=== PATIENT | female | born 1975 | race Caucasian/White ===

== ENCOUNTER 2016-10-21 20:12 | Emergency (ER) | payer OTHER ==
[~2016-10-21] VITALS: Ht 167.6 cm; Wt 74.4 kg
[~2016-10-21 20:12] MED LIST: AMITRIPTYLINE50 MG PO; AMOXICILLIN AND1 TA2 PO; BENTYL20 MG PO; CELEXA20 MG PO; CITALOPRAM HYDR20 MG PO; DARVOCET-N 1001 EACH PO; DIFLUCAN150 MG PO; GABAPENTIN100 M1 PO; HYDROCODONE-APA1 TA2 PO; IRON TABLETS325 MG OR; LABETALOL PO; LABETALOL200 MG OR; LEVOTHYROXIN0.125 M2 PO; Mobic7.5 MG PO; NICODERM C21 MG/24 H TD; NORCO 325 MG-51 TAB PO; NORVASC 10MG. T10 MG PO; PERCOCET 10 MG1 EACH PO; PERCOCET1 TA1 PO; PHENERGAN 25MG.25 M1 PO; PRENATAL PLUS1 TA1 OR; PRILOSEC40 MG PO; REGLAN 10 MG TA10 MG PO; RESTORIL 15MG C15 MG OR; TOPAMAX50 MG PO; TOPIRAMATE50 MG PO; VISTARIL25 M1 OR; XANAX0.25 MG PO; ZIAC 10 MG-6.251 TAB PO
--- NOTE | 2016-10-21 20:27 | Emergency Room Report ---
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 N Clinical Suspician of Infection? N Mental Status: 1 - Regular (Normal Baseline) Sepsis Risk:Low Sepsis Risk Have you (or family members/close friends) recently traveled outside the [place]? N If Yes, where/when: Have you had exposure to infectious disease within the past month? N TB? Other? Specify: Source patient, RN notes reviewed, family, old records Exam Limitations no limitations Comment wf with acute sommers with elevated bp w/o trauma or neuro sx Cardiac Chest Pain Chest pain indicative of cardiac No Timing/Duration this evening Severity moderate ALLERGIES Coded Allergies: metoclopramide (Severe, ESOPHAGEAL SPASMS (IV REGLAN ONLY) 10/03/16) meperidine (Intermediate, I-HIVES 10/03/16) morphine (Intermediate, I-RASH 10/03/16) Sulfa (Sulfonamide Antibiotics) (Mild, NA-NAUSEA/VOMITING 10/03/16) Home Medications Reported Medications Bisoprolol Fumarate/Hydrochl (Ziac 10 Mg-6.25 Mg) 1 TAB PO DAILY Topiramate 50 MG PO BID #60 History Medical History General CAD? No Angina: No OR: No Hypertension? Yes Hyperlipidemia? Yes CHF? No DVT? No PE? No COPD? No Asthma? No Anemia? No GERD? No Gastric ulcers? No GI Bleed? No Hernia? No Thyroid Problems? Yes Hypothyroidism? No CVA? No Seizures? No Diabetes? No Insulin Dependent: No Insulin Pump: No Home FSBS? No Renal Insuffiency? No End Stage Renal Disease? No UTI? No Stones? Yes BPH? No GB Disease: Yes Nephritic Syndrome? No Asplenia? No Hepatitis? No Sickle Cell Disease? No Arthritis? No Migraines? Yes Cataracts? No Glaucoma? No MRSA? No HIV? No TB? No Anxiety? No Depression? No Cancer? No More? 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 Respiratory denies cough, denies shortness of breath, denies stridor Cardiovascular denies chest pain, denies syncope Gastrointestinal denies abdominal pain, nausea Genitourinary denies: dysuria, frequency, hesitancy, hematuria. Musculoskeletal denies back pain, denies joint pain, denies joint swelling, denies neck pain Skin denies rash Psychiatric/Neurological headache, denies seizure Physical Exam Vital Signs Vital Signs Date Time Temp Pulse Resp B/P Pulse O2 O2 Flow FiO2 Ox Delivery Rate 10/21 2340 16 10/21 2322 101 18 128/99 99 10/21 2256 98 18 160/97 99 10/219 10/217 117 18 168/104 99 10/215 112 18 168/104 99 10/21 2218 18 10/215 92 18 180/108 99 10/213 97 18 189/111 99 10/21 2140 10/210 98 18 192/110 99 10/215 10/21 110 18 180/106 99 10/21 2022 18 10/21 2015 98.7 140 18 216/111 99 - WBC >12,000 or <4,000 or 10% bands? 2 or more SIRS Criteria Met? B/P:128/99 MAP:146 Creatinine >2.0? UA output<0.5ml/kg/hr for 2 hrs? Platelet count >100,000? Lactate >2.0mmol/1? INR >1.2 or PTT > than 60 sec? Evidence of Organ Dysfunction? Provider documented clinical suspician of infection? N Sepsis Criteria Count: 1 Sepsis Risk: General Appearance no apparent distress Eye Exam - bilateral eye PERRL, bilateral eye EOMI Ear, Nose, Throat normal ENT inspection Neck supple Respiratory Status No: respiratory distress. 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 No Results/Orders Current Medication Orders Sig/Matthew Start time Last Medication Dose Route Stop Time Status Admin Hydromorphone HCl 1 MG ONCE ONE 10/215 r 10/21 IV 10/21 2345 2340 Promethazine HCl 12.5 MG ONCE ONE 10/21 2345 AC 10/21 IV 10/21 2346 2339 Sodium Chloride 25 ML ONCE ONE 10/215 AC IV 10/21 2359 Promethazine HCl 0 .STK-MED ONE 10/21 2337 DC .ROUTE Ketorolac 30 MG ONCE ONE 10/21 2300 DC 10/21 Tromethamine IV 10/21 230 224 Ketorolac 0 .STK-MED ONE 10/21 2246 DC Tromethamine .ROUTE Clonidine HCl 0.1 MG ONCE ONE 10/21 2214 DC 10/21 PO 10/21 2215 221 Lorazepam 0.5 MG ONCE ONE 10/21 2214 DC 10/21 IV 10/21 2215 221 Clonidine HCl 0 .STK-MED ONE 10/21 2209 DC .ROUTE Lorazepam 0 .STK-MED ONE 10/21 2209 DC .ROUTE Promethazine HCl 0 .STK-MED ONE 10/21 2131 DC .ROUTE Hydromorphone HCl 0 .STK-MED ONE 10/21 2130 DCr .ROUTE Hydromorphone HCl 1 MG ONCE ONE 10/21 2129 DCr 10/21 IV 10/21 Promethazine HCl 12.5 MG ONCE ONE 10/21 2129 DC 10/21 IV 10/21 Sodium Chloride 25 ML ONCE ONE 10/21 2129 DC 10/21 IV 10/21 Hydromorphone HCl 1 MG ONCE ONE 10/21 2114 DCr 10/21 IV 10/21 Clonidine HCl 0.1 MG ONCE ONE 10/21 2029 DC 10/21 PO 10/21 Clonidine HCl 0 .STK-MED ONE 10/21 2025 DC .ROUTE Promethazine HCl 0 .STK-MED ONE 10/21 2020 DC .ROUTE Hydromorphone HCl 0 .STK-MED ONE 10/21 2019 DCr .ROUTE Hydromorphone HCl 1 MG ONCE ONE 10/21 2014 DCr 10/21 IV 10/21 Promethazine HCl 12.5 MG ONCE ONE 10/21 2014 DC 10/21 IV 10/21 Sodium Chloride 25 ML ONCE ONE 10/21 2014 DC 10/21 IV 10/21 Orders Procedure Date/time Status DIET-NOTHING BY MOUTH 10/[address] HEAD W/O CONTRAST 10/[address] SCAN REQ 10/21 2126 Complete XRAY/CT/US XRAY/CT/US CT head CT interpretation by discussed w/radiologist Time results known: 2207 CT Results normal/NAD Departure Departure Time of Disposition 2334 Disposition DC Home or Self Care(routine) Clinical Impression Primary Impression: Hypertensive emergency Secondary Impressions: Headache Qualifiers: Headache type: unspecified Headache chronicity pattern: acute headache Intractability: intractable Qualified Code: R51 - Headache Condition STABLE Referrals Roberta BARRETT,Tristian Ramirez (Family) Patient Instructions DI for Headache Additional Instructions fluids and see pcp for follow up Discharge Counseling Counseled pt/family regarding diagnosis, test results, medications/RX, follow up needs Prescriptions Current Visit Scripts Amlodipine Besylate (Norvasc) 5 MG PO DAILY #30 TAB ED Critical Care Critical Care No at 1924
[2016-10-21] MEDS ORDERED: NORVASC 5MG. TAB5 MG PO (23:43)
[2016-10-21 23:46] VITALS: BP 128/99
--- NOTE | 2016-10-22 08:44 | RADIOLOGY REPORT PS360 ---
CT HEAD W/O CONTRAST HISTORY: HEADACHE, ELEVATED BP ORDERING PHYSICIAN: Wyatt Granados MD PATIENT AGE: 41 years COMPARISON: None TECHNIQUE: Axial images obtained without contrast. Brain and bone windows reviewed. FINDINGS: No midline shift, mass effect, intracranial hemorrhage, hydrocephalus, or extra-axial fluid collection is evident. There are few nonspecific areas of decreased attenuation within the white matter for which MRI may be of further value. The most apparent of these regions is in the left parietal lobe subcortical area The calvarium has an unremarkable appearance. No mastoid effusion. The visualized paranasal sinuses are unremarkable. IMPRESSION: 1. No acute intracranial bleed. 2. No midline shift. 3. Nonspecific decreased attenuation within the white matter. MRI may be of further value.
[2016-12-23] MEDS ORDERED: METOPROLOL SUCC50 M1 PO (13:32)
== END 2016-10-21 23:51 | disposition home or self-care (01) ==
LOC: ER 20:12
DX: I10 Essential (primary) hypertension (principal); R51 Headache; Z72.0 Tobacco use

== ENCOUNTER 2017-01-24 00:27 | Emergency (ER) | payer OTHER ==
[~2017-01-24] VITALS: Ht 167.6 cm; Wt 68.9 kg
[~2017-01-24 00:27] MED LIST changes: +METOPROLOL SUCC50 M1 PO; +NORVASC 5MG. TAB5 MG PO
--- NOTE | 2017-01-24 01:10 | Emergency Room Report ---
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 N Clinical Suspician of Infection? N Mental Status: 1 - Regular (Normal Baseline) Sepsis Risk:Possible Sepsis Risk Have you (or family members/close friends) recently traveled outside the [place]? N If Yes, where/when: Have you had exposure to infectious disease within the past month? N TB? Other? Specify: Source patient, RN notes reviewed, family, old records Exam Limitations no limitations Comment pt with viral illness over the last few days and this has triggered headache - pt with similiar sommers in past Cardiac Chest Pain Chest pain indicative of cardiac No Timing/Duration this evening Severity moderate ALLERGIES Coded Allergies: Sulfa (Sulfonamide Antibiotics) (01/24/17) meperidine (From DEMEROL) (01/24/17) metoclopramide (From REGLAN) (01/24/17) morphine (01/24/17) Home Medications Active Scripts Amlodipine Besylate (Norvasc) 5 MG PO DAILY #30 TAB Prov: 10/21/16 Reported Medications Topiramate 50 MG PO DAILY #60 TAB Metoprolol Succinate Xl (Metoprolol ER 50MG) 50 MG PO DAILY History Medical History General CAD? No Angina: No NC: No Hypertension? Yes Hyperlipidemia? Yes CHF? No DVT? No PE? No COPD? No Asthma? No Anemia? No GERD? No Gastric ulcers? No GI Bleed? No Hernia? No Thyroid Problems? Yes Hypothyroidism? No CVA? No Seizures? No Diabetes? No Insulin Dependent: No Insulin Pump: No Home FSBS? No Renal Insuffiency? No End Stage Renal Disease? No UTI? No Stones? Yes BPH? No GB Disease: Yes Nephritic Syndrome? No Asplenia? No Hepatitis? No Sickle Cell Disease? No Arthritis? No Migraines? Yes Cataracts? No Glaucoma? No MRSA? No HIV? No TB? No Anxiety? No Depression? No Cancer? No More? 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 Respiratory see HPI, cough, denies shortness of breath, denies wheezing Cardiovascular denies chest pain, denies palpitations, denies syncope Gastrointestinal denies abdominal pain, denies diarrhea, denies vomiting Genitourinary denies: dysuria, frequency, hesitancy, hematuria. Musculoskeletal denies back pain, denies joint pain, denies joint swelling, denies neck pain Skin denies rash Psychiatric/Neurological see HPI, headache, denies seizure Physical Exam Vital Signs Vital Signs Date Time Temp Pulse Resp B/P Pulse O2 O2 Flow FiO2 Ox Delivery Rate 01/24 0253 98.3 105 20 165/108 98 01/24 0225 105 20 165/108 98 01/24 0215 20 01/24 0153 109 20 167/100 98 01/24 0120 117 20 178/113 98 01/24 0103 20 01/24 0038 98.3 127 20 162/114 98 - WBC >12,000 or <4,000 or 10% bands? 2 or more SIRS Criteria Met? B/P:165/108 MAP:130 Creatinine >2.0? UA output<0.5ml/kg/hr for 2 hrs? Platelet count >100,000? Lactate >2.0mmol/1? INR >1.2 or PTT > than 60 sec? Evidence of Organ Dysfunction? Provider documented clinical suspician of infection? N Sepsis Criteria Count: 2 Sepsis Risk: Possible Sepsis Risk General Appearance no apparent distress Eye Exam - bilateral eye PERRL, bilateral eye EOMI Ear, Nose, Throat normal ENT inspection Neck supple Respiratory Status No: respiratory distress. 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 No Results/Orders Current Medication Orders Sig/Matthew Start time Last Medication Dose Route Stop Time Status Admin Hydromorphone HCl 1 MG ONCE ONE 01/24 0300 r IV 01/24 0301 Promethazine HCl 12.5 MG ONCE ONE 01/24 0300 AC IV 01/24 0301 Sodium Chloride 25 ML ONCE ONE 01/24 0300 AC IV 01/24 0314 Promethazine HCl 0 .STK-MED ONE 01/24 0253 DC .ROUTE Hydromorphone HCl 0 .STK-MED ONE 01/24 0252 DCr .ROUTE Promethazine HCl 0 .STK-MED ONE 01/24 0210 DC .ROUTE Sodium Chloride 25 ML .STK-MED ONE 01/24 0210 DC IV Hydromorphone HCl 1 MG ONCE ONE 01/24 0200 DCr 01/24 IV 01/24 0201 0215 Promethazine HCl 12.5 MG ONCE ONE 01/24 0200 DC 01/24 IV 01/24 0201 0213 Sodium Chloride 25 ML ONCE ONE 01/24 0200 DC 01/24 IV 01/24 0214 0214 Sodium Chloride 10 ML PRN PRN 01/24 0115 AC IV 01/25 0105 Promethazine HCl 0 .STK-MED ONE 01/24 0056 DC .ROUTE Sodium Chloride 1,000 ML .STK-MED ONE 01/24 0056 DC IV Hydromorphone HCl 0 .STK-MED ONE 01/24 0055 DCr .ROUTE Sodium Chloride 25 ML .STK-MED ONE 01/24 0055 DC IV Hydromorphone HCl 1 MG ONCE ONE 01/24 0045 DCr 01/24 IV 01/24 0046 0103 Promethazine HCl 12.5 MG ONCE ONE 01/24 0045 DC 01/24 IV 01/24 0046 0101 Sodium Chloride 1,000 ML .Q1H1M 01/24 0045 DC 01/24 IV 01/24 0145 0102 Sodium Chloride 10 ML PRN PRN 01/24 0045 AC IV 01/25 0044 Sodium Chloride 25 ML ONCE ONE 01/24 0045 DC 01/24 IV 01/24 0059 0102 Orders Procedure Date/time Status IV SALINE LOCK 01/24 105 Active Departure Departure Time of Disposition 0252 Disposition DC Home or Self Care(routine) Clinical Impression Primary Impression: Headache Qualifiers: Headache type: unspecified Headache chronicity pattern: acute headache Intractability: intractable Qualified Code: R51 - Headache Secondary Impressions: Hypertension Qualifiers: Hypertension type: unspecified secondary hypertension Qualified Code: I15.9 - Secondary hypertension, unspecified Condition STABLE Referrals Roberta BARRETT,Tristian Ramirez (Family) Patient Instructions DI for Headache Additional Instructions use meds and see pcp for follow up Discharge Counseling Counseled pt/family regarding diagnosis, follow up needs ED Critical Care Critical Care No at 0256
[2017-01-24 03:00] VITALS: BP 165/109
--- OUTSIDE RECORDS SUMMARY | 2017-01-25 21:37 | External Medical Summary Rpt ---
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 BL # ET 03 93 [place] 00 02 03 2 30 7 RI 87 HARP Ac OM 60 -1 -0 .0 TE 06 RP ti ET 35 5- 6- 00 71 EL ve HARP 43 20 20 AI ZI 82 11 11 D GE NE 1 PH RA AR LD 25 MA R CY MG 03 TA 93 BL 8 ET # 03 93 LA 00 01 02 3 90 30 RI 86 HARP Ac BE 17 -2 -2 .0 TE 83 RP ti TA 24 8- 4- 00 87 EL ve LO 36 20 20 AI L 56 11 11 D GE HC 0 PH RA L AR LD 20 MA R 0 CY MG 03 TA 93 BL 8 ET # 03 93 AC 00 02 02 12 3 RI 87 RU Ac ET 40 -1 -1 .0 TE 11 SH ti AM 60 7- 7- 00 08 ve IN 48 20 20 AI NE OP 40 11 11 D IL HE 1 PH C N- AR CO MA D CY #3 03 TA 93 BL 8 ET # 03 93 [place] 00 02 02 2 30 7 RI 87 HARP Ac OM 60 -1 -1 .0 TE 06 RP ti ET 35 5- 5- 00 71 EL ve HARP 43 20 20 AI ZI 82 11 11 D GE NE 1 PH RA AR LD 25 MA R CY MG 03 TA 93 BL 8 ET # 03 93 LA 00 01 01 3 90 30 RI 86 HARP Ac BE 17 -2 -2 .0 TE 83 RP ti TA 24 8- 8- 00 87 EL ve LO 36 20 20 AI L 56 11 11 D GE HC 0 PH RA L AR LD 20 MA R 0 CY MG 03 TA 93 BL 8 ET # 03 93 TE 67 01 01 30 30 RI 86 HARP Ac MA 87 -2 -2 .0 TE 72 RP ti ZE 70 0- 0- 00 71 EL ve PA 14 20 20 AI M 60 11 11 D GE 15 1 PH RA AR LD MG MA R CY CA PS 03 UL 93 E 8 # 03 93 ON 63 12 01 1 12 30 RI 86 HARP Ac DA 30 -2 -2 .0 TE 37 RP ti NS 40 4- 0- 00 25 EL ve ET 45 20 20 AI RO 83 10 11 D GE N 0 PH RA HC AR LD L MA R 4 CY MG 03 TA 93 BL 8 ET # 03 93 LA 00 01 01 30 10 RI 86 HARP Ac BE 17 -1 -1 .0 TE 64 RP ti TA 24 4- 4- 00 27 EL ve LO 36 20 20 AI L 56 11 11 D GE HC 0 PH RA L AR LD 20 MA R 0 CY MG 03 TA 93 BL 8 ET # 03 93 [place] 00 01 01 20 5 RI 86 WE Ac OM 60 -1 -1 .0 TE 62 HR ti ET 35 3- 3- 00 35 MA ve HARP 43 20 20 AI N ZI 82 11 11 D II NE 1 PH I AR WI 25 MA LL CY IA MG M 03 E TA 93 BL 8 ET # 03 93 ZA 13 12 01 5 30 30 RI 86 HARP Ac TE 81 -0 -0 .0 TE 07 RP ti AN 10 2- 5- 00 29 EL ve -P 58 20 20 AI N 19 10 11 D GE TA 0 PH RA BL AR LD ET MA R CY 03 93 8 # 03 93 ON 62 12 12 1 12 30 RI 86 HARP Ac DA 75 -2 -2 .0 TE 37 RP ti NS 60 4- 4- 00 25 EL ve ET 13 20 20 AI RO 00 10 10 D GE N 1 PH RA HC AR LD L MA R 4 CY MG 03 TA 93 BL 8 ET # 03 93 CA 00 08 12 5 [address] Ac RV 09 -1 -1 .0 TE 58 EP ti ED 37 6- 3- 00 37 HE ve IL 29 20 20 AI NS OL 60 10 10 D 1 PH DO 25 AR N MA R MG CY TA 03 BL 93 ET 8 # 03 93 ZA 13 12 12 5 30 30 RI 86 HARP Ac TE 81 -0 -0 .0 TE 07 RP ti AN 10 2- 2- 00 29 EL ve -P 58 20 20 AI N 19 10 10 D GE TA 0 PH RA BL AR LD ET MA R CY 03 93 8 # 03 93 FE 00 12 12 5 90 90 RI 86 HARP Ac RR 67 -0 -0 .0 TE 07 RP ti OU 70 2- 2- 00 27 EL ve S 07 20 20 AI GLASS 00 10 10 D GE LF 1 PH RA AT AR LD E MA R 32 CY 5 MG 03 93 TA 8 BL # ET 03 93 00 11 11 12 4 RI 85 RU Ac 60 -2 -2 .0 TE 91 SH ti 33 2- 2- 00 45 ve 88 20 20 AI NE 42 10 10 D IL 1 PH C AR MA CY 03 93 8 # 03 93 CA 00 08 11 5 [address] Ac RV 09 -1 -1 .0 TE 58 EP ti ED 37 6- 6- 00 37 HE ve IL 29 20 20 AI NS OL 60 10 10 D 1 PH DO 25 AR N MA R MG CY TA 03 BL 93 ET 8 # 03 93 CA 00 08 10 5 [address] Ac RV 09 -1 -1 .0 TE 58 EP ti ED 37 6- 7- 00 37 HE ve IL 29 20 20 AI NS OL 60 10 10 D 1 PH DO 25 AR N MA R MG CY TA 03 BL 93 ET 8 # 03 93 CA 00 08 09 5 [address] Ac RV 09 -1 -1 .0 TE 58 EP ti ED 37 6- 2- 00 37 HE ve IL 29 20 20 AI NS OL 60 10 10 D 1 PH DO 25 AR N MA R MG CY TA 03 BL 93 ET 8 # 03 93 CA 00 08 08 5 [address] Ac RV 09 -1 -1 .0 TE 58 EP ti ED 37 6- 6- 00 37 HE ve IL 29 20 20 AI NS OL 60 10 10 D 1 PH DO 25 AR N MA R MG CY TA 03 BL 93 ET 8 # 03 93 CA 00 07 07 3 [address] Ac RV 09 -3 -3 .0 TE 37 EP ti ED 37 0- 0- 00 22 HE ve IL 29 20 20 AI NS OL 50 10 10 D 1 PH DO 12 AR N .5 MA R CY MG 03 TA 93 BL 8 ET # 03 93 AL 00 06 07 2 [address] [place] 60 -0 -2 .0 TE 73 EP ti AZ 32 9- 5- 00 64 HE ve OL 12 20 20 AI NS AM 82 10 10 D 1 PH DO 0. AR N 5 MA R MG CY TA 03 BL 93 ET 8 # 03 93 ER 00 02 07 5 28 28 RI 83 CA Ac RI 55 -2 -1 .0 TE 45 MP ti N 50 4- 9- 00 85 BE ve 0. 34 20 20 AI LL 35 45 10 10 D 8 PH BE MG AR RR MA Y TA CY A BL ET 03 93 8 # 03 93 CA 00 04 07 2 60 30 WA 70 BE Ac RV 37 -2 -0 .0 L- 68 SS ti ED 83 7- 4- 00 MA 31 ON ve IL 63 20 20 RT 2 OL [address] 1 PH EP 12 AR HE .5 MA N CY A MG # TA 10 BL 05 ET 91 AL 00 06 07 2 [address] Ac [place] 60 -0 -0 .0 TE 73 EP ti AZ 32 9- 4- 00 64 HE ve OL 12 20 20 AI NS AM 82 10 10 D 1 PH DO 0. AR N 5 MA R MG CY TA 03 BL 93 ET 8 # 03 93 ANTONIO 52 02 06 5 28 28 RI 83 CA Ac LI 54 -2 -1 .0 TE 45 MP ti VE 40 4- 6- 00 85 BE ve TT 89 20 20 AI LL E 22 10 10 D TA 8 PH BE BL AR RR ET MA Y CY A 03 93 8 # 03 93 AL 59 06 06 2 [address] [place] 76 -0 -0 .0 TE 73 EP ti AZ 23 9- 9- 00 64 HE ve OL 72 20 20 AI NS AM 00 10 10 D 1 PH DO 0. AR N 5 MA R MG CY TA 03 BL 93 ET 8 # 03 93 CA 00 04 06 2 60 30 WA 70 BE Ac RV 37 -2 -0 .0 L- 68 SS ti ED 83 7 8 00 MA 31 ON ve [place] 63 20 20 RT 2 OL [address] 1 PH EP 12 AR HE .5 MA N CY A MG # TA 10 BL 05 ET 91 IB 53 02 05 1 40 10 RI 83 CA Ac UP 74 -0 -3 .0 TE 59 MP ti RO 60 2- 1 00 88 BE ve FE 46 20 20 AI LL N 60 10 10 D 80 5 PH BE 0 AR RR MG MA Y CY A TA BL 03 ET 93 8 # 03 93 ZO 00 12 05 1 30 30 RI 81 HARP Ac LP 09 -0 -3 .0 TE 10 RP ti ID 30 84 EL ve EM 07 20 20 AI 40 09 10 D GE TA 1 PH RA RT AR LD RA MA R TE CY 10 03 93 MG 8 # TA 03 BL 93 ET ANTONIO 52 02 05 5 28 28 RI 83 CA Ac LI 54 -2 -1 .0 TE 45 MP ti VE 40 4 8- 00 85 BE ve TT 89 20 20 AI LL E 22 10 10 D TA 8 PH BE BL AR RR ET MA Y CY A 03 93 8 # 03 93 Vital Signs 09-26-2013 21:53 Name Value Interpretat Reference Comment ion Range BP 70 mm[Hg] Diastolic BP Systolic 140 mm[Hg] Heart 72 /min Rate/Pulse O2% 98 % Respiratory 18 /min Rate 09-26-2013 21:17 Name Value Interpretat Reference Comment ion Range BP 63 mm[Hg] Diastolic BP Systolic 113 mm[Hg] Heart 108 /min Rate/Pulse O2% 97 % Respiratory 20 /min Rate 05-21-2013 22:44 Name Value Interpretat Reference Comment ion Range Body 98.1 [degF] Temperature BP 94 mm[Hg] Diastolic BP Systolic 159 mm[Hg] Heart 83 /min Rate/Pulse O2% 97 % Respiratory 17 /min Rate 05-21-2013 22:42 Name Value Interpretat Reference Comment ion Range Body 98.1 [degF] Temperature BP 94 mm[Hg] Diastolic BP Systolic 159 mm[Hg] Heart 83 /min Rate/Pulse O2% 97 % Respiratory 17 /min Rate 01-04-2013 22:23 Name Value Interpretat Reference Comment ion Range Body 98.0 [degF] Temperature BP 98 mm[Hg] Diastolic BP Systolic 157 mm[Hg] Heart 91 /min Rate/Pulse O2% 99 % Respiratory 20 /min Rate Procedures Procedure DOS Code Location Performer Comment THER 24893 [facility] NJX IV INC INC PUSH SINGLE/1S T SBST/DRUG THERAPEUT 37860 [facility] IC [facility] INJECTION [place] [address] [facility] INFUSION 6 [facility] THERAPY/P INC INC ROPHYLAXI S /DX 1ST TO 1 HR THER 21478 [facility] PROP[facility]/DX [facility] NJX EA INC INC SEQL IV PUSH SBST/DRUG FAC UNCLASSIF J3490 [facility] IED DRUGS 6 [facility] INC INC FLUOR 60427 BETYDALE GARCIA NEEDLE/CA 6 MD [place], TH PSC SPINE/PAR ASPINAL DX/THER ADDON NJX 03464 BETY GARCIA DX/THER 6 MD [place], SBST PSC EPIDURAL/ SUBARACH LUMBAR/SA CRAL LOCM Q9966 [facility] 200-299 6 [facility] MG/ML INC INC IODINE CONCENTRA TION PER ML INJECTION J1040 [facility] METHYLPRE INC INC DNISOLONE ACETATE 80 MG CUL 79018 [facility] PRSMPTV 6 [facility] PTHGNC INC INC ORGANISMS SCR DNS CHART URINE 36584 [facility] TEST INC INC VISUAL COLOR CMPRSN METHS EGD 77271 [facility] TRANSORAL 6 [facility] BIOPSY INC INC SINGLE/MU LTIPLE COLONOSCO 03802 [place] L[place] JIMENEZ PY 6 MEDICAL JUANCARLOS W/BIOPSY SERV SINGLE/MU FOUNDATIO LTIPLE N ANES 57325 [facility] 6 ANESTH SHE INTESTINE OF THE BLUE ENDOSCOPY DISTAL DUODENUM DRUG TST G0477 [facility] PRESUMP;C 6 [facility] PBL BEING INC INC READ DC OPT OBV ONLY THERAPEUT 73003 [facility] IC 6 [facility] INJECTION INC INC IV PUSH EACH NEW DRUG THER 85339 [facility] PROPH/DX 6 [facility] NJX IV INC INC PUSH SINGLE/1S T SBST/DRUG THER 25485 [facility] PROPH/DX 6 [facility] NJX EA INC INC SEQL IV PUSH SBST/DRUG FAC REMOVAL 41347 REUBEN TALBERT IMPLANTAB 6 [place] [address] [facility] INFUSION 6 [facility] THERAPY/P INC INC ROPHYLAXI S /DX 1ST TO 1 HR THER 16762 [facility] PROPH/DX 6 [facility] NJX EA INC INC SEQL IV PUSH SBST/DRUG FAC UNCLASSIF J3490 [facility] IED DRUGS 6 [facility] INC INC MRI 93496 [facility] SPINAL 6 [facility] CANAL INC INC LUMBAR W/O CONTRAST MATERIAL 3D 97830 [facility] RENDERING 6 [facility] W/INTERP INC INC & POSTPROCE SS SUPERVISI ON GONADOTRO 79954 [facility] PIN 6 [facility] CHORIONIC INC INC QUALITATI VE BLOOD 72684 [facility] COUNT 6 [facility] COMPLETE INC INC AUTO&AUTO DIFRNTL WBC C-REACTIV 75644 [facility] E PROTEIN 6 [facility] INC INC COLLECTIO 00268 [facility] N VENOUS 6 [facility] BLOOD INC INC VENIPUNCT URE COMPREHEN 68348 [facility] SIVE 6 [facility] [address] [facility] INFUSION 6 [facility] THER INC INC PROPH ADDL SEQUENT[place] L [place] 1 [place] [address] [facility] INFUSION 6 [facility] THERAPY/P INC INC ROPHYLAXI S /DX 1ST TO 1 HR UNCLASSIF J3490 [facility] IED DRUGS 6 [facility] INC INC THER 77367 [facility] PROPH/DX 6 [facility] NJX EA INC INC SEQL [place] SB[place] [address] [facility] INFUSION 6 [facility] THERAPY/P INC INC ROPHYLAXI S /DX 1ST TO 1 HR THERAPEUT 66647 [facility] IC 6 [facility] INJECTION INC INC IV PUSH EACH NEW DRUG URINE 82343 [facility] TEST INC INC VISUAL COLOR CMPRSN METHS THERAPEUT 37248 [facility] IC 6 [facility] INJECTION INC INC IV PUSH EACH NEW DRUG THER 77774 [facility] PROPH/DX 6 [facility] NJX IV INC INC PUSH SINGLE/1S T SBST/DRUG THER 03149 [facility] PROPH/DX 6 [facility] NJX EA INC INC SEQL IV PUSH SBST/DRUG FAC UNCLASSIF J3490 [facility] IED DRUGS 6 [facility] INC INC COLPOSCOP 47388 REUBEN TALBERT Y CERVIX 6 GALI BARRETT JANET BX CERVIX & ENDOCRV CURRETAGE URINLS 30358 REUBEN TALBERT DIP 5 GALI BARRETT JANET STICK/TAB LET REAGNT NON-AUTO MICRSCPY IADNA 66503 REUBEN Hernandez NEISSERIA 5 GALI TALBERT MD GONORRHOE AE DIRECT PROBE TQ IADNA 58558 BIO BIO NEISSERIA 5 REFERNCE REFERNCE 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 GONORRHOE IES IES AE AMPLIFIED PROBE TQ IADNA NOS 46660 BIO BIO 5 REFERNCE REFERNCE AMPLIFIED 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 PROBE TQ IES IES EACH ORGANISM CULTURE 66979 REUBEN TALBERT CHLAMYDIA 5 GALI BARRETT JANET ANY SOURCE CYTP 29208 BIO BIO CERVICAL/ 5 REFERNCE REFERNCE VAGINAL 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 REQ IES IES INTERP PHYSICIAN CYTP C/V 73201 BIO BIO AUTO THIN 5 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 SCR IES IES MNL RESCR PHYS IADNA 20157 BIO BIO TRICHOMON 5 REFERNCE REFERNCE 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 VAGINALIS IES IES AMPLIFIED PROBE TECH IADNA 98984 BIO BIO CHLAMYDIA 5 REFERNCE REFERNCE 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 TRACHOMAT IES IES IS AMPLIFIED PROBE TQ IADNA 07594 BIO BIO HUMAN 5 REFERNCE REFERNCE PAPILLOMA 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 VIRUS IES IES HIGH-RISK TYPES LOCM Q9966 [facility] 200-299 [facility] MG/ML INC INC IODINE CONCENTRA TION PER ML INJECTION J1040 [facility] METHYLPRE INC INC DNISOLONE ACETATE 80 MG NJX 97351 BETY ABURTO RADHA DX/THER 5 MD [place], SBST PSC EPIDURAL/ SUBARACH LUMBAR/SA CRAL INJECTION J1100 [facility] FRYMAN 5 PHYSICIAN EUG DEXAMETHO S GROUP SONE SODIUM PHOSPHATE 1 MG INJECTION J0696 [facility] 5 PHYSICIAN EUG CEFTRIAXO S GROUP NE SODIUM PER 250 MG THERAPEUT 32811 [facility] IC 5 PHYSICIAN EUG PROPHYLAC S GROUP TIC/[place] INJECTION SUBQ/[place] [address] [facility] INFUSION 5 [facility] THERAPY/P INC INC ROPHYLAXI S /DX 1ST TO 1 HR THERAPEUT 94263 [facility] IC 5 [facility] INJECTION INC INC IV PUSH EACH NEW DRUG IAADI 91527 [facility] F[facility] INFLUENZA 5 [facility] B VIRUS INC INC IAADI 52446 [facility] F[facility] INFFLUENZ 5 [facility] A A VIRUS INC INC THER 54499 [facility] PROPH/DX 5 [facility] NJX EA INC INC SEQL IV PUSH SBST/DRUG FAC SMR PRIM 80076 REUBEN TALBERT SRC WET 5 [place] [address] [facility] INFUSION 5 [facility] THERAPY INC INC PROPHYLAX IS/DX EA HOUR BLOOD 19392 [facility] COUNT 5 [facility] COMPLETE INC INC AUTO&AUTO DIFRNTL WBC INJECTION J2405 [facility] ONDANSETR INC INC ON HCL PER 1 MG THERAPEUT 72915 [facility] F[facility] IC 5 [facility] INJECTION [place] [address] [facility] INFUSION 5 [facility] THERAPY/P INC INC ROPHYLAXI S /DX 1ST TO 1 [place] [address] [facility] LIPASE 5 [facility] INC INC COMPREHEN 53778 [facility] F[facility] SIVE 5 [facility] METABOLIC INC INC PANEL COLLECTIO 38364 [facility] N VENOUS 5 [facility] BLOOD INC INC VENIPUNCT URE LOCM Q9966 [facility] 200-299 5 [facility] MG/ML INC INC IODINE CONCENTRA TION PER ML INJECTION J1040 [facility] 5 [facility] METHYLPRE INC INC DNISOLONE ACETATE 80 MG NJX 54688 BETY ABURTO RADHA DX/THER 5 MD [place], SBST PSC EPIDURAL/ SUBARACH LUMBAR/SA CRAL FLUOR 95005 BETYDALE ABURTO RADHA NEEDLE/CA 5 MD [place], TH PSC SPINE/PAR ASPINAL DX/[place] [address] [place] [facility]OMEN & 5 MEDICAL [facility] PELVIS IMAGING W/O ASS CONTRAST MATERIAL IADNA-DNA 13484 [facility] /RNA GI 5 [facility] PTHGN INC INC MULTIPLEX PROBE TQ 12-25 THERAPEUT 79512 [facility] IC 5 [facility] INJECTION INC INC IV PUSH EACH NEW DRUG RADEX 65825 [place] ABDOMEN 5 [facility] [place] COMPL IMAGING W/DCBTS&/ ASS ERC VIEWS SBSQ 90328 [facility] OBSERVATI 5 PHYSICIAN PHYSICIAN ON S GROUP S GROUP CARE/DAY 15 MINUTES OBSERVATI 88199 [facility] ON CARE 5 PHYSICIAN MARTHA DISCHARGE S GROUP MANAGEMEN T SBSQ 72968 [facility] PHYSICIAN MARTHA ON S GROUP CARE/DAY 15 MINUTES INITIAL 34624 [facility] OBSERVATI 5 PHYSICIAN MARTHA ON S GROUP CARE/DAY [address] [place] [address] [place] ABDOMEN & 5 MEDICAL SAMMI PELVIS IMAGING W/O ASS CONTRAST MATERIAL NJX 71118 MANJINDER BUX BUX ANJ DX/THER 5 MD TERRYT EPIDURAL/ SUBARACH LUMBAR/SA CRAL LOCM Q9966 [facility] 200-299 5 [facility] MG/ML INC INC IODINE CONCENTRA TION PER ML INJECTION J1040 [facility] 5 [facility] METHYLPRE INC INC DNISOLONE ACETATE 80 MG INJECTION J1030 [facility] 5 [facility] METHYLPRE INC INC DNISOLONE ACETATE 40 MG RADEX 61033 [place] ABDOMEN 1 5 [facility] IM[facility] ANTEROPOS ASS TERIOR VIEW THERAPEUT 67896 [facility] IC 5 PHYSICIAN MARTHA PROPHYLAC S GROUP TIC/DX INJECTION SUBQ/IM INJECTION J0696 [facility] 5 PHYSICIAN MARTHA CEFTRIAXO S GROUP NE SODIUM PER 250 MG INJECTION J1100 [facility] 5 PHYSICIAN MARTHA DEXAMETHO S GROUP SONE SODIUM PHOSPHATE 1 MG RADEX 91745 [place] ABDOMEN 1 5 MEDICAL SAM[facility] IMAGING ANTEROPOS ASS TERIOR VIEW CALCULUS 99340 [facility] XRAY 5 [facility] DIFFRACTI INC INC ON MRI 00850 [facility] SPINAL 5 MEDICAL SAMMI CANAL IMAGING LUMBAR ASS W/O CONTRAST MATERIAL RADEX 34710 [facility] [place] SCALF ZANE ABDOMEN 1 5 RADIOLOGY ANTEROPOS TERIOR VIEW ANES 02071 ANESTHESI JR. 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 SHOCK S PSC WAVE W/O WATER BATH ANES 39110 DAYANA HORNE TRANSURET 4 MEDICAL FRANCES HRAL SERVICES W/URETHRO CYSTOSCOP Y NOS CYSTO 78497 DAYANA RUST AND W/INSERT 4 [place] [address] [place] ABDOMEN & 4 MEDICAL SAMMI PELVIS IMAGING W/O ASS CONTRAST MATERIAL APPL 68308 [facility] MODALITY 4 [facility] 1/> AREAS INC INC ELEC STIMJ UNATTENDE D THERAPEUT 40086 [facility] F[facility] IC PX 1/> 4 [facility] AREAS INC INC EACH 15 MIN EXERCISES APPLICATI 14875 [facility] ON 4 [facility] MODALITY INC INC 1/> AREAS HOT/COLD PACKS APPL 98683 [facility] MODALITY 4 [facility] 1/> AREAS INC INC ULTRASOUN D EA 15 MIN APPL 53152 [facility] MODALITY 4 [facility] 1/> AREAS INC INC ULTRASOUN D EA 15 MIN APPLICATI 51029 [facility] ON 4 [facility] MODALITY INC INC 1/> AREAS HOT/COLD PACKS THERAPEUT 93720 [facility] IC PX 1/> 4 [facility] AREAS INC INC EACH 15 MIN EXERCISES APPL 33876 [facility] MODALITY 4 [facility] 1/> AREAS INC INC ELEC STIMJ UNATTENDE D APPL 85064 [facility] MODALITY 4 [facility] 1/> AREAS INC INC ELEC STIMJ UNATTENDE D THERAPEUT 72508 [facility] IC PX 1/> 4 [facility] AREAS INC INC EACH 15 MIN EXERCISES APPL 84099 [facility] MODALITY 4 [facility] 1/> AREAS INC INC ULTRASOUN D EA 15 MIN APPLICATI 54000 [facility] ON 4 [facility] MODALITY INC INC 1/> AREAS HOT/COLD PACKS PHYSICAL 61501 [facility] THERAPY 4 [facility] EVALUATIO INC INC N DIAGNOSTI G0206 [facility] C 4 [facility] MAMMOGRAP INC INC HY INCL CAD WHEN PERF; UNI US BREAST 516[address] [facility] 4 [facility] TIME IMAGING W/IMAGE ASS DOCUMENTA TION SCREENING G0202 [place] [facility] MAMMOGRAP IMAGING HY YANNA ASS INCL CAD WHEN PERFORMD COMPUTER- 98218 [place] AIDED 4 [facility] [place] DETECTION IMAGING ASS SCREENING MAMMOGRAP HY BASIC 25276 [facility] METABOLIC 4 [facility] PANEL INC INC CALCIUM TOTAL ECG 95100 [facility] ROUTINE 4 [facility] W/LEAST P 12 LDS I&R ONLY URINE 34514 [facility] 4 [facility] TEST INC INC VISUAL COLOR CMPRSN METHS INCISION 58080 [facility] SCHULSTAD & REMOVAL 4 PHYSICIAN CAM FOREIGN S GROUP BODY SUBQ TISS SIMPLE BLOOD 86458 [facility] COUNT 4 [facility] COMPLETE INC INC AUTO&AUTO DIFRNTL WBC CULTURE 63529 REUBEN TALBERT CHLAMYDIA 4 GALI GONZALES ANY SOURCE IADNA 01413 REUBEN TALBERT NEISSERIA 4 GALI GONZALES GONORRHOE AE DIRECT PROBE TQ URINLS 38832 REUB[facility] TALBERT DIP 4 GALI GONZALES STICK/TAB LET REAGNT NON-AUTO MICRSCPY HGB 24127 REUBEN TALBERT QUANTITAT 4 GALI GONZALES KATE TRANSCUTA NEOUS RADEX 17091 [place] RITIKA FOOT 4 MEDICAL SAMMI COMPLETE IMAGING MINIMUM 3 ASS VIEWS PHYSICAL 75527 [facility] THERAPY 4 [facility] EVALU[facility] INC N COMPRE 05307 [facility] AUDIOMETR 4 STORM STORM Y THRESHOLD EVAL SP RECOGNIJ TYMPANOME 68267 [facility] TRY 4 STORM STORM DISTORT 96999 [facility] PRODUCT 4 STORM STORM EVOKED [place] [address] [facility] THYROXINE 4 [facility] TOTAL INC INC RADEX 98716 RITIKA RITIKA SPINE 4 SAMMI SAMMI LUMBOSACR AL 2/3 VIEWS RADEX 21871 [facility] SPINE 4 [facility] LUMBOSACR INC INC AL MINIMUM 4 VIEWS COMPREHEN 17601 [facility] SIVE 4 [facility] METABOLIC INC INC PANEL HEMOGLOBI 81832 [facility] F[facility] N 4 [facility] GLYCOSYLA INC INC JOCELINE A1C LIPID 05390 [facility] PANEL 4 [place] [address] [facility] THYROID 4 [facility] STIMULATI INC INC NG HORMONE TSH BLOOD 17573 [facility] COUNT 4 [facility] COMPLETE INC INC AUTO&[place] [address] [facility] FREE 4 [facility] [place] [address] [facility] THYROID 4 [facility] STIMULATI INC INC NG HORMONE TSH LIPID 61678 [facility] PANEL 3 [facility] INC INC 25 27007 [facility] HYDROXY 3 [facility] INCLUDES INC INC FRACTIONS IF PERFORMED CYANOCOBA 03114 [facility] ADELA 3 [facility] VITAMIN INC INC B-12 CULTURE 14537 [facility] CHLAMYDIA 3 JANET JANET ANY SOURCE IADNA 15748 [facility] NEISSERIA 3 JANET JANET GONORRHOE AE DIRECT PROBE TQ URINLS 46275 [facility] DIP 3 JANET JANET STICK/TAB LET REAGNT NON-AUTO MICRSCPY HGB 72966 [facility] QUANTITAT 3 JANET JANET KATE TRANSCUTA NEOUS URNLS DIP 42707 [facility] 3 PHYSICIAN PHYSICIAN STICK/TAB S GROUP S GROUP LET RGNT NON-AUTO W/O MICRSCP RADEX 94536 [facility] FINGR 3 [facility] MINIMUM 2 INC INC VIEWS SUSCEPTIB 25701 [facility] LTY STDY 3 [facility] ANTIMICRB INC INC IAL MICRO/AGA R DILUTJ INCISION 81576 ARASH ANTOINE & 3 DON DON DRAINAGE ABSCESS SIMPLE/SI NGLE INJECTION J0690 ARASH ANTOINE 3 DON DON CEFAZOLIN SODIUM 500 MG CUL BACT 34819 [facility] XCPT 3 [facility] URINE INC INC BLOOD/STO OL AEROBIC ISOL CUL BACT 49254 [facility] AEROBIC 3 [facility] ADDL INC INC METHS DEFINITIV E EA ISOL THERAPEUT 84110 [facility] IC 3 [facility] PROPHYLAC INC INC TIC/DX INJECTION SUBQ/IM INSJ 88531 [facility] NON-BIODE 3 JANET JANET GRADABLE DRUG DELIVERY IMPLANT ETONOGEST J7307 [facility] HAR[facility] REL 3 JANET JANET CNTRACPT IMPL SYS INCL IMPL & SPL URINE 86341 HARPEL HARPEL 3 JANET JANET TEST [place] [address] TAP[place] TAPIA SURG 3 ZANE ZANE PATHOLOGY GROSS&MARTHA ROSCOPIC EXAM INJECTION J2405 [facility] ONDANSETR INC INC ON HCL PER 1 MG BLOOD 43360 [facility] COUNT 3 [facility] HEMOGLOBI INC INC N ANESTHESI 56650 [facility] JESSIKA A 3 ANESTH INTRAPERI OF THE TONEAL BLUE LOWER ABD W/LAPS NOS DILATION 97103 HARPEL HARPEL & 3 JANET JANET CURETTAGE DX&/THER NONOBSTET ZANE LAPS 14609 [facility] HARPE[facility] FULG/EXC 3 JANET JANET OVARY VISCERA/P ERITONEAL SURFACE BLOOD 55855 [facility] COUNT 3 [facility] HEMATOCRI INC INC T URNLS DIP 04793 [facility] STICK/TAB INC INC LET REAGENT AUTO MICROSCOP Y BLOOD 94126 [facility] 3 [facility] COMPLETE INC INC AUTO&AUTO DIFRNTL WBC URINE 03439 [facility] TEST INC [place] [address] [facility] TRANSVAGI 3 [facility] NAL INC INC INJECTION J1080 ANTOINE ANTOINE 3 DON DON TESTOSTER ONE CYPIONATE 1 CC 200 MG REMOVAL 67706 HAR[facility] HARPEL INTRAUTER 3 JANET JANET INE DEVICE IUD INJECTION J2675 HARPEL HARPEL 3 JANET JANET PROGESTER ONE PER 50 MG MICROSOMA 42535 [facility] L 2 [facility] [place] [address] [facility] F[facility] FREE 2 [facility] [place] [address] [facility] THYROID 2 [facility] STIMULATI INC INC NG HORMONE TSH INJECTION J0690 ARASH MAHARAJHENS 2 KIRAN BECK CEFAZOLIN SODIUM 500 MG US SOFT 14813 [facility] TISSUE 2 [facility] HEAD & INC [place] [address] [facility] F[facility] THYROXINE 2 [facility] TOTAL INC INC MICROSOMA 41088 [facility] L 2 [facility] ANTIBODIE INC INC S EACH CALCIUM 62653 [facility] F[facility] IONIZED 2 [facility] INC INC THYROID 32575 [facility] HORM 2 [facility] UPTK/THYR INC [place] [address] [facility] THYROID 2 [facility] STIMULATI [place] [address] [facility] F[facility] FREE 2 [facility] THYROXINE INC INC CYANOCOBA 47198 [facility] ADELA 2 [facility] VITAMIN INC INC B-12 CALCIUM 25089 [facility] F[facility] TOTAL 2 [facility] INC INC GONADOTRO 64900 [facility] F[facility] PIN 2 [facility] [place] [address] [facility] INFUSION 2 [facility] THERAPY/P INC INC ROPHYLAXI S /DX 1ST TO 1 HR THERAPEUT 50645 [facility] IC 2 [facility] INJECTION INC [place] [address] [facility] INFUSION 2 [facility] THERAPY/P INC INC ROPHYLAXI S /DX 1ST TO 1 HR SPECIAL 48251 BLANCO VAN BLANCO VAN STAIN 2 GROUP 1 MICROORGA NISMS I&R SPCL STN 83963 BELLA JAMIL 2 I&R 2 EXCPT MICROORG/ ENZYME/IM CYT EGD 47156 GAITAN NEELAM GAITAN NEELAM TRANSORAL 2 BIOPSY SINGLE/MU LTIPLE URINE 93932 [facility] TEST INC INC [place] [address] BELLA JAMIL SURG 2 PATHOLOGY GROSS&[place] [address] [facility] INFUSION 2 [facility] THERAPY INC INC PROPHYLAX IS/DX EA HOUR SMR PRIM 21919 HAR[facility] HARPEL SRC WET 2 JANET JANET MOUNT NFCT AGT HGB 42529 HAR[facility] HARPEL QUANTITAT 2 JANET JANET KATE TRANSCUTA NEOUS IADNA 85446 HAR[facility] HARPEL NEISSERIA 2 JANET JANET GONORRHOE AE DIRECT PROBE TQ URINLS 95106 [facility] HARPEL DIP 2 JANET JANET STICK/TAB LET REAGNT NON-AUTO MICRSCPY CULTURE 08053 HAR[facility] HARPEL CHLAMYDIA 2 [place] [address] [facility] THYROID 2 [facility] STIMULATI INC INC NG HORMONE TSH SMR PRIM 57752 HAR[facility] HARPEL SRC WET 2 JANET JANET MOUNT NFCT AGT CONTROL 4995 [facility] OF 1 [facility] [place] [address] [facility] INFUSION 1 [facility] THERAPY INC INC PROPHYLAX IS/DX EA HOUR ANOSCOPY 88637 [facility] CONTROL 1 [facility] BLEEDING INC INC ANESTHESI 52143 COMMUNITY MEYER JESSIKA A 1 ANESTH ANORECTAL OF THE BLUE PROCEDURE BLOOD 78427 [facility] COUNT 1 [facility] COMPLETE INC INC AUTO&AUTO DIFRNTL WBC GONADOTRO 17430 [facility] PIN 1 [facility] CHORIONIC INC INC QUALITATI VE CYTP C/V 36887 BIO BIO AUTO THIN 1 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 SCR IES IES MNL RESCR PHYS INTRAUTER J7300 [facility] ACEVE[facility] INE 1 [facility] CONTRACEP ASHLEY TIVE URINE 89089 [facility] ACEV[facility] 1 [facility] TEST CLINIC OF VISUAL ASHLEY COLOR CMPRSN METHS INSERTION 23919 [facility] 1 [facility] INTRAUTER CLINIC OF INE ASHLEY DEVICE IUD EXC 82267 [facility] THROMBOSE 1 [facility] D INC INC HEMORRHOI D XTRNL OTH LOCAL 4939 [facility] 1 [facility] EXCISION/ INC INC DESTRUC LESION/TI SSUE ANUS EXCISION 4946 [facility] OF 1 [facility] HEMORRHOI INC INC DS LEVEL III 14481 [facility] PAT SURG 1 [facility] GROSS&MARTHA ROSCOPIC EXAM DSTRJ 93227 C BRENDAN ADKINS LESION 1 JED BYRD ANUS SMPL PSC ELTRDSICC ATION HEMORRHOI 06822 C BRENDAN ADKINS DECTOMY 1 JED BYRD NTRNL & PSC XTRNL 1 [place]UMN/[place] [address] [facility] INFUSION 1 [facility] THERAPY INC INC PROPHYLAX IS/DX EA HOUR ANESTHESI 79511 COMMUNITY FORTUNATO A 1 ANESTH ROWENA ANORECTAL OF THE BLUE PROCEDURE BLOOD 33747 [facility] COUNT 1 [facility] COMPLETE INC INC AUTO&AUTO DIFRNTL WBC GONADOTRO 46202 [facility] PIN 1 [facility] CHORIONIC INC INC [facility] 96504 [facility] DISCHARGE 1 PHYSICIAN JANET DAY GROUP MANAGEMEN PCC T 30 MIN/< CIRCUMCIS 01091 [facility] 1 CARE CESAR W/CLAMP/O ASSOCIATE TH DEV S W/BLOCK SBSQ 21608 [facility] 1 PHYSICIAN JANET CARE/DAY GROUP 35 PCC MINUTES SUBQ 72577 [facility] 1 CARE CESAR CARE PER ASSOCIATE DAY E/M S NORMAL SUBQ 42601 [facility] 1 CARE CESAR CARE PER ASSOCIATE DAY E/M S NORMAL SBSQ 38204 [facility] 1 PHYSICIAN JANET CARE/DAY GROUP 35 PCC MINUTES 1ST 29713 [facility]/STEFANO 1 CARE [facility] S CARE PER DAY NML NB OTHER 6829 [facility] EXCISION 1 [facility] OR INC INC DESTRUCTI ON LESION UTERUS LOW 741 [facility] CERVICAL 1 [facility] INC INC SECTION ANESTHESI 01412 [facility] MEYER JESSIKA A 1 ANESTH OF THE DELIVERY BLUE ONLY 99352 [facility] DELIVERY 1 PHYSICIAN JANET ONLY GROUP PCC INITIAL 13297 [facility] 1 PHYSICIAN JANET CARE/DAY GROUP 70 PCC MINUTES OBSERVATI 30237 [facility] ON/INPATI 1 PHYSICIAN JANET ENT [facility] PCC CARE 55 MINUTES OBSERVATI 45484 [facility] ON/INPATI 1 PHYSICIAN [facility] PCC CARE 55 MINUTES 35701 [facility] BIOPHYSIC 1 PHYSICIAN JANET AL GROUP PROFILE PCC NON-STRES S TESTING PARTICLE 98225 [facility] AGGLUTINA 1 [facility] TION INC INC SCREEN EACH ANTIBODY 49614 [facility] NONSTRESS 1 PHYSICIAN JANET TEST GROUP PCC DOPPLER 18663 [facility] ECHO 1 [facility] HIGH RISK PULS O SPECTRAL F/U/REPEA T 89352 [facility] BIOPHYSIC 1 [facility] AL HIGH RISK PROFILE O W/O NON-STRES S TESTING 26775 [facility] NONSTRESS 1 PHYSICIAN JANET TEST GROUP PCC BASIC 07394 [facility] METABOLIC 1 [facility] PANEL INC INC CALCIUM TOTAL 49890 [facility] F[facility] NONSTRESS 1 [facility] TEST INC INC BLOOD 71567 [facility] COUNT 1 [facility] COMPLETE INC INC AUTO&AUTO DIFRNTL WBC FIBRIN 25893 TER[facility] AV[facility]AON DGRADJ 1 [facility] PRODUCTS INC INC D-DIMER QUAL/SEMI WENDY FIBRINOGE 76489 TER[facility] TERRIE N 1 [facility] ACTIVITY INC INC PROTHROMB 30142 [facility] F[facility] IN TIME 1 [facility] [place] [address] [facility] MAGNESIUM 1 [facility] INC INC URNLS DIP 82202 [facility] TERRIE 1 [facility] STICK/TAB INC INC LET REAGENT AUTO MICROSCOP Y TRANSFERA 38110 [facility] SE 1 [facility] ASPARTATE INC INC AMINO AST SGOT TRANSFERA 82713 TER[facility]E SE 1 [facility] ALANINE INC INC AMINO ALT SGPT ANTIBODY 84286 [facility] SCREEN 1 [facility] RBC EACH INC INC SERUM TECHNIQUE BLOOD 35257 [facility] TYPING 1 [facility] [place] [address] [facility] INFUSION 1 [facility] THERAPY/P INC INC ROPHYLAXI S /DX 1ST TO 1 HR THERAPEUT 05353 [facility] IC 1 [facility] INJECTION INC [place] [address] [facility] BLOOD/URI 1 [facility] C ACID INC INC BLOOD 41123 [facility] TYPING 1 [facility] SEROLOGIC INC INC RH (D) THROMBOPL 53064 [facility] ASTIN 1 [facility] TIME INC INC PARTIAL PLASMA/WH OLE BLOOD DOPPLER 85574 [facility] YESSICA ECHO 1 [facility] HIGH RISK PULS O SPECTRAL F/U/REPEA T 73697 [facility] BIOPHYSIC 1 [facility] AL HIGH RISK PROFILE O W/O NON-STRES S TESTING URNLS DIP 34074 [facility] JUAN 1 [facility] STICK/TAB HIGH RISK LET RGNT O NON-AUTO W/O MICRSCP 51576 [facility] NONSTRESS 1 PHYSICIAN JANET TEST GROUP PCC SMR PRIM 20859 [facility] SRC WET 1 PHYSICIAN JANET MOUNT GROUP NFCT AGT PCC 00169 [facility] BIOPHYSIC 1 [facility] [place] AL HIGH RISK PROFILE O W/O NON-STRES S TESTING US PREG 21231 [facility] UTERUS 1 [facility] [place] AFTER 1ST HIGH RISK TRIMEST O 1/ GESTATION 96550 [facility] NONSTRESS 1 PHYSICIAN JANET TEST GROUP [facility] [place] PREG 55921 [facility] UTERUS 1 [place] [place] AFTER 1ST HIGH RISK TRIMEST O 1/ GESTATION 84726 [facility] 1 [facility] HIGH RISK PROFILE O W/O NON-STRES S TESTING COLLECTIO 54859 [facility] N VENOUS 1 [facility] BLOOD VENIPUNCT URE URNLS DIP 68288 [facility] 1 [facility] STICK/TAB HIGH RISK LET RGNT O NON-AUTO W/O MICRSCP DOPPLER 72022 [facility] ECHO 1 [facility] HIGH RISK PULS O SPECTRAL F/U/REPEA T 73076 [facility] BIOPHYSIC 1 [facility] HIGH RISK PROFILE O W/O NON-STRES S TESTING CREATININ 97490 [facility] E 1 [facility] CLEARANCE PROTEIN 14248 [facility] TOTAL 1 [facility] XCPT REFRACTOM ETRY URINE THERAPEUT 50611 [facility] IC 1 [facility] PROPHYLAC INC INC TIC/DX INJECTION SUBQ/IM THERAPEUT 66264 [facility] IC 1 [facility] PROPHYLAC INC INC TIC/DX INJECTION SUBQ/IM 38117 [facility] NONSTRESS 1 PHYSICIAN JANET TEST GROUP [facility] US PREG 01260 [facility] UTERUS 1 [facility] W/DETAIL HIGH RISK O ANNALISA 1ST GESTATION 07302 [facility] BIOPHYSIC 1 PHYSICIAN JANET AL GROUP PROFILE PCC NON-STRES S TESTING URNLS DIP 20776 [facility] STICK/TAB HIGH RISK LET RGNT O NON-AUTO W/O MICRSCP 67701 [facility] BIOPHYSIC 1 [facility] AL HIGH RISK PROFILE O W/O NON-STRES S TESTING ECHO 54883 [facility] 1 [facility] CARDIOVAS HIGH RISK C W/WO O M-MODE RECORDING 37612 [facility] 1 PHYSICIAN JANET AL GROUP PROFILE PCC NON-STRES S TESTING 68828 [facility] BI[facility] 1 PHYSICIAN JANET AL GROUP PROFILE PCC NON-STRES S TESTING TRANSFERA 51390 [facility] SE 1 [facility] ALANINE INC INC AMINO ALT SGPT TRANSFERA 38755 [facility] SE 1 [facility] ASPARTATE INC INC AMINO AST SGOT BLOOD 59810 [facility] COUNT 1 [facility] COMPLETE INC INC AUTO&AUTO DIFRNTL WBC BASIC 52808 [facility] METABOLIC 1 [facility] PANEL INC INC CALCIUM TOTAL PROTHROMB 63858 [facility] IN TIME 1 [facility] INC INC FIBRINOGE 05941 [facility] F[facility] N 1 [facility] ACTIVITY INC INC FIBRIN 21061 [facility] DGRADJ 1 [facility] PRODUCTS INC INC D-DIMER QUAL/[place] [address] [facility] BLOOD/URI 1 [facility] C ACID INC INC THROMBOPL 85501 [facility] ASTIN 1 [facility] TIME INC INC PARTIAL PLASMA/WH OLE BLOOD SMR PRIM 49052 [facility] 1 PHYSICIAN JANET MOUNT GROUP NFCT AGT PCC US PREG 41087 [facility] UTERUS 1 PHYSICIAN JANET AFTER 1ST GROUP TRIMEST PCC / GESTATION HEPATIC 12719 [facility] F[facility] FUNCTION 1 [facility] PANEL INC INC FIBRIN 80184 [facility] DGRADJ 1 [facility] PRODUCTS INC INC D-DIMER QUAL/SEMI WENDY FIBRINOGE 68582 [facility] F[facility] N 1 [facility] ACTIVITY INC INC PROTHROMB 07829 [facility] AV[facility]AON IN TIME 1 [facility] INC INC GLUCOSE 21990 [facility] POST 1 [facility] GLUCOSE INC INC DOSE BASIC 57278 [facility] METABOLIC 1 [facility] PANEL INC INC CALCIUM TOTAL BLOOD 96974 [facility] COUNT 1 [facility] COMPLETE INC INC AUTO&AUTO DIFRNTL WBC THROMBOPL 20366 [facility] ASTIN 1 [facility] TIME INC INC PARTIAL PLASMA/[place] [address] [facility] BLOOD/URI 1 [facility] C ACID INC INC CULTURE 22846 [facility] F[facility] BACTERIAL 1 [facility] INC INC QUANTTATI VE COLONY COUNT URINE 45362 [facility] NONSTRESS 1 [facility] TEST INC INC URNLS DIP 70730 [facility]CON 1 [facility] STICK/TAB INC INC LET REAGENT AUTO MICROSCOP Y FTL 81508 [facility] F[facility] FIBRONECT 1 [facility] IN INC INC CERVICOVA G SECRETION S SEMI-WENDY 06175 [facility] BIOPHYSIC 1 [facility] AL INC INC PROFILE W/O NON-STRES S TESTING US PREG 11942 [facility] UTERUS 1 PHYSICIAN JANET AFTER 1ST GROUP TRIMEST PCC GESTATION ALPHA-FET 95243 [facility] OPROTEIN 1 [facility] [place] [address] [facility] ESTRIOL 1 [facility] INC INC GONADOTRO 39068 [facility] PIN 1 [facility] CHORIONIC INC INC QUANTITAT KATE PROTHROMB 33986 [facility] IN TIME 1 [facility] INC INC FIBRINOGE 82174 [facility] N 1 [facility] ACTIVITY INC INC BLOOD 08459 [facility] COUNT 1 [facility] COMPLETE INC INC AUTO&AUTO DIFRNTL WBC URNLS DIP 25931 [facility] 1 [facility] STICK/TAB INC [place] [address] [facility] INFUSION 1 [facility] THERAPY/P INC INC ROPHYLAXI S /DX 1ST TO [place] [address] [facility] AMYLASE 1 [facility] INC INC COMPREHEN 81258 [facility] SIVE 1 [facility] [address] [facility] LIPASE 1 [facility] INC INC THROMBOPL 00097 [facility] ASTIN 1 [facility] TIME INC INC PARTIAL PLASMA/WH OLE BLOOD IADNA 48801 BIO BIO HERPES 1 REFERNCE REFERNCE 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 VIRUS IES IES AMPLIFIED PROBE TQ BLOOD 29799 [facility] COUNT 1 [facility] COMPLETE INC INC AUTO&AUTO DIFRNTL WBC COMPREHEN 93041 [facility] SIVE 1 [facility] [place] [address] [facility] INFUSION 1 [facility] THERAPY/P INC INC ROPHYLAXI S /DX 1ST TO 1 HR URNLS DIP 75383 [facility] 1 [facility] STICK/TAB INC INC LET REAGENT AUTO MICROSCOP Y URINALYSI 56991 [facility] S 1 PHYSICIAN JANET MICROSCOP GROUP IC ONLY PCC URINLS 07361 [facility] DIP 1 PHYSICIAN JANET STICK/TAB GROUP LET PCC REAGNT NON-AUTO MICRSCPY CULTURE 20888 [facility] BACTERIAL 1 [facility] INC INC QUANTTATI VE COLONY COUNT URINE [place] PREG 03290 [facility] UTERUS 0 PHYSICIAN JANET REAL TIME GROUP W/IMAGE PCC DCMTN TRANSVAG IADNA NOS 87872 BIO BIO 0 REFERNCE REFERNCE AMPLIFIED 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 PROBE TQ IES IES EACH ORGANISM IADNA 25427 BIO BIO NEISSERIA 0 REFERNCE REFERNCE 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 GONORRHOE IES IES AE AMPLIFIED PROBE TQ CYTP C/V 81362 BIO BIO AUTO THIN 0 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 SCR IES IES MNL RESCR PHYS IADNA 23266 BIO BIO CHLAMYDIA 0 REFERNCE REFERNCE 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 TRACHOMAT IES IES IS AMPLIFIED PROBE TQ URINE 71792 [facility] 0 PHYSICIAN JANET TEST GROUP VISUAL PCC COLOR CMPRSN METHS GONADOTRO 89333 [facility] PIN 0 [facility] CHORIONIC INC INC QUANTITAT KATE IAADIADOO 63467 ARASH ANTOINE, 0 DON R DON R STREPTOCO CCUS GROUP A SUSCEPTIB 10578 [facility] LTY STDY 0 [facility] ANTIMICRB INC INC IAL MICRO/AGA R DILUTJ URINE 51457 [facility] 0 [facility] TEST INC INC VISUAL COLOR CMPRSN METHS URNLS DIP 62204 [facility] 0 [facility] STICK/TAB INC INC LET REAGENT AUTO MICROSCOP Y CT LUMBAR 79536 [facility] SPINE 0 [facility] W/O INC INC CONTRAST MATERIAL CULTURE 38466 [facility] BACTERIAL 0 [facility] INC INC QUANTTATI VE COLONY COUNT URINE CULTURE 74508 [facility] BCT 0 [facility] ISOL&PRSM INC INC PTV ID ISOLATE EA URINE 3D 39252 ILAN YOST, RENDERING 0 MEDICAL RONIT IMAGING W/INTERP& ASSOCIATE POSTPROC S DIFF WORK STATION URNLS DIP 95384 [facility] 0 [facility] STICK/TAB INC INC LET REAGENT AUTO MICROSCOP Y INITIAL 67018 [facility] BES[facility], OBSERVATI 0 [facility] CARE/DAY MED 30 MINUTES COMPREHEN 91585 [facility] SIVE 0 [facility] METABOLIC INC INC PANEL [facility] G0378 [facility] OBSERVATI 0 [facility] ON INC INC SERVICE PER HOUR URINE 57755 [facility]CON 0 [facility] TEST INC INC VISUAL COLOR CMPRSN METHS BLOOD 18693 [facility] COUNT 0 [facility] COMPLETE INC INC AUTO&AUTO DIFRNTL WBC CUL BACT 74186 [facility] STOOL 0 [facility] ISOL SALMONELL A&SHIGELL CUL BACT 86009 [facility] STOOL 0 [facility] ADDL PATHOGENS &[place] [address] [facility] CLOSTRIDI 0 [facility] [place] [address] [facility] SHIGA-LIK 0 [facility] [employer] E [employer]XIN [facility]ING HOLDING Encounters Encounter Start End Date Code Location Performer Type Date EMERGENCY 96630 EVIE GRANADOS [address] [facility] T VISIT HIGH/URGE NT SEVERITY EMERGENCY 90284 [facility] 6 6 [facility] DEPARTMEN [facility] T VISIT MODERATE [facility]VERITY HOSPITAL [facility] - 6 6 [facility] OUTPATIEN [facility] T HOSPITAL [facility] - 6 6 [facility] T HOSP[facility] - 6 6 [facility] OUTPATIEN [facility] T EMERGENCY 82563 [facility] 6 6 [facility] DEPARTMEN [facility] T VISIT [facility]IGH/URGE NT SEVERITY HOSPITAL [facility] - 6 6 [facility] OUTPATIEN [facility] TER[facility]E - 6 6 [facility] OUTPATIEN [facility] T OFFICE 34180 TER[facility] FELIZPATIEN 6 6 [facility] T VISIT INC 10 MINUTES HOSPITAL [facility] - 6 6 [facility] OUTPATIEN [facility] T OFFICE 33630 [facility]Y CABALL[facility] 6 6 MD [place], T [facility]IT [facility] 15 MINUT[facility] - 6 6 [facility] T EMERGENCY 82759 [facility] 6 [facility] T VISIT MODERATE [facility]VERITY EMERGENCY 01026 EVIE GRANADOS [address] [facility] T VISIT HIGH/URGE NT SEVERITY HOSPITAL TERRIE - 6 6 [facility] OUTPATIEN [facility] EMERGENCY 34298 TERRIE 6 [address] [facility] T VISIT [facility]IGH/URGE NT SEVERITY HOSPITAL TERRIE - 6 6 [facility] TERRIE - 6 6 [facility] EMERGENCY 78096 TERRIE 6 [address] [facility] T VISIT [facility]IGH/URGE NT SEVERITY HOSPITAL [facility] - 6 6 [facility] OUT[facility] OFFICE 31221 [facility] 6 MD [place], T VISIT [facility] 15 MINUTES OFFICE 57517 REUBEN TALBERT OUTPATIEN 6 6 GALI GONZALES T VISIT 25 MINUTES EMERGENCY 75935 EVIE GRANADOS 6 6 PHYSICIAN [facility] T VISIT HIGH/URGE NT SEVERITY OFFICE 35490 [facility] LEONEL OUTPATIEN 6 6 PHYSICIAN [facility] T VISIT S GROUP 10 MINUTES HOSPITAL TERRIE - 6 6 [facility] HOSPITAL TERRIE - 6 6 [facility] OUTFORM[facility] EMERGENCY 88335 TERRIE 6 [address] [facility] T VISIT HIGH/URGE NT SEVERITY PERIODIC 22945 REUBEN TALBERT PREVENTIV 5 5 GALI GONZALES E MED EST PATIENT 18-39 YRS HOSPITAL TERRIE - 5 5 [facility] OFFICE 54357 [facility] SUSHMA FELIZPATIRON 5 5 PHYSICIAN [facility] T VISIT S GROUP 15 MINUTES EMERGENCY 10807 TERRIE 5 [address] [facility] T VISIT HIGH/URGE NT SEVERITY EMERGENCY 15329 EVIE GRANADOS DEPT 5 5 PHYSICIAN MARTHA VISIT S, [facility] HIGH SEVERITY& THREAT FUN [facility]OSPITAL [facility] - 5 5 [facility] T OFFICE 63933 REUBEN TALBERT OUTPATIEN 5 5 GALI BARRETT JANET T VISIT 15 MINUTES OFFICE 78100 [facility] OUTPATIEN 5 5 [facility] T VISIT INC 10 MINUTES [facility]PITAL [facility] - 5 5 [facility] OUT[facility] INC EMERGENCY 98632 EVIE EVANGELISTA JR 5 5 PHYSICIAN JAM DEPARTMEN S, [facility] T VISIT HIGH/URGE NT SEVERITY [facility] - 5 5 [facility] - 5 5 [facility] T OFFICE 08435 [facility] OUTPATIEN 5 5 [facility] T VISIT INC 10 MINUTES EMERGENCY 06380 EVIE GRANADOS 5 5 PHYSICIAN MARTHA DEPARTMEN S, [facility] T VISIT HIGH/URGE NT SEVERITY [facility] - 5 5 [facility]PAT[facility] - 5 5 [facility] OUTPAT[facility] INC EMERGENCY 49476 EVIE GRANADOS 5 5 PHYSICIAN MARTHA DEPARTMEN S, [facility] T VISIT HIGH/URGE NT SEVERITY EMERGENCY 87803 EVIE GRANADOS DEPT 5 5 PHYSICIAN MARTHA VISIT S, [facility] HIGH SEVERITY& THREAT [facility] TER[facility]E - 5 5 [facility]PATI[facility] INC T OFFICE 73775 [facility] OUTPATIEN 5 5 [facility] T VISIT INC 10 MINUTES [facility]PITAL [facility] - 5 5 [facility] INC T OFFICE 39563 MANJINDER [facility] OUTPATIEN 5 5 MD Matilde HUITRON 30 MINUTES [facility] - 5 5 [facility] INC T OFFICE 48353 [facility] OUTPATIEN 5 5 [facility] T VISIT INC 10 MINUTES [facility] - 5 5 [facility] OUTPATIEN INC T OFFICE 02397 [facility]ONEL OUTPATIEN 5 5 PHYSICIAN MARTHA T VISIT S GROUP 10 MINUTES [facility]PITAL [facility] - 5 5 [facility] OUTPATIEN INC T OFFICE 61163 [facility] LEONEL OUTPATIEN 5 5 PHYSICIAN MARTHA T VISIT S GROUP 10 MINUTES [facility]PITAL [facility] - 5 5 [facility] OUTPATIEN INC T OFFICE 84416 [facility] LEONEL OUTPATIEN 5 5 PHYSICIAN MARTHA T VISIT S GROUP 10 MINUTES OFFICE 65517 [facility] LEONEL OUTPATIEN 4 4 PHYSICIAN MARTHA T VISIT S [facility] 10 [facility] T OFFICE 15133 [facility] LEONEL OUTPATIEN 4 4 PHYSICIAN MARTHA T VISIT S GROUP 10 MINUTES [facility] - 4 4 [facility] INC PERIODIC 77651 REUBEN TALBERT PREVENTIV 4 4 GALI BARRETT JANET E MED EST PATIENT 18-39 YRS OFFICE 90882 [facility] SCHULSTAD OUTPATIEN 4 4 PHYSICIAN CAM T VISIT S GROUP 15 MINUTES [facility] - 4 4 [facility] - [facility] 4 [facility] OFFICE 57745 [facility] LEONEL OUTPATIEN 4 4 PHYSICIAN MARTHA T VISIT S GROUP 10 MINUTES EMERGENCY 08935 LEONEL GRANADOS 4 4 MARTHA MARTHA DEPARTMEN T VISIT HIGH/URGE NT SEVERITY EMERGENCY 52198 UNIVERSIT 4 4 Y [facility] T VISIT LOW/MODER SEVERITY HOSPITAL UNIVERSIT - 4 4 Y OUTPATIEN HOSPITAL T EMERGENCY 57976 [facility] I ALI I ALI DEPARTMEN T VISIT MODERATE SEVERITY OFFICE 07146 SAMAN SYKESIAR OUTPATIEN 4 4 FRA FRA T NEW 45 MINUTES OFFICE 04879 LEONEL GRANADOS OUTPATIEN 4 4 MARTHA MARTHA T VISIT 10 MINUTES EMERGENCY 37476 LEONEL GRANADOS 4 4 MARTHA MARTHA DEPARTMEN T VISIT HIGH/URGE NT SEVERITY OFFICE 31456 LEONEL GRANADOS OUTPATIEN 4 4 MARTHA MARTHA T VISIT 10 MINUTES [facility] - [facility] 4 [facility] - 4 4 [facility] Emergency RADHA Granados MD (ER) 3 20:53 3 21:55 [facility] TERRIE - 3 3 [facility] OFFICE 40789 THOMAS GUZMAN OUTPATIEN 3 3 ANT ANT T VISIT 15 MINUTES Emergency RADHA Granados MD (ER) 3 21:48 3 22:43 [facility] EMERGENCY 40423 LEONEL GRANADOS DEPT 3 3 MARTHA MARTHA VISIT HIGH SEVERITY& THREAT [facility]UNCJ PERIODIC 88618 [facility] PREVENTIV 3 3 JANET JANET E MED EST PATIENT 18-39 YRS OFFICE 38439 [facility] OUTPATIEN 3 3 PHYSICIAN T VISIT S GROUP 15 MINUTES HOSPITAL [facility] - 3 3 [facility] INC T [facility]OSPITAL [facility] - 3 3 [facility] INC T OFFICE 21938 ANTOINE ANTOINE OUTPATIEN 3 3 DON DON T VISIT 15 MINUTES OFFICE 37204 ANTOINE ANTOINE OUTPATIEN 3 3 DON DON T VISIT 15 MINUTES Emergency RADHA Granados MD (ER) 3 22:14 3 22:24 [facility] TERRIE - 3 3 [facility] INC T EMERGENCY 97168 TERRIE 3 3 [facility] DEPARTMEN [facility] T VISIT LOW/MODER SEVERITY EMERGENCY 21109 LEONEL GRANADOS 3 3 [facility] DEPARTMEN T VISIT HIGH/URGE NT SEVERITY HOSPITAL [facility] - 3 3 [facility]EN [facility] TERRIE - 3 3 [facility] OUTPATIEN INC T OFFICE 37327 [facility] OUTPATIEN 3 3 JANET JANET T VISIT 15 MINUTES OFFICE 60350 [facility] OUTPATIEN 3 3 JANET JANET T VISIT 15 MINUTES [facility]OSPITAL [facility] - 3 3 [facility] INC T OFFICE 43915 ANTOINE ANTOINE OUTPATIEN 3 3 DON DON T VISIT 25 MINUTES OFFICE 40211 ANTOINE ANTOINE OUTPATIEN 3 3 DON DON T VISIT 15 MINUTES OFFICE 36614 [facility] OUTPATIEN 2 2 STORM STORM T VISIT 15 MINUTES HOSPITAL [facility] - 2 2 [facility]EN [facility] OFFICE 35944 ANTOINE ANTOINE OUTPATIEN 2 2 DON DON T VISIT 15 MINUTES OFFICE 62350 [facility] OUTPATIEN 2 2 STORM STORM NEW 30 MINUTES HOSPITAL [facility] - 2 2 [facility] H[facility] - 2 2 [facility] H[facility]PITAL TERRIE - 2 2 [facility] EMERGENCY 50064 TER[facility]E 2 2 [facility] VISIT MODERATE SEVERITY EMERG[facility]Y 81569 [facility] III JESSIKA III JESSIKA VISIT HIGH SEVERITY& THREAT [facility] TER[facility]E - 2 2 [facility] TER[facility]E - 2 2 [facility] - 2 2 [facility] PERIODIC 32021 [facility] HARPE[facility] PREVENTIV 2 2 JANET JANET E MED EST PATIENT 18-39 YRS OFFICE 89014 [facility] OUTPATIEN 2 2 JANET JANET T VISIT 15 MINUTES OFFICE 05474 ANTOINE ANTOINE OUTPATIEN 2 2 DON DON T VISIT 15 MINUTES OFFICE 35893 [facility] OUTPATIEN 2 2 JANET JANET T VISIT 15 MINUTES OFFICE 53935 ANTOINE ANTOINE OUTPATIEN 2 2 DON DON T VISIT 15 MINUTES OFFICE 67711 ANTOINE ANTOINE OUTPATIEN 2 2 DON DON T VISIT 15 MINUTES HOSPITAL [facility] - 1 1 [facility] EMERGENCY 55999 DIPTI GRANADOS 1 1 EMERGENCY [facility] SERVICES T VISIT HIGH/URGE NT SEVERITY EMERGENCY 91057 TER[facility]E [address] [facility] T VISIT MODERATE SEVERITY HOSPITAL [place] - 1 1 [facility] EMERGENCY 38904 [place] 1 1 [facility] T VISIT MODERATE SEVERITY EMERGENCY 93757 TER[facility]E 1 [address] [facility] T VISIT MODERATE SEVERITY HOSPITAL [facility] - 1 1 [facility] EMERGENCY 16008 DIPTI GRANADOS 1 1 EMERGENCY [facility] SERVICES T VISIT HIGH/URGE NT SEVERITY OFFICE 53764 Carol ADKINS OUTPATIEN 1 1 JED [facility] VISIT PSC 10 MINUTES HOSPITAL [facility] - 1 1 [facility] T OFFICE 53059 Carol ADKINS OUTPATIEN 1 1 [facility] VISIT PSC 25 MINUTES HOSPITAL [facility] - 1 1 [facility] T OFFICE 10943 ARASH ANTOINE OUTPATIEN 1 1 DON DON T VISIT 25 MINUTES OFFICE 66039 [facility] PHYSICIAN JANET T VISIT GROUP 15 PCC MINUTES OFFICE 60273 [facility] 1 1 [facility] PATIENT 40 MIN OFFICE 96518 [facility] HARPEL OUTPATIEN 1 1 PHYSICIAN JANET T VISIT GROUP 15 PCC MINUTES HOSPITAL [facility] - 1 1 [facility]EN [facility] TER[facility]E - 1 1 [facility] T OFFICE 60237 [facility] HARPEL OUTPATIEN 1 1 PHYSICIAN JANET T VISIT GROUP 15 PCC MINUTES HOSPITAL [facility] - 1 1 [facility] INPATIENT INC OFFICE 15789 H [facility] OUTPATIEN 1 1 PHYSICIAN JANET T VISIT GROUP 15 PCC MINUTES OFFICE 26303 H [facility] OUTPATIEN 1 1 PHYSICIAN JANET T VISIT GROUP 15 PCC MINUTES [facility]OSPITAL [facility] - 1 1 [facility] T OFFICE 87508 H [facility] OUTPATIEN 1 1 PHYSICIAN JAENT T VISIT GROUP 15 PCC MINUTES OFFICE 03911 [facility] HARPEL OUTPATIEN 1 1 PHYSICIAN JANET T VISIT GROUP 15 PCC MINUTES HOSPITAL [facility] - 1 1 [facility] INC T OFFICE 86541 [facility] HARPEL OUTPATIEN 1 1 PHYSICIAN JANET T VISIT GROUP 15 PCC MINUTES OFFICE 25443 [facility] HARPEL OUTPATIEN 1 1 PHYSICIAN JANET T VISIT GROUP 15 PCC MINUTES HOSPITAL [facility] - 1 [facility] - 1 1 [facility] OUTPATIEN INC T OFFICE 07938 [facility]L OUTPATIEN 1 1 PHYSICIAN JANET T VISIT GROUP 15 PCC MINUTES [facility] [place] - [facility] 1 [facility] T OFFICE 60050 [facility] HARPEL OUTPATIEN 1 1 PHYSICIAN JANET T VISIT GROUP 15 PCC MINUTES OFFICE 39094 [facility] HARPEL OUTPATIEN 1 1 PHYSICIAN JANET T VISIT GROUP 15 PCC MINUTES OFFICE 67525 [facility] HARPEL OUTPATIEN 1 1 PHYSICIAN JANET T VISIT GROUP 15 PCC MINUTES [facility] [place] - [facility] 1 [facility] INC T OFFICE 77910 [facility] HAR[facility] OUTPATIEN 1 1 PHYSICIAN JANET T VISIT GROUP 15 PCC MINUTES OFFICE 90231 [facility] OUT[facility] 1 1 PHYSICIAN JANET T VISIT GROUP 15 PCC MINUTES [facility]PITAL [facility] - [facility] 1 [facility] T OFFICE 45584 H [facility] OUTPATIEN 1 1 PHYSICIAN JANET T VISIT GROUP 15 PCC MINUTES EMERGENCY 06977 [facility] 1 1 [facility] DEPARTMEN INC T VISIT MODERATE SEVERITY [facility] - 1 1 [facility] T EMERGENCY 90261 DIPTI COLON DEPT 1 1 EMERGENCY [facility] VISIT SERVICES HIGH SEVERITY& THREAT [facility] - 1 1 [facility] OUTPATIEN INC T OFFICE 09354 H [facility] OUTPATIEN 1 1 PHYSICIAN JANET T VISIT GROUP 15 PCC MINUTES [facility]OSPITAL [facility] - 1 1 [facility] OUTPATIEN INC T OFFICE 44392 H [facility] OUTPATIEN 1 1 PHYSICIAN JANET T VISIT GROUP 15 PCC MINUTES OFFICE 44180 [facility] OUTPATIEN 1 1 PHYSICIAN JANET T VISIT GROUP 15 PCC MINUTES [facility]PITAL [facility] - 1 1 [facility] T OFFICE 98649 H [facility] OUTPATIEN 1 1 PHYSICIAN JANET T VISIT GROUP 15 PCC MINUTES [facility]PITAL [facility] - 1 1 [facility] OUT[facility]EN INC T EMERGENCY 95831 DIPTI LLOYD DEPT 1 1 EMERGENCY VISIT SERVICES HIGH SEVERITY& THREAT FUNC EMERGENCY 78979 [facility] 1 1 [facility] DEPARTMEN INC T VISIT HIGH/URGE NT SEVERITY OFFICE 48295 [facility] OUTPATIEN 1 1 PHYSICIAN JANET T VISIT GROUP 15 PCC MINUTES OFFICE 30976 [facility] HARPEL OUTPATIEN 1 1 PHYSICIAN JANET T VISIT GROUP 15 PCC MINUTES EMERGENCY 17183 [facility] 1 1 [facility] DEPARTMEN INC T VISIT HIGH/URGE NT SEVERITY [facility]OSPITAL [facility] - 1 1 [facility] OUTPATIEN INC T OFFICE 31263 [facility] HARPEL OUTPATIEN 1 1 PHYSICIAN JANET T VISIT GROUP 15 PCC MINUTES HOSPITAL [facility] - 1 1 [facility] OUTPATIEN INC T OFFICE 06545 [facility] HAR[facility] OUTPATIEN 1 1 PHYSICIAN JANET T VISIT GROUP 15 PCC MINUTES OFFICE 64033 [facility] HAR[facility]L OUTPATIEN 0 0 PHYSICIAN JANET T VISIT GROUP 15 PCC MINUTES OFFICE 84676 [facility] HAR[facility] OUTPATIEN 0 0 PHYSICIAN JANET T VISIT GROUP 40 PCC MINUTES OFFICE 31574 [facility] OUTPATIEN 0 0 PHYSICIAN JANET T VISIT GROUP 15 PCC MINUTES [facility]PITAL [facility] - 0 0 [facility] OUTPATIEN INC T EMERGENCY 29151 DIPTI GRANADOS 0 0 EMERGENCY [facility] DEPARTMEN SERVICES T VISIT HIGH/URGE NT SEVERITY EMERGENCY 18878 [facility] 0 0 [facility] DEPARTMEN INC T VISIT LOW/MODER SEVERITY [facility]PITAL [facility] - 0 0 [facility] OUTPATIEN INC T OFFICE 17697 ARASH ANTOINE, OUTPATIEN 0 0 DON R DON R T VISIT 15 MINUTES OFFICE 96251 ARASH ANTOINE, OUTPATIEN 0 0 DON R DON R T VISIT 15 MINUTES HOSPITAL [facility] - 0 0 [facility] OUTPATIEN INC T EMERGENCY 03249 DARY WANG 0 0 EMERGENCY KYLE VISIT SERVICES O HIGH SEVERITY& ASSOCIATE THREAT S F[facility]J EMERGENCY 55345 [facility] 0 0 [facility] DEPARTMEN INC T VISIT LOW/MODER SEVERITY EMERGENCY 82936 [facility] 0 0 [facility] DEPARTMEN INC T VISIT HIGH/URGE NT SEVERITY [facility] - 0 0 [facility] OUTPATIEN INC T EMERGENCY 39510 DIPTI GRANADOS DEPT 0 0 EMERGENCY [facility] VISIT SERVICES HIGH SEVERITY& ASSOCIATE THREAT S [facility] TER[facility]E - 0 0 [facility] OUTPATIEN INC T EMERGENCY 23132 [facility] 0 0 [facility] INC T VISIT LOW/MODER SEVERITY EMERGENCY 80428 DIPTI GRANADOS, 0 0 EMERGENCY [facility] SERVICES T VISIT HIGH/URGE ASSOCIATE NT S SEVERITY EMERGENCY 45042 OB GOODE- 0 0 [facility] T VISIT MODERATE SEVERITY
--- OUTSIDE RECORDS SUMMARY | 2017-01-25 21:37 | External Medical Summary Rpt ---
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 INC INC EACH 15 MIN EXERCISES APPL 90300 TER[facility]E FALCON MODALITY 4 [facility] 1/> AREAS INC INC ELEC STIMJ UNATTENDE D APPL 04787 TER[facility] FALCON MODALITY 4 [facility] 1/> AREAS INC INC ELEC STIMJ UNATTENDE D THERAPEUT 23591 TERRIE FALCON IC PX 1/> 4 [facility] AREAS INC INC EACH 15 MIN EXERCISES APPL 89393 TER[facility]E FALCON MODALITY 4 [facility] 1/> AREAS INC INC ULTRASOUN D EA 15 MIN APPLICATI 78413 [facility]CON ON 4 [facility] MODALITY INC INC 1/> AREAS HOT/COLD PACKS PHYSICAL 36712 [facility] FALCON THERAPY 4 [facility] EVALUATIO INC INC N DIAGNOSTI G0206 [facility] F[facility]CON C 4 [facility] MAMMOGRAP INC INC HY INCL CAD WHEN PERF; UNI US BREAST 38743 [facility] 4 MEDICAL SAMMI TIME IMAGING W/IMAGE ASS DOCUMENTA TION SCREENING G0202 [place] HEIDI [facility] [place] MAMMOGRAP IMAGING HY YANNA ASS INCL CAD WHEN PERFORMD COMPUTER- 87700 [place] AIDED 4 [facility] [place] DETECTION IMAGING ASS SCREENING MAMMOGRAP HY BASIC 99500 TER[facility] FALCON METABOLIC 4 [facility] PANEL INC INC CALCIUM TOTAL ECG 39012 TERRIE HATHAWAY ROUTINE 4 [facility] W/LEAST P 12 LDS I&R ONLY URINE 63001 TER[facility]E FALCON 4 [facility] TEST INC INC VISUAL COLOR CMPRSN METHS INCISION 41873 [facility] SCHULSTAD & REMOVAL 4 PHYSICIAN CAM FOREIGN S GROUP BODY SUBQ TISS SIMPLE BLOOD 80592 TER[facility] FALCON COUNT 4 [facility] COMPLETE INC INC AUTO&AUTO DIFRNTL WBC CULTURE 67182 REUBEN TALBERT CHLAMYDIA 4 GALI GONZALES ANY SOURCE IADNA 96270 REUBEN TALBERT NEISSERIA 4 GALI GONZALES GONORRHOE AE DIRECT PROBE TQ URINLS 78774 REUBEN TALBERT DIP 4 GALI GONZALES STICK/TAB LET REAGNT NON-AUTO MICRSCPY HGB 81762 REUBEN TALBERT QUANTITAT 4 GALI GONZALES AKTE TRANSCUTA NEOUS RADEX 03459 [place] FOOT 4 MEDICAL SAMMI COMPLETE IMAGING MINIMUM 3 ASS VIEWS PHYSICAL 79320 TER[facility]E FALCON THERAPY 4 [facility] EVALUATIO INC INC N COMPRE 62589 COLEEN HORNE AUDIOMETR 4 STORM STORM Y THRESHOLD EVAL SP RECOGNIJ TYMPANOME 93570 [facility] TRY 4 STORM STORM DISTORT 67663 HORNE HORNE PRODUCT 4 STORM STORM EVOKED [place] [address] TER[facility]E FALCON THYROXINE 4 [facility] TOTAL INC INC RADEX 92228 RITIKA RITIKA SPINE 4 SAMMI SAMMI LUMBOSACR AL 2/3 VIEWS RADEX 35590 TER[facility] FALCON SPINE 4 [facility] LUMBOSACR INC INC AL MINIMUM 4 VIEWS COMPREHEN 58864 TER[facility] F[facility]CON SIVE 4 [facility] METABOLIC INC INC PANEL HEMOGLOBI 82436 TER[facility] FALCON N 4 [facility] GLYCOSYLA INC INC JOCELINE A1C LIPID 38685 [facility] FALCON PANEL 4 [place] [address] [facility] F[facility]CON THYROID 4 [facility] STIMULATI INC INC NG HORMONE TSH BLOOD 04373 [facility] FALCON COUNT 4 [facility] COMPLETE INC INC AUTO&[place] [address] TER[facility]E FALCON FREE 4 [facility] [place] [address] TER[facility] F[facility]CON THYROID 4 [facility] STIMULATI INC INC NG HORMONE TSH LIPID 09738 [facility] F[facility]CON PANEL 3 [facility] INC INC 25 91817 TER[facility] FALCON HYDROXY 3 [facility] INCLUDES INC INC FRACTIONS IF PERFORMED CYANOCOBA 39266 TER[facility]E FALCON ADELA 3 [facility] VITAMIN INC INC B-12 CULTURE 05185 HAR[facility]L HARPEL CHLAMYDIA 3 JANET JANET ANY SOURCE IADNA 85370 HAR[facility] HARPEL NEISSERIA 3 JANET JANET GONORRHOE AE DIRECT PROBE TQ URINLS 75827 [facility] HARPEL DIP 3 JANET JANET STICK/TAB LET REAGNT NON-AUTO MICRSCPY HGB 81515 [facility] HAR[facility] QUANTITAT 3 JANET JANET KATE TRANSCUTA NEOUS URNLS DIP 57288 [facility] 3 PHYSICIAN PHYSICIAN STICK/TAB S GROUP S GROUP LET RGNT NON-AUTO W/O MICRSCP RADEX 12999 TER[facility] FALCON FINGR 3 [facility] MINIMUM 2 INC INC VIEWS SUSCEPTIB 24572 TER[facility] FALCON LTY STDY 3 [facility] ANTIMICRB INC INC IAL MICRO/AGA R DILUTJ INCISION 69641 ARASH ANTOINE & 3 DON DON DRAINAGE ABSCESS SIMPLE/SI NGLE INJECTION J0690 ARASH ANTOINE 3 DON DON CEFAZOLIN SODIUM 500 MG CUL BACT 01662 [facility] F[facility]CON XCPT 3 [facility] URINE INC INC BLOOD/STO OL AEROBIC ISOL CUL BACT 87666 TER[facility]E FALCON AEROBIC 3 [facility] ADDL INC INC METHS DEFINITIV E EA ISOL THERAPEUT 32169 TER[facility] FALCON IC 3 [facility] PROPHYLAC INC INC TIC/DX INJECTION SUBQ/IM INSJ 67216 [facility] HARPEL NON-BIODE 3 JANET JANET GRADABLE DRUG DELIVERY IMPLANT ETONOGEST J7307 [facility] REL 3 JANET JANET CNTRACPT IMPL SYS INCL IMPL & SPL URINE 89117 HAR[facility] HARPEL 3 JANET JANET TEST [place] [address] [place] TAPIA SURG 3 ZANE ZANE PATHOLOGY GROSS&MARTHA ROSCOPIC EXAM INJECTION J2405 [facility] FALCON 3 [facility] ONDANSETR INC INC ON HCL PER 1 MG BLOOD 81252 TER[facility] FALCON COUNT 3 [facility] HEMOGLOBI INC INC N ANESTHESI 77183 COMMUNITY MEYER JESSIKA A 3 ANESTH INTRAPERI OF THE TONEAL BLUE LOWER ABD W/LAPS NOS DILATION 43083 [facility] HARPEL & 3 JANET JANET CURETTAGE DX&/THER NONOBSTET ZANE LAPS 65935 [facility] HARPEL FULG/EXC 3 JANET JANET OVARY VISCERA/P ERITONEAL SURFACE BLOOD 81230 TER[facility] F[facility]CON COUNT 3 [facility] HEMATOCRI INC INC T URNLS DIP 30615 TER[facility] FALCON 3 [facility] STICK/TAB INC INC LET REAGENT AUTO MICROSCOP Y BLOOD 47148 TER[facility] FALCON COUNT 3 [facility] COMPLETE INC INC AUTO&AUTO DIFRNTL WBC URINE 17214 TER[facility]E FALCON 3 [facility] TEST INC [place] [address] TERRIE FALCON TRANSVAGI 3 [facility] NAL INC INC INJECTION J1080 ANTOINE ANTOINE 3 DON DON TESTOSTER ONE CYPIONATE 1 CC 200 MG REMOVAL 74626 [facility] HARPEL INTRAUTER 3 JANET JANET INE DEVICE IUD INJECTION J2675 [facility] HARPEL 3 JANET JANET PROGESTER ONE PER 50 MG MICROSOMA 57125 TER[facility]E AVILAON L 2 [facility] [place] [address] TER[facility] FALCON FREE 2 [facility] [place] [address] TERRIE TERRIE THYROID 2 [facility] STIMULATI INC INC NG HORMONE TSH INJECTION J0690 ARASH MAHARAJHENS 2 KIRAN BECK CEFAZOLIN SODIUM 500 MG US SOFT 51729 TER[facility]E FALCON TISSUE 2 [facility] HEAD & INC [place] [address] TER[facility]E FALCON THYROXINE 2 [facility] TOTAL INC INC MICROSOMA 80649 TERRIE TERRIE L 2 [facility] ANTIBODIE INC INC S EACH CALCIUM 95862 TER[facility]E FALCON IONIZED 2 [facility] INC INC THYROID 61165 TER[facility] FALCON HORM 2 [facility] UPTK/THYR INC [place] [address] TER[facility]E FALCON THYROID 2 [facility] STIMULATI [place] [address] TERRIE FALCON FREE 2 [facility] THYROXINE INC INC CYANOCOBA 37594 TER[facility]E FALCON ADELA 2 [facility] VITAMIN INC INC B-12 CALCIUM 92524 [facility] F[facility]CON TOTAL 2 [facility] INC INC GONADOTRO 96676 TER[facility]E FALCON PIN 2 [facility] [place] [address] TER[facility]E FALCON INFUSION 2 [facility] THERAPY/P INC INC ROPHYLAXI S /DX 1ST TO 1 HR THERAPEUT 86091 [facility] F[facility]CON IC 2 [facility] INJECTION [place] [address] TER[facility] FALCON INFUSION 2 [facility] THERAPY/P INC INC ROPHYLAXI S /DX 1ST TO 1 HR SPECIAL 99737 BLANCO VAN BLANCO VAN STAIN 2 GROUP 1 MICROORGA NISMS I&R SPCL STN 27032 BELLA JAMIL 2 I&R 2 EXCPT MICROORG/ ENZYME/IM CYT EGD 49352 GAITAN NEELAM GAITAN NEELAM TRANSORAL 2 BIOPSY SINGLE/MU LTIPLE URINE 80177 [facility] FALCON 2 [facility] TEST INC INC [place] [address] BELLA JAMIL SURG 2 PATHOLOGY GROSS&[place] [address] TER[facility] FALCON INFUSION 2 [facility] THERAPY INC INC PROPHYLAX IS/DX EA HOUR SMR PRIM 32370 [facility] HARPEL SRC WET 2 JANET JANET MOUNT NFCT AGT HGB 80386 [facility] HARPEL QUANTITAT 2 JANET JANET KATE TRANSCUTA NEOUS IADNA 30130 HARPE[facility] HARPEL NEISSERIA 2 JANET JANET GONORRHOE AE DIRECT PROBE TQ URINLS 19559 [facility] HARPEL DIP 2 JANET JANET STICK/TAB LET REAGNT NON-AUTO MICRSCPY CULTURE 50454 [facility] HARPEL CHLAMYDIA 2 [place] [address] TER[facility]E FALCON THYROID 2 [facility] STIMULATI INC INC NG HORMONE TSH SMR PRIM 67884 [facility] HARPEL SRC WET 2 JANET JANET MOUNT NFCT AGT CONTROL 4995 TERRIE FALCON OF 1 [facility] [place] [address] TER[facility] FALCON INFUSION 1 [facility] THERAPY INC INC PROPHYLAX IS/DX EA HOUR ANOSCOPY 24115 TERRIE FALCON CONTROL 1 [facility] BLEEDING INC INC ANESTHESI 55569 COMMUNITY MEYER JESSIKA A 1 ANESTH ANORECTAL OF THE BLUE PROCEDURE BLOOD 08296 TERRIE FALCON COUNT 1 [facility] COMPLETE INC INC AUTO&AUTO DIFRNTL WBC GONADOTRO 73417 TERRIE FALCON PIN 1 [facility] CHORIONIC INC INC QUALITATI VE CYTP C/V 71123 BIO BIO AUTO THIN 1 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 SCR IES IES MNL RESCR PHYS INTRAUTER J7300 [facility] INE [facility]PER [facility]IN[facility] CONTRACEP ASHLEY TIVE URINE 09010 [facility] TEST CLINIC OF VISUAL ASHLEY COLOR CMPRSN METHS INSERTION 63097 [facility] INTRAUTER CLINIC OF INE ASHLEY DEVICE IUD EXC 42049 [facility] F[facility] THROMBOSE 1 [facility] D INC INC HEMORRHOI D XTRNL OTH LOCAL 4939 TER[facility] FALCON 1 [facility] EXCISION/ INC INC DESTRUC LESION/TI SSUE ANUS EXCISION 4946 TERRIE FALCON OF 1 [facility] HEMORRHOI INC INC DS LEVEL III 30798 [facility] PAT SURG 1 [facility] GROSS&MARTHA ROSCOPIC EXAM DSTRJ 57905 C BREND[facility] ADKINS LESION 1 JED BYRD ANUS SMPL PSC ELTRDSICC ATION HEMORRHOI 66928 C BRENDAN ADKINS DECTOMY 1 JED BYRD NTRNL & PSC XTRNL 1 COLUMN/[place] [address] TER[facility] FALCON INFUSION 1 [facility] THERAPY INC INC PROPHYLAX IS/DX EA HOUR ANESTHESI 22700 COMMUNITY FORTUNATO A 1 ANESTH ROWENA ANORECTAL OF THE BLUE PROCEDURE BLOOD 04394 [facility] FALCON COUNT 1 [facility] COMPLETE INC INC AUTO&AUTO DIFRNTL WBC GONADOTRO 65010 TERRIE FALCON PIN 1 [facility] CHORIONIC INC INC [facility] 13255 [facility] DISCHARGE 1 PHYSICIAN JANET DAY GROUP MANAGEMEN PCC T 30 MIN/< CIRCUMCIS 58049 [facility] 1 CARE CESAR W/CLAMP/O ASSOCIATE TH DEV S W/BLOCK SBSQ 59876 [facility] 1 PHYSICIAN JANET CARE/DAY GROUP 35 PCC MINUTES SUBQ 32820 [facility] 1 CARE CESAR CARE PER ASSOCIATE DAY E/M S NORMAL SUBQ 19509 [facility] 1 CARE CESAR CARE PER ASSOCIATE DAY E/M S NORMAL SBSQ 26603 [facility] 1 PHYSICIAN JANET CARE/DAY GROUP 35 PCC MINUTES 1ST 06189 [facility]/STEFANO 1 CARE C[facility] S CARE PER DAY NML NB OTHER 6829 [facility]CON EXCISION 1 [facility] OR INC INC DESTRUCTI ON LESION UTERUS LOW 741 TER[facility] F[facility]CON CERVICAL 1 [facility] INC INC SECTION ANESTHESI 48896 [facility] MEYER JESSIKA A 1 ANESTH OF THE DELIVERY BLUE ONLY 86909 [facility] DELIVERY 1 PHYSICIAN JANET ONLY GROUP PCC INITIAL 14076 [facility] 1 PHYSICIAN JANET CARE/DAY GROUP 70 PCC MINUTES OBSERVATI 26788 [facility] ON/INPATI 1 PHYSICIAN JANET ENT [facility] PCC CARE 55 MINUTES OBSERVATI 92546 [facility] ON/INPATI 1 PHYSICIAN [facility] PCC CARE 55 MINUTES 88214 [facility] BIOPHYSIC 1 PHYSICIAN JANET AL GROUP PROFILE PCC NON-STRES S TESTING PARTICLE 31089 TER[facility] FALCON AGGLUTINA 1 [facility] TION INC INC SCREEN EACH ANTIBODY 52337 [facility] PHYSICIAN JANET TEST GROUP PCC DOPPLER 60813 [facility] JUAN ECHO 1 [facility] HIGH RISK PULS O SPECTRAL F/U/REPEA T 54854 [facility] BIOPHYSIC 1 [facility] AL HIGH RISK PROFILE O W/O NON-STRES S TESTING 21519 [facility] NONSTRESS 1 PHYSICIAN JANET TEST GROUP PCC BASIC 99066 [facility] F[facility]CON METABOLIC 1 [facility] PANEL INC INC CALCIUM TOTAL 57065 [facility] F[facility] NONSTRESS 1 [facility] TEST INC INC BLOOD 17305 [facility] FALCON COUNT 1 [facility] COMPLETE INC INC AUTO&AUTO DIFRNTL WBC FIBRIN 69709 TERRIE AVILAON DGRADJ 1 [facility] PRODUCTS INC INC D-DIMER QUAL/SEMI WENDY FIBRINOGE 40811 TERRIE TERRIE N 1 [facility] ACTIVITY INC INC PROTHROMB 62347 TER[facility] FALCON IN TIME 1 [facility] [place] [address] TER[facility]E FALCON MAGNESIUM 1 [facility]OS[facility] INC INC URNLS DIP 32751 TERRIE TERRIE 1 [facility] STICK/TAB INC INC LET REAGENT AUTO MICROSCOP Y TRANSFERA 22888 TERRIE TERRIE SE 1 [facility] ASPARTATE INC INC AMINO AST SGOT TRANSFERA 63245 TERRIE TERRIE SE 1 [facility] ALANINE INC INC AMINO ALT SGPT ANTIBODY 33444 [facility] SCREEN 1 [facility] RBC EACH INC INC SERUM TECHNIQUE BLOOD 46531 [facility]CON TYPING 1 [facility] [place] [address] TER[facility] F[facility]CON INFUSION 1 [facility] THERAPY/P INC INC ROPHYLAXI S /DX 1ST TO 1 HR THERAPEUT 62167 [facility] IC 1 [facility] INJECTION INC [place] [address] [facility] BLOOD/URI 1 [facility] C ACID INC INC BLOOD 01803 [facility] TYPING 1 [facility] SEROLOGIC INC INC RH (D) THROMBOPL 20932 [facility] ASTIN 1 [facility] TIME INC INC PARTIAL PLASMA/WH OLE BLOOD DOPPLER 46884 [facility] YESSICA ECHO 1 [facility] HIGH RISK PULS O SPECTRAL F/U/REPEA T 25928 [facility] BIOPHYSIC 1 [facility] AL HIGH RISK PROFILE O W/O NON-STRES S TESTING URNLS DIP 30920 [facility] JUAN 1 [facility] STICK/TAB HIGH RISK LET RGNT O NON-AUTO W/O MICRSCP 29756 [facility] NONSTRESS 1 PHYSICIAN JANET TEST GROUP PCC SMR PRIM 72263 [facility] SRC WET 1 PHYSICIAN JANET MOUNT GROUP NFCT AGT PCC 47555 [facility] BIOPHYSIC 1 [place] [place] AL HIGH RISK PROFILE O W/O NON-STRES S TESTING US PREG 71407 [facility] UTERUS 1 [place] [place] AFTER 1ST HIGH RISK TRIMEST O 1/ GESTATION 56129 [facility] NONSTRESS 1 PHYSICIAN JANET TEST GROUP [facility] US PREG 69439 [facility] UTERUS 1 [place] AFTER 1ST HIGH RISK TRIMEST O 1/ GESTATION 57512 [facility] BIOPHYSIC 1 [facility] [place] HIGH RISK PROFILE O W/O NON-STRES S TESTING COLLECTIO 60420 [facility] N VENOUS 1 [facility] BLOOD VENIPUNCT URE URNLS DIP 72705 [facility] JUAN 1 [facility] [place] STICK/TAB HIGH RISK LET RGNT O NON-AUTO W/O MICRSCP DOPPLER 89401 [facility] ECHO 1 [facility] HIGH RISK PULS O SPECTRAL F/U/REPEA T 97630 [facility] BIOPHYSIC 1 [place] AL HIGH RISK PROFILE O W/O NON-STRES S TESTING CREATININ 17037 [facility] E 1 [facility] CLEARANCE PROTEIN 44070 [facility] TOTAL 1 [facility] XCPT REFRACTOM ETRY URINE THERAPEUT 83058 [facility] IC 1 [facility] PROPHYLAC INC INC TIC/DX INJECTION SUBQ/IM THERAPEUT 91519 [facility] IC 1 [facility] PROPHYLAC INC INC TIC/DX INJECTION SUBQ/IM 97207 [facility] NONSTRESS 1 PHYSICIAN JANET TEST GROUP [facility] US PREG 32014 [facility] UTERUS 1 [facility] [place] W/DETAIL HIGH RISK O ANNALISA 1ST GESTATION 57825 [facility] BIOPHYSIC 1 PHYSICIAN JANET AL GROUP PROFILE PCC NON-STRES S TESTING URNLS DIP 10644 [facility] 1 [facility] [place] STICK/TAB HIGH RISK LET RGNT O NON-AUTO W/O MICRSCP 38884 [facility] BIOPHYSIC 1 [place] AL HIGH RISK PROFILE O W/O NON-STRES S TESTING ECHO 18007 [facility] 1 [place] [facility] CARDIOVAS HIGH RISK C W/WO O M-MODE RECORDING 07342 [facility] BIOPHYSIC 1 PHYSICIAN JANET AL GROUP PROFILE PCC NON-STRES S TESTING 66627 [facility] PHYSICIAN JANET AL GROUP PROFILE PCC NON-STRES S TESTING TRANSFERA 27683 [facility] SE 1 [facility] ALANINE INC INC AMINO ALT SGPT TRANSFERA 13029 [facility] SE 1 [facility] ASPARTATE INC INC AMINO AST SGOT BLOOD 49236 [facility] COUNT 1 [facility] COMPLETE INC INC AUTO&AUTO DIFRNTL WBC BASIC 44389 [facility] METABOLIC 1 [facility] PANEL INC INC CALCIUM TOTAL PROTHROMB 64893 [facility] IN TIME 1 [facility] INC INC FIBRINOGE 73545 [facility] N 1 [facility] ACTIVITY INC INC FIBRIN 89545 [facility] DGRADJ 1 [facility] PRODUCTS INC INC D-DIMER QUAL/[place] [address] [facility] BLOOD/URI 1 [facility] ACID INC INC THROMBOPL 49273 [facility] ASTIN 1 [facility] TIME INC INC PARTIAL PLASMA/WH OLE BLOOD SMR PRIM 34577 [facility] PHYSICIAN JANET M[facility] GROUP NFCT AGT PCC US PREG 71544 [facility] UTERUS 1 PHYSICIAN JANET AFTER 1ST GROUP TRIMEST PCC / GESTATION HEPATIC 38820 [facility] FUNCTION 1 [facility] PANEL INC INC FIBRIN 83014 [facility] DGRADJ 1 [facility] PRODUCTS INC INC D-DIMER QUAL/SEMI WENDY FIBRINOGE 22917 [facility] N 1 [facility] ACTIVITY INC INC PROTHROMB 67573 [facility] AVILAON IN TIME 1 [facility] INC INC GLUCOSE 66473 [facility] POST 1 [facility] GLUCOSE INC INC DOSE BASIC 14547 [facility] METABOLIC 1 [facility] PANEL INC INC CALCIUM TOTAL BLOOD 97646 [facility] COUNT 1 [facility] COMPLETE INC INC AUTO&AUTO DIFRNTL WBC THROMBOPL 98984 [facility] ASTIN 1 [facility] TIME INC INC PARTIAL PLASMA/[place] [address] [facility] BLOOD/URI 1 [facility] C ACID INC INC CULTURE 07571 [facility] BACTERIAL 1 [facility] INC INC QUANTTATI VE COLONY COUNT URINE 75362 [facility] NONSTRESS 1 [facility] TEST INC INC URNLS DIP 51017 [facility] STICK/TAB INC INC LET REAGENT AUTO MICROSCOP Y FTL 16587 [facility] FIBRONECT 1 [facility] IN INC INC CERVICOVA G SECRETION S SEMI-WENDY 92379 [facility] BIOPHYSIC 1 [facility] AL INC INC PROFILE W/O NON-STRES S TESTING US PREG 24331 [facility] UTERUS 1 PHYSICIAN JANET AFTER 1ST GROUP TRIMEST PCC GESTATION ALPHA-FET 23100 [facility] OPROTEIN 1 [facility] [place] [place] [address] [facility] ESTRIOL 1 [facility] INC INC GONADOTRO 42902 [facility] PIN 1 [facility] CHORIONIC INC INC QUANTITAT KATE PROTHROMB 07769 [facility] IN TIME 1 [facility] INC INC FIBRINOGE 56131 [facility] N 1 [facility] ACTIVITY INC INC BLOOD 77643 [facility] COUNT 1 [facility] COMPLETE INC INC AUTO&AUTO DIFRNTL WBC URNLS DIP 20696 [facility] 1 [facility] STICK/TAB INC [place] [address] [facility] INFUSION 1 [facility] THERAPY/P INC INC ROPHYLAXI S /DX 1ST [place] [address] [facility] AMYLASE 1 [facility] INC INC COMPREHEN 79611 [facility] SIVE 1 [facility] [address] [facility] LIPASE 1 [facility] INC INC THROMBOPL 03811 [facility] ASTIN 1 [facility] TIME INC INC PARTIAL PLASMA/WH OLE BLOOD IADNA 09116 BIO BIO HERPES 1 REFERNCE REFERNCE SOMPLX 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 VIRUS IES IES AMPLIFIED PROBE TQ BLOOD 92683 [facility] COUNT 1 [facility] COMPLETE INC INC AUTO&AUTO DIFRNTL WBC COMPREHEN 92912 [facility] SIVE 1 [facility] [place] [address] [facility] INFUSION 1 [facility] THERAPY/P INC INC ROPHYLAXI S /DX 1ST TO 1 HR URNLS DIP 16453 [facility] 1 [facility] STICK/TAB INC INC LET REAGENT AUTO MICROSCOP Y URINALYSI 40719 [facility] S 1 PHYSICIAN JANET MICROSCOP GROUP IC ONLY PCC URINLS 20868 [facility] DIP 1 PHYSICIAN JANET STICK/TAB GROUP LET PCC REAGNT NON-AUTO MICRSCPY CULTURE 60289 [facility] BACTERIAL 1 [facility] INC INC QUANTTATI VE COLONY COUNT URINE US PREG 25240 [facility] UTERUS 0 PHYSICIAN JANET REAL TIME GROUP W/IMAGE PCC DCMTN TRANSVAG IADNA NOS 16823 BIO BIO 0 REFERNCE REFERNCE AMPLIFIED 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 PROBE TQ IES IES EACH ORGANISM IADNA 03095 BIO BIO NEISSERIA 0 REFERNCE REFERNCE 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 GONORRHOE IES IES AE AMPLIFIED PROBE TQ CYTP C/V 11352 BIO BIO AUTO THIN 0 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 SCR IES IES MNL RESCR PHYS IADNA 99952 BIO BIO CHLAMYDIA 0 REFERNCE REFERNCE 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 TRACHOMAT IES IES IS AMPLIFIED PROBE TQ URINE 02579 [facility] 0 PHYSICIAN JANET TEST GROUP VISUAL PCC COLOR CMPRSN METHS GONADOTRO 01550 TER[facility] FLACON PIN 0 [facility] CHORIONIC INC INC QUANTITAT KATE IAADIADOO 68165 ARASH ANTOINE, 0 DON R DON R STREPTOCO CCUS GROUP A SUSCEPTIB 38303 [facility] LTY STDY 0 [facility] ANTIMICRB INC INC IAL MICRO/AGA R DILUTJ URINE 52721 [facility] 0 [facility] TEST INC INC VISUAL COLOR CMPRSN METHS URNLS DIP 75153 [facility] 0 [facility] STICK/TAB INC INC LET REAGENT AUTO MICROSCOP Y CT LUMBAR 62434 [facility] SPINE 0 [facility] W/O INC INC CONTRAST MATERIAL CULTURE 29340 [facility] BACTERIAL 0 [facility] INC INC QUANTTATI VE COLONY COUNT URINE CULTURE 81355 [facility] BCT 0 [facility] ISOL&PRSM INC INC PTV ID ISOLATE EA URINE 3D 44476 ILAN YOST, RENDERING 0 MEDICAL RONIT IMAGING W/INTERP& ASSOCIATE POSTPROC S DIFF WORK STATION URNLS DIP 15698 [facility] STICK/TAB INC INC LET REAGENT AUTO MICROSCOP Y INITIAL 08973 [place] BESHASMUKH, OBSERVATI 0 [facility] A ON INTERNAL CARE/DAY MED 30 MINUTES COMPREHEN 37839 [facility] SIVE 0 [facility] METABOLIC INC INC PANEL HOSPITAL G0378 [facility] F[facility] OBSERVATI 0 [facility] ON INC INC SERVICE PER HOUR URINE 59549 [facility] 0 [facility] TEST INC INC VISUAL COLOR CMPRSN METHS BLOOD 37966 [facility] COUNT 0 [facility] COMPLETE INC INC AUTO&AUTO DIFRNTL WBC CUL BACT 31568 [facility] STOOL 0 [facility] [employer] ISOL SALMONELL A&SHIGELL CUL BACT 27713 [facility] STOOL 0 [facility] [employer] [facility] ADDL PATHOGENS &[place] [address] [facility] CLOSTRIDI 0 [facility] [employer] [place] [address] [facility] SHIGA-LIK 0 [employer]IC [employer] E [employer]ING Encounters Encounter Start End Date Code Location Performer Type Date EMERGENCY 82950 EVIE GRANADOS [address] [facility] T VISIT HIGH/URGE NT SEVERITY EMERGENCY 53784 TERRIE 6 6 [facility] DEPARTMEN [facility] T VISIT MODERATE SEVERITY HOSPITAL TER[facility] - 6 6 [facility] OUTPATIEN [facility] T HOSPITAL TER[facility] - 6 6 [facility] OUTPATIEN [facility] T HOSPITAL TERRIE - 6 6 [facility] OUTPATIEN [facility] T EMERGENCY 82415 TERRIE 6 6 [facility] DEPARTMEN [facility] T VISIT HIGH/URGE NT SEVERITY HOSPITAL TERRIE - 6 6 [facility] OUTPATIEN [facility] HOSPITAL TERRIE - 6 6 [facility] OUTPATIEN [facility] T OFFICE 86315 TERRIE FELIZPATIEN 6 6 [facility] T VISIT INC 10 MINUTES HOSPITAL TERRI[facility] - 6 6 [facility] OUTPATIEN [facility] T OFFICE 29699 [facility] 6 6 MD SWEETIE, T VISIT [place] 15 MINUTES HOSPITAL TER[facility] - 6 6 [facility] OUTPATIEN [facility] T EMERGENCY 78348 [facility] 6 6 [facility] T VISIT MODERATE SEVERITY EMERGENCY 93301 EVIE GRANADOS [address] [facility] T VISIT HIGH/URGE NT SEVERITY HOSPITAL TERRIE - 6 6 [facility] OUTPATIEN [facility] EMERGENCY 91209 TERRIE 6 6 [facility] T VISIT HIGH/URGE NT SEVERITY HOSPITAL TERRIE - 6 6 [facility] TER[facility] 6 6 [facility] EMERGENCY 05727 TERRIE 6 6 [facility] T VISIT HIGH/URGE NT SEVERITY HOSPITAL TERRIE - 6 6 [facility] 00447 BETY [facility] 6 6 MD SWEETIE, T VISIT PSC 15 MINUTES OFFICE 51577 REUBEN TALBERT OUTPATIEN 6 6 GALI GONZALES T VISIT 25 MINUTES EMERGENCY 38614 EVIE GRANADOS 6 6 PHYSICIAN [facility] T VISIT HIGH/URGE NT SEVERITY OFFICE 35445 [facility] OUTPATIEN 6 6 PHYSICIAN [facility] T VISIT S GROUP 10 MINUTES HOSPITAL TERRIE - 6 6 [facility] - 6 6 [facility] 85121 TERRIE 6 6 [facility] T VISIT HIGH/URGE NT SEVERITY PERIODIC 77026 REUBEN TALBERT PREVENTIV 5 5 GALI GONZALES E MED EST PATIENT 18-39 YRS HOSPITAL TERRIE - 5 5 [facility] OFFICE 12594 [facility] SUSHMA FELIZPATIRON 5 5 PHYSICIAN [facility] T VISIT S GROUP 15 MINUTES EMERGENCY 99144 TERRIE 5 5 [facility] T VISIT HIGH/URGE NT SEVERITY EMERGENCY 52116 EVIE GRANADOS DEPT 5 5 PHYSICIAN MARTHA VISIT S, [facility] HIGH SEVERITY& THREAT FUN HOSPITAL TERRIE - 5 5 [facility] OUTPATIEN INC T OFFICE 70177 REUBEN TALBERT OUTPATIEN 5 5 GALI BARRETT JANET T VISIT 15 MINUTES OFFICE 68961 TER[facility]E OUTPATIEN 5 5 [facility] T VISIT INC 10 MINUTES HOSPITAL TERRIE - 5 5 [facility] OUTPATIEN INC EMERGENCY 46966 EVIE EVANGELISTA JR 5 5 PHYSICIAN JAM DEPARTMEN S, [facility] T VISIT HIGH/URGE NT SEVERITY HOSPITAL TER[facility]E - 5 5 [facility] OUTPATIEN INC [facility]PITAL [facility] - 5 5 [facility] OUTPATIEN INC T OFFICE 90242 TER[facility] OUTPATIEN 5 5 [facility] T VISIT INC 10 MINUTES EMERGENCY 59373 EVIE GRANADOS 5 5 PHYSICIAN MARTHA DEPARTMEN S, [facility] T VISIT HIGH/URGE NT SEVERITY HOSPITAL TERRIE - 5 5 [facility] OUTPATIEN INC HOSPITAL [facility] - 5 5 [facility] OUTPATIEN INC EMERGENCY 62235 EVIE GRANADOS 5 5 PHYSICIAN MARTHA DEPARTMEN S, [facility] T VISIT HIGH/URGE NT SEVERITY EMERGENCY 32846 EVIE GRANADOS DEPT 5 5 PHYSICIAN MARTHA VISIT S, [facility] HIGH SEVERITY& THREAT [facility] TERRIE - 5 5 [facility] OUTPATIEN INC T OFFICE 35406 TER[facility] OUTPATIEN 5 5 [facility] T VISIT INC 10 MINUTES HOSPITAL TERRIE - 5 5 [facility] OUTPATIEN INC T OFFICE 11721 MANJINDER PITT AN OUTPATIEN 5 5 MD Matilde HUITRON 30 MINUTES HOSPITAL TERRIE - 5 5 [facility] OUTPATIEN INC T OFFICE 68777 TER[facility]E OUTPATIEN 5 5 [facility] T VISIT INC 10 MINUTES HOSPITAL TERRIE - 5 5 [facility] OUTPATIEN INC T OFFICE 94822 [facility] OUTPATIEN 5 5 PHYSICIAN MARTHA T VISIT S GROUP 10 MINUTES HOSPITAL [facility] - 5 5 [facility] OUTPATIEN INC T OFFICE 05604 [facility] OUTPATIEN 5 5 PHYSICIAN MARTHA T VISIT S GROUP 10 MINUTES HOSPITAL TERRIE - 5 5 [facility] OUTPATIEN INC T OFFICE 53218 [facility] OUTPATIEN 5 5 PHYSICIAN MARTHA T VISIT S GROUP 10 MINUTES OFFICE 54087 [facility] OUTPATIEN 4 4 PHYSICIAN MARTHA T VISIT S GROUP 10 MINUTES HOSPITAL TER[facility]E - 4 4 [facility] OUTPATIEN INC H[facility]PITAL TER[facility] - 4 4 [facility] OUTPATIEN INC HOSPITAL TERRIE - 4 4 [facility] OUTPATIEN INC [facility]PITAL TER[facility] - 4 4 [facility] OUTPATIEN INC T OFFICE 82454 [facility] OUTPATIEN 4 4 PHYSICIAN MARTHA T VISIT S GROUP 10 MINUTES HOSPITAL TERRIE - 4 4 [facility] OUTPATIEN INC PERIODIC 03691 REUBEN TALBERT PREVENTIV 4 4 GALI BARRETT JANET E MED EST PATIENT 18-39 YRS OFFICE 15269 [facility] SCHULSTAD OUTPATIEN 4 4 PHYSICIAN CAM T VISIT S GROUP 15 MINUTES HOSPITAL TERRIE - 4 4 [facility] OUTPATIEN INC H[facility]PITAL TER[facility]E - 4 4 [facility] OUTPATIEN INC OFFICE 19934 [facility] OUTPATIEN 4 4 PHYSICIAN MARTHA T VISIT S GROUP 10 MINUTES EMERGENCY 27737 LEONEL GRANADOS 4 4 MARTHA MARTHA DEPARTMEN T VISIT HIGH/URGE NT SEVERITY EMERGENCY 72956 UNIVERSIT 4 4 Y [facility] HOSPITAL T VISIT LOW/MODER SEVERITY HOSPITAL UNIVERSIT - 4 4 Y OUTPATIEN HOSPITAL T EMERGENCY 52424 [facility] 4 I ALI I ALI DEPARTMEN T VISIT MODERATE SEVERITY OFFICE 17662 SAMAN SYKESIAR OUTPATIEN 4 4 FRA FRA T NEW 45 MINUTES OFFICE 04833 LEONEL GRANADOS OUTPATIEN 4 4 MARTHA MARTHA T VISIT 10 MINUTES EMERGENCY 16110 LEONEL GRANADOS 4 4 MARTHA MARTHA DEPARTMEN T VISIT HIGH/URGE NT SEVERITY OFFICE 02268 LEONEL GRANADOS OUTPATIEN 4 4 MARTHA MARTHA T VISIT 10 MINUTES HOSPITAL TERRIE - 4 4 [facility] OUTPATIEN [facility] TERRIE - 4 4 [facility] OUTPATIEN [facility] Emergency RADHA Granados MD (ER) 3 20:53 3 21:55 [facility] TERRIE - 3 3 [facility] OUTPATIEN [facility] OFFICE 40844 THOMAS GUZMAN OUTPATIEN 3 3 ANT ANT T VISIT 15 MINUTES Emergency RADHA Granados MD (ER) 3 21:48 3 22:43 [facility] EMERGENCY 86389 LEONEL GRANADOS DEPT 3 3 MARTHA MARTHA VISIT HIGH SEVERITY& THREAT FUNCJ PERIODIC 49645 [facility] PREVENTIV 3 3 JANET JANET E MED EST PATIENT 18-39 YRS OFFICE 61621 [facility] OUTPATIEN 3 3 PHYSICIAN T VISIT S GROUP 15 MINUTES HOSPITAL TERRIE - 3 3 [facility] OUTPATIEN INC T HOSPITAL TERRIE - 3 3 [facility] OUTPATIEN INC T OFFICE 37387 ANTOINE ANTOINE OUTPATIEN 3 3 DON DON T VISIT 15 MINUTES OFFICE 48031 ANTOINE ANTOINE OUTPATIEN 3 3 DON DON T VISIT 15 MINUTES Emergency RADHA Granados MD (ER) 3 22:14 3 22:24 [facility] TERRIE - 3 3 [facility] OUTPATIEN INC T EMERGENCY 64556 TERRIE 3 3 [facility] DEPARTMEN [facility] T VISIT LOW/MODER SEVERITY EMERGENCY 73389 LEONEL GRANADOS 3 3 [facility] DEPARTMEN T VISIT HIGH/URGE NT SEVERITY HOSPITAL TERRIE - 3 3 [facility] OUTPATIEN [facility] HOSPITAL TERRIE - 3 3 [facility] OUTPATIEN INC T OFFICE 32174 [facility] OUTPATIEN 3 3 JANET JANET T VISIT 15 MINUTES OFFICE 96814 [facility] OUTPATIEN 3 3 JANET JANET T VISIT 15 MINUTES HOSPITAL TERRIE - 3 3 [facility] OUTPATIEN INC T OFFICE 54554 ANTOINE ANTOINE OUTPATIEN 3 3 DON DON T VISIT 25 MINUTES OFFICE 40505 ANTOINE ANTOINE OUTPATIEN 3 3 DON DON T VISIT 15 MINUTES OFFICE 23983 [facility] OUTPATIEN 2 2 STORM STORM T VISIT 15 MINUTES HOSPITAL TERRIE - 2 2 [facility] OUTPATIEN [facility] OFFICE 78591 ANTOINE ANTOINE OUTPATIEN 2 2 DON DON T VISIT 15 MINUTES OFFICE 04330 [facility] OUTPATIEN 2 2 STORM STORM NEW 30 MINUTES HOSPITAL TERRIE - 2 2 [facility] - 2 2 [facility] - 2 2 [facility] 62147 TERRIE 2 2 [facility] VISIT MODERATE SEVERITY EMERGENCY 54467 [facility] 2 2 III JESSIKA III JESSIKA VISIT HIGH SEVERITY& THREAT [facility] TERRIE - 2 2 [facility] - 2 2 [facility] - 2 2 [facility] PERIODIC 22911 [facility] HARPE[facility] PREVENTIV 2 2 JANET JANET E MED EST PATIENT 18-39 YRS OFFICE 35400 [facility] OUTPATIEN 2 2 JANET JANET T VISIT 15 MINUTES OFFICE 77916 ANTOINE ANTOINE OUTPATIEN 2 2 DON DON T VISIT 15 MINUTES OFFICE 58685 [facility] OUTPATIEN 2 2 JANET JANET T VISIT 15 MINUTES OFFICE 78845 ANTOINE ANTOINE OUTPATIEN 2 2 DON DON T VISIT 15 MINUTES OFFICE 12073 ANTOINE ANTOINE OUTPATIEN 2 2 DON DON T VISIT 15 MINUTES HOSPITAL TER[facility]E - 1 1 [facility] EMERGENCY 32580 DIPTI GRANADOS 1 1 EMERGENCY [facility] SERVICES T VISIT HIGH/URGE NT SEVERITY EMERGENCY 04986 TERRIE 1 1 [facility] T VISIT MODERATE SEVERITY HOSPITAL [place] [facility] 1 1 [facility] T EMERGENCY 82926 [place] 1 1 [facility] T VISIT MODERATE SEVERITY EMERGENCY 83028 TERRIE 1 1 [facility] T VISIT MODERATE SEVERITY HOSPITAL TER[facility] - 1 1 [facility] EM[facility] 03225 DIPTI GRANADOS 1 1 EMERGENCY [facility] SERVICES T VISIT HIGH/URGE NT SEVERITY OFFICE 46642 Carol ADKINS OUTPATIEN 1 1 JED Clayton VISIT PSC 10 MINUTES HOSPITAL [facility] - 1 1 [facility] 30261 Carol ADKINS OUTPATIEN 1 1 JED [place] VISIT PSC 25 MINUTES HOSPITAL [facility] - 1 1 [facility] 46666 ARASH ANTOINE OUTPATIEN 1 1 DON DON T VISIT 25 MINUTES OFFICE 34019 [facility] PHYSICIAN JANET T VISIT GROUP 15 PCC MINUTES OFFICE 34830 [facility] 1 1 [facility] ASHLEY PATIENT 40 MIN OFFICE 56442 [facility] OUTPATIEN 1 1 PHYSICIAN JANET T VISIT GROUP 15 PCC MINUTES HOSPITAL TER[facility] - 1 1 [facility] OUTPATIEN [facility] HOSPITAL TERRIE - 1 1 [facility] OUTPATIEN [facility] T OFFICE 41479 [facility] OUTPATIEN 1 1 PHYSICIAN JANET T VISIT GROUP 15 PCC MINUTES HOSPITAL [facility] - 1 1 [facility] INPATIENT INC OFFICE 75549 H [facility]PEL OUTPATIEN 1 1 PHYSICIAN JANET T VISIT GROUP 15 PCC MINUTES OFFICE 24806 H [facility] OUTPATIEN 1 1 PHYSICIAN JANET T VISIT GROUP 15 PCC MINUTES HOSPITAL [facility] - 1 1 [facility] OUTPATIEN INC T OFFICE 55323 H [facility] OUTPATIEN 1 1 PHYSICIAN JANET T VISIT GROUP 15 PCC MINUTES OFFICE 72633 [facility] OUTPATIEN 1 1 PHYSICIAN JANET T VISIT GROUP 15 PCC MINUTES HOSPITAL [facility] - 1 1 [facility] OUTPATIEN INC T OFFICE 34657 [facility] OUTPATIEN 1 1 PHYSICIAN JANET T VISIT GROUP 15 PCC MINUTES OFFICE 38583 [facility] OUTPATIEN 1 1 PHYSICIAN JANET T VISIT GROUP 15 PCC MINUTES HOSPITAL [facility] 1 [facility] [place] - 1 1 [facility] OUTPATIEN INC T OFFICE 22597 [facility] OUTPATIEN 1 1 PHYSICIAN JANET T VISIT GROUP 15 PCC MINUTES HOSPITAL [place] - 1 1 [facility] OUTPATIEN INC T OFFICE 01433 [facility] OUTPATIEN 1 1 PHYSICIAN JANET T VISIT GROUP 15 PCC MINUTES OFFICE 48852 [facility] OUTPATIEN 1 1 PHYSICIAN JANET T VISIT GROUP 15 PCC MINUTES OFFICE 15860 [facility] OUTPATIEN 1 1 PHYSICIAN JANET T VISIT GROUP 15 PCC MINUTES HOSPITAL [place] - [facility] 1 [facility] OUTPATIEN INC T OFFICE 33461 [facility] OUTPATIEN 1 1 PHYSICIAN JANET T VISIT GROUP 15 PCC MINUTES OFFICE 26772 [facility] OUT[facility] 1 1 PHYSICIAN JANET T VISIT GROUP 15 PCC MINUTES HOSPITAL [facility] - 1 1 [facility] OUTPATIEN INC T OFFICE 08487 H [facility] OUTPATIEN 1 1 PHYSICIAN JANET T VISIT GROUP 15 PCC MINUTES EMERGENCY 17253 TER[facility]E 1 1 [facility] DEPARTMEN INC T VISIT MODERATE SEVERITY HOSPITAL [facility] - 1 1 [facility] OUTPATIEN INC T EMERGENCY 83469 DIPTI COLON DEPT 1 1 EMERGENCY STEWART VISIT SERVICES HIGH SEVERITY& THREAT [facility] TERRIE - 1 1 [facility] OUTPATIEN INC T OFFICE 93505 H [facility]PE[facility] OUTPATIEN 1 1 PHYSICIAN JANET T VISIT GROUP 15 PCC MINUTES HOSPITAL [facility] - 1 1 [facility] OUTPATIEN INC T OFFICE 62054 H [facility] OUTPATIEN 1 1 PHYSICIAN JANET T VISIT GROUP 15 PCC MINUTES OFFICE 17308 H [facility] OUTPATIEN 1 1 PHYSICIAN JANET T VISIT GROUP 15 PCC MINUTES HOSPITAL [facility] - 1 1 [facility] OUTPATIEN INC T OFFICE 69088 H [facility] OUTPATIEN 1 1 PHYSICIAN JANET T VISIT GROUP 15 PCC MINUTES HOSPITAL [facility] - 1 1 [facility] OUTPATIEN INC T EMERGENCY 14343 DIPTI LLOYD DEPT 1 1 EMERGENCY VISIT SERVICES HIGH SEVERITY& THREAT FUNC EMERGENCY 86949 [facility]E 1 1 [facility] DEPARTMEN INC T VISIT HIGH/URGE NT SEVERITY OFFICE 20833 H [facility] OUTPATIEN 1 1 PHYSICIAN JANET T VISIT GROUP 15 PCC MINUTES OFFICE 70879 [facility] OUTPATIEN 1 1 PHYSICIAN JANET T VISIT GROUP 15 PCC MINUTES EMERGENCY 82268 [facility] 1 1 [facility] DEPARTMEN INC T VISIT HIGH/URGE NT SEVERITY HOSPITAL [facility] - 1 1 [facility] OUTPATIEN INC T OFFICE 74373 [facility] OUTPATIEN 1 1 PHYSICIAN JANET T VISIT GROUP 15 PCC MINUTES HOSPITAL [facility] - 1 1 [facility] OUTPATIEN INC T OFFICE 02809 [facility] OUTPATIEN 1 1 PHYSICIAN JANET T VISIT GROUP 15 PCC MINUTES OFFICE 64073 [facility] OUTPATIEN 0 0 PHYSICIAN JANET T VISIT GROUP 15 PCC MINUTES OFFICE 38556 [facility] OUTPATIEN 0 0 PHYSICIAN JANET T VISIT GROUP 40 PCC MINUTES OFFICE 14028 [facility] OUTPATIEN 0 0 PHYSICIAN JANET T VISIT GROUP 15 PCC MINUTES HOSPITAL [facility] - 0 0 [facility] OUTPATIEN INC T EMERGENCY 34561 DIPTI GRANADOS 0 0 EMERGENCY [facility] DEPARTMEN SERVICES T VISIT HIGH/URGE NT SEVERITY EMERGENCY 54561 [facility] 0 0 [facility] DEPARTMEN INC T VISIT LOW/MODER SEVERITY [facility] - 0 0 [facility] T OFFICE [id number] ARASH ANTOINE, OUTPATIEN 0 0 DON R DON R T VISIT 15 MINUTES OFFICE [id number] ARASH ANTOINE, OUTPATIEN 0 0 DON R DON R T VISIT 15 MINUTES [facility]OSP[facility] - 0 0 [facility] T EMERGENCY [id number] DARY WANG 0 0 EMERGENCY [facility] VISIT SERVICES O HIGH SEVERITY& ASSOCIATE THREAT S [facility] EMERGENCY 18660 [facility] 0 0 [facility] DEPARTMEN INC T VISIT LOW/MODER SEVERITY EMERGENCY 77912 [facility] 0 0 [facility] DEPARTMEN INC T VISIT HIGH/URGE NT SEVERITY [facility] - 0 0 [facility] OUTPATI[facility] INC T EMERGENCY [id number] DIPTI GRANADOS DEPT [address] [facility] VISIT SERVICES HIGH SEVERITY& ASSOCIATE THREAT S [facility] - 0 0 [facility] OUTPATIEN INC T EMERGENCY [id number] [facility] 0 0 [facility] DEPARTMEN INC T VISIT LOW/MODER SEVERITY EMERGENCY 07119 DIPTI GRANADOS, 0 0 EMERGENCY [facility] SERVICES T VISIT HIGH/URGE ASSOCIATE NT S SEVERITY EMERGENCY 68655 OB GOODE- 0 0 [facility] T VISIT MODERATE SEVERITY
--- OUTSIDE RECORDS SUMMARY | 2017-01-25 21:47 | External Medical Summary Rpt ---
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 PHYSICIAN MARTHA CEFTRIAXO S GROUP NE SODIUM PER 250 MG INJECTION J1100 [facility] LEONEL 5 PHYSICIAN MARTHA DEXAMETHO S GROUP SONE SODIUM PHOSPHATE 1 MG THERAPEUT 03456 [facility] IC 5 PHYSICIAN MARTHA PROPHYLAC S GROUP TIC/DX INJECTION SUBQ/IM RADEX 79127 [place] ABDOMEN 1 5 MEDICAL SAMMI IMAGING ANTEROPOS ASS TERIOR VIEW CALCULUS 55863 [facility] XRAY 5 [facility] DIFFRACTI INC INC ON MRI 39589 [place] SPINAL 5 MEDICAL SAMMI CANAL IMAGING LUMBAR ASS W/O CONTRAST MATERIAL ANES 97781 ANESTHESI JR. 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 SHOCK S PSC WAVE W/O WATER BATH RADEX 43618 [facility] [place] SCALF ZANE ABDOMEN 1 5 RADIOLOGY ANTEROPOS TERIOR VIEW ANES 04960 [place] COLEEN TRANSURET 4 MEDICAL FRANCES HRAL SERVICES W/URETHRO CYSTOSCOP Y NOS CYSTO 56116 DAYANA RUST AND W/INSERT 4 [place] [address] [place] ABDOMEN & 4 MEDICAL SAMMI PELVIS IMAGING W/O ASS CONTRAST MATERIAL THERAPEUT 15965 [facility] IC PX 1/> 4 [facility] AREAS INC INC EACH 15 MIN EXERCISES APPL 51784 [facility] MODALITY 4 [facility] 1/> AREAS INC INC ELEC STIMJ UNATTENDE D APPLICATI 79108 [facility] ON 4 [facility] MODALITY INC INC 1/> AREAS HOT/COLD PACKS APPL 96724 [facility] MODALITY 4 [facility] 1/> AREAS INC INC ULTRASOUN D EA 15 MIN APPL 04806 [facility] MODALITY 4 [facility] 1/> AREAS INC INC ULTRASOUN D EA 15 MIN APPLICATI 79594 [facility] ON 4 [facility] MODALITY INC INC 1/> AREAS HOT/COLD PACKS APPL 34482 [facility] F[facility] MODALITY 4 [facility] 1/> AREAS INC INC ELEC STIMJ UNATTENDE D THERAPEUT 53761 [facility] IC PX 1/> 4 [facility] AREAS INC INC EACH 15 MIN EXERCISES THERAPEUT 51341 [facility] F[facility] IC PX 1/> 4 [facility] AREAS INC INC EACH 15 MIN EXERCISES APPL 11205 [facility] F[facility] MODALITY 4 [facility] 1/> AREAS INC INC ELEC STIMJ UNATTENDE D APPLICATI 32714 [facility] F[facility] ON 4 [facility] MODALITY INC INC 1/> AREAS HOT/COLD PACKS APPL 99016 [facility] MODALITY 4 [facility] 1/> AREAS INC INC ULTRASOUN D EA 15 MIN PHYSICAL 03214 [facility] THERAPY 4 [facility] EVALUATIO INC INC N BREAST 29293 [place] REAL 4 MEDICAL SAMMI TIME IMAGING W/IMAGE ASS DOCUMENTA TION DIAGNOSTI G0206 [place] C 4 MEDICAL SAMMI MAMMOGRAP IMAGING HY INCL ASS CAD WHEN PERF; [facility] COMPUTER- 94138 [facility] AIDED 4 [facility] DETECTION INC INC SCREENING MAMMOGRAP HY SCREENING G0202 [facility] 4 [facility] MAMMOGRAP INC INC HY YANNA INCL CAD WHEN PERFORMD ECG 10811 [facility] ROUTINE 4 [facility] W/LEAST P 12 LDS I&R ONLY URINE 81079 [facility] FALCON 4 [facility] TEST INC INC VISUAL COLOR CMPRSN METHS BASIC 64816 [facility] F[facility] METABOLIC 4 [facility] PANEL INC INC CALCIUM TOTAL INCISION 38641 [facility] SCHULSTAD & REMOVAL 4 PHYSICIAN CAM FOREIGN S GROUP BODY SUBQ TISS SIMPLE BLOOD 09900 [facility] COUNT 4 [facility] COMPLETE INC INC AUTO&AUTO DIFRNTL WBC CULTURE 60848 REUBEN TALBERT CHLAMYDIA 4 GALI BARRETT JANET ANY SOURCE IADNA 63019 REUBEN TALBERT NEISSERIA 4 GALI BARRETT JANET GONORRHOE AE DIRECT PROBE TQ URINLS 51256 REUBEN TALBERT DIP 4 GALI BARRETT JANET STICK/TAB LET REAGNT NON-AUTO MICRSCPY HGB 64008 REUBEN TALBERT QUANTITAT 4 GALI BARRETT JANET KATE TRANSCUTA NEOUS RADEX 49816 [facility] FOOT 4 [facility] COMPLETE INC INC MINIMUM 3 VIEWS PHYSICAL 75632 [facility] F[facility] THERAPY 4 [facility] EVALUATIO INC INC N COMPRE 63569 COLEEN HORNE AUDIOMETR 4 STORM STORM Y THRESHOLD EVAL SP RECOGNIJ TYMPANOME 13779 COLEEN HORNE TRY 4 STORM STORM DISTORT 16485 HORNE HORNE PRODUCT 4 STORM STORM EVOKED [place] [address] [facility] THYROXINE 4 [facility] TOTAL INC INC RADEX 85766 [place] RITIKA SPINE 4 SAMMI SAMMI LUMBOSACR AL 2/3 VIEWS RADEX 45241 [facility] SPINE 4 [facility] LUMBOSACR INC INC AL MINIMUM 4 [place] [address] [facility] F[facility] THYROID 4 [facility] STIMULATI INC INC NG HORMONE TSH COMPREHEN 58028 [facility] SIVE 4 [facility] METABOLIC INC INC PANEL BLOOD 52515 [facility] COUNT 4 [facility] COMPLETE INC INC AUTO&AUTO DIFRNTL WBC LIPID 98237 [facility] PANEL 4 [facility] INC INC HEMOGLOBI 39415 [facility] F[facility] N 4 [facility] GLYCOSYLA [place]EL[place] A1[place] [address] [facility] FREE 4 [facility] [place] [address] [facility] F[facility] THYROID 4 [facility] STIMULATI INC INC NG HORMONE TSH LIPID 76461 [facility] F[facility] PANEL 3 [facility] INC INC 25 29541 [facility] HYDROXY 3 [facility] INCLUDES INC INC FRACTIONS IF PERFORMED CYANOCOBA 55557 [facility] ADELA 3 [facility] VITAMIN INC INC B-12 CULTURE 72134 [facility] HAR[facility]L CHLAMYDIA 3 JANET JANET ANY SOURCE IADNA 63285 [facility] NEISSERIA 3 JANET JANET GONORRHOE AE DIRECT PROBE TQ URINLS 88517 [facility] DIP 3 JANET JANET STICK/TAB LET REAGNT NON-AUTO MICRSCPY HGB 60214 [facility] QUANTITAT 3 JANET JANET KATE TRANSCUTA NEOUS URNLS DIP 38713 [facility] 3 PHYSICIAN PHYSICIAN STICK/TAB S GROUP S GROUP LET RGNT NON-AUTO W/O MICRSCP RADEX 13964 [facility] FINGR 3 [facility] MINIMUM 2 INC INC VIEWS CUL BACT 87618 [facility] XCPT 3 [facility] URINE INC INC BLOOD/STO OL AEROBIC ISOL CUL BACT 97364 [facility] AEROBIC 3 [facility] ADDL INC INC METHS DEFINITIV E EA ISOL INCISION 21327 ARASH ANTOINE & 3 DON DON DRAINAGE ABSCESS SIMPLE/SI NGLE INJECTION J0690 ARASH ANTOINE 3 DON DON CEFAZOLIN SODIUM 500 MG SUSCEPTIB 95309 TER[facility] LTY STDY 3 [facility] ANTIMICRB INC INC IAL MICRO/AGA R DILUTJ THERAPEUT 31978 [facility] IC 3 [facility] PROPHYLAC INC INC TIC/DX INJECTION SUBQ/IM URINE 13141 HARPE[facility] HARPEL 3 JANET JANET TEST VISUAL COLOR CMPRSN METHS ETONOGEST J7307 [facility] REL 3 JANET JANET CNTRACPT IMPL SYS INCL IMPL & SPL INSJ 09874 [facility] HAR[facility] NON-BIODE 3 JANET JANET [place] [address] TAPIA TAPIA SURG 3 [facility] PATHOLOGY GROSS&MARTHA ROSCOPIC EXAM BLOOD 96487 [facility] COUNT 3 [facility] HEMATOCRI INC INC T DILATION 96109 HAR[facility] HARPEL & 3 JANET JANET CURETTAGE DX&/THER NONOBSTET [facility] LAPS 72773 HAR[facility] HARPE[facility] FULG/EXC 3 JANET JANET OVARY VISCERA/P ERITONEAL SURFACE ANESTHESI 25129 [facility] JESSIKA A 3 ANESTH INTRAPERI OF THE TONEAL BLUE LOWER ABD W/LAPS NOS INJECTION J2405 [facility] 3 [facility] ONDANSETR INC INC ON HCL PER 1 MG BLOOD 73414 [facility] COUNT 3 [facility] HEMOGLOBI INC INC N BLOOD 33748 [facility] COUNT 3 [facility] COMPLETE INC INC AUTO&AUTO DIFRNTL WBC URNLS DIP 55137 [facility] 3 [facility] STICK/TAB INC INC LET REAGENT AUTO MICROSCOP Y URINE 45419 [facility] 3 [facility] TEST INC [place] [address] [facility] TRANSVAGI 3 [facility] NAL INC INC INJECTION J1080 ARASH ANTOINE 3 DON DON TESTOSTER ONE CYPIONATE 1 CC 200 MG REMOVAL 84782 [facility] HAR[facility] INTRAUTER 3 JANET JANET INE DEVICE IUD INJECTION J2675 HAR[facility] HARPEL 3 JANET JANET PROGESTER ONE PER [address] [place] [address] [facility] THYROID 2 [facility] STIMULATI [place] [address] [facility] FREE 2 [facility] THYROXINE INC INC MICROSOMA 92653 [facility] L 2 [facility] ANTIBODIE INC INC S EACH INJECTION J0690 ARASH ANTOINE 2 KIRAN BECK CEFAZOLIN SODIUM 500 MG US SOFT 15119 [place] TISSUE 2 MEDICAL SAMMI HEAD & IMAGING NECK [place] [address] [facility] THYROID 2 [facility] STIMULATI [place] [address] [facility] FREE 2 [facility] [place] [address] [facility] F[facility] THYROXINE 2 [facility] TOTAL INC INC CALCIUM 92758 [facility] IONIZED 2 [facility] INC INC CALCIUM 71718 [facility] TOTAL 2 [facility] INC INC MICROSOMA 11033 [facility] F[facility] L 2 [facility] ANTIBODIE INC INC S EACH THYROID 71245 [facility] HORM 2 [facility] UPTK/THYR INC INC OID HORMONE BINDING RATIO CYANOCOBA 07536 [facility] ADELA 2 [facility] VITAMIN INC INC B-12 GONADOTRO 54966 [facility] PIN 2 [facility] CHORIONIC INC INC QUANTITAT KATE THERAPEUT 70310 [facility] F[facility] IC 2 [facility] INJECTION INC [place] [address] [facility] INFUSION 2 [facility] THERAPY/P INC INC ROPHYLAXI S /DX 1ST TO 1 [place] [address] [facility] INFUSION 2 [facility] THERAPY/P INC INC ROPHYLAXI S /DX 1ST TO 1 HR EGD 74170 [facility] TRANSORAL 2 [facility] BIOPSY INC INC SINGLE/[place] [address] BELLA JAMIL SURG 2 PATHOLOGY GROSS&MARTHA ROSCOPIC EXAM URINE 81647 [facility] 2 [facility] TEST INC [place] [address] [facility] INFUSION 2 [facility] THERAPY INC INC PROPHYLAX IS/DX EA HOUR SPECIAL 61841 BELLA JAMIL STAIN 2 GROUP 1 MICROORGA NISMS I&R SPCL STN 48893 BELLA JAMIL 2 I&R 2 EXCPT MICROORG/ ENZYME/IM CYT CULTURE 94910 HARPEL HARPEL CHLAMYDIA 2 [place] [address] [facility] F[facility] THYROID 2 [facility] STIMULATI INC INC NG HORMONE TSH IADNA 59906 HAR[facility] HARPEL NEISSERIA 2 JANET JANET GONORRHOE AE DIRECT PROBE TQ SMR PRIM 98589 [facility] HARPEL SRC WET 2 JANET JANET [facility] AGT URINLS 16025 HAR[facility] HARPEL DIP 2 JANET JANET STICK/TAB LET REAGNT NON-AUTO MICRSCPY HGB 06333 HAR[facility] HARPEL QUANTITAT 2 JANET JANET KATE TRANSCUTA NEOUS SMR PRIM 11666 HARPE[facility] HARPEL SRC WET 2 JANET JANET [facility] AGT ANOSCOPY 79022 Carol ADKINS CONTROL 1 [place] [address] [facility] INFUSION 1 [facility] THERAPY INC INC PROPHYLAX IS/DX EA HOUR ANESTHESI 32343 [facility] A 1 ANESTH ANORECTAL OF THE BLUE PROCEDURE CONTROL 4995 [facility] OF 1 [facility] HEMORRHAG INC INC E OF ANUS BLOOD 35598 [facility] COUNT 1 [facility] COMPLETE INC INC AUTO&AUTO DIFRNTL WBC GONADOTRO 12167 [facility] PIN 1 [facility] CHORIONIC INC INC QUALITATI VE CYTP C/V 36663 BIO BIO AUTO THIN 1 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 SCR IES IES MNL RESCR PHYS URINE 87938 [facility] TEST [facility] VISUAL [facility] COLOR CMPRSN METHS INTRAUTER J7300 [facility] INE 1 [facility] COPPER CLINIC OF CONTRACEP [facility] TIVE INSERTION 23535 [facility] INTRAUTER CLINIC OF INE [facility] DEVICE IUD EXC 52814 [facility] THROMBOSE 1 [facility] D [place] [address] [facility] INFUSION 1 [facility] THERAPY INC INC PROPHYLAX IS/DX EA HOUR LEVEL III 78305 RANDI WANDA PAT SURG 1 [facility] & PATHOLOGY DUBILIER GROSS&MARTHA ROSCOPIC EXAM HEMORRHOI 45105 C BRENDANGraciela ADKINS DECTOMY 1 JED BYRD NTRNL & MD PSC XTRNL 1 COLUMN/GR OUP DSTRJ 20096 C BRENDAN PRITISTAD LESION 1 JED BYRD ANUS SMPL PSC ELTRDSICC ATION ANESTHESI 72341 [facility] A 1 ANESTH ROWENA ANORECTAL OF THE BLUE PROCEDURE OT LOCAL 4939 [facility] 1 [facility] EXCISION/ INC INC DESTRUC LESION/TI SSUE ANUS EXCISION 4946 [facility] OF 1 [facility] HEMORRHOI INC INC DS BLOOD 39480 [facility] COUNT 1 [facility] COMPLETE INC INC AUTO&AUTO DIFRNTL WBC GONADOTRO 82947 [facility] PIN 1 [facility] CHORIONIC INC INC [facility] [address] [facility] [address] DISCHARGE 1 PHYSICIAN JANET DAY GROUP MANAGEMEN PCC T 30 MIN/< SUBQ 42185 [place] [address] CARE CESAR CARE PER ASSOCIATE DAY E/M S NORMAL SBSQ 79935 [facility] 1 PHYSICIAN JANET CARE/DAY GROUP 35 PCC MINUTES CIRCUMCIS 42686 [facility] 1 CARE CESAR W/CLAMP/O ASSOCIATE TH DEV S W/BLOCK SUBQ 35696 [facility] 1 CARE CESAR CARE PER ASSOCIATE DAY E/M S NORMAL SBSQ 24793 [facility] 1 PHYSICIAN JANET CARE/DAY GROUP 35 PCC MINUTES 08572 [facility] [address] DELIVERY 1 PHYSICIAN JANET ONLY GROUP PCC ANESTHESI 50436 [facility]ESS[facility] A 1 ANESTH OF THE DELIVERY BLUE ONLY 1ST 74789 [facility] 1 CARE CESAR [facility] S CARE PER DAY NML NB OTHER 6829 [facility] EXCISION 1 [facility] OR INC INC DESTRUCTI ON LESION UTERUS LOW 741 [facility] CERVICAL 1 [facility] INC INC SECTION INITIAL 04025 [facility] [address] [address] [facility] 1 PHYSICIAN JANET CARE/DAY GROUP 70 PCC MINUTES OBSERVATI 84000 [facility] PHYSICIAN JANET ENT [facility] PCC CARE 55 MINUTES OBSERVATI 62518 [facility] HARPEL ON/INPATI 1 PHYSICIAN JANET [facility] PCC CARE 55 MINUTES 02834 [facility] [address] BIOPHYSIC 1 PHYSICIAN JANET AL GROUP PROFILE PCC NON-STRES S TESTING PARTICLE 56067 [facility] AGGLUTINA 1 [facility] TION INC INC SCREEN EACH ANTIBODY 80963 [facility] [address] NONSTRESS 1 PHYSICIAN JANET TEST GROUP PCC 00752 [facility] BIOPHYSIC 1 [facility] AL HIGH RISK PROFILE O W/O NON-STRES S TESTING DOPPLER 09009 [facility] ECHO 1 [facility] HIGH RISK PULS O SPECTRAL F/U/REPEA T 02522 [facility] [address] NONSTRESS 1 PHYSICIAN JANET TEST GROUP PCC FIBRIN 23815 [facility] DGRADJ 1 [facility] PRODUCTS INC INC D-DIMER QUAL/SEMI WENDY FIBRINOGE 99831 [facility] N 1 [facility] ACTIVITY INC INC PROTHROMB 02292 [facility] IN TIME 1 [facility] INC INC BLOOD 43048 [facility] COUNT 1 [facility] COMPLETE INC INC AUTO&[place] [address] [facility] MAGNESIUM 1 [facility] INC INC URNLS DIP 62382 [facility] 1 [facility] STICK/TAB INC INC LET REAGENT AUTO MICROSCOP Y ANTIBODY 05547 [facility] SCREEN 1 [facility] RBC EACH INC INC SERUM TECHNIQUE BLOOD 81762 [facility] TYPING 1 [facility] SEROLOGIC INC INC ABO TRANSFERA 34967 [facility] SE 1 [facility] ASPARTATE INC INC AMINO AST SGOT TRANSFERA 68440 [facility] F[facility] SE 1 [facility] ALANINE INC INC AMINO ALT SGPT THROMBOPL 83862 [facility] ASTIN 1 [facility] TIME INC INC PARTIAL PLASMA/WH OLE BLOOD BLOOD 07682 [facility] TYPING 1 [facility] SEROLOGIC INC INC RH (D) [place] [address] [facility] BLOOD/URI 1 [facility] C ACID INC INC BASIC 08741 [facility] METABOLIC 1 [facility] PANEL INC INC CALCIUM TOTAL 88607 [facility] NONSTRESS 1 [facility] [address] [facility] INFUSION 1 [facility] THERAPY/P INC INC ROPHYLAXI S /DX 1ST TO 1 HR THERAPEUT 25281 [facility] IC 1 [facility] INJECTION INC INC IV PUSH EACH NEW DRUG URNLS DIP 33058 [facility] 1 [facility] STICK/TAB HIGH RISK LET RGNT O NON-AUTO W/O MICRSCP DOPPLER 03952 [facility] ECHO 1 [facility] HIGH RISK PULS O SPECTRAL F/U/REPEA T 00771 [facility] BIOPHYSIC 1 [facility] AL HIGH RISK PROFILE O W/O NON-STRES S TESTING SMR PRIM 13220 [facility] SRC WET 1 [facility] NFCT AGT PCC 26196 [facility] NONSTRESS 1 [facility] TEST GROUP PCC 35086 [facility] BIOPHYSIC 1 [facility] AL HIGH RISK PROFILE O W/O NON-STRES [place] TESTING [place] PREG 38615 [facility] UTERUS 1 [facility] AFTER 1ST HIGH RISK TRIMEST O 1/1ST GESTATION 15179 [facility] NONSTRESS 1 [facility] TEST [place] P[place] 52667 [facility] 1 [facility] AFTER 1ST HIGH RISK TRIMEST O 1/ GESTATION 16391 [facility] BIOPHYSIC 1 [facility] [place] AL HIGH RISK PROFILE O W/O NON-STRES S TESTING 08364 [facility]OP[facility]YSIC 1 [facility] AL HIGH RISK PROFILE O W/O NON-STRES S TESTING DOPPLER 23170 [facility] ECHO 1 [facility] HIGH RISK PULS O SPECTRAL F/U/REPEA T COLLECTIO 75951 [facility] N VENOUS [facility] BLOOD VENIPUNCT URE PROTEIN 18884 [facility] TOTAL 1 [facility] XCPT REFRACTOM ETRY URINE URNLS DIP 64831 [facility] 1 [facility] STICK/TAB HIGH RISK LET RGNT O NON-AUTO W/O MICRSCP CREATININ 67029 [facility] E 1 [facility] CLEARANCE THERAPEUT 10925 [facility] IC 1 [facility] PROPHYLAC INC INC TIC/DX INJECTION SUBQ/IM THERAPEUT 64506 [facility] IC 1 [facility] PROPHYLAC INC INC TIC/DX INJECTION SUBQ/IM 33771 [facility] NONSTRESS 1 [facility] [place] P[place] 83135 [facility] UTERUS 1 [facility] W/DETAIL HIGH RISK O ANNALISA 1ST GESTATION URNLS DIP 38714 [facility] 1 [facility] STICK/TAB HIGH RISK LET RGNT O NON-AUTO W/O MICRSCP 04320 [facility] BIOPHYSIC 1 [facility] [place] AL HIGH RISK PROFILE O W/O NON-STRES S TESTING 29165 [facility] BIOPHYSIC 1 [facility] ANDUJAR GROUP PROFILE PCC NON-STRES S TESTING ECHO 38222 [facility] 1 [facility] [place] CARDIOVAS HIGH RISK C W/WO O M-MODE RECORDING 13731 [facility] BIOPHYSIC 1 [facility]ANET AL GROUP PROFILE PCC NON-STRES S TESTING 64308 [facility] BIOPHYSIC 1 [facility] AL GROUP PROFILE [place] [address] [facility] BLOOD/URI 1 [facility] C ACID INC INC TRANSFERA 47733 [facility] SE 1 [facility] ASPARTATE INC INC AMINO AST SGOT THROMBOPL 55284 [facility] ASTIN 1 [facility] TIME INC INC PARTIAL PLASMA/WH OLE BLOOD TRANSFERA 52252 [facility] SE 1 [facility] ALANINE INC INC AMINO ALT SGPT BASIC 11817 [facility] METABOLIC 1 [facility] PANEL INC INC CALCIUM TOTAL FIBRINOGE 88479 [facility] F[facility] N 1 [facility] ACTIVITY INC INC FIBRIN 79679 [facility] DGRADJ 1 [facility] PRODUCTS INC INC D-DIMER QUAL/SEMI WENDY PROTHROMB 69114 [facility] IN TIME 1 [facility] INC INC BLOOD 72681 [facility] COUNT 1 [facility] COMPLETE INC INC AUTO&AUTO DIFRNTL WBC SMR PRIM 27838 [facility] NF[place] P[place] 62487 [facility] AFTER 1ST GROUP TRIMEST PCC / [place] [address] [facility] AV[facility]AON BLOOD/URI 1 [facility] C ACID INC INC THROMBOPL 01747 [facility] ASTIN 1 [facility] TIME INC INC PARTIAL PLASMA/WH OLE BLOOD BASIC 27681 [facility] METABOLIC 1 [facility] PANEL INC INC CALCIUM TOTAL GLUCOSE 17207 [facility] [facility] GLUCOSE INC INC DOSE BLOOD 50776 [facility] COMPLETE INC INC AUTO&AUTO DIFRNTL WBC HEPATIC 95974 [facility] FUNCTION 1 [facility] PANEL INC INC FIBRINOGE 75784 [facility] N 1 [facility] ACTIVITY INC INC PROTHROMB 92236 [facility] F[facility] IN TIME 1 [facility] INC INC FIBRIN 41643 [facility] DGRADJ 1 [facility] PRODUCTS INC INC D-DIMER QUAL/SEMI WENDY FTL 33349 [facility] FIBRONECT 1 [facility] IN INC INC CERVICOVA G SECRETION S SEMI-WENDY URNLS DIP 88939 [facility] STICK/TAB INC INC LET REAGENT AUTO MICROSCOP Y 32906 [facility]OMEN'S ACEVEDO NONSTRESS 1 [facility] CULTURE 09417 [facility] BACTERIAL 1 [facility] INC INC QUANTTATI VE COLONY COUNT URINE 88018 [place] [facility] SAMMI AL IMAGING PROFILE ASS W/O NON-STRES S TESTING US PREG 56942 [facility] UTERUS 1 PHYSICIAN JANET AFTER 1ST GROUP TRIMEST PCC GESTATION ALPHA-FET 43547 [facility] OPROTEIN 1 [facility] [place] [address] [facility] ESTRIOL 1 [facility] INC INC GONADOTRO 16205 [facility] F[facility] PIN 1 [facility] CHORIONIC INC INC QUANTITAT KATE PROTHROMB 56277 TER[facility] F[facility] IN TIME 1 [facility] INC INC FIBRINOGE 65887 TERRIE AVILAON N 1 [facility] [place] [address] [facility] F[facility] LIPASE 1 [facility] INC INC BLOOD 43003 [facility] COUNT 1 [facility] COMPLETE INC INC AUTO&AUTO DIFRNTL WBC URNLS DIP 87089 TERRIEMICHEL FALCON 1 [facility] STICK/TAB INC INC [place] [address] [facility] F[facility] AMYLASE 1 [facility] INC INC COMPREHEN 61109 [facility] AVILAON SIVE 1 [facility] [place] [address] [facility] F[facility] INFUSION 1 [facility] THERAPY/P INC INC ROPHYLAXI S /DX 1ST TO 1 HR THROMBOPL 18172 [facility] ASTIN 1 [facility] TIME INC INC PARTIAL PLASMA/WH OLE BLOOD IADNA 99172 BIO BIO HERPES 1 REFERNCE REFERNCE SOMPLX 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 VIR[place] [address] [facility] INFUSION 1 [facility] THERAPY/P INC INC ROPHYLAXI S /DX 1ST TO 1 HR COMPREHEN 60377 [facility] SIVE 1 [facility] METABOLIC INC INC PANEL URNLS DIP 01419 [facility]CON 1 [facility] STICK/TAB INC INC LET REAGENT AUTO MICROSCOP Y BLOOD 55686 [facility] COUNT 1 [facility] COMPLETE INC INC AUTO&AUTO DIFRNTL WBC URINALYSI 96744 [facility] HARPEL S 1 PHYSICIAN JANET MICROSCOP GROUP IC ONLY PCC URINLS 38454 [facility] HAR[facility] DIP 1 PHYSICIAN JANET STICK/TAB GROUP LET PCC REAGNT NON-AUTO MICRSCPY CULTURE 72835 [facility] BACTERIAL 1 [facility] INC INC QUANTTATI VE COLONY COUNT URINE US PREG 49522 [facility] UTERUS 0 PHYSICIAN JANET REAL TIME GROUP W/IMAGE PCC DCMTN TRANSVAG IADNA NOS 05603 BIO BIO 0 REFERNCE REFERNCE AMPLIFIED 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 PROBE TQ IES IES EACH ORGANISM IADNA 10622 BIO BIO NEISSERIA 0 REFERNCE REFERNCE 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 GONORRHOE IES IES AE AMPLIFIED PROBE TQ IADNA 65331 BIO BIO CHLAMYDIA 0 REFERNCE REFERNCE 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 TRACHOMAT IES IES IS AMPLIFIED PROBE TQ CYTP C/V 51603 BIO BIO AUTO THIN 0 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 SCR IES IES MNL RESCR PHYS GONADOTRO 16584 [facility] PIN 0 [facility] CHORIONIC INC INC QUANTITAT KATE URINE 67442 [facility] HARPEL 0 PHYSICIAN JANET TEST GROUP VISUAL PCC COLOR CMPRSN METHS IAADIADOO 46236 ARASH ANTOINE, 0 DON R DON R STREPTOCO CCUS GROUP A SUSCEPTIB 64492 [facility] LTY STDY 0 [facility] ANTIMICRB INC INC IAL MICRO/AGA R DILUTJ URNLS DIP 59084 [facility] STICK/TAB INC INC LET REAGENT AUTO MICROSCOP Y CT LUMBAR 49002 [facility] LEVINERITIKA, SPINE 0 MEDICAL RONIT W/O IMAGING CONTRAST ASSOCIATE MATERIAL S URINE 35700 [facility] TEST INC INC VISUAL COLOR CMPRSN METHS CULTURE 22193 [facility] BCT 0 [facility] ISOL&PRSM INC INC PTV ID ISOLATE EA URINE CULTURE 11546 [facility] BACTERIAL 0 [facility] INC INC QUANTTATI VE COLONY COUNT URINE 3D 52007 ILAN RITIKA, RENDERING 0 MEDICAL RONIT IMAGING W/INTERP& ASSOCIATE POSTPROC S [facility]FF [facility] [id number] [facility] OBSERVATI 0 [facility] ON INC INC SERVICE PER HOUR COMPREHEN 90399 [facility] SIVE 0 [facility] METABOLIC INC INC PANEL URINE 54490 [facility] TEST INC INC VISUAL COLOR CMPRSN METHS INITIAL 62212 [place] BESHASMUKH, OBSERVATI 0 RANDY OLMAN [place] ON INTERNAL CARE/DAY MED 30 MINUTES URNLS DIP 80301 [facility] STICK/TAB INC INC LET REAGENT AUTO MICROSCOP Y BLOOD 04205 [facility] COUNT 0 [facility] COMPLETE INC INC AUTO&AUTO DIFRNTL WBC CUL BACT 29602 [facility] STOOL 0 [facility] ISOL SALMONELL A&SHIGELL CUL BACT 44285 [facility] STOOL 0 [facility] ADDL PATHOGENS &[place] [address] [facility] LAB JORDNI CLOSTRIDI 0 [facility] [place] [address] [facility] SHIGA-LIK 0 [facility]IC [facility] E [employer] [facility] HOLDING Encounters Encounter Start End Date Code Location Performer Type Date EMERGENCY 70376 EVIE CASTANEDA 6 6 PHYSICIAN [facility] T VISIT HIGH/URGE NT SEVERITY HOSPITAL TER[facility] - 6 6 [facility] EMERGENCY 11579 TER[facility] 6 6 [facility] T VISIT MODERATE [facility]VERITY HOSPITAL TERRIE - 6 6 [facility] OUTPATIEN [facility] HOSPITAL TERRIE - 6 6 [facility]PATIEN [facility] EMERGENCY 34802 [facility] 6 [facility] T VISIT HIGH/URGE NT SEVERITY HOSPITAL TERRIE - 6 6 [facility] OUTPATIEN [facility] HOSPITAL TERRIE - 6 6 [facility] OUTPATIEN [facility] OFFICE 30367 BETY LAZAR [facility] 6 6 [place], T VISIT [facility] 15 MINUTES OFFICE 59562 TER[facility]E OUTPATIEN 6 6 [facility] T [facility]ISIT INC 10 MINUTES HOSPITAL TERRIE - 6 6 [facility] OUTPATIEN [facility] EMERGENCY 51339 EVIE CASTANEDA 6 6 PHYSICIAN [facility] T VISIT HIGH/URGE NT SEVERITY HOSPITAL TERRIE - 6 6 [facility] OUTPATIEN [facility] EMERGENCY 74882 [facility] 6 6 [facility] T VISIT MODERATE SEVERITY EMERGENCY 51820 EVIE CASTANEDA 6 6 PHYSICIAN [facility] T VISIT HIGH/URGE NT SEVERITY HOSPITAL TERRIE - 6 6 [facility] OUTPATIEN [facility] HOSPITAL TERRIE - 6 6 [facility]PATIEN [facility] HOSPITAL TERRIE - 6 6 [facility] OUTPATIEN INC T HOSPITAL TERRIE [facility] 6 6 [facility] OUTPATIEN INC T EMERGENCY 68711 TERRIE 6 6 [facility] DEPARTMEN INC T VISIT HIGH/URGE NT SEVERITY OFFICE 83063 BETY ABURTO [facility] OUTPATIEN 6 6 [place], T VISIT [facility] 15 MINUTES OFFICE 67045 REUBEN TALBERT OUTPATIEN 6 6 GALI GONZALES T VISIT 25 MINUTES EMERGENCY 72380 EVIE CASTANEDA 6 6 PHYSICIAN [facility] DEPARTMEN S, [facility] T VISIT HIGH/URGE NT SEVERITY HOSPITAL TERRIE - 6 6 [facility] OUTPATIEN [facility] T OFFICE 26676 [facility] LEONEL OUTPATIEN 6 6 PHYSICIAN MARTHA T VISIT S GROUP 10 MINUTES EMERGENCY 31249 [facility] 6 6 [facility] T VISIT HIGH/URGE NT SEVERITY HOSPITAL TERRIE - 6 6 [facility] OUTPATIEN [facility] T PERIODIC 60650 REUBEN TALBERT PREVENTIV 5 5 GALI GONZALES E MED EST PATIENT 18-39 YRS HOSPITAL TERRIE - 5 5 [facility] OUTPATIEN INC T OFFICE 61382 [facility] 5 5 PHYSICIAN EUG T VISIT S GROUP 15 MINUTES HOSPITAL TERRIE - 5 5 [facility] OUTPATIEN [facility] T EMERGENCY 50300 EVIE CASTANEDA DEPT 5 5 PHYSICIAN MARTHA VISIT S, [facility] HIGH SEVERITY& THREAT FUNCJ EMERGENCY 39074 [facility] 5 5 [facility] HIGH/URGE NT SEVERITY OFFICE 36199 REUBEN TALBERT OUTPATIEN 5 5 GALI GONZALES T VISIT 15 MINUTES HOSPITAL TERRIE - 5 5 [facility] OUTPATIEN INC T OFFICE 48173 BETY ABURTO [facility] OUTPATIEN 5 5 MD [place], T VISIT [facility] 10 MINUTES HOSPITAL TERRIE - 5 5 [facility] OUTPATIEN INC T EMERGENCY 02582 EVIE EVANGELISTA JR 5 5 PHYSICIAN [facility], [facility] T VISIT HIGH/URGE NT SEVERITY HOSPITAL TERRIE - 5 5 [facility] OUTPATIEN INC T OFFICE 22070 [facility] OUTPATIEN 5 5 [facility] T VISIT INC 10 MINUTES EMERGENCY 78707 EVIE CASTANEDA 5 5 PHYSICIAN [facility], [facility] T VISIT HIGH/URGE NT SEVERITY HOSPITAL TERRIE - 5 5 [facility] OUTPATIEN [facility] HOSPITAL TERRIE - 5 5 [facility] OUTPATIEN INC EMERGENCY 23660 EVIE CASTANEDA 5 5 PHYSICIAN [facility], [facility] T VISIT HIGH/URGE NT SEVERITY EMERGENCY 71471 EVIE CASTANEDA DEPT 5 5 PHYSICIAN [facility] VISIT S, [facility] HIGH SEVERITY& THREAT [facility] HOSPITAL TERRIE - 5 5 [facility] OUTPATIEN INC HOSPITAL TER[facility]E - 5 5 [facility] OUTPATIEN INC T OFFICE 74486 [facility] OUTPATIEN 5 5 [facility] T VISIT INC 10 MINUTES HOSPITAL TERRIE - 5 5 [facility] OUTPATIEN INC T OFFICE 47243 MANJINDER FELIZPATIRON [address] [facility] 30 MINUTES OFFICE 85071 TER[facility] OUTPATIEN 5 5 [facility] T VISIT INC 10 MINUTES HOSPITAL TERRIE - 5 5 [facility] OUTPATIEN INC T OFFICE 96242 [facility] LEONEL OUTPATIEN 5 5 PHYSICIAN [facility] T VISIT S GROUP 10 MINUTES HOSPITAL TERRIE - 5 5 [facility] OUTPATIEN INC T OFFICE 46440 [facility] LEONEL OUTPATIEN 5 5 PHYSICIAN [facility] T VISIT S GROUP 10 MINUTES HOSPITAL TERRIE - 5 5 [facility] OUTPATIEN INC T OFFICE 25113 [facility] LEONEL OUTPATIEN 5 5 PHYSICIAN [facility] T VISIT S GROUP 10 MINUTES OFFICE 80609 [facility] LEONEL OUTPATIEN 4 4 PHYSICIAN MARTH[facility] T VISIT S GROUP 10 MINUTES HOSPITAL TERRIE - 4 4 [facility] OUTPATIEN [facility] TERRIE - 4 4 [facility] TERRIE - 4 4 [facility]PATI[facility] TERRIE - 4 4 [facility] OUTPATIEN [facility] T OFFICE 13712 [facility] LEONEL OUTPATIEN 4 4 PHYSICIAN MARTHA T VISIT S GROUP 10 MINUTES HOSPITAL TERRIE - 4 4 [facility] OUTPATIEN [facility] T OFFICE 83740 [facility] SCHULSTAD OUTPATIEN 4 4 PHYSICIAN CAM T VISIT S GROUP 15 MINUTES [facility] 74231 REUBEN TALBERT PREVENTIV 4 4 GALI GONZALES E MED EST PATIENT 18-39 YRS HOSPITAL TERRIE - 4 4 [facility] OUTPATIEN [facility] TERRIE - 4 4 [facility] OUTPATIEN [facility] T OFFICE 15592 [facility] LEONEL OUTPATIEN 4 4 PHYSICIAN MARTHA T VISIT S GROUP 10 MINUTES EMERGENCY 91170 LEONEL LEONEL 4 4 MARTHA [facility] DEPARTMEN T VISIT HIGH/URGE NT SEVERITY EMERGENCY 78862 UNIVERSIT 4 4 Y [facility] T VISIT LOW/MODER SEVERITY HOSPITAL UNIVERSIT - 4 4 Y OUTPATI HOSPITAL T EMERGENCY 52268 HAL CHAPMANMICHEL 4 4 I ALI Rosa ZUNIGA [facility] T VISIT MODERATE SEVERITY OFFICE 33012 SAMAN DAVISON OUTPATIEN 4 4 FRA FRA T NEW 45 MINUTES OFFICE 41977 LEONEL CASTANEDA OUTPATIEN 4 4 MARTHA MARTHA T VISIT 10 MINUTES EMERGENCY 02347 LEONEL CASTANEDA 4 4 [facility] HIGH/URGE NT SEVERITY OFFICE 70359 LEONEL CASTANEDA OUTPATIEN 4 4 MARTHA MARTHA T VISIT 10 MINUTES [facility] TERRIE - 4 4 [facility]PATIEN [facility] TERRIE - 4 4 [facility]PATI[facility] TERRIE - 3 3 [facility] OUTPATIEN [facility] OFFICE 39912 THOAMS GUZMAN OUTPATIEN 3 3 ANT ANT T VISIT 15 MINUTES EMERGENCY 24303 LEONEL LEONEL DEPT 3 3 MARTHA MARTHA VISIT HIGH SEVERITY& THREAT FUN PERIODIC 42902 [facility]PE[facility] HARPEL PREVENTIV 3 3 JANET JANET E MED EST PATIENT 18-39 YRS OFFICE 13224 [facility] OUTPATIEN 3 3 PHYSICIAN T VISIT S GROUP 15 MINUTES HOSPITAL TERRIE - 3 3 [facility] OUTPATIEN [facility] HOSPITAL TERRIE - 3 3 [facility] OUTPATIEN [facility] OFFICE 41205 ARASH ANTOINE OUTPATIEN 3 3 DON DON T VISIT 15 MINUTES OFFICE 30809 ARASH ANTOINE OUTPATIEN 3 3 DON DON T VISIT 15 MINUTES HOSPITAL TERRIE - 3 3 [facility] OUTPATIEN INC T EMERGENCY 79687 TERRIE 3 3 [facility] DEPARTMEN INC T VISIT LOW/MODER SEVERITY EMERGENCY 51640 LEONEL LEONEL 3 3 [facility] MARTHA DEPARTMEN T VISIT HIGH/URGE NT SEVERITY HOSPITAL TERRIE - 3 3 [facility] OUTPATIEN INC [facility] TER[facility]E - 3 3 [facility] OUTPATIEN INC T OFFICE 02231 [facility]PEL OUTPATIEN 3 3 JANET JANET T VISIT 15 MINUTES HOSPITAL TERRIE - 3 3 [facility] OUTPATIEN INC T OFFICE 91856 [facility]PE[facility] OUTPATIEN 3 3 JANET JANET T VISIT 15 MINUTES OFFICE 93474 ANTOINE ANTOINE OUTPATIEN 3 3 DON DON T VISIT 25 MINUTES OFFICE 31097 [facility] OUTPATIEN 3 3 JANET JANET T VISIT 15 MINUTES HOSPITAL TER[facility]E - 2 2 [facility] OUTPATIEN [facility] OFFICE 36211 HORNE HORNE OUTPATIEN 2 2 STORM STORM T VISIT 15 MINUTES OFFICE 44808 ANTOINE ANTOINE OUTPATIEN 2 2 DON DON T VISIT 15 MINUTES OFFICE 28776 HORNE HORNE OUTPATIEN 2 2 STORM STORM T NEW 30 MINUTES HOSPITAL TERRIE - 2 2 [facility] OUTPATIEN [facility] HOSPITAL TERRIE - 2 2 [facility] OUTPATIEN [facility] HOSPITAL TERRIE - 2 2 [facility] OUTPATIEN [facility] HOSPITAL TERRIE - 2 2 [facility] OUTPATIEN INC EMERGENCY 12468 TERRIE 2 2 [facility] DEPARTMEN [facility] T VISIT MODERATE SEVERITY EMERGENCY 79999 CORNELIUS SHIELDS DEPT 2 2 III JESSIKA III JESSIKA VISIT HIGH SEVERITY& THREAT [facility] TERRIE - 2 2 [facility] TER[facility]E [facility] 2 2 [facility] OUTPATIEN [facility] T PERIODIC 13988 [facility] HARPEL PREVENTIV 2 2 JANET JANET E MED EST PATIENT 18-39 YRS OFFICE 46902 [facility] OUTPATIEN 2 2 JANET JANET T VISIT 15 MINUTES OFFICE 15999 ANTOINE ANTOINE OUTPATIEN 2 2 DON DON T VISIT 15 MINUTES OFFICE 74826 [facility] OUTPATIEN 2 2 JANET JANET T VISIT 15 MINUTES OFFICE 48389 ANTOINE ANTOINE OUTPATIEN 2 2 DON DON T VISIT 15 MINUTES OFFICE 88717 ANTOINE ANTOINE OUTPATIEN 2 2 DON DON T VISIT 15 MINUTES EMERGENCY 84019 DIPTI CASTANEDA 1 1 EMERGENCY [facility] DEPARTMEN SERVICES T VISIT HIGH/URGE NT SEVERITY HOSPITAL TER[facility]E - 1 1 [facility] T EMERGENCY 02856 [facility] MODERATE SEVERITY [facility]PITAL LAUREON - 1 1 [facility] T EMERGENCY 47714 DIPTI MARTINEZ 1 1 [facility] DE[facility] T VISIT MODERATE SEVERITY EMERGENCY 47908 TERRIE 1 1 [facility] DEPARTMEN INC T VISIT MODERATE SEVERITY HOSPITAL TERRIE - 1 1 [facility] OUTPATIEN [facility] T EMERGENCY 72745 DIPTI CASTANEDA 1 1 EMERGENCY [facility] DEPARTMEN SERVICES T VISIT HIGH/URGE NT SEVERITY OFFICE 71943 C BRENDAN SCHULSTAD OUTPATIEN 1 1 JED BYRD T VISIT PSC 10 MINUTES HOSPITAL [facility] - 1 1 [facility] - 1 1 [facility] OUTPATIEN INC T OFFICE 61279 Carol CARDONA JED OUTPATIEN 1 1 JED Clayton VISIT PSC 25 MINUTES OFFICE 13471 ARASH ANTOINE OUTPATIEN 1 1 DON DON T VISIT 25 MINUTES OFFICE 53696 [facility] OUT[facility]EN 1 1 PHYSICIAN JANET T VISIT GROUP 15 PCC MINUTES OFFICE 23675 [facility] 1 1 [facility] ION [facility] PATIENT 40 MIN OFFICE 42556 [facility] OUTPATIEN 1 1 PHYSICIAN JANET T VISIT GROUP 15 PCC MINUTES [facility]OSPITAL [facility] - 1 1 [facility]PATIEN INC [facility] - 1 1 [facility] OUTPATIEN INC T OFFICE 22072 [facility] OUTPATIEN 1 1 PHYSICIAN JANET T VISIT GROUP 15 PCC MINUTES [facility]OSPITAL [facility] - 1 1 [facility] INPATIENT INC OFFICE 51949 [facility] OUTPATIEN 1 1 PHYSICIAN JANET T VISIT GROUP 15 PCC MINUTES [facility]OSPITAL [facility] - 1 1 [facility] OUTPATIEN INC T OFFICE 78378 [facility] OUTPAT[facility] 1 1 PHYSICIAN JANET T VISIT GROUP 15 PCC MINUTES OFFICE 49203 [facility] OUTPAT[facility] 1 1 PHYSICIAN JANET T VISIT GROUP 15 PCC MINUTES [facility]OSPITAL [facility] - 1 1 [facility] OUTPATIEN INC T OFFICE 64122 [facility] OUTPATIEN 1 1 PHYSICIAN JANET T VISIT GROUP 15 PCC MINUTES OFFICE 07264 [facility] HARPEL OUTPATIEN 1 1 PHYSICIAN JANET T VISIT GROUP 15 PCC MINUTES OFFICE 96812 H [facility] OUTPATIEN 1 1 PHYSICIAN JANET T VISIT GROUP 15 PCC MINUTES [facility] - 1 1 [facility] TERRIE - 1 1 [facility] OUTPATIEN INC [facility] - 1 1 [facility] OUTPATIEN INC T OFFICE 82076 H [facility] OUTPATIEN 1 1 PHYSICIAN JANET T VISIT GROUP 15 PCC MINUTES OFFICE 51788 H [facility] OUTPATIEN 1 1 PHYSICIAN JANET T VISIT GROUP 15 PCC MINUTES OFFICE 81546 H [facility] OUTPATIEN 1 1 PHYSICIAN JANET T VISIT GROUP 15 PCC MINUTES [facility]OSPITAL [facility] - 1 1 [facility] OUTPATIEN INC T OFFICE 18609 H [facility] OUTPATIEN 1 1 PHYSICIAN JANET T VISIT GROUP 15 PCC MINUTES OFFICE 74672 [facility] HARPEL OUTPATIEN 1 1 PHYSICIAN JANET T VISIT GROUP 15 PCC MINUTES HOSPITAL TER[facility] - 1 1 [facility] OUTPATIEN INC T OFFICE 04061 H [facility] OUTPATIEN 1 1 PHYSICIAN JANET T VISIT GROUP 15 PCC MINUTES OFFICE 42828 H [facility] OUTPATIEN 1 1 PHYSICIAN JANET T VISIT GROUP 15 PCC MINUTES EMERGENCY 98696 TERRIE 1 1 [facility] DEPARTMEN INC T VISIT MODERATE SEVERITY EMERGENCY 36025 DIPTI COLON DEPT 1 1 EMERGENCY STEWART VISIT SERVICES HIGH SEVERITY& THREAT [facility] TERRIE - 1 1 [facility] OUTPATIEN INC [facility] TERRIE - 1 1 [facility] OUTPATIEN INC T OFFICE 50775 [facility] 1 1 PHYSICIAN JANET T VISIT GROUP 15 PCC MINUTES OFFICE 04342 [facility] OUT[facility] 1 1 PHYSICIAN JANET T VISIT GROUP 15 PCC MINUTES [facility]OSPITAL [facility] - 1 1 [facility] OUTPATIEN INC T OFFICE 10835 [facility] 1 1 PHYSICIAN JANET T VISIT GROUP 15 PCC MINUTES HOSPITAL [facility] - 1 1 [facility] OUTPATIEN INC T OFFICE 32150 [facility] 1 1 [facility] JAN[facility] T VISIT GROUP 15 [facility] MINUTES EMERGENCY 99634 [facility] 1 1 [facility] DEPARTMEN INC T VISIT HIGH/URGE NT SEVERITY EMERGENCY 84257 [facility] LLOYD DEPT 1 1 EMERGENCY VISIT SERVICES HIGH SEVERITY& THREAT [facility] - 1 1 [facility] T OFFICE 03614 [facility] 1 1 PHYSICIAN JANET T VISIT GROUP 15 [facility] MINUTES OFFICE 83494 [facility] 1 1 PHYSICIAN JANET T VISIT GROUP 15 [facility] MIN[facility]ES [facility] - 1 1 [facility] T OFFICE [id number] [facility] 1 1 PHYSICIAN JANET T VISIT GROUP 15 PCC MINUTES EMERGENCY 35782 [facility] 1 1 [facility] DEPARTMEN INC T VISIT HIGH/URGE NT SEVERITY OFFICE 62169 [facility] 1 1 PHYSICIAN JANET T VISIT GROUP 15 [facility] MINUTES [facility] - 1 1 [facility] T OFFICE 85383 [facility] 0 0 PHYSICIAN JANET T VISIT GROUP 15 [facility] MINUTES OFFICE 37647 [facility] OUT[facility] 0 0 PHYSICIAN JANET T [facility]ISIT GROUP 40 [facility] MINUTES [facility]OSPITAL [facility] - 0 0 [facility] INC T OFFICE 97153 [facility] OUT[facility] 0 0 PHYSICIAN JANET T VISIT GROUP 15 PCC MINUTES EMERGENCY 45479 [facility] 0 0 [facility] DEPARTMEN INC T VISIT LOW/MODER SEVERITY EMERGENCY 04296 DIPTI CASTANEDA 0 0 EMERGENCY [facility] DEPARTMEN SERVICES T VISIT HIGH/URGE NT SEVERITY [facility]OSPITAL [facility] - 0 0 [facility] OUTPATI[facility] INC T OFFICE 79073 [facility] ANTOINES, OUTPATIEN 0 0 DON R DON R T VISIT 15 MINUTES OFFICE 38058 [facility] ANTOINES, OUTPATIEN 0 0 DON R DON R T VISIT 15 MINUTES EMERGENCY 31094 [facility] 0 0 [facility] DEPARTMEN INC T VISIT LOW/MODER SEVERITY EMERGENCY 98364 DIPTI PARKER, DEPT 0 0 EMERGENCY [facility] VISIT SERVICES O HIGH SEVERITY& ASSOCIATE THREAT S [facility]E - 0 0 [facility] OUTPATIEN INC T EMERGENCY 42427 [facility] 0 0 [facility] DEPARTMEN INC T VISIT HIGH/URGE NT SEVERITY EMERGENCY 13331 DIPTI CASTANEDA, DEPT 0 0 EMERGENCY [facility] VISIT SERVICES HIGH SEVERITY& ASSOCIATE THREAT S [facility] TERRIE - 0 0 [facility] OUTPATIEN INC T [facility] - 0 0 [facility] OUTPATIEN INC T EMERGENCY 70793 [facility] 0 0 [facility] DEPARTMEN INC T VISIT LOW/MODER SEVERITY EMERGENCY 52847 DIPTI CASTANEDA, 0 0 [facility]ER[facility]ENCY [facility] T VISIT HIGH/URGE ASSOCIATE NT S SEVERITY EMERGENCY 43657 OB RUPA- [facility] 0 [facility] T VISIT MODERATE SEVERITY
--- OUTSIDE RECORDS SUMMARY | 2017-01-25 21:47 | External Medical Summary Rpt ---
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 SCHULSTAD & REMOVAL 4 PHYSICIAN CAM FOREIGN S GROUP BODY SUBQ TISS SIMPLE BLOOD 41408 [facility] COUNT 4 [facility] COMPLETE INC INC AUTO&AUTO DIFRNTL WBC CULTURE 20270 [facility] CHLAMYDIA 4 GALI BARRETT JANET ANY SOURCE IADNA 28809 [facility] NEISSERIA 4 GALI BARRETT JANET GONORRHOE AE DIRECT PROBE TQ URINLS 97362 [facility] DIP 4 GALI BARRETT JANET STICK/TAB LET REAGNT NON-AUTO MICRSCPY HGB 37629 [facility] QUANTITAT 4 GALI BARRETT JANET KATE TRANSCUTA NEOUS RADEX 54932 [facility] FOOT 4 [facility] COMPLETE INC INC MINIMUM 3 VIEWS PHYSICAL 53742 [facility] THERAPY 4 [facility] EVALUATIO INC INC N COMPRE 02217 [facility] AUDIOMETR 4 STORM STORM Y THRESHOLD EVAL SP RECOGNIJ TYMPANOME 55097 [facility] TRY 4 STORM STORM DISTORT 22407 [facility] PRODUCT 4 STORM STORM EVOKED [place] [address] [facility] THYROXINE 4 [facility] TOTAL INC INC RADEX 60250 RITIKA RITIKA SPINE 4 SAMMI SAMMI LUMBOSACR AL 2/3 VIEWS RADEX 91591 [facility] SPINE 4 [facility] LUMBOSACR INC INC AL MINIMUM 4 [place] [address] [facility] F[facility] THYROID 4 [facility] STIMULATI INC INC NG HORMONE TSH COMPREHEN 96433 [facility] SIVE 4 [facility] METABOLIC INC INC PANEL BLOOD 84465 [facility] COUNT 4 [facility] COMPLETE INC INC AUTO&AUTO DIFRNTL WBC LIPID 15676 [facility] PANEL 4 [facility] INC INC HEMOGLOBI 95190 [facility] F[facility] N 4 [facility] GLYCOSYLA [place]EL[place] A1[place] [address] [facility] FREE 4 [facility] [place] [address] [facility] F[facility] THYROID 4 [facility] STIMULATI INC INC NG HORMONE TSH LIPID 79656 [facility] PANEL 3 [facility] INC INC 25 77974 [facility] HYDROXY 3 [facility] INCLUDES INC INC FRACTIONS IF PERFORMED CYANOCOBA 84395 [facility] ADELA 3 [facility] VITAMIN INC INC B-12 CULTURE 16964 [facility] HARPEL CHLAMYDIA 3 JANET JANET ANY SOURCE IADNA 45876 [facility] NEISSERIA 3 JANET JANET GONORRHOE AE DIRECT PROBE TQ URINLS 74039 [facility] DIP 3 JANET JANET STICK/TAB LET REAGNT NON-AUTO MICRSCPY HGB 36009 [facility] QUANTITAT 3 JANET JANET KATE TRANSCUTA NEOUS URNLS DIP 20116 [facility] 3 PHYSICIAN PHYSICIAN STICK/TAB S GROUP S GROUP LET RGNT NON-AUTO W/O MICRSCP RADEX 69566 [facility] FINGR 3 [facility] MINIMUM 2 INC INC VIEWS CUL BACT 94857 [facility] XCPT 3 [facility] URINE INC INC BLOOD/STO OL AEROBIC ISOL CUL BACT 79650 [facility] AEROBIC 3 [facility] ADDL INC INC METHS DEFINITIV E EA ISOL INCISION 15841 ARASH ANTOINE & 3 DON DON DRAINAGE ABSCESS SIMPLE/SI NGLE INJECTION J0690 ARASH ANTOINE 3 DON DON CEFAZOLIN SODIUM 500 MG SUSCEPTIB 96746 [facility] LTY STDY 3 [facility] ANTIMICRB INC INC IAL MICRO/AGA R DILUTJ THERAPEUT 75899 [facility] IC 3 [facility] PROPHYLAC INC INC TIC/DX INJECTION SUBQ/IM URINE 15650 [facility] HARPEL 3 JANET JANET TEST VISUAL COLOR CMPRSN METHS ETONOGEST J7307 [facility] REL 3 JANET JANET CNTRACPT IMPL SYS INCL IMPL & SPL INSJ 75388 [facility] NON-BIODE 3 JANET JANET GR[place] [address] [place] TAPIA SURG 3 [facility] PATHOLOGY GROSS&MARTHA ROSCOPIC EXAM BLOOD 43824 [facility] COUNT 3 [facility] HEMATOCRI INC INC T DILATION 90574 [facility] HARPE[facility] & 3 JANET JANET CURETTAGE DX&/THER NONOBSTET [facility] LAPS 51476 [facility] FULG/EXC 3 JANET JANET OVARY VISCERA/P ERITONEAL SURFACE ANESTHESI 54236 [facility] JESSIKA A 3 ANESTH INTRAPERI OF THE TONEAL BLUE LOWER ABD W/LAPS NOS INJECTION J2405 [facility] ONDANSETR INC INC ON HCL PER 1 MG BLOOD 58097 [facility] COUNT 3 [facility] HEMOGLOBI INC INC N BLOOD 37988 [facility] COUNT 3 [facility] COMPLETE INC INC AUTO&AUTO DIFRNTL WBC URNLS DIP 95664 [facility] 3 [facility] STICK/TAB INC INC LET REAGENT AUTO MICROSCOP Y URINE 69048 [facility] 3 [facility] TEST INC [place] [address] [facility] TRANSVAGI 3 [facility] NAL INC INC INJECTION J1080 ARASH ANTOINE 3 DON DON TESTOSTER ONE CYPIONATE 1 CC 200 MG REMOVAL 40700 [facility] INTRAUTER 3 JANET JANET INE DEVICE IUD INJECTION J2675 [facility] HARPEL 3 JANET JANET PROGESTER ONE PER [address] [place] [address] [facility] THYROID 2 [facility] STIMULATI [place] [address] [facility] FREE 2 [facility] THYROXINE INC INC MICROSOMA 22965 [facility] L 2 [facility] ANTIBODIE INC INC S EACH INJECTION J0690 ARASH ANTOINE 2 KIRAN BECK CEFAZOLIN SODIUM 500 MG US SOFT 75730 [place] TISSUE 2 MEDICAL SAMMI HEAD & IMAGING [place] [address] [facility] F[facility] THYROID 2 [facility] STIMULATI [place] [address] [facility] FREE 2 [facility] [place] [address] [facility] F[facility] THYROXINE 2 [facility] TOTAL INC INC CALCIUM 62944 [facility] IONIZED 2 [facility] INC INC CALCIUM 00650 [facility] TOTAL 2 [facility] INC INC MICROSOMA 80966 [facility] F[facility] L 2 [facility] ANTIBODIE INC INC S EACH THYROID 41182 [facility] HORM 2 [facility] UPTK/THYR INC INC OID HORMONE BINDING RATIO CYANOCOBA 06415 [facility] ADELA 2 [facility] VITAMIN INC INC B-12 GONADOTRO 59875 [facility] PIN 2 [facility] CHORIONIC INC INC QUANTITAT KATE THERAPEUT 15161 [facility] IC 2 [facility] INJECTION INC [place] [address] [facility] INFUSION 2 [facility] THERAPY/P INC INC ROPHYLAXI S /DX 1ST TO 1 [place] [address] [facility] INFUSION 2 [facility] THERAPY/P INC INC ROPHYLAXI S /DX 1ST TO 1 HR EGD 05636 [facility] TRANSORAL 2 [facility] BIOPSY INC INC SINGLE/[place] [address] BELLA JAMIL SURG 2 PATHOLOGY GROSS&MARTHA ROSCOPIC EXAM URINE 57708 [facility] 2 [facility] TEST INC [place] [address] [facility] INFUSION 2 [facility] THERAPY INC INC PROPHYLAX IS/DX EA HOUR SPECIAL 54855 [facility] JAMIL STAIN 2 GROUP 1 MICROORGA NISMS I&R SPCL STN 42115 BELLA JAMIL 2 I&R 2 EXCPT MICROORG/ ENZYME/IM CYT CULTURE 36207 [facility] HARPEL CHLAMYDIA 2 [place] [address] [facility] THYROID 2 [facility] STIMULATI INC INC NG HORMONE TSH IADNA 76317 [facility] NEISSERIA 2 JANET JANET GONORRHOE AE DIRECT PROBE TQ SMR PRIM 00193 [facility] SRC WET 2 JANET JANET MOUNT NFCT AGT URINLS 26021 [facility] DIP 2 JANET JANET STICK/TAB LET REAGNT NON-AUTO MICRSCPY HGB 11033 [facility] QUANTITAT 2 JANET JANET KATE TRANSCUTA NEOUS SMR PRIM 92857 [facility] SRC WET 2 JANET JANET MOUNT NFCT AGT ANOSCOPY 70862 Carol ADKINS CONTROL 1 [place] [address] [facility] INFUSION 1 [facility] THERAPY INC INC PROPHYLAX IS/DX EA HOUR ANESTHESI 86588 [facility] A 1 ANESTH ANORECTAL OF THE BLUE PROCEDURE CONTROL 4995 [facility] OF 1 [facility] HEMORRHAG INC INC E OF ANUS BLOOD 57268 [facility] COUNT 1 [facility] COMPLETE INC INC AUTO&AUTO DIFRNTL WBC GONADOTRO 45164 [facility] PIN 1 [facility] CHORIONIC INC INC QUALITATI VE CYTP C/V 93459 BIO BIO AUTO THIN 1 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 SCR IES IES MNL RESCR PHYS URINE 44007 [facility] VISUAL [place] COLOR CMPRSN METHS INTRAUTER J7300 [facility] INE 1 [facility] COPPER CLINIC OF CONTRACEP [facility] TIVE INSERTION 06480 [facility] INTRAUTER CLINIC OF INE ASHLEY DEVICE IUD EXC 44621 [facility] THROMBOSE 1 [facility] D [place] [address] [facility] INFUSION 1 [facility] THERAPY INC INC PROPHYLAX IS/DX EA HOUR LEVEL III 92099 RANDI WANDA PAT SURG 1 LORRIE & PATHOLOGY DUBILIER GROSS&MARTHA ROSCOPIC EXAM HEMORRHOI 94824 C BRENDANGraciela ADKINS DECTOMY 1 JED BYRD NTRNL & MD PSC XTRNL 1 COLUMN/GR OUP DSTRJ 17570 C BRENDAN PRITISTAD LESION 1 JED BYRD ANUS SMPL PSC ELTRDSICC ATION ANESTHESI 99503 [facility] A 1 ANESTH ROWENA ANORECTAL OF THE BLUE PROCEDURE OT LOCAL 4939 [facility] 1 [facility] EXCISION/ INC INC DESTRUC LESION/TI SSUE ANUS EXCISION 4946 [facility] OF 1 [facility] HEMORRHOI INC INC DS BLOOD 74875 [facility] COUNT 1 [facility] COMPLETE INC INC AUTO&AUTO DIFRNTL WBC GONADOTRO 31454 [facility] PIN 1 [facility] CHORIONIC INC INC [facility] 64659 [facility] DISCHAR[facility] 1 PHYSICIAN JANET DAY GROUP MANAGEMEN PCC T 30 MIN/< SUBQ 40288 [place] [address] CARE CESAR CARE PER ASSOCIATE DAY E/M S NORMAL SBSQ 49449 [facility] 1 PHYSICIAN JANET CARE/DAY GROUP 35 PCC MINUTES CIRCUMCIS 35209 [facility] 1 CARE CESAR W/CLAMP/O ASSOCIATE TH DEV S W/BLOCK SUBQ 93586 [facility] 1 CARE CESAR CARE PER ASSOCIATE DAY E/M S NORMAL SBSQ 38823 [facility] 1 PHYSICIAN JANET CARE/DAY GROUP 35 PCC MINUTES 19604 [facility] DELIVERY 1 PHYSICIAN JANET ONLY GROUP PCC ANESTHESI 02101 [facility] JESS[facility] A 1 ANESTH OF THE DELIVERY BLUE ONLY 1ST 81253 [facility] 1 CARE CESAR [facility] C[facility] S CARE PER DAY NML NB OTHER 6829 [facility] EXCISION 1 [facility] OR INC INC DESTRUCTI ON LESION UTERUS LOW 741 [facility] CERVICAL 1 [facility] INC INC SECTION INITIAL 93743 [facility] 1 PHYSICIAN JANET CARE/DAY GROUP 70 PCC MINUTES OBSERVATI 97856 [facility] 1 PHYSICIAN JANET ENT [facility] PCC CARE 55 MINUTES OBSERVATI 36817 [facility] HARPEL ON/INPATI 1 PHYSICIAN JANET [facility] PCC CARE 55 MINUTES 00774 [facility] BIOPHYSIC 1 PHYSICIAN JANET AL GROUP PROFILE PCC NON-STRES S TESTING PARTICLE 35150 [facility] AGGLUTINA 1 [facility] TION INC INC SCREEN EACH ANTIBODY 97387 [facility] NONSTRESS 1 PHYSICIAN JANET TEST GROUP PCC 17652 [facility] BIOPHYSIC 1 [facility] AL HIGH RISK PROFILE O W/O NON-STRES S TESTING DOPPLER 14563 [facility] ECHO 1 [facility] HIGH RISK PULS O SPECTRAL F/U/REPEA T 46014 [facility] NONSTRESS 1 PHYSICIAN JANET TEST GROUP PCC FIBRIN 94164 [facility] DGRADJ 1 [facility] PRODUCTS INC INC D-DIMER QUAL/SEMI WENDY FIBRINOGE 82642 [facility] N 1 [facility] ACTIVITY INC INC PROTHROMB 51381 [facility] IN TIME 1 [facility] INC INC BLOOD 87981 [facility] COUNT 1 [facility] COMPLETE INC INC AUTO&[place] [address] [facility] MAGNESIUM 1 [facility] INC INC URNLS DIP 89752 [facility] 1 [facility] STICK/TAB INC INC LET REAGENT AUTO MICROSCOP Y ANTIBODY 49422 [facility] SCREEN 1 [facility] RBC EACH INC INC SERUM TECHNIQUE BLOOD 97946 [facility] TYPING 1 [facility] SEROLOGIC INC INC ABO TRANSFERA 09388 [facility] SE 1 [facility] ASPARTATE INC INC AMINO AST SGOT TRANSFERA 51876 [facility] F[facility] SE 1 [facility] ALANINE INC INC AMINO ALT SGPT THROMBOPL 32726 [facility] ASTIN 1 [facility] TIME INC INC PARTIAL PLASMA/WH OLE BLOOD BLOOD 94713 [facility] TYPING 1 [facility] SEROLOGIC [place] INC RH (D) [place] [address] [facility] BLOOD/URI 1 [facility] C ACID INC INC BASIC 23573 [facility] METABOLIC 1 [facility] PANEL INC INC CALCIUM TOTAL 01205 [facility] NONSTRESS 1 [facility] [place] [address] [facility] INFUSION 1 [facility] THERAPY/P INC INC ROPHYLAXI S /DX 1ST TO 1 HR THERAPEUT 62635 [facility] IC 1 [facility] INJECTION INC INC IV PUSH EACH NEW DRUG URNLS DIP 69363 [facility] 1 [facility] STICK/TAB HIGH RISK LET RGNT O NON-AUTO W/O MICRSCP DOPPLER 89789 [facility] ECHO 1 [facility] HIGH RISK PULS O SPECTRAL F/U/REPEA T 84733 [facility] BIOPHYSIC 1 [facility] AL HIGH RISK PROFILE O W/O NON-STRES S TESTING SMR PRIM 56421 [facility] HARPEL SRC WET 1 PHYSICIAN JANET MOUNT GROUP NFCT AGT PCC 98192 [facility] HARPEL NONSTRESS 1 PHYSICIAN JANET TEST GROUP PCC 13340 [facility] BIOPHYSIC 1 [facility] AL HIGH RISK PROFILE O W/O NON-STRES S TESTING US PREG 93642 [facility] UTERUS 1 [facility] AFTER 1ST HIGH RISK TRIMEST O 1/1ST GESTATION 29523 [facility] HARPEL NONSTRESS 1 PHYSICIAN JANET TEST GROUP PCC US PREG 45904 [facility]US 1 [facility] [place] AFTER 1ST HIGH RISK TRIMEST O 1/ GESTATION 28123 [facility] BIOPHYSIC 1 [facility] [place] HIGH RISK PROFILE O W/O NON-STRES S TESTING 93161 [facility] BIOPHYSIC 1 [facility] [place] [facility] HIGH RISK PROFILE O W/O NON-STRES S TESTING DOPPLER 57068 [facility] ECHO 1 [facility] [place] HIGH RISK PULS O SPECTRAL F/U/REPEA T COLLECTIO 85927 [facility] N VENOUS 1 [facility] BLOOD VENIPUNCT URE PROTEIN 96485 [facility] TOTAL 1 [facility] XCPT REFRACTOM ETRY URINE URNLS DIP 69001 [facility] 1 [facility] [place] STICK/TAB HIGH RISK LET RGNT O NON-AUTO W/O MICRSCP CREATININ 12960 [facility] E 1 [facility] CLEARANCE THERAPEUT 28419 [facility] IC 1 [facility] PROPHYLAC INC INC TIC/DX INJECTION SUBQ/IM THERAPEUT 71779 [facility]CON IC 1 [facility] PROPHYLAC INC INC TIC/DX INJECTION SUBQ/IM 63660 [facility] HARPEL NONSTRESS 1 PHYSICIAN JANET TEST GROUP PCC US PREG 91604 [facility] UTERUS 1 [facility] [place] W/DETAIL HIGH RISK O ANNALISA 1ST GESTATION URNLS DIP 02552 [facility] 1 [facility] [place] STICK/TAB HIGH RISK LET RGNT O NON-AUTO W/O MICRSCP 27415 [facility] BIOPHYSIC 1 [facility] [place] HIGH RISK PROFILE O W/O NON-STRES S TESTING 62754 [facility] HARPEL BIOPHYSIC 1 PHYSICIAN JANET ANDUJAR GROUP PROFILE PCC NON-STRES S TESTING ECHO 50417 [facility] 1 [facility] MODOY CARDIOVAS HIGH RISK C W/WO O M-MODE RECORDING 93839 [facility] HAR[facility] BIOPHYSIC 1 PHYSICIAN JANET AL GROUP PROFILE PCC NON-STRES S TESTING 79110 [facility] BIOPHYSIC 1 PHYSICIAN JANET AL GROUP PROFILE [place] [address] [facility] BLOOD/URI 1 [facility] C ACID INC INC TRANSFERA 77539 [facility] SE 1 [facility] ASPARTATE INC INC AMINO AST SGOT THROMBOPL 04469 [facility] ASTIN 1 [facility] TIME INC INC PARTIAL PLASMA/WH OLE BLOOD TRANSFERA 89258 [facility] SE 1 [facility] ALANINE INC INC AMINO ALT SGPT BASIC 31004 [facility] METABOLIC 1 [facility] PANEL INC INC CALCIUM TOTAL FIBRINOGE 38852 [facility] N 1 [facility] ACTIVITY INC INC FIBRIN 46248 [facility] DGRADJ 1 [facility] PRODUCTS INC INC D-DIMER QUAL/SEMI WENDY PROTHROMB 08744 [facility] IN TIME 1 [facility] INC INC BLOOD 74222 [facility] COUNT 1 [facility] COMPLETE INC INC AUTO&AUTO DIFRNTL WBC SMR PRIM 43914 [facility] WET 1 [facility]IC[facility] JANET MOUNT GROUP NFCT AGT PCC US PREG 72899 [facility] U[facility]US 1 PHYSICIAN JANET AFTER 1ST GROUP TRIMEST PCC / [place] [address] [facility] BLOOD/URI 1 [facility] C ACID INC INC THROMBOPL 28483 [facility] ASTIN 1 [facility] TIME INC INC PARTIAL PLASMA/WH OLE BLOOD BASIC 73918 [facility] METABOLIC 1 [facility] PANEL INC INC CALCIUM TOTAL GLUCOSE 55623 [facility] POST 1 [facility] GLUCOSE INC INC DOSE BLOOD 14651 [facility] COUNT 1 [facility] COMPLETE INC INC AUTO&AUTO DIFRNTL WBC HEPATIC 32812 [facility] FUNCTION 1 [facility] PANEL INC INC FIBRINOGE 99788 [facility] F[facility] N 1 [facility] ACTIVITY INC INC PROTHROMB 65731 [facility] F[facility] IN TIME 1 [facility] INC INC FIBRIN 99056 [facility] DGRADJ 1 [facility] PRODUCTS INC INC D-DIMER QUAL/SEMI WENDY FTL 61233 [facility] FIBRONECT 1 [facility] IN INC INC CERVICOVA G SECRETION S SEMI-WENDY URNLS DIP 94189 [facility] STICK/TAB INC INC [place] Y 47585 [facility] NONSTRESS 1 [facility] CULTURE 79389 [facility] BACTERIAL 1 [facility] INC INC QUANTTATI VE COLONY COUNT URINE 32162 [facility] SAMMI AL IMAGING PROFILE ASS W/O NON-STRES S TESTING US PREG 30793 [facility] UTERUS 1 PHYSICIAN JANET AFTER 1ST GROUP TRIMEST PCC GESTATION ALPHA-FET 00566 [facility] OPROTEIN 1 [facility] [place] [address] [facility] ESTRIOL 1 [facility] INC INC GONADOTRO 68205 [facility] PIN 1 [facility] CHORIONIC INC INC QUANTITAT KATE PROTHROMB 49369 [facility] IN TIME 1 [facility] INC INC FIBRINOGE 37108 [facility] N 1 [facility] [place] [address] [facility] LIPASE 1 [facility] INC INC BLOOD 53210 [facility] COUNT 1 [facility] COMPLETE INC INC AUTO&AUTO DIFRNTL WBC URNLS DIP 49206 [facility] 1 [facility] STICK/TAB INC INC [place] [address] [facility] F[facility] AMYLASE 1 [facility] INC INC COMPREHEN 35330 [facility] SIVE 1 [facility] [place] [address] [facility] INFUSION 1 [facility] THERAPY/P INC INC ROPHYLAXI S /DX 1ST TO 1 HR THROMBOPL 72802 [facility] ASTIN 1 [facility] TIME INC INC PARTIAL PLASMA/WH OLE BLOOD IADNA 99474 BIO BIO HERPES 1 REFERNCE REFERNCE SOMPLX 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 VIR[place] [address] [facility] INFUSION 1 [facility] THERAPY/P INC INC ROPHYLAXI S /DX 1ST TO 1 HR COMPREHEN 38806 [facility] SIVE 1 [facility] METABOLIC INC INC PANEL URNLS DIP 36764 [facility] 1 [facility] STICK/TAB INC INC LET REAGENT AUTO MICROSCOP Y BLOOD 67688 [facility] COUNT 1 [facility] COMPLETE INC INC AUTO&AUTO DIFRNTL WBC URINALYSI 40339 [facility] S 1 PHYSICIAN JANET MICROSCOP GROUP IC ONLY PCC URINLS 34994 [facility] DIP 1 PHYSICIAN JANET STICK/TAB GROUP LET PCC REAGNT NON-AUTO MICRSCPY CULTURE 97232 [facility] BACTERIAL 1 [facility] INC INC QUANTTATI VE COLONY COUNT URINE US PREG 15254 [facility] UTERUS 0 PHYSICIAN JANET REAL TIME GROUP W/IMAGE PCC DCMTN TRANSVAG IADNA NOS 28778 BIO BIO 0 REFERNCE REFERNCE AMPLIFIED 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 PROBE TQ IES IES EACH ORGANISM IADNA 37309 BIO BIO NEISSERIA 0 REFERNCE REFERNCE 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 GONORRHOE IES IES AE AMPLIFIED PROBE TQ IADNA 89692 BIO BIO CHLAMYDIA 0 REFERNCE REFERNCE 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 TRACHOMAT IES IES IS AMPLIFIED PROBE TQ CYTP C/V 86274 BIO BIO AUTO THIN 0 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 SCR IES IES MNL RESCR PHYS GONADOTRO 19102 [facility] PIN 0 [facility] CHORIONIC INC INC QUANTITAT KATE URINE 37364 [facility] HARPEL 0 PHYSICIAN JANET TEST GROUP VISUAL PCC COLOR CMPRSN METHS IAADIADOO 42264 ARASH ANTOIEN, 0 DON R DON R STREPTOCO CCUS GROUP A SUSCEPTIB 83014 [facility] LTY STDY 0 [facility] ANTIMICRB INC INC IAL MICRO/AGA R DILUTJ URNLS DIP 20391 [facility] STICK/TAB INC INC LET REAGENT AUTO MICROSCOP Y CT LUMBAR 91245 [facility] LEVINERITIKA, SPINE 0 MEDICAL RONIT W/O IMAGING CONTRAST ASSOCIATE MATERIAL S URINE 15500 [facility] TEST INC INC VISUAL COLOR CMPRSN METHS CULTURE 87998 [facility] BCT 0 [facility] ISOL&PRSM INC INC PTV ID ISOLATE EA URINE CULTURE 52260 [facility] BACTERIAL 0 [facility] INC INC QUANTTATI VE COLONY COUNT URINE 3D 99232 ILAN RITIKA, RENDERING 0 MEDICAL RONIT IMAGING W/INTERP& ASSOCIATE POSTPROC S DIFF [facility] [id number] [facility] OBSERVATI 0 [facility] ON INC INC SERVICE PER HOUR COMPREHEN 64859 [facility] SIVE 0 [facility] METABOLIC INC INC PANEL URINE 54267 [facility] 0 [facility] TEST INC INC VISUAL COLOR CMPRSN METHS INITIAL 96734 [place] BESHASMUKH, OBSERVATI 0 RANDY OLMAN [place] ON INTERNAL CARE/DAY MED 30 MINUTES URNLS DIP 70465 [facility] STICK/TAB INC INC LET REAGENT AUTO MICROSCOP Y BLOOD 92470 [facility] COUNT 0 [facility] COMPLETE INC INC AUTO&AUTO DIFRNTL WBC CUL BACT 61733 [facility] STOOL 0 [facility] [employer] [employer] ISOL SALMONELL A&SHIGELL CUL BACT 83472 [facility] STOOL 0 [employer] [employer] ADDL PATHOGENS &[place] [address] [facility] CLOSTRIDI 0 [employer] [employer] [place] [address] [facility] SHIGA-LIK 0 [employer]IC [employer] E [employer]ING Encounters Encounter Start End Date Code Location Performer Type Date EMERGENCY 40082 EVIE CASTANEDA 6 6 PHYSICIAN [facility] T VISIT HIGH/URGE NT SEVERITY [facility]OSPITAL [facility] 6 6 [facility] 88341 [facility] [address] [facility] T VISIT MODERATE [facility]VERITY HOSPITAL [facility] - 6 6 [facility] - 6 6 [facility] OUT[facility]IEN [facility]ENC[facility] 52817 [facility] 6 6 [facility] T VISIT HIGH/URGE NT SEVERITY HOSPITAL [facility] - 6 6 [facility] - 6 6 [facility] OFFICE 71621 BETY LAZAR [facility] 6 6 MD [place], T VISIT [facility] 15 MINUTES OFFICE 34039 [facility] OUTPATIEN 6 6 [facility] T VISIT INC 10 MINUTES HOSPITAL [facility] - 6 6 [facility] OUTPATIEN [facility] 35345 EVIE CASTANEDA 6 6 PHYSICIAN [facility] T VISIT HIGH/URGE NT SEVERITY HOSPITAL [facility] - 6 6 [facility] OUTPATIEN [facility] 55038 [facility] 6 6 [facility] T VISIT MODERATE SEVERITY EMERGENCY 86305 EVIE CASTANEDA 6 6 PHYSICIAN [facility] T VISIT HIGH/URGE NT SEVERITY HOSPITAL [facility] - 6 6 [facility] - 6 6 [facility] - 6 6 [facility] OUTPATIEN INC T HOSPITAL [facility] - 6 6 [facility] OUTPATIEN INC T EMERGENCY 79393 TER[facility] 6 6 [facility] DEPARTMEN INC T VISIT HIGH/URGE NT SEVERITY OFFICE 45232 BETY ABURTO [facility] OUTPATIEN 6 6 MD [place], T VISIT [facility] 15 MINUTES OFFICE 23069 REUBEN TALBERT OUTPATIEN 6 6 GALI GONZALES T VISIT 25 MINUTES EMERGENCY 04713 EVIE CASTANEDA 6 6 PHYSICIAN MARTHA DEPARTMEN S, [facility] T VISIT HIGH/URGE NT SEVERITY HOSPITAL [facility] - 6 6 [facility] OUTPATIEN [facility] T OFFICE 04019 [facility] LEONEL OUTPATIEN 6 6 PHYSICIAN MARTHA T VISIT S GROUP 10 MINUTES EMERGENCY 29901 [facility] 6 6 [facility] T VISIT HIGH/URGE NT SEVERITY HOSPITAL [facility] - 6 6 [facility] OUTPATIEN [facility] T PERIODIC 55199 REUBEN TALBERT PREVENTIV 5 5 GALI GONZALES E MED EST PATIENT 18-39 YRS HOSPITAL [facility] - 5 5 [facility] OUTPATIEN INC T OFFICE 31695 [facility] 5 5 PHYSICIAN EUG T VISIT S GROUP 15 MINUTES HOSPITAL [facility] - 5 5 [facility] OUTPATIEN [facility] T EMERGENCY 74506 EVIE CASTANEDA DEPT 5 5 PHYSICIAN MARTHA VISIT S, [facility] HIGH SEVERITY& THREAT [facility] EMERGENCY 52220 [facility] 5 5 [facility] T [facility]ISIT HIGH/URGE NT SEVERITY OFFICE 04460 REUBEN TALBERT OUTPATIEN 5 5 GALI GONZALES T VISIT 15 MINUTES HOSPITAL [facility] - 5 5 [facility] OUTPATIEN INC T OFFICE 46230 BETY ABURTO [facility] OUTPATIEN 5 5 MD [place]WE[place], T VISIT [facility] 10 MINUTES HOSPITAL TER[facility] - 5 5 [facility] OUTPATIEN INC T EMERGENCY 20157 EVIE EVANGELISTA JR 5 5 PHYSICIAN [facility], [facility] T VISIT HIGH/URGE NT SEVERITY HOSPITAL [facility] - 5 5 [facility] OUTPATIEN INC T OFFICE 17803 [facility] OUTPATIEN 5 5 [facility] T VISIT INC 10 MINUTES EMERGENCY 65227 EVIE CASTANEDA 5 5 PHYSICIAN [facility], [facility] T VISIT HIGH/URGE NT SEVERITY HOSPITAL [facility] - 5 5 [facility]EN [facility] - 5 5 [facility] OUTPATIEN INC EMERGENCY 17892 EVIE CASTANEDA 5 5 PHYSICIAN [facility], [facility] T VISIT HIGH/URGE NT SEVERITY EMERGENCY 75581 EVIE CASTANEDA DEPT 5 5 PHYSICIAN [facility] VISIT S, [facility] HIGH SEVERITY& THREAT [facility] H[facility]PITAL [facility] - 5 5 [facility] OUTPATIEN INC [facility]PITAL [facility] - 5 5 [facility] OUTPATIEN INC T OFFICE 55337 [facility] OUTPATIEN 5 5 [facility] T VISIT INC 10 MINUTES HOSPITAL [facility] - 5 5 [facility] OUTPATIEN INC T OFFICE 93143 MANJINDER FELIZPATIRON 5 5 T [facility] 30 MINUTES OFFICE 85024 [facility] OUTPATIEN 5 5 [facility] T VISIT INC 10 MINUTES HOSPITAL [facility] - 5 5 [facility] OUTPATIEN INC T OFFICE 58899 [facility] LEONEL OUTPATIEN 5 5 PHYSICIAN MARTHA T VISIT S GROUP 10 MINUTES HOSPITAL [facility] - 5 5 [facility] OUTPATIEN INC T OFFICE 19738 [facility] LEONEL OUTPATIEN 5 5 PHYSICIAN MARTHA T VISIT S GROUP 10 MINUTES HOSPITAL TER[facility] - 5 5 [facility] OUTPATIEN INC T OFFICE 32495 [facility] LEONEL OUTPATIEN 5 5 PHYSICIAN MARTHA T VISIT S GROUP 10 MINUTES OFFICE 15586 [facility] LEONEL OUTPATIEN 4 4 PHYSICIAN MARTHA T VISIT S GROUP 10 MINUTES HOSPITAL TER[facility] - 4 4 [facility] - 4 4 [facility] TER[facility]E - 4 4 [facility]PATI[facility] TERRIE - 4 4 [facility] OUTPATIEN [facility] T OFFICE 32741 [facility] LEONEL OUTPATIEN 4 4 PHYSICIAN MARTHA T VISIT S GROUP 10 MINUTES HOSPITAL TERRIE - 4 4 [facility] OUTPATIEN [facility] T OFFICE 64301 [facility] SCHULSTAD OUTPATIEN 4 4 PHYSICIAN CAM T VISIT S GROUP 15 MINUTES [facility] 02870 REUBEN TALBERT PREVENTIV 4 4 GALI GONZALES E MED EST PATIENT 18-39 YRS HOSPITAL TERRIE - 4 4 [facility]IEN [facility] TER[facility]E - 4 4 [facility] OUTPATIEN [facility] T OFFICE 09005 [facility] LEONEL OUTPATIEN 4 4 PHYSICIAN MARTHA T VISIT S GROUP 10 MINUTES EMERGENCY 36214 LEONEL LEONEL 4 4 MARTHA MARTHA DEPARTMEN T VISIT HIGH/URGE NT SEVERITY EMERGENCY 05787 UNIVERSIT 4 4 Y [facility] H[facility] T VISIT LOW/MODER SEVERITY HOSPITAL UNIVERSIT - 4 4 Y OUTPATI HOSPITAL T EMERGENCY 56993 HAL CHAPMANMICHEL 4 4 I ALI Rosa ZUNIGA [facility] T VISIT MODERATE SEVERITY OFFICE 19394 SAMAN DAVISON OUTPATIEN 4 4 FRA FRA T NEW 45 MINUTES OFFICE 88582 LEONEL CASTANEDA OUTPATIEN 4 4 MARTHA MARTHA T VISIT 10 MINUTES EMERGENCY 27332 LEONEL CASTANEDA 4 4 [facility] VIS[facility] HIGH/URGE NT SEVERITY OFFICE 34876 LEONEL CASTANEDA OUTPATIEN 4 4 MARTHA MARTHA T VISIT 10 MINUTES [facility] TERRIE - 4 4 [facility] OUTPATI[facility] TERRIE - 4 4 [facility]PATIEN [facility] TER[facility]E - 3 3 [facility] OFFICE 26996 THOMAS GUZMAN OUTPATIEN 3 3 ANT ANT T VISIT 15 MINUTES EMERGENCY 20044 LEONEL LEONEL DEPT 3 3 MARTHA MARTHA VISIT HIGH SEVERITY& THREAT FUN PERIODIC 17696 HARPEL HARPEL PREVENTIV 3 3 JANET JANET E MED EST PATIENT 18-39 YRS OFFICE 53965 [facility] OUTPATIEN 3 3 PHYSICIAN T VISIT S GROUP 15 MINUTES HOSPITAL [facility] - 3 3 [facility] - 3 3 [facility] OFFICE 56664 ARASH ANTOINE OUTPATIEN 3 3 DON DON T VISIT 15 MINUTES OFFICE 10219 ARASH ANTOINE OUTPATIEN 3 3 DON DON T VISIT 15 MINUTES HOSPITAL TER[facility] - 3 3 [facility] OUTPATIEN INC T EMERGENCY 14671 TER[facility]E 3 3 [facility] DEPARTMEN INC T VISIT LOW/MODER SEVERITY EMERGENCY 83099 LEONEL LEONEL 3 3 [facility] MARTHA DEPARTMEN T VISIT HIGH/URGE NT SEVERITY HOSPITAL TER[facility] - 3 3 [facility] OUTPATIEN INC [facility] - 3 3 [facility] OUTPATIEN INC T OFFICE 97346 HAR[facility] HARPEL OUTPATIEN 3 3 JANET JANET T VISIT 15 MINUTES HOSPITAL [facility] - 3 3 [facility] OUTPATIEN INC T OFFICE 96370 [facility] OUTPATIEN 3 3 JANET JANET T VISIT 15 MINUTES OFFICE 30156 ANTOINE ANTOINE OUTPATIEN 3 3 DON DON T VISIT 25 MINUTES OFFICE 30422 [facility] HARPEL OUTPATIEN 3 3 JANET JANET T VISIT 15 MINUTES HOSPITAL [facility] - 2 2 [facility] OFFICE 85794 HORNE HORNE OUTPATIEN 2 2 STORM STORM T VISIT 15 MINUTES OFFICE 78319 ANTOINE ANTOINE OUTPATIEN 2 2 DON DON T VISIT 15 MINUTES OFFICE 10146 HORNE HORNE OUTPATIEN 2 2 STORM STORM T NEW 30 MINUTES HOSPITAL [facility] - 2 2 [facility] - 2 2 [facility] TER[facility] - 2 2 [facility]PATI[facility] TER[facility] - 2 2 [facility] OUTPATIEN INC EMERGENCY 41513 TERRIE 2 2 [facility] DEPARTMEN [facility] T VISIT MODERATE SEVERITY EMERGENCY 40090 CORNELIUS SHIELDS DEPT 2 2 III JESSIKA III JESSIKA VISIT HIGH SEVERITY& THREAT [facility] TER[facility] - 2 2 [facility] - 2 2 [facility] OUTPATIEN [facility] T PERIODIC 29844 [facility] PREVENTIV 2 2 JANET JANET E MED EST PATIENT 18-39 YRS OFFICE 06449 [facility] OUTPATIEN 2 2 JANET JANET T VISIT 15 MINUTES OFFICE 28687 ANTOINE ANTOINE OUTPATIEN 2 2 DON DON T VISIT 15 MINUTES OFFICE 96097 [facility] OUTPATIEN 2 2 JANET JANET T VISIT 15 MINUTES OFFICE 56703 ANTOINE ANTOINE OUTPATIEN 2 2 DON DON T VISIT 15 MINUTES OFFICE 86317 ANTOINE ANTOINE OUTPATIEN 2 2 DON DON T VISIT 15 MINUTES EMERGENCY 37516 DIPTI CASTANEDA 1 1 EMERGENCY [facility] DEPARTMEN SERVICES T VISIT HIGH/URGE NT SEVERITY [facility]OSPITAL [facility] - 1 1 [facility] T EMERGENCY 20254 [facility] 1 1 [facility] T VISIT MODERATE SEVERITY [facility] LAUREON - 1 1 [facility] T EMERGENCY 02809 DIPTI MARTINEZ 1 1 EMERGENCY [facility] DEPARTMEN SERVICES T VISIT MODERATE SEVERITY EMERGENCY 90464 TER[facility] 1 1 [facility] DEPARTMEN INC T VISIT MODERATE SEVERITY HOSPITAL [facility] - 1 1 [facility] OUTPATIEN [facility] T EMERGENCY 45267 DIPTI CASTANEDA 1 1 EMERGENCY [facility] DEPARTMEN SERVICES T VISIT HIGH/URGE NT SEVERITY OFFICE 43770 C BRENDAN SCHULSTAD OUTPATIEN 1 1 JED BYRD T VISIT PSC 10 MINUTES HOSPITAL [facility] - 1 1 [facility] - 1 1 [facility] OUTPATIEN INC T OFFICE 23581 Carol CARDONA JED OUTPATIEN 1 1 JED Clayton VISIT PSC 25 MINUTES OFFICE 47036 ARASH ANTOINE OUTPATIEN 1 1 DON DON T VISIT 25 MINUTES OFFICE 42670 [facility] OUT[facility] 1 1 PHYSICIAN JANET T VISIT GROUP 15 PCC MINUTES OFFICE 38705 [facility] 1 1 [facility] ION [facility] PATIENT 40 MIN OFFICE 97408 [facility] OUTPATIEN 1 1 PHYSICIAN JANET T VISIT GROUP 15 PCC MINUTES HOSPITAL [facility] - 1 1 [facility] OUTPATIEN INC [facility] - 1 1 [facility] OUTPATIEN INC T OFFICE 88445 [facility] OUTPATIEN 1 1 PHYSICIAN JANET T VISIT GROUP 15 PCC MINUTES [facility]OSPITAL [facility] - 1 1 [facility] INPATIENT INC OFFICE 04173 [facility] OUTPAT[facility] 1 1 PHYSICIAN JANET T VISIT GROUP 15 PCC MINUTES [facility]OSPITAL [facility] - 1 1 [facility] OUTPATIEN INC T OFFICE 21747 [facility] OUTPATI[facility] 1 1 PHYSICIAN JANET T VISIT GROUP 15 PCC MINUTES OFFICE 30713 [facility] OUTPATI[facility] 1 1 PHYSICIAN JANET T VISIT GROUP 15 PCC MINUTES HOSPITAL [facility] - 1 1 [facility] OUTPATIEN INC T OFFICE 04743 [facility] OUTPATI[facility] 1 1 PHYSICIAN JANET T VISIT GROUP 15 PCC MINUTES OFFICE 82528 [facility] HARPEL OUTPATIEN 1 1 PHYSICIAN JANET T VISIT GROUP 15 PCC MINUTES OFFICE 37294 H [facility] OUTPATIEN 1 1 PHYSICIAN JANET T VISIT GROUP 15 PCC MINUTES [facility]OSPITAL [facility] - 1 1 [facility] TER[facility]E - 1 1 [facility] OUTPATIEN INC [facility] - 1 1 [facility] OUTPATIEN INC T OFFICE 22027 H [facility] OUTPATIEN 1 1 PHYSICIAN JANET T VISIT GROUP 15 PCC MINUTES OFFICE 69056 H [facility] OUTPATIEN 1 1 PHYSICIAN JANET T VISIT GROUP 15 PCC MINUTES OFFICE 73970 H [facility] OUTPATIEN 1 1 PHYSICIAN JANET T VISIT GROUP 15 PCC MINUTES HOSPITAL [facility] - 1 1 [facility] OUTPATIEN INC T OFFICE 91594 H [facility] OUTPATIEN 1 1 PHYSICIAN JANET T VISIT GROUP 15 PCC MINUTES OFFICE 30119 [facility] HARPEL OUTPATIEN 1 1 PHYSICIAN JANET T VISIT GROUP 15 PCC MINUTES HOSPITAL [facility] - 1 1 [facility] OUTPATIEN INC T OFFICE 41290 H [facility] OUTPATIEN 1 1 PHYSICIAN JANET T VISIT GROUP 15 PCC MINUTES OFFICE 75276 H [facility] OUTPATIEN 1 1 PHYSICIAN JANET T VISIT GROUP 15 PCC MINUTES EMERGENCY 21590 [facility] 1 1 [facility] DEPARTMEN INC T VISIT MODERATE SEVERITY EMERGENCY 49259 DIPTI COLON DEPT 1 1 EMERGENCY STEWART VISIT SERVICES HIGH SEVERITY& THREAT [facility] TER[facility]E - 1 1 [facility] OUTPATIEN INC [facility] TERRIE - 1 1 [facility] OUTPATIEN INC T OFFICE 52564 [facility] 1 1 PHYSICIAN JANET T VISIT GROUP 15 PCC MINUTES OFFICE 12115 [facility] 1 1 PHYSICIAN JANET T VISIT GROUP 15 PCC MINUTES [facility]OSPITAL [facility] - 1 1 [facility] OUTPATIEN INC T OFFICE 99608 [facility] 1 1 PHYSICIAN JANET T VISIT GROUP 15 PCC MINUTES HOSPITAL [facility] - 1 1 [facility] OUTPATIEN INC T OFFICE 26887 [facility] OUT[facility] 1 1 PHYSICIAN JANET T VISIT GROUP 15 PCC MINUTES EMERGENCY 49660 [facility] 1 1 [facility] DEPARTMEN INC T VISIT HIGH/URGE NT SEVERITY EMERGENCY 61608 DIPTI LLOYD DEPT 1 1 EMERGENCY VISIT SERVICES HIGH SEVERITY& THREAT [facility] - 1 1 [facility] OUTPATIEN INC T OFFICE 47408 [facility] 1 1 PHYSICIAN JANET T VISIT GROUP 15 PCC MINUTES OFFICE 54813 [facility] OUT[facility] 1 1 PHYSICIAN JANET T VISIT GROUP 15 PCC MINUTES [facility]OSPITAL [facility] - 1 1 [facility] OUTPATIEN INC T OFFICE 54744 [facility] OUT[facility] 1 1 PHYSICIAN JANET T VISIT GROUP 15 PCC MINUTES EMERGENCY 35825 [facility] 1 1 [facility] DEPARTMEN INC T VISIT HIGH/URGE NT SEVERITY OFFICE 33047 [facility] OUTPAT[facility]EN 1 1 PHYSICIAN JANET T VISIT GROUP 15 PCC MINUTES HOSPITAL [facility] - 1 1 [facility] OUTPATIEN INC T OFFICE 58813 [facility] OUTPATIEN 0 0 PHYSICIAN JANET T VISIT GROUP 15 PCC MINUTES OFFICE 34103 [facility] HARPEL OUTPATIEN 0 0 PHYSICIAN JANET T VISIT GROUP 40 PCC MINUTES HOSPITAL [facility] - 0 0 [facility] OUTPATIEN INC T OFFICE 84110 [facility] HARPEL OUTPATIEN 0 0 PHYSICIAN JANET T VISIT GROUP 15 PCC MINUTES EMERGENCY 97089 TER[facility] 0 0 [facility] DEPARTMEN INC T VISIT LOW/MODER SEVERITY EMERGENCY 82598 DIPTI CASTANEDA 0 0 EMERGENCY [facility] DEPARTMEN SERVICES T VISIT HIGH/URGE NT SEVERITY HOSPITAL [facility] - 0 0 [facility] OUTPATIEN INC T OFFICE 70192 OLMAN ANTOINES, OUTPATIEN 0 0 DON R DON R T VISIT 15 MINUTES OFFICE 64221 OLMAN ANTOINES, OUTPATIEN 0 0 DON R DON R T VISIT 15 MINUTES EMERGENCY 79281 [facility] 0 0 [facility] DEPARTMEN INC T VISIT LOW/MODER SEVERITY EMERGENCY 67813 DIPTI PARKER, DEPT 0 0 EMERGENCY KYLE VISIT SERVICES O HIGH SEVERITY& ASSOCIATE THREAT S [facility] TERRIE - 0 0 [facility] OUTPATIEN INC T EMERGENCY 49034 [facility] 0 0 [facility] DEPARTMEN INC T VISIT HIGH/URGE NT SEVERITY EMERGENCY 22262 DIPTI CASTANEDA, DEPT [address] [facility] VISIT SERVICES HIGH SEVERITY& ASSOCIATE THREAT S [facility] TERRIE - 0 0 [facility] OUTPATIEN INC T [facility]PITAL [facility] - 0 0 [facility] OUTPATIEN INC T EMERGENCY 25044 [facility] 0 0 [facility] DEPARTMEN INC T VISIT LOW/MODER SEVERITY EMERGENCY 47350 DIPTI CASTANEDA, 0 0 EMERGENCY [facility] SERVICES T VISIT HIGH/URGE ASSOCIATE NT S SEVERITY EMERGENCY 68734 OB RUPA- 0 0 [facility] T VISIT MODERATE SEVERITY
--- OUTSIDE RECORDS SUMMARY | 2017-01-25 21:48 | External Medical Summary Rpt ---
Demographics Preferred Language Macedonian Marital Status Unknown Zoroastrianism Affiliation Unknown Race Unknown Ethnic Group Unknown Author Author , Organization [employer] Address Unknown Phone Unavailable Purpose Continuity of Care Document - through 2016 Immunization No patient found.
--- OUTSIDE RECORDS SUMMARY | 2017-01-25 21:48 | External Medical Summary Rpt ---
Author Author W[employer] Hui, [employer] Organization [employer] Address Unknown Phone Unavailable
--- OUTSIDE RECORDS SUMMARY | 2017-01-25 21:48 | External Medical Summary Rpt ---
Demographics Preferred Language Indonesian Marital Status Unknown Worship Affiliation Unknown Race Unknown Ethnic Group Unknown Author Author , Organization [employer] Address Unknown Phone Unavailable Purpose Continuity of Care Document - through 2016 Immunization No patient found.
== END 2017-01-24 03:10 | disposition home or self-care (01) ==
LOC: ER 00:27
DX: R51 Headache (principal); I15.9 Secondary hypertension, unspecified; Z72.0 Tobacco use

== ENCOUNTER 2017-05-09 22:45 | Emergency (ER) | payer OTHER ==
[~2017-05-09] VITALS: Ht 167.6 cm; Wt 78.0 kg
[~2017-05-09 22:45] MED LIST changes: +METFORMIN500 MG PO; +METOPROLOL25 MG PO
--- OUTSIDE RECORDS SUMMARY | 2017-05-09 23:45 | External Medical Summary Rpt ---
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 STIMJ UNATTENDE D PHYSICAL 29451 [facility] THERAPY 4 [facility] EVALUATIO INC INC N BREAST 69099 [place] REAL 4 MEDICAL SAMMI TIME IMAGING W/IMAGE ASS DOCUMENTA TION DIAGNOSTI G0206 [place] C 4 MEDICAL SAMMI MAMMOGRAP IMAGING HY INCL ASS CAD WHEN PERF; UNI SCREENING G0202 [facility] MAMMOGRAP INC INC HY YANNA INCL CAD WHEN [facility] 80156 [facility] AIDED 4 [facility] DETECTION INC INC SCREENING MAMMOGRAP HY BLOOD 47607 [facility] COUNT 4 [facility] COMPLETE INC INC AUTO&AUTO DIFRNTL WBC ECG 46047 [facility] HATHAWAY ROUTINE 4 [facility] W/LEAST P 12 LDS I&R ONLY INCISION 04759 [facility] SCHULSTAD & REMOVAL 4 PHYSICIAN CAM FOREIGN S GROUP BODY SUBQ TISS SIMPLE URINE 85970 [facility] TEST INC INC VISUAL COLOR CMPRSN METHS BASIC 10840 [facility] METABOLIC 4 [facility] PANEL INC INC CALCIUM TOTAL URINLS 79596 REUBEN TALBERT DIP 4 GALI GONZALES STICK/TAB LET REAGNT NON-AUTO MICRSCPY HGB 21286 REUBEN TALBERT QUANTITAT 4 GALI GONZALES KATE TRANSCUTA NEOUS IADNA 14689 REUBEN TALBERT NEISSERIA 4 GALI BARRETT JANET GONORRHOE AE DIRECT PROBE TQ CULTURE 47037 REUBEN TALBERT CHLAMYDIA 4 GALI BARRETT JANET ANY SOURCE RADEX 79008 [place] RIT[place] FOOT 4 MEDICAL SAMMI COMPLETE IMAGING MINIMUM 3 ASS VIEWS PHYSICAL 04594 [facility] THERAPY 4 [facility] EVALUATIO INC INC N COMPRE 12436 HORNEMICHEL HORNE AUDIOMETR 4 STORM STORM Y THRESHOLD EVAL SP RECOGNIJ TYMPANOME 11988 COLEEN RHODESON TRY 4 STORM STORM DISTORT 22659 COLEEN HORNE PRODUCT 4 STORM STORM EVOKED OTOACOUST IC EMISNS LIMITD RADEX 22383 RITIKA RITIKA SPINE 4 SAMMI SAMMI LUMBOSACR AL 2/3 VIEWS RADEX 82508 [facility]OCN SPINE 4 [facility] LUMBOSACR INC INC AL MINIMUM [address] [place] [address] [facility] THYROXINE 4 [facility] [place] [address] [facility] F[facility] THYROID 4 [facility] STIMULATI INC INC NG HORMONE TSH LIPID 27170 [facility] PANEL 4 [facility] INC INC BLOOD 55885 [facility] COUNT 4 [facility] COMPLETE INC INC AUTO&AUTO DIFRNTL WBC COMPREHEN 87178 [facility] SIVE 4 [facility] METABOLIC INC INC PANEL HEMOGLOBI 45967 [facility] F[facility] N 4 [facility] GLYCOSYLA [place] [address] [facility] F[facility] THYROID 4 [facility] STIMULATI [place] [address] [facility] FREE 4 [facility] THYROXINE INC INC 25 25781 [facility] HYDROXY 3 [facility] INCLUDES INC INC FRACTIONS IF PERFORMED CYANOCOBA 35080 [facility] ADELA 3 [facility] VITAMIN INC INC B-12 LIPID 44035 [facility] F[facility] PANEL 3 [facility] INC INC HGB 73600 [facility] QUANTITAT 3 JANET JANET KATE TRANSCUTA NEOUS URINLS 83767 [facility] DIP 3 JANET JANET STICK/TAB LET REAGNT NON-AUTO MICRSCPY CULTURE 61890 [facility] CHLAMYDIA 3 JANET JANET ANY SOURCE IADNA 83548 [facility] NEISSERIA 3 JANET JANET GONORRHOE AE DIRECT PROBE TQ URNLS DIP 02534 [facility] HMH 3 PHYSICIAN PHYSICIAN STICK/TAB S GROUP S GROUP LET RGNT NON-AUTO W/O MICRSCP RADEX 92394 [facility] FINGR 3 [facility] MINIMUM 2 INC INC VIEWS CUL BACT 90630 [facility] XCPT 3 [facility] URINE INC INC BLOOD/STO OL AEROBIC ISOL CUL BACT 93153 [facility] AEROBIC 3 [facility] ADDL INC INC METHS DEFINITIV E EA ISOL INJECTION J0690 ARASH MAHARAJHENS 3 DON DON CEFAZOLIN SODIUM 500 MG SUSCEPTIB 76585 [facility] LTY STDY 3 [facility] ANTIMICRB INC INC IAL MICRO/AGA R DILUTJ INCISION 94239 ARASH MAHARAJHENS & 3 DON DON DRAINAGE ABSCESS SIMPLE/SI NGLE THERAPEUT 46346 TRERIE FALCON IC 3 [facility] PROPHYLAC INC INC TIC/DX INJECTION SUBQ/IM ETONOGEST J7307 [facility] REL 3 JANET JANET CNTRACPT IMPL SYS INCL IMPL & SPL INSJ 43725 [facility] NON-BIODE 3 JANET JANET GRADABLE DRUG DELIVERY IMPLANT URINE 01666 [facility] HARPEL 3 JANET JANET TEST VISUAL COLOR CMPRSN METHS DILATION 63376 [facility] HAR[facility] & 3 JANET JANET CURETTAGE DX&/THER NONOBSTET ZANE LAPS 96213 [facility] FULG/EXC 3 JANET JANET OVARY VISCERA/P ERITONEAL SURFACE BLOOD 67461 [facility] COUNT 3 [facility] HEMATOCRI INC INC T INJECTION J2405 [facility] 3 [facility] ONDANSETR INC INC ON HCL PER 1 [place] [address] TAPIA TAPIA SURG 3 [facility] PATHOLOGY GROSS&MARTHA ROSCOPIC EXAM ANESTHESI 11063 [facility] JESSIKA A 3 ANESTH INTRAPERI OF THE TONEAL BLUE LOWER ABD W/LAPS NOS BLOOD 53685 [facility] COUNT 3 [facility] HEMOGLOBI INC INC N BLOOD 05204 [facility] COUNT 3 [facility] COMPLETE INC INC AUTO&AUTO DIFRNTL WBC URINE 87753 [facility] 3 [facility] TEST INC INC VISUAL COLOR CMPRSN METHS URNLS DIP 25303 [facility] 3 [facility] STICK/TAB INC [place] [address] [facility] TRANSVAGI 3 [facility] NAL INC INC INJECTION J1080 ARASH ANTOINE 3 DON DON TESTOSTER ONE CYPIONATE 1 CC 200 MG REMOVAL 78756 [facility] INTRAUTER 3 JANET JANET INE DEVICE IUD INJECTION J2675 [facility] HARPEL 3 JANET JANET PROGESTER ONE PER 50 MG MICROSOMA 23809 [facility] L 2 [facility] [place] [address] [facility] FREE 2 [facility] [place] [address] [facility] THYROID 2 [facility] STIMULATI INC INC NG HORMONE TSH INJECTION J0690 ARASH ANTOINE 2 DON DON CEFAZOLIN SODIUM 500 MG US SOFT 79972 [facility] TISSUE 2 MEDICAL SAMMI HEAD & IMAGING NECK REAL ASS TIME IMGE DOCM CALCIUM 68026 [facility] TOTAL 2 [facility] INC INC THYROID 62497 [facility] HORM 2 [facility] UPTK/THYR INC INC OID HORMONE BINDING RATIO CYANOCOBA 23631 [facility] ADELA 2 [facility] VITAMIN INC INC B-12 [place] [address] [facility] FREE 2 [facility] [place] [address] [facility] F[facility] THYROID 2 [facility] STIMULATI INC INC NG HORMONE TSH CALCIUM 39098 [facility] IONIZED 2 [place] [address] [facility] F[facility] THYROXINE 2 [facility] TOTAL INC INC MICROSOMA 82716 [facility] L 2 [facility] ANTIBODIE INC INC S EACH GONADOTRO 15058 [facility] F[facility] PIN 2 [facility] CHORIONIC INC INC QUANTITAT KATE THERAPEUT 23648 [facility] IC 2 [facility] INJECTION [place] [address] TERRIE [facility] INFUSION 2 [facility] THERAPY/P INC INC ROPHYLAXI S /DX 1ST TO 1 [place] [address] [facility] INFUSION 2 [facility] THERAPY/P INC INC ROPHYLAXI S /DX 1ST TO 1 HR EGD 01692 [facility] TRANSORAL 2 [facility] BIOPSY INC INC SINGLE/[place] [address] [facility]LL[facility] JAMIL SURG 2 PATHOLOGY GROSS&MARTHA ROSCOPIC EXAM SPECIAL 01180 [facility]LL[facility] JAMIL STAIN 2 GROUP 1 MICROORGA NISMS I&R SPCL STN 34331 BELL[facility] JAMIL 2 I&R 2 EXCPT MICROORG/ ENZYME/IM CYT URINE 54788 [facility] 2 [facility] TEST INC [place] [address] [facility] INFUSION 2 [facility] THERAPY INC INC PROPHYLAX [place] [address] [facility] THYROID 2 [facility] STIMULATI INC INC NG HORMONE TSH URINLS 47613 [facility] HARPEL DIP 2 JANET JANET STICK/TAB LET REAGNT NON-AUTO MICRSCPY HGB 57411 [facility] QUANTITAT 2 JANET JNAET KATE TRANSCUTA NEOUS SMR PRIM 32544 [facility] HARPEL SRC WET 2 JANET JANET MOUNT NFCT AGT CULTURE 03713 [facility] HARPEL CHLAMYDIA 2 JANET JANET ANY SOURCE IADNA 68734 [facility] NEISSERIA 2 JANET JANET GONORRHOE AE DIRECT PROBE TQ SMR PRIM 37136 [facility] HARPEL SRC WET 2 [place] [address] [facility] INFUSION 1 [facility] THERAPY INC INC PROPHYLAX IS/DX EA HOUR ANOSCOPY 03339 [facility] CONTROL 1 [facility] BLEEDING INC INC ANESTHESI 88004 [facility] A 1 ANESTH ANORECTAL OF THE BLUE PROCEDURE CONTROL 4995 [facility] OF 1 [facility] HEMORRHAG INC INC E OF ANUS BLOOD 22012 [facility] COUNT 1 [facility] COMPLETE INC INC AUTO&AUTO DIFRNTL WBC GONADOTRO 90662 [facility] PIN 1 [facility] CHORIONIC INC INC QUALITATI VE CYTP C/V 42252 BIO BIO AUTO THIN 1 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 SCR IES IES MNL RESCR PHYS INTRAUTER J7300 [facility] INE 1 [facility]PER [facility] CONTRACEP [facility] TIVE INSERTION 13097 [facility] 1 [facility] INTRAUTER CLINIC OF INE [facility] DEVICE IUD URINE 72733 [facility] 1 [facility]ALTH JOV[facility] TEST CLINIC OF VISUAL [place]SHLEY COLOR CMPRSN METHS LEVEL III 53926 [facility] WANDA PAT SURG 1 LORRIE & PATHOLOGY ONELILIER GROSS&MARTHA ROSCOPIC EXAM DSTRJ 50437 C BRENDAN ADKINS LESION 1 JED MADRID SMPL PSC ELTRDSICC ATION EXC 89383 [facility] THROMBOSE 1 [facility] [place] [address] TERRIEMICHEL FALCON INFUSION 1 [facility] THERAPY INC INC PROPHYLAX IS/DX EA HOUR ANESTHESI 60892 [facility] A 1 ANESTH ROWENA ANORECTAL OF THE BLUE PROCEDURE EXCISION 4946 [facility] AV[facility] OF 1 [facility] HEMORRHOI INC INC DS OTH LOCAL 4939 [facility] 1 [facility] EXCISION/ INC INC DESTRUC LESION/TI SSUE ANUS HEMORRHOI 19945 C BRENDAN ADKINS DECTOMY 1 JED RAMOS & PSC XTRNL 1 COLUMN/GR OUP BLOOD 05394 [facility] COUNT 1 [facility] COMPLETE INC INC AUTO&AUTO DIFRNTL WBC GONADOTRO 01462 [facility] PIN 1 [facility] CHORIONIC [facility] 31204 [facility] DISCHARGE 1 PHYSICIAN JANET DAY GROUP MANAGEMEN PCC T 30 MIN/< SBSQ 78201 [facility] 1 PHYSICIAN JANET CARE/DAY GROUP 35 PCC MINUTES SUBQ 39591 [place] [address] CARE CESAR CARE PER ASSOCIATE DAY E/M S NORMAL CIRCUMCIS 40248 [facility] 1 CARE CESAR W/CLAMP/O ASSOCIATE TH DEV S W/BLOCK SUBQ 10615 [place] [address] CARE CESAR CARE PER ASSOCIATE DAY E/M S NORMAL SBSQ 45146 [facility] 1 PHYSICIAN JANET CARE/DAY GROUP 35 PCC MINUTES OTHER 6829 [facility] EXCISION 1 [facility] OR INC INC DESTRUCTI ON LESION UTERUS LOW 741 [facility] CERVICAL 1 [facility] INC INC SECTION 1ST 89235 [facility] 1 CARE [facility] [place] [address] [facility] DELIVERY 1 PHYSICIAN JANET ONLY GROUP PCC ANESTHESI 92703 [facility] JESSIK[facility] A 1 ANESTH OF THE DELIVERY BLUE ONLY INITIAL 13706 [facility] 1 PHYSICIAN JANET CARE/DAY GROUP 70 PCC MINUTES OBSERVATI 38360 [facility] 1 PHYSICIAN JANET ENT [facility] PCC CARE 55 MINUTES OBSERVATI 89639 [facility] ON/INPATI 1 PHYSICIAN [facility] ENT [facility] PCC CARE 55 MINUTES 74677 [facility] 1 PHYSICIAN JANET AL GROUP PROFILE PCC NON-STRES S TESTING PARTICLE 56732 [facility] AGGLUTINA 1 [facility] TION INC INC SCREEN EACH ANTIBODY 72338 [facility] HARPEL NONSTRESS 1 PHYSICIAN JANET TEST GROUP PCC 34664 [facility] BIOPHYSIC 1 [facility] AL HIGH RISK PROFILE O W/O NON-STRES S TESTING DOPPLER 38782 [facility] ECHO 1 [facility] HIGH RISK PULS O SPECTRAL F/U/REPEA T 86233 [facility] NON[facility]ESS 1 PHYSICIAN JANET TEST GROUP PCC FIBRIN 84403 [facility] DGRADJ 1 [facility] PRODUCTS INC INC D-DIMER QUAL/SEMI WENDY FIBRINOGE 54314 [facility] N 1 [facility] ACTIVITY INC INC PROTHROMB 51356 [facility] IN TIME 1 [facility] INC INC ANTIBODY 89380 [facility] SCREEN 1 [facility] RBC EACH INC INC SERUM TECHNIQUE BLOOD 49936 [facility] TYPING 1 [facility] SEROLOGIC INC INC ABO TRANSFERA 53223 [facility] SE 1 [facility] ALANINE INC INC AMINO ALT SGPT TRANSFERA 37428 [facility] SE 1 [facility] ASPARTATE INC INC AMINO AST SGOT 96525 [facility] F[facility] NONSTRESS 1 [facility] [place] [address] [facility] F[facility] BLOOD/URI 1 [facility] C ACID INC INC THROMBOPL 61688 [facility] ASTIN 1 [facility] TIME INC INC PARTIAL PLASMA/WH OLE BLOOD BASIC 20616 [facility] METABOLIC 1 [facility] PANEL INC INC CALCIUM TOTAL BLOOD 37160 [facility] TYPING 1 [facility] SEROLOGIC INC INC RH (D) URNLS DIP 37035 [facility]CON 1 [facility] STICK/TAB INC INC LET REAGENT AUTO MICROSCOP Y BLOOD 92465 [facility] COUNT 1 [facility] COMPLETE INC INC AUTO&[place] [address] [facility] F[facility] MAGNESIUM 1 [facility] INC INC THERAPEUT 69449 [facility] F[facility] IC 1 [facility] INJECTION [place] [address] [facility] INFUSION 1 [facility] THERAPY/P INC INC ROPHYLAXI S /DX 1ST TO 1 HR DOPPLER 68369 [facility] ECHO 1 [facility] HIGH RISK PULS O SPECTRAL F/U/REPEA T URNLS DIP 62466 [facility] 1 [facility] STICK/TAB HIGH RISK LET RGNT O NON-AUTO W/O MICRSCP 83315 [facility] BIOPHYSIC 1 [facility] AL HIGH RISK PROFILE O W/O NON-STRES S TESTING [facility] PRIM 34605 [facility] HARPEL SRC WET 1 PHYSICIAN JANET MOUNT GROUP NFCT AGT [facility] 00986 [facility] HARPEL NONSTRESS 1 PHYSICIAN JANET TEST GROUP [facility] 80896 [facility] BIOPHYSIC 1 [facility] AL HIGH RISK PROFILE O W/O NON-STRES S TESTING US PREG 99802 [facility] UTERUS 1 [facility] AFTER 1ST HIGH RISK TRIMEST O / GESTATION 19917 [facility] NONSTRESS 1 PHYSICIAN JANET TEST GROUP [facility] US PREG 29202 [facility] UTERUS 1 [facility] AFTER 1ST HIGH RISK TRIMEST O 1/ GESTATION 21393 [facility] BIOPHYSIC 1 [facility] AL HIGH RISK PROFILE O W/O NON-STRES S TESTING DOPPLER 29112 [facility] ECHO 1 [facility] HIGH RISK PULS O SPECTRAL F/U/REPEA T CREATININ 78132 [facility] E 1 [facility] CLEARANCE 59485 [facility]OP[facility]YSIC [facility] [place] [facility] HIGH RISK PROFILE O W/O NON-STRES S TESTING URNLS DIP 08104 [facility] [place] STICK/TAB HIGH RISK LET RGNT O NON-AUTO W/O MICRSCP COLLECTIO 46374 [facility] N VENOUS 1 [facility] BLOOD VENIPUNCT URE PROTEIN 65855 [facility] TOTAL 1 [facility] XCPT REFRACTOM ETRY URINE THERAPEUT 04307 [facility] IC 1 [facility] PROPHYLAC INC INC TIC/DX INJECTION SUBQ/IM THERAPEUT 63297 [facility] IC 1 [facility] PROPHYLAC INC INC TIC/DX INJECTION SUBQ/IM 59172 [facility] NONSTRESS 1 PHYSICIAN JANET TEST GROUP PCC 45194 [facility] BIOPHYSIC 1 PHYSICIAN JANET AL GROUP PROFILE PCC NON-STRES S TESTING 84867 [facility] 1 [facility] AL HIGH RISK PROFILE O W/O NON-STRES S TESTING URNLS DIP 31363 [facility] STICK/TAB HIGH RISK LET RGNT O NON-AUTO W/O MICRSCP ECHO 62080 [facility] CARDIOVAS HIGH RISK C W/WO O M-MODE RECORDING US PREG 36565 JENSEN JUAN UTERUS 1 [facility] W/DETAIL HIGH RISK O ANNALISA 1ST GESTATION 28347 [facility] BIOPHYSIC 1 PHYSICIAN JANET AL GROUP PROFILE PCC NON-STRES S TESTING 82870 [facility] BIOPHYSIC 1 PHYSICIAN JANET AL GROUP PROFILE PCC NON-STRES S TESTING BLOOD 06947 [facility] COUNT 1 [facility] COMPLETE INC INC AUTO&AUTO DIFRNTL WBC FIBRINOGE 04824 [facility] N 1 [facility] ACTIVITY INC INC PROTHROMB 47419 [facility] IN TIME 1 [facility] INC INC FIBRIN 04734 [facility] DGRADJ 1 [facility] PRODUCTS INC INC D-DIMER QUAL/[place] [address] [facility] BLOOD/URI 1 [facility] ACID INC INC THROMBOPL 76246 [facility] ASTIN 1 [facility] TIME INC INC PARTIAL PLASMA/WH OLE BLOOD BASIC 39489 [facility] METABOLIC 1 [facility] PANEL INC INC CALCIUM TOTAL TRANSFERA 21829 [facility] SE 1 [facility] ASPARTATE INC INC AMINO AST SGOT TRANSFERA 67223 [facility] SE 1 [facility] ALANINE INC INC AMINO ALT SGPT SMR PRIM 95630 [facility] SRC WET 1 PHYSICIAN JANET [facility]OUNT GROUP NFCT AGT PCC US PREG 24785 [facility] UTERUS 1 PHYSICIAN JANET AFTER 1ST GROUP TRIMEST PCC GESTATION HEPATIC 15364 [facility] FUNCTION 1 [facility] PANEL INC INC BLOOD 47023 [facility] COUNT 1 [facility] COMPLETE INC INC AUTO&AUTO DIFRNTL WBC BASIC 31976 [facility] METABOLIC 1 [facility] PANEL INC INC CALCIUM TOTAL THROMBOPL 62796 [facility] ASTIN 1 [facility] TIME INC INC PARTIAL PLASMA/[place] [address] [facility]LOOD/URI 1 [facility] C ACID INC INC GLUCOSE 12862 [facility] POST 1 [facility] GLUCOSE INC INC DOSE FIBRIN 79066 [facility] DGRADJ 1 [facility] PRODUCTS INC INC D-DIMER QU[facility]SEMI WENDY FIBRINOGE 45959 [facility] N 1 [facility] ACTIVITY INC INC PROTHROMB 68340 [facility] IN TIME 1 [facility] INC INC 21312 TERRIE FALCON NONSTRESS 1 [facility] TEST INC INC CULTURE 14441 TERRIE FALCON BACTERIAL 1 [facility] INC INC QUANTTATI VE COLONY COUNT URINE URNLS DIP 52176 [facility]CON 1 [facility] STICK/TAB INC INC LET REAGENT AUTO MICROSCOP Y FTL 11610 TER[facility]CON FIBRONECT 1 [facility] IN INC INC CERVICOVA G SECRETION S SEMI-WENDY 93520 TER[facility] FALCON BIOPHYSIC 1 [facility] AL INC INC PROFILE W/O NON-STRES S TESTING US PREG 25785 [facility] UTERUS 1 PHYSICIAN JANET AFTER 1ST GROUP TRIMEST PCC GESTATION ALPHA-FET 89384 TER[facility]CON OPROTEIN 1 [facility] SERUM INC INC GONADOTRO 71057 TERRIE TERRIE PIN 1 [facility] CHORIONIC [place] [address] TER[facility] FALCON ESTRIOL 1 [facility] [place] [address] TERRIE TERRIE INFUSION 1 [facility] THERAPY/P INC INC ROPHYLAXI S /DX 1ST TO 1 HR FIBRINOGE 77306 TER[facility] F[facility]CON N 1 [facility] ACTIVITY INC INC PROTHROMB 05124 TERRIE TERRIE IN TIME 1 [facility] INC INC COMPREHEN 18873 [facility] F[facility] SIVE 1 [facility] METABOLIC INC INC PANEL THROMBOPL 37595 TER[facility] F[facility]CON ASTIN 1 [facility] TIME INC INC PARTIAL PLASMA/[place] [address] [facility] AMYLASE 1 [facility] INC INC BLOOD 18566 TER[facility] COUNT 1 [facility] COMPLETE INC INC AUTO&[place] [address] TER[facility]E [facility] LIPASE 1 [facility] INC INC URNLS DIP 84412 [facility]CON 1 [facility] STICK/TAB INC INC LET REAGENT AUTO MICROSCOP Y IADNA 05606 BIO BIO HERPES 1 REFERNCE REFERNCE SOMPLX 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 VIRUS IES IES AMPLIFIED PROBE TQ COMPREHEN 41316 [facility] SIVE 1 [facility] METABOLIC INC INC PANEL URNLS DIP 60596 [facility]CON 1 [facility] STICK/TAB INC INC LET REAGENT AUTO MICROSCOP Y BLOOD 11968 [facility] COUNT 1 [facility] COMPLETE INC INC AUTO&[place] [address] [facility] INFUSION 1 [facility] THERAPY/P INC INC ROPHYLAXI S /DX 1ST TO 1 HR URINALYSI 42274 [facility] S 1 PHYSICIAN JANET MICROSCOP GROUP IC ONLY PCC CULTURE 62770 [facility] BACTERIAL 1 [facility] INC INC QUANTTATI VE COLONY COUNT URINE URINLS 20733 [facility] DIP 1 PHYSICIAN JANET STICK/TAB GROUP LET PCC REAGNT NON-AUTO MICRSCPY US PREG 77838 [facility] UTERUS 0 PHYSICIAN JANET REAL TIME GROUP W/IMAGE PCC DCMTN TRANSVAG IADNA 81364 BIO BIO CHLAMYDIA 0 REFERNCE REFERNCE 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 TRACHOMAT IES IES IS AMPLIFIED PROBE TQ CYTP C/V 94778 BIO BIO AUTO THIN 0 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 SCR IES IES MNL RESCR PHYS IADNA NOS 33828 BIO BIO 0 REFERNCE REFERNCE AMPLIFIED 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 PROBE TQ IES IES EACH ORGANISM IADNA 05950 BIO BIO NEISSERIA 0 REFERNCE REFERNCE 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 GONORRHOE IES IES AE AMPLIFIED PROBE TQ GONADOTRO 95224 [facility] PIN 0 [facility] CHORIONIC INC INC QUANTITAT KATE URINE 99914 [facility] HAR[facility]L 0 PHYSICIAN JANET TEST GROUP VISUAL PCC COLOR CMPRSN METHS IAADIADOO 04932 ARASH ANTOINE, 0 DON R DON R STREPTOCO CCUS GROUP A CT LUMBAR 83986 [facility] SPINE 0 [facility] W/O INC INC CONTRAST MATERIAL SUSCEPTIB 73381 [facility] LTY STDY 0 [facility] ANTIMICRB INC INC IAL MICRO/AGA R DILUTJ 3D 22016 [facility] RENDERING 0 [facility] INC INC W/INTERP& POSTPROC DIFF WORK STATION URINE 91359 [facility]CON 0 [facility] TEST INC INC VISUAL COLOR CMPRSN METHS CULTURE 28872 TER[facility] F[facility] BCT 0 [facility] ISOL&PRSM INC INC PTV ID ISOLATE EA URINE CULTURE 78798 [facility] BACTERIAL 0 [facility] INC INC QUANTTATI VE COLONY COUNT URINE URNLS DIP 52965 [facility]CON 0 [facility] STICK/TAB INC INC LET REAGENT AUTO MICROSCOP Y INITIAL 27363 [place] R[facility] OBSERVATI 0 RANDY OLMAN A ON INTERNAL CARE/DAY MED 30 MINUTES URINE 68954 [facility] F[facility]CON 0 [facility] TEST INC INC VISUAL COLOR CMPRSN [facility] G0378 TERRIE [facility]ALCON OBSERVATI 0 [facility] ON INC INC SERVICE PER HOUR COMPREHEN 17927 [facility] SIVE 0 [facility] METABOLIC INC INC PANEL BLOOD 24192 [facility] COUNT 0 [facility] COMPLETE INC INC AUTO&AUTO DIFRNTL WBC URNLS DIP 60260 [facility] 0 [facility] STICK/TAB INC INC LET REAGENT AUTO MICROSCOP Y CUL BACT 68569 [facility] STOOL 0 [facility] IS[facility] SALMONELL A&SHIGELL CUL BACT 53028 [facility] STOOL 0 [facility] ADDL PATHOGENS &[place] [address] [facility] CLOSTRIDI 0 [facility] [employer] [place] [address] [facility] SHIGA-LIK 0 [facility] [employer] E [employer] Encounters Encounter Start End Date Code Location Performer Type Date EMERGENCY 46590 EVIE GRANADOS 6 6 PHYSICIAN MARTHA DEPARTREBEKAH S, PLLC T VISIT HIGH/URGE NT SEVERITY HOSPITAL [facility] Phillip 6 6 [facility] OUTPATIEN INC T EMERGENCY 36974 TER[facility]E 6 6 [facility] DEPARTMEN INC T VISIT MODERATE SEVERITY HOSPITAL [facility] - 6 6 [facility] OUTPATIEN INC T HOSPITAL TERRIE - 6 6 [facility] OUTPATIEN INC T EMERGENCY 73450 TERRIE 6 6 [facility] DEPARTMEN [facility] T VISIT HIGH/URGE NT SEVERITY HOSPITAL TERRIE - 6 6 [facility] OUTPATIEN [facility] TERRIE - 6 6 [facility] OUTPATIEN [facility] OFFICE 00366 [facility] MD [place], T VISIT PSC 15 MINUT[facility] HOSPITAL TERRIE - 6 6 [facility] OUTPATIEN [facility] OFFICE 25216 TER[facility]E OUTPATIEN 6 6 [facility] T VISIT INC 10 MINUTES EMERGENCY 25119 TERRIE 6 6 [facility] DEPARTMEN [facility] T VISIT MODERATE SEVERITY EMERGENCY 77195 EVIE GRANADOS 6 6 [facility] T VISIT HIGH/URGE NT SEVERITY HOSPITAL TERRIE - 6 6 [facility] OUTPATIEN [facility] TERRIE - 6 6 [facility] OUTPATIEN [facility] T EMERGENCY 15499 EVIE GRANADOS 6 6 [facility]IC[facility] T VISIT HIGH/URGE NT SEVERITY HOSPITAL TERRIE - 6 6 [facility] OUTPATIEN [facility] T EMERGENCY 52442 TERRIE 6 6 [facility] DEPARTMEN [facility] T VISIT HIGH/URGE NT SEVERITY HOSPITAL TERRIE - 6 6 [facility] OUTPATIEN [facility] T OFFICE 21050 [facility] MD [place], T VISIT PSC 15 MINUTES OFFICE 86631 REUBEN TALBERT OUTPATIEN 6 6 GALI GONZALES T VISIT 25 MINUTES EMERGENCY 45754 EVIE GRANADOS 6 6 PHYSICIAN MARTHA DEPARTMEN S, [facility] T VISIT HIGH/URGE NT SEVERITY HOSPITAL [facility] - 6 6 [facility] OUTPATIEN INC T OFFICE 86511 [facility] LEONEL OUTPATIEN 6 6 PHYSICIAN MARTHA T VISIT S GROUP 10 MINUTES HOSPITAL TER[facility]E - 6 6 [facility] OUTPATIEN INC T EMERGENCY 67496 TER[facility] 6 6 [facility] DEPARTMEN INC T VISIT HIGH/URGE NT SEVERITY PERIODIC 30897 REUBEN TALBERT PREVENTIV 5 5 GALI GONZALES E MED EST PATIENT 18-39 YRS HOSPITAL TERRIE - 5 5 [facility] T [facility] 78385 [facility] PHYSICIAN EUG T VISIT S GROUP 15 MINUTES EMERGENCY 80249 EVIE GRANADOS DEPT 5 5 PHYSICIAN MARTHA VISIT S, [facility] HIGH SEVERITY& THREAT [facility] TERRIE - 5 5 [facility] OUTPATIEN INC T EMERGENCY 99213 TER[facility] 5 5 [facility] DEPARTMEN INC T VISIT HIGH/URGE NT SEVERITY OFFICE 65122 REUBEN TALBERT OUTPATIEN 5 5 GALI BARRETT JANET T VISIT 15 MINUTES OFFICE 74893 [facility] OUTPATIEN 5 5 [facility] T VISIT INC 10 MINUTES HOSPITAL TERRIE - 5 5 [facility] OUTPATIEN INC T EMERGENCY 43143 TERRIE 5 5 [facility] DEPARTMEN INC T VISIT HIGH/URGE NT SEVERITY HOSPITAL TER[facility]E - 5 5 [facility] OUTPATIEN INC T [facility] - 5 5 [facility] OUTPATIEN INC T OFFICE 82008 TER[facility] OUTPATIEN 5 5 [facility] T VISIT INC 10 MINUTES EMERGENCY 31881 EVIE GRANADOS 5 5 PHYSICIAN MARTHA DEPARTMEN S, [facility] T VISIT HIGH/URGE NT SEVERITY HOSPITAL TERRIE - 5 5 [facility] OUTPATIEN INC T EMERGENCY 03505 EVIE GRANADOS 5 5 PHYSICIAN MARTHA DEPARTMEN S, [facility] T VISIT HIGH/URGE NT SEVERITY HOSPITAL TERRIE - 5 5 [facility] OUTPATIEN INC T EMERGENCY 12831 EVIE GRANADOS DEPT 5 5 PHYSICIAN MARTHA VISIT S, [facility] HIGH SEVERITY& THREAT [facility] TERRIE - 5 5 [facility] OUTPATIEN INC T HOSPITAL TERRIE - 5 5 [facility] OUTPATIEN INC T OFFICE 30643 MADAR BUX BUX ANJ OUTPATIEN 5 5 MD T VISIT 10 MINUTES OFFICE 85215 MADDIANA BUX BUX ANJ OUTPATIEN 5 5 T NEW 30 MINUTES OFFICE 68195 TER[facility] OUTPATIEN 5 5 [facility] T VISIT INC 10 MINUTES HOSPITAL TERRIE - 5 5 [facility] OUTPATIEN INC T H[facility]PITAL TERRIE - 5 5 [facility] OUTPATIEN INC T OFFICE 01104 [facility] OUTPATIEN 5 5 PHYSICIAN MARTHA T VISIT S GROUP 10 MINUTES HOSPITAL TERRIE - 5 5 [facility] OUTPATIEN INC T OFFICE 97781 [facility] OUTPATIEN 5 5 PHYSICIAN MARTHA T VISIT S GROUP 10 MINUTES HOSPITAL TERRIE - 5 5 [facility] OUTPATIEN INC T OFFICE 80395 [facility] OUTPATIEN 5 5 PHYSICIAN MARTHA T VISIT S GROUP 10 MINUTES OFFICE 68423 [facility] OUTPATIEN 4 4 PHYSICIAN MARTHA T VISIT S GROUP 10 MINUTES HOSPITAL TERRIE - 4 4 [facility] TERRIE - 4 4 [facility] TERRIE - 4 4 [facility] TERRIE - 4 4 [facility] OUTPATIEN [facility] T OFFICE 31250 [facility] OUTPATIEN 4 4 PHYSICIAN MARTHA T VISIT S GROUP 10 MINUTES [facility] TERRIE - 4 4 [facility] OUTPATIEN [facility] OFFICE 97715 [facility] SCHULSTAD OUTPATIEN 4 4 PHYSICIAN CAM T VISIT S GROUP 15 MINUTES [facility] EMERGENCY 49991 REUBEN TALBERT PREVENTIV 4 4 GALI BARRETT JANET E MED EST PATIENT 18-39 YRS HOSPITAL TERRIE - 4 4 [facility] OUTPATIEN [facility] TERRIE - 4 4 [facility] OUTPATIEN [facility] T OFFICE 68883 [facility] LE[facility]EL OUTPATIEN 4 4 PHYSICIAN MARTHA T VISIT S GROUP 10 MINUTES EMERGENCY 25832 LEONEL GRANADOS 4 4 MARTHA MARTHA DEPARTMEN T VISIT HIGH/URGE NT SEVERITY [facility]OSPITAL [facility] 90068 HAL HONG 4 4 I ALI I ALI DEPARTMEN T VISIT MODERATE SEVERITY EMERGENCY 53488 UNIVERSIT 4 4 Y [facility] T VISIT LOW/MODER SEVERITY OFFICE 67098 MONGIARDO MONGIARDO OUTPATIEN 4 4 FRA FRA T NEW 45 MINUTES OFFICE 01934 LEONEL GRANADOS OUTPATIEN 4 4 MARTHA MARTHA T VISIT 10 MINUTES EMERGENCY 47077 LEONEL GRANADOS 4 4 MARTHA MARTHA DEPARTMEN T VISIT HIGH/URGE NT SEVERITY OFFICE 67469 LEONEL GRANADOS OUTPATIEN 4 4 MARTHA MARTHA T VISIT 10 MINUTES HOSPITAL TER[facility]E - 4 4 [facility] TERRIE - 4 4 [facility] OUTPATIEN [facility] T Emergency RADHA Granados MD (ER) 3 20:53 3 21:55 [facility] TERRIE - 3 3 [facility] OUTPATIEN [facility] OFFICE 92174 THOMAS GUZMAN OUTPATIEN 3 3 ANT ANT T VISIT 15 MINUTES Emergency RADHA Granados MD (ER) 3 21:48 3 22:43 [facility] EMERGENCY 49472 LEONEL GRANADOS DEPT 3 3 MARTHA MARTHA VISIT HIGH SEVERITY& THREAT FUNCJ PERIODIC 90896 [facility] PREVENTIV 3 3 JANET JANET E MED EST PATIENT 18-39 YRS OFFICE 15248 [facility] OUTPATIEN 3 3 PHYSICIAN T VISIT S GROUP 15 MINUTES HOSPITAL TERRIE - 3 3 [facility] OUTPATIEN [facility] TERRIE - 3 3 [facility] OUTPATIEN [facility] T OFFICE 73434 ARASH ANTOINE OUTPATIEN 3 3 DON DON T VISIT 15 MINUTES OFFICE 20602 ARASH ANTOINE OUTPATIEN 3 3 DON DON T VISIT 15 MINUTES Emergency RADHA Granados MD (ER) 3 22:14 3 22:24 [facility] EMERGENCY 24990 LEONEL GRANADOS 3 3 MARTHA MARTHA DEPARTMEN T VISIT HIGH/URGE NT SEVERITY HOSPITAL TERRIE - 3 3 [facility] OUTPATIEN [facility] T EMERGENCY 42453 TERRIE 3 3 [facility] T VISIT LOW/MODER SEVERITY HOSPITAL TERRIE - 3 3 [facility] OUTPAT[facility]EN [facility] TERRIE - 3 3 [facility] OUTPATIEN [facility] OFFICE 12303 HARPE[facility]PE[facility] OUTPATIEN 3 3 JANET JANET T VISIT 15 MINUTES OFFICE 43309 [facility] OUTPATIEN 3 3 JANET JANET T VISIT 15 MINUTES HOSPITAL TERRIE - 3 3 [facility] OUTPATIEN [facility] OFFICE 44939 ANTOINE ANTOINE OUTPATIEN 3 3 DON DON T VISIT 25 MINUTES OFFICE 62297 ANTOINE ANTOINE OUTPATIEN 3 3 DON DON T VISIT 15 MINUTES HOSPITAL TERRIE - 2 2 [facility] OUTPATIEN [facility] OFFICE 92008 HORNE HORNE OUTPATIEN 2 2 STORM STORM T VISIT 15 MINUTES OFFICE 57851 ANTOINE ANTOINE OUTPATIEN 2 2 DON DON T VISIT 15 MINUTES OFFICE 55394 HORNE HORNE OUTPATIEN 2 2 STORM STORM T NEW 30 MINUTES HOSPITAL TERRIE - 2 2 [facility] OUTPATIEN [facility] TERRIE - 2 2 [facility] TERRIE - 2 2 [facility]IEN [facility] TERRIE - 2 2 [facility]PAT[facility]EN [facility] EMERGENCY 09967 TERRIE 2 2 [facility] T VISIT MODERATE SEVERITY EMERGENCY 50920 CORNELIUS SHIELDS DEPT 2 2 III JESSIKA III JESSIKA VISIT HIGH SEVERITY& THREAT [facility] TERRIE - 2 2 [facility] OUTPATIEN INC T PERIODIC 22982 HARPE[facility] HARPEL PREVENTIV 2 2 JANET JANET E MED EST PATIENT 18-39 YRS HOSPITAL TERRIE - 2 2 [facility] OUTPATIEN INC T OFFICE 38367 [facility] OUTPATIEN 2 2 JANET JANET T VISIT 15 MINUTES OFFICE 66959 ANTOINE ANTOINE OUTPATIEN 2 2 DON DON T VISIT 15 MINUTES OFFICE 18065 [facility] OUTPATIEN 2 2 JANET JANET T VISIT 15 MINUTES OFFICE 84497 ANTOINE ANTOINE OUTPATIEN 2 2 DON DON T VISIT 15 MINUTES OFFICE 17492 ANTOINE ANTOINE OUTPATIEN 2 2 DON DON T VISIT 15 MINUTES EMERGENCY 51411 TERRIE 1 1 [facility] DEPARTMEN INC T VISIT MODERATE SEVERITY EMERGENCY 01261 DIPTI GRANADOS 1 1 [facility] HIGH/URGE NT SEVERITY HOSPITAL TER[facility]E - 1 1 [facility] OUTPATIEN INC T EMERGENCY 51230 BOEDUARDOON 1 1 [facility] T VISIT MODERATE SEVERITY HOSPITAL BOEDUARDOON - 1 1 [facility] TERRIE - 1 1 [facility] OUTPATIEN INC T EMERGENCY 91444 TERRIE 1 1 [facility] DEPARTMEN INC T VISIT MODERATE SEVERITY EMERGENCY 79645 DIPTI GRANADOS 1 1 EMERGENCY [facility] DEPARTMEN SERVICES T VISIT HIGH/URGE NT SEVERITY OFFICE 44392 Carol ADKINS OUTPATIEN 1 1 JED BYRD T VISIT MD ALEJANDRO 10 MINUTES HOSPITAL TER[facility]E - 1 1 [facility] OUTPATIEN INC T OFFICE 69450 Carol ADKINS OUTPATIEN 1 1 JED BYRD T VISIT [facility] 25 MINUTES HOSPITAL TERRIE - 1 1 [facility] OUTPATIEN INC T OFFICE 01451 ARASH ANTOINE OUTPATIEN 1 1 DON DON T VISIT 25 MINUTES OFFICE 96985 [facility] OUT[facility] 1 1 PHYSICIAN JANET T VISIT GROUP 15 PCC MINUTES OFFICE 61685 [facility] 1 1 [facility] PATIENT 40 MIN OFFICE 95687 [facility] OUTPATIEN 1 1 PHYSICIAN JANET T VISIT GROUP 15 PCC MINUTES HOSPITAL TER[facility] - 1 1 [facility] OUTPAT[facility]EN INC T [facility] TER[facility] - 1 1 [facility] OUTPATI[facility] INC T OFFICE 53376 H [facility] OUTPATIEN 1 1 PHYSICIAN JANET T VISIT GROUP 15 PCC MINUTES HOSPITAL TER[facility] - 1 1 [facility] INPATIENT INC OFFICE 53810 [facility] OUTPAT[facility] 1 1 PHYSICIAN JANET T VISIT GROUP 15 PCC MINUTES HOSPITAL TER[facility] - 1 1 [facility] OUTPATIEN INC T OFFICE 89510 [facility] OUTPAT[facility] 1 1 PHYSICIAN JANET T VISIT GROUP 15 PCC MINUTES OFFICE 42025 [facility] OUT[facility] 1 1 PHYSICIAN JANET T VISIT GROUP 15 PCC MINUTES HOSPITAL TER[facility] - 1 1 [facility] OUTPATIEN INC T OFFICE 44327 [facility] OUTPAT[facility] 1 1 PHYSICIAN JANET T VISIT GROUP 15 PCC MINUTES OFFICE 05272 [facility] OUT[facility] 1 1 PHYSICIAN JANET T VISIT GROUP 15 PCC MINUTES OFFICE 80922 H [facility] OUTPATIEN 1 1 PHYSICIAN JANET T VISIT GROUP 15 PCC MINUTES [facility] 1 [facility] - [facility] 1 [facility] OUTPATIEN INC T OFFICE 59449 H [facility] OUTPATIEN 1 1 PHYSICIAN JANET T VISIT GROUP 15 PCC MINUTES HOSPITAL TERRIE - 1 1 [facility] OUTPATIEN INC T OFFICE 87318 H [facility] OUTPATIEN 1 1 PHYSICIAN JANET T VISIT GROUP 15 PCC MINUTES OFFICE 54291 H [facility] OUTPATIEN 1 1 PHYSICIAN JANET T VISIT GROUP 15 PCC MINUTES OFFICE 22946 H [facility] OUTPATIEN 1 1 PHYSICIAN JANET T VISIT GROUP 15 PCC MINUTES HOSPITAL TER[facility] - 1 1 [facility] OUTPATIEN INC T OFFICE 57312 H [facility] OUTPATIEN 1 1 PHYSICIAN JANET T VISIT GROUP 15 PCC MINUTES OFFICE 47649 H [facility] OUTPATIEN 1 1 PHYSICIAN JANET T VISIT GROUP 15 PCC MINUTES HOSPITAL TER[facility] - 1 1 [facility] OUTPATIEN INC T OFFICE 94797 H [facility] OUTPATIEN 1 1 PHYSICIAN JANET T VISIT GROUP 15 PCC MINUTES EMERGENCY 00209 DIPTI COLON DEPT 1 1 EMERGENCY [facility] VISIT SERVICES HIGH SEVERITY& THREAT [facility] TERRIE - 1 1 [facility] OUTPATIEN INC T EMERGENCY 49830 TERRIE 1 1 [facility] DEPARTMEN INC T VISIT MODERATE SEVERITY HOSPITAL [facility] - 1 1 [facility] OUTPATIEN INC T OFFICE 37227 [facility] OUT[facility] 1 1 PHYSICIAN JANET T VISIT GROUP 15 PCC MINUTES HOSPITAL TER[facility] - 1 1 [facility] OUTPATIEN INC T OFFICE 56368 [facility] 1 1 PHYSICIAN JANET T VISIT GROUP 15 PCC MINUTES OFFICE 15848 [facility] OUT[facility] 1 1 PHYSICIAN JANET T VISIT GROUP 15 PCC MINUTES OFFICE 03093 [facility] OUT[facility] 1 1 PHYSICIAN JANET T VISIT GROUP 15 PCC MINUTES HOSPITAL TER[facility]E - 1 1 [facility] OUTPATIEN INC T EMERGENCY 93057 TER[facility]E 1 1 [facility] DEPARTMEN INC T VISIT HIGH/URGE NT SEVERITY EMERGENCY 89202 DIPTI LLOYD DEPT 1 1 EMERGENCY VISIT SERVICES HIGH SEVERITY& THREAT [facility] - [facility] T OFFICE 21804 [facility] 1 1 PHYSICIAN JANET T VISIT GROUP 15 PCC MINUTES OFFICE 98448 [facility] OUT[facility] 1 1 PHYSICIAN JANET T VISIT GROUP 15 PCC MINUTES EMERGENCY 95056 [facility] SHIELDS 1 1 EMERGENCY III [facility] SERVICES T VISIT HIGH/URGE NT SEVERITY [facility] T OFFICE 81539 [facility] 1 1 PHYSICIAN JANET T VISIT GROUP 15 PCC MINUTES [facility] - [facility] T OFFICE 66260 [facility] 1 1 PHYSICIAN JANET T VISIT GROUP 15 PCC MINUTES OFFICE 58842 [facility] 0 0 PHYSICIAN JANET T VISIT GROUP 15 PCC MINUTES OFFICE 60693 [facility] 0 0 PHYSICIAN JANET T VISIT GROUP 40 PCC MINUTES OFFICE 90746 [facility] OUTPATIEN 0 0 PHYSICIAN JANET T VISIT GROUP 15 PCC MINUTES [facility] - 0 0 [facility] OUTPATIEN INC T EMERGENCY 08508 DIPTI GRANADOS 0 0 EMERGENCY [facility] DEPARTMEN SERVICES T VISIT HIGH/URGE NT SEVERITY EMERGENCY 20941 [facility] 0 0 [facility] DEPARTMEN INC T VISIT LOW/MODER SEVERITY [facility] - 0 0 [facility] OUTPATIEN INC T OFFICE 84396 ARASH ANTOINE, OUTPATIEN 0 0 DON R DON R T VISIT 15 MINUTES OFFICE 10310 OLMAN ANTOINES, OUTPATIEN 0 0 DON R DON R T VISIT 15 MINUTES EMERGENCY 32179 [facility] 0 0 [facility] DEPARTMEN INC T VISIT LOW/MODER SEVERITY EMERGENCY 79734 DIPTI PARKER, DEPT 0 0 EMERGENCY [facility] VISIT SERVICES O HIGH SEVERITY& ASSOCIATE THREAT S [facility] - 0 0 [facility] OUTPATIEN INC T [facility] - 0 0 [facility] OUTPATIEN INC T EMERGENCY 98450 DIPTI GRANADOS, DEPT 0 0 EMERGENCY [facility] VISIT SERVICES HIGH SEVERITY& ASSOCIATE THREAT S [facility] EMERGENCY 36184 [facility] 0 0 [facility] DEPARTMEN INC T VISIT HIGH/URGE NT SEVERITY EMERGENCY 14673 DIPTI GRANADOS, 0 0 EMERGENCY [facility] DEPARTMEN SERVICES T VISIT HIGH/URGE ASSOCIATE NT S SEVERITY [facility] - 0 0 [facility] OUTPATIEN INC T EMERGENCY 18433 [facility] 0 0 [facility] DEPARTMEN INC T VISIT LOW/MODER SEVERITY EMERGENCY 12338 OB [facility]- [facility]Z T VISIT MODERATE SEVERITY
--- OUTSIDE RECORDS SUMMARY | 2017-05-09 23:45 | External Medical Summary Rpt ---
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 [facility] EVALUATIO INC INC N BREAST 67712 [place] [facility] REAL 4 MEDICAL SAMMI TIME IMAGING W/IMAGE ASS DOCUMENTA TION DIAGNOSTI G0206 [place] C 4 MEDICAL SAMMI MAMMOGRAP IMAGING HY INCL ASS CAD WHEN PERF; UNI SCREENING G0202 [facility] MAMMOGRAP INC INC HY YANNA INCL CAD WHEN PERFORMD [facility] 14669 [facility] AIDED 4 [facility] DETECTION INC INC SCREENING MAMMOGRAP HY BLOOD 15699 [facility] COUNT 4 [facility] COMPLETE INC INC AUTO&AUTO DIFRNTL WBC ECG 60062 [facility]AT[facility] ROUTINE 4 [facility] W/LEAST P 12 LDS I&R ONLY INCISION 34945 [facility] SCHULSTAD & REMOVAL 4 PHYSICIAN CAM FOREIGN S GROUP BODY SUBQ TISS SIMPLE URINE 22995 [facility] TEST INC INC VISUAL COLOR CMPRSN METHS BASIC 98903 [facility] METABOLIC 4 [facility] PANEL INC INC CALCIUM TOTAL URINLS 01416 RE[facility] TALBERT DIP 4 GALI GONZALES STICK/TAB LET REAGNT NON-AUTO MICRSCPY HGB 43733 [facility] QUANTITAT 4 GALI GONZALES KATE TRANSCUTA NEOUS IADNA 56738 RE[facility] TALBERT NEISSERIA 4 GALI BARRETT JANET GONORRHOE AE DIRECT PROBE TQ CULTURE 89146 REUB[facility] TALBERT CHLAMYDIA 4 GALI BARRETT JANET ANY SOURCE RADEX 27856 [facility] FOOT 4 MEDICAL SAMMI COMPLETE IMAGING MINIMUM 3 ASS VIEWS PHYSICAL 58923 [facility] THERAPY 4 [facility] EVALUATIO INC INC N COMPRE 14656 HORNEMICHEL HORNE AUDIOMETR 4 STORM STORM Y THRESHOLD EVAL SP RECOGNIJ TYMPANOME 22852 COLEEN RHODESON TRY 4 STORM STORM DISTORT 51678 COLEEN HORNE PRODUCT 4 STORM STORM EVOKED OTOACOUST IC EMISNS LIMITD RADEX 88861 RITIKA RITIKA SPINE 4 SAMMI SAMMI LUMBOSACR AL 2/3 VIEWS RADEX 09782 [facility] SPINE 4 [facility] LUMBOSACR INC INC AL MINIMUM [address] [place] [address] [facility] THYROXINE 4 [facility] [place] [address] [facility] F[facility] THYROID 4 [facility] STIMULATI INC INC NG HORMONE TSH LIPID 53675 [facility] PANEL 4 [facility] INC INC BLOOD 06924 [facility] COUNT 4 [facility] COMPLETE INC INC AUTO&AUTO DIFRNTL WBC COMPREHEN 22936 [facility] SIVE 4 [facility] METABOLIC INC INC PANEL HEMOGLOBI 22112 [facility] F[facility] N 4 [facility] GLYCOSYLA [place] [address] [facility] F[facility] THYROID 4 [facility] STIMULATI [place] [address] [facility] FREE 4 [facility] THYROXINE INC INC 25 48474 [facility] HYDROXY 3 [facility] INCLUDES INC INC FRACTIONS IF PERFORMED CYANOCOBA 27955 [facility] ADELA 3 [facility] VITAMIN INC INC B-12 LIPID 28485 [facility] F[facility] PANEL 3 [facility] INC INC HGB 78163 [facility] HAR[facility] QUANTITAT 3 JANET JANET KATE TRANSCUTA NEOUS URINLS 06340 [facility] DIP 3 JANET JANET STICK/TAB LET REAGNT NON-AUTO MICRSCPY CULTURE 07356 [facility] CHLAMYDIA 3 JANET JANET ANY SOURCE IADNA 89508 [facility] NEISSERIA 3 JANET JANET GONORRHOE AE DIRECT PROBE TQ URNLS DIP 94622 [facility] HMH 3 PHYSICIAN PHYSICIAN STICK/TAB S GROUP S GROUP LET RGNT NON-AUTO W/O MICRSCP RADEX 54286 [facility] FINGR 3 [facility] MINIMUM 2 INC INC VIEWS CUL BACT 30896 [facility] XCPT 3 [facility] URINE INC INC BLOOD/STO OL AEROBIC ISOL CUL BACT 00256 [facility] AEROBIC 3 [facility] ADDL INC INC METHS DEFINITIV E EA ISOL INJECTION J0690 ARASH MAHARAJHENS 3 DON DON CEFAZOLIN SODIUM 500 MG SUSCEPTIB 79548 [facility] LTY STDY 3 [facility] ANTIMICRB INC INC IAL MICRO/AGA R DILUTJ INCISION 82800 ARASH MAHARAJHENS & 3 DON DON DRAINAGE ABSCESS SIMPLE/SI NGLE THERAPEUT 38142 [facility] IC 3 [facility] PROPHYLAC INC INC TIC/DX INJECTION SUBQ/IM ETONOGEST J7307 [facility] REL 3 JANET JANET CNTRACPT IMPL SYS INCL IMPL & SPL INSJ 11734 [facility] NON-BIODE 3 JANET JANET GRADABLE DRUG DELIVERY IMPLANT URINE 88886 [facility] HARPEL 3 JANET JANET TEST VISUAL COLOR CMPRSN METHS DILATION 33598 [facility] & 3 JANET JANET CURETTAGE DX&/THER NONOBSTET ZANE LAPS 07114 [facility] FULG/EXC 3 JANET JANET OVARY VISCERA/P ERITONEAL SURFACE BLOOD 49525 [facility] COUNT 3 [facility] HEMATOCRI INC INC T INJECTION J2405 [facility] 3 [facility] ONDANSETR INC INC ON HCL PER 1 [place] [address] TAPIA TAPIA SURG 3 [facility] PATHOLOGY GROSS&MARTHA ROSCOPIC EXAM ANESTHESI 83068 [facility] JESSIKA A 3 ANESTH INTRAPERI OF THE TONEAL BLUE LOWER ABD W/LAPS NOS BLOOD 31966 [facility] COUNT 3 [facility] HEMOGLOBI INC INC N BLOOD 54075 [facility] COUNT 3 [facility] COMPLETE INC INC AUTO&AUTO DIFRNTL WBC URINE 95210 [facility] 3 [facility] TEST INC INC VISUAL COLOR CMPRSN METHS URNLS DIP 92459 [facility]CON 3 [facility] STICK/TAB INC [place] [address] [facility] TRANSVAGI 3 [facility] NAL INC INC INJECTION J1080 ARASH ANTOINE 3 DON DON TESTOSTER ONE CYPIONATE 1 CC 200 MG REMOVAL 18032 [facility] INTRAUTER 3 JANET JANET INE DEVICE IUD INJECTION J2675 [facility] HARPEL 3 JANET JANET PROGESTER ONE PER 50 MG MICROSOMA 45725 [facility] L 2 [facility] [place] [address] [facility] FREE 2 [facility] [place] [address] [facility] THYROID 2 [facility] STIMULATI INC INC NG HORMONE TSH INJECTION J0690 ARASH ANTOINE 2 DON DON CEFAZOLIN SODIUM 500 MG US SOFT 17917 [facility] TISSUE 2 MEDICAL SAMMI HEAD & IMAGING NECK REAL ASS TIME IMGE DOCM CALCIUM 52273 [facility] TOTAL 2 [facility] INC INC THYROID 57203 [facility] HORM 2 [facility] UPTK/THYR INC INC OID HORMONE BINDING RATIO CYANOCOBA 06200 [facility] ADELA 2 [facility] VITAMIN INC INC B-12 [place] [address] [facility] FREE 2 [facility] [place] [address] [facility] F[facility] THYROID 2 [facility] STIMULATI INC INC NG HORMONE TSH CALCIUM 54136 [facility] IONIZED 2 [place] [address] [facility] F[facility] THYROXINE 2 [facility] TOTAL INC INC MICROSOMA 92852 [facility] F[facility] L 2 [facility] ANTIBODIE INC INC S EACH GONADOTRO 15619 [facility] F[facility] PIN 2 [facility] CHORIONIC INC INC QUANTITAT KATE THERAPEUT 49783 [facility] IC 2 [facility] INJECTION [place] [address] TER[facility]E TER[facility] INFUSION 2 [facility] THERAPY/P INC INC ROPHYLAXI S /DX 1ST TO 1 [place] [address] [facility] INFUSION 2 [facility] THERAPY/P INC INC ROPHYLAXI S /DX 1ST TO 1 HR EGD 17255 [facility] TRANSORAL 2 [facility] BIOPSY INC INC SINGLE/[place] [address] BELLA JAMIL SURG 2 PATHOLOGY GROSS&MARTHA ROSCOPIC EXAM SPECIAL 28325 BELL[facility] JAMIL STAIN 2 GROUP 1 MICROORGA NISMS I&R SPCL STN 36533 BELLA JAMIL 2 I&R 2 EXCPT MICROORG/ ENZYME/IM CYT URINE 63715 [facility] 2 [facility] TEST INC [place] [address] [facility] INFUSION 2 [facility] THERAPY INC INC PROPHYLAX [place] [address] [facility] THYROID 2 [facility] STIMULATI INC INC NG HORMONE TSH URINLS 98693 [facility] HAR[facility] DIP 2 JANET JANET STICK/TAB LET REAGNT NON-AUTO MICRSCPY HGB 91003 [facility] QUANTITAT 2 JANET JANET KATE TRANSCUTA NEOUS SMR PRIM 96715 [facility] SRC WET 2 JANET JANET MOUNT NFCT AGT CULTURE 63204 [facility] CHLAMYDIA 2 JANET JANET ANY SOURCE IADNA 57572 [facility] NEISSERIA 2 JANET JANET GONORRHOE AE DIRECT PROBE TQ SMR PRIM 53682 [facility] SRC WET 2 [place] [address] [facility] INFUSION 1 [facility] THERAPY INC INC PROPHYLAX IS/DX EA HOUR ANOSCOPY 22133 [facility] CONTROL 1 [facility] BLEEDING INC INC ANESTHESI 37009 [facility] A 1 ANESTH ANORECTAL OF THE BLUE PROCEDURE CONTROL 4995 [facility] OF 1 [facility] HEMORRHAG INC INC E OF ANUS BLOOD 21633 [facility] COUNT 1 [facility] COMPLETE INC INC AUTO&AUTO DIFRNTL WBC GONADOTRO 60133 [facility] PIN 1 [facility] CHORIONIC INC INC QUALITATI VE CYTP C/V 66140 BIO BIO AUTO THIN 1 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 SCR IES IES MNL RESCR PHYS INTRAUTER J7300 [facility] INE 1 [facility]PER [facility] CONTRACEP [facility]SH[facility] TIVE INSERTION 85907 [facility] INTRAUTER CLINIC OF INE ASHLEY DEVICE IUD URINE 55513 [facility]OV[facility] TEST CLINIC OF VISUAL ASHLEY COLOR CMPRSN METHS LEVEL III 34655 [facility] PAT SURG 1 LORRIE & PATHOLOGY ONELILIER GROSS&MARTHA ROSCOPIC EXAM DSTRJ 95971 C BRENDAN ADKINS LESION 1 JED MADRID SMPL PSC ELTRDSICC ATION EXC 09002 [facility] THROMBOSE 1 [facility] [place] [address] TERRIEMICHEL FALCON INFUSION 1 [facility] THERAPY INC INC PROPHYLAX IS/DX EA HOUR ANESTHESI 66964 [facility] A 1 ANESTH ROWENA ANORECTAL OF THE BLUE PROCEDURE EXCISION 4946 [facility] AV[facility] OF 1 [facility] HEMORRHOI INC INC DS OTH LOCAL 4939 [facility]CON 1 [facility] EXCISION/ INC INC DESTRUC LESION/TI SSUE ANUS HEMORRHOI 03441 C BRENDAN ADKINS DECTOMY 1 JED RAMOS & PSC XTRNL 1 COLUMN/GR OUP BLOOD 95321 [facility] COUNT 1 [facility] COMPLETE INC INC AUTO&AUTO DIFRNTL WBC GONADOTRO 64643 [facility] PIN 1 [facility]IONIC [facility] [address] [facility] DISCHARGE 1 PHYSICIAN JANET DAY GROUP MANAGEMEN PCC T 30 MIN/< SBSQ 28078 [facility] 1 PHYSICIAN JANET CARE/DAY GROUP 35 PCC MINUTES SUBQ [address]2235 [place] [address] CARE CESAR CARE PER ASSOCIATE DAY E/M S NORMAL CIRCUMCIS 73692 [facility] 1 CARE CESAR W/CLAMP/O ASSOCIATE TH DEV S W/BLOCK SUBQ 62793 [place] [address] CARE CESAR CARE PER ASSOCIATE DAY E/M S NORMAL SBSQ 79473 [facility] 1 PHYSICIAN JANET CARE/DAY GROUP 35 PCC MINUTES OTHER 6829 [facility] EXCISION 1 [facility] OR INC INC DESTRUCTI ON LESION UTERUS LOW 741 [facility] CERVICAL 1 [facility] INC INC SECTION 1ST 60727 [facility] 1 CARE [facility] [place] [address] [facility] DELIVERY 1 PHYSICIAN JANET ONLY GROUP PCC ANESTHESI 19824 [facility] JESSIK[facility] A 1 ANESTH OF THE DELIVERY BLUE ONLY INITIAL 58633 [facility] 1 PHYSICIAN JANET CARE/DAY GROUP 70 P[facility]I [facility]1990 [facility] PHYSICIAN JANET ENT [facility] PCC CARE 55 MINUTES OBSERVATI 34689 [facility] 1 PHYSICIAN [facility] ENT [facility] PCC CARE 55 MINUTES 64834 [facility]IC 1 PHYSICIAN JANET AL GROUP PROFILE PCC NON-STRES S TESTING PARTICLE 40243 [facility] AGGLUTINA 1 [facility] TION INC INC SCREEN EACH ANTIBODY 12613 [facility] NONSTRESS 1 PHYSICIAN JANET TEST GROUP PCC 51042 [facility] BIOPHYSIC 1 [facility] AL HIGH RISK PROFILE O W/O NON-STRES S TESTING DOPPLER 19686 [facility] ECHO 1 [facility] HIGH RISK PULS O SPECTRAL F/U/REPEA T 34716 [facility] PHYSICIAN JANET TEST GROUP PCC FIBRIN 12002 [facility] DGRADJ 1 [facility] PRODUCTS INC INC D-DIMER QUAL/SEMI WENDY FIBRINOGE 29398 [facility] N 1 [facility] ACTIVITY INC INC PROTHROMB 58133 [facility] IN TIME 1 [facility] INC INC ANTIBODY 83595 [facility] SCREEN 1 [facility] RBC EACH INC INC SERUM TECHNIQUE BLOOD 18411 [facility] TYPING 1 [facility] SEROLOGIC INC INC ABO TRANSFERA 87066 [facility] SE 1 [facility] ALANINE INC INC AMINO ALT SGPT TRANSFERA 81333 [facility] SE 1 [facility] ASPARTATE INC INC AMINO AST SGOT 09102 [facility] F[facility] NONSTRESS 1 [facility] [place] [address] [facility] BLOOD/URI 1 [facility] C ACID INC INC THROMBOPL 05353 [facility] ASTIN 1 [facility] TIME INC INC PARTIAL PLASMA/WH OLE BLOOD BASIC 75461 [facility] METABOLIC 1 [facility] PANEL INC INC CALCIUM TOTAL BLOOD 87335 [facility] TYPING 1 [facility] SEROLOGIC INC INC RH (D) URNLS DIP 72292 [facility] 1 [facility] STICK/TAB INC INC LET REAGENT AUTO MICROSCOP Y BLOOD 85144 [facility] COUNT 1 [facility] COMPLETE INC INC AUTO&[place] [address] [facility] F[facility] MAGNESIUM 1 [facility] INC INC THERAPEUT 42605 [facility] F[facility] IC 1 [facility] INJECTION INC [place] [address] [facility] INFUSION 1 [facility] THERAPY/P INC INC ROPHYLAXI S /DX 1ST TO 1 HR DOPPLER 87343 [facility] ECHO 1 [facility] HIGH RISK PULS O SPECTRAL F/U/REPEA T URNLS DIP 01217 [facility] 1 [facility] STICK/TAB HIGH RISK LET RGNT O NON-AUTO W/O MICRSCP 98862 [facility] BIOPHYSIC 1 [facility] AL HIGH RISK PROFILE O W/O NON-STRES S TESTING [facility] PRIM 34895 [facility] SRC WET 1 PHYSICIAN JANET [place]OUNT GROUP NFCT AGT [facility] 08223 [facility] NONSTRESS 1 PHYSICIAN JANET TEST GROUP [facility] 16621 [facility] BIOPHYSIC 1 [facility] AL HIGH RISK PROFILE O W/O NON-STRES S TESTING US PREG 30614 [facility] UTERUS 1 [facility] AFTER 1ST HIGH RISK TRIMEST O / GESTATION 95640 [facility] NONSTRESS 1 PHYSICIAN JANET TEST GROUP [facility] US PREG 79203 [facility] UTERUS 1 [facility] AFTER 1ST HIGH RISK TRIMEST O 1/ GESTATION 65170 [facility] BIOPHYSIC 1 [facility] AL HIGH RISK PROFILE O W/O NON-STRES S TESTING DOPPLER 18402 [facility] ECHO 1 [facility] HIGH RISK PULS O SPECTRAL F/U/REPEA T CREATININ 67867 [facility] E 1 [facility] CLEARANCE 63211 [facility] BIOPHYSIC 1 [facility] [place] [place] HIGH RISK PROFILE O W/O NON-STRES S TESTING URNLS DIP 33469 [facility]AN 1 [facility] [place] [place] STICK/TAB HIGH RISK LET RGNT O NON-AUTO W/O MICRSCP COLLECTIO 73670 [facility] N VENOUS 1 [facility] BLOOD VENIPUNCT URE PROTEIN 23297 [facility] TOTAL 1 [facility] XCPT REFRACTOM ETRY URINE THERAPEUT 91145 [facility] IC 1 [facility] PROPHYLAC INC INC TIC/DX INJECTION SUBQ/IM THERAPEUT 30856 [facility] IC 1 [facility] PROPHYLAC INC INC TIC/DX INJECTION SUBQ/IM 21082 [facility] NONSTRESS 1 PHYSICIAN JANET TEST GROUP PCC 61496 [facility] BIOPHYSIC 1 PHYSICIAN JANET AL GROUP PROFILE PCC NON-STRES S TESTING 64612 [facility]YSIC 1 [facility] [place] HIGH RISK PROFILE O W/O NON-STRES S TESTING URNLS DIP 54002 [facility] [place] STICK/TAB HIGH RISK LET RGNT O NON-AUTO W/O MICRSCP ECHO 85167 [facility] [place] CARDIOVAS HIGH RISK C W/WO O M-MODE RECORDING US PREG 38615 [facility] UTERUS 1 [facility] [place] W/DETAIL HIGH RISK O ANANLISA 1ST GESTATION 92857 [facility] BIOPHYSIC 1 PHYSICIAN JANET AL GROUP PROFILE PCC NON-STRES S TESTING 18093 [facility] BIOPHYSIC 1 PHYSICIAN JANET AL GROUP PROFILE PCC NON-STRES S TESTING BLOOD 11680 [facility] COUNT 1 [facility] COMPLETE INC INC AUTO&AUTO DIFRNTL WBC FIBRINOGE 90337 [facility] N 1 [facility] ACTIVITY INC INC PROTHROMB 13273 [facility] IN TIME 1 [facility] INC INC FIBRIN 33640 [facility] DGRADJ 1 [facility] PRODUCTS INC INC D-DIMER QUAL/[place] [address] [facility] BLOOD/URI 1 [facility] C ACID INC INC THROMBOPL 71884 [facility] ASTIN 1 [facility] TIME INC INC PARTIAL PLASMA/WH OLE BLOOD BASIC 25101 [facility] METABOLIC 1 [facility] PANEL INC INC CALCIUM TOTAL TRANSFERA 16434 [facility] SE 1 [facility] ASPARTATE INC INC AMINO AST SGOT TRANSFERA 26780 [facility] SE 1 [facility] ALANINE INC INC AMINO ALT SGPT SMR PRIM 04948 [facility] SRC WET 1 PHYSICIAN JANET MOUNT GROUP NFCT AGT PCC US PREG 77722 [facility] UTERUS 1 PHYSICIAN JANET AFTER 1ST GROUP TRIMEST PCC GESTATION HEPATIC 48784 [facility] FUNCTION 1 [facility] PANEL INC INC BLOOD 98998 [facility] COUNT 1 [facility] COMPLETE INC INC AUTO&AUTO DIFRNTL WBC BASIC 21092 [facility] METABOLIC 1 [facility] PANEL INC INC CALCIUM TOTAL THROMBOPL 81317 [facility] ASTIN 1 [facility] TIME INC INC PARTIAL PLASMA/[place] [address] [facility] BLOOD/URI 1 [facility] C ACID INC INC GLUCOSE 13236 [facility] POST 1 [facility] GLUCOSE INC INC DOSE FIBRIN 90686 [facility] DGRADJ 1 [facility] PRODUCTS INC INC D-DIMER QUAL/SEMI WENDY FIBRINOGE 31741 [facility] N 1 [facility] ACTIVITY INC INC PROTHROMB 55002 [facility] IN TIME 1 [facility] INC INC 01143 [facility] NONSTRESS 1 [facility] TEST INC INC CULTURE 31576 [facility] BACTERIAL 1 [facility] INC INC QUANTTATI VE COLONY COUNT URINE URNLS DIP 93810 [facility] 1 [facility] STICK/TAB INC INC LET REAGENT AUTO MICROSCOP Y FTL 99176 [facility] FIBRONECT 1 [facility] IN INC INC CERVICOVA G SECRETION S SEMI-WENDY 70363 [facility] BIOPHYSIC 1 [facility] AL INC INC PROFILE W/O NON-STRES S TESTING US PREG 03955 [facility] UTERUS 1 PHYSICIAN JANET AFTER 1ST GROUP TRIMEST PCC GESTATION ALPHA-FET 06909 [facility] OPROTEIN 1 [facility] SERUM INC INC GONADOTRO 41790 [facility] PIN 1 [facility] [place]ION[place] [address] [facility] ESTRIOL 1 [facility] [place] [address] [facility] INFUSION 1 [facility] THERAPY/P INC INC ROPHYLAXI S /DX 1ST TO 1 HR FIBRINOGE 65374 [facility] N 1 [facility] ACTIVITY INC INC PROTHROMB 05128 [facility] IN TIME 1 [facility] INC INC COMPREHEN 41425 [facility] F[facility] SIVE 1 [facility] METABOLIC INC INC PANEL THROMBOPL 13196 [facility] ASTIN 1 [facility] HOSP TIME INC INC PARTIAL PLASMA/[place] [address] [facility] AMYLASE 1 [facility] INC INC BLOOD 73912 [facility] COUNT 1 [facility] COMPLETE INC INC AUTO&[place] [address] [facility] LIPASE 1 [facility] INC INC URNLS DIP 63228 [facility] STICK/TAB INC INC LET REAGENT AUTO MICROSCOP Y IADNA 18141 BIO BIO HERPES 1 REFERNCE REFERNCE SOMPLX 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 VIRUS IES IES AMPLIFIED PROBE TQ COMPREHEN 21891 [facility] SIVE 1 [facility] METABOLIC INC INC PANEL URNLS DIP 19246 [facility] 1 [facility] STICK/TAB INC INC LET REAGENT AUTO MICROSCOP Y BLOOD 21520 [facility] COUNT 1 [facility] COMPLETE INC INC AUTO&[place] [address] [facility] INFUSION 1 [facility] THERAPY/P INC INC ROPHYLAXI S /DX 1ST TO 1 HR URINALYSI 22683 [facility] S 1 PHYSICIAN JANET MICROSCOP GROUP IC ONLY PCC CULTURE 92728 [facility] BACTERIAL 1 [facility] INC INC QUANTTATI VE COLONY COUNT URINE URINLS 24003 [facility] DIP 1 PHYSICIAN JANET STICK/TAB GROUP LET PCC REAGNT NON-AUTO MICRSCPY US PREG 86585 [facility] UTERUS 0 PHYSICIAN JANET REAL TIME GROUP W/IMAGE PCC DCMTN TRANSVAG IADNA 68470 BIO BIO CHLAMYDIA 0 REFERNCE REFERNCE 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 TRACHOMAT IES IES IS AMPLIFIED PROBE TQ CYTP C/V 08050 BIO BIO AUTO THIN 0 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 SCR IES IES MNL RESCR PHYS IADNA NOS 35771 BIO BIO 0 REFERNCE REFERNCE AMPLIFIED 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 PROBE TQ IES IES EACH ORGANISM IADNA 80419 BIO BIO NEISSERIA 0 REFERNCE REFERNCE 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 GONORRHOE IES IES AE AMPLIFIED PROBE TQ GONADOTRO 34052 [facility] PIN 0 [facility] CHORIONIC INC INC QUANTITAT KATE URINE 12350 [facility] 0 PHYSICIAN JANET TEST GROUP VISUAL PCC COLOR CMPRSN METHS IAADIADOO 39481 ARASH ANTOINE, 0 DON R DON R STREPTOCO CCUS GROUP A CT LUMBAR 02027 [facility] SPINE 0 [facility] W/O INC INC CONTRAST MATERIAL SUSCEPTIB 96002 [facility] LTY STDY 0 [facility] ANTIMICRB INC INC IAL MICRO/AGA R DILUTJ 3D 65373 [facility] RENDERING 0 [facility] INC INC W/INTERP& POSTPROC DIFF WORK STATION URINE 17657 [facility] TEST INC INC VISUAL COLOR CMPRSN METHS CULTURE 11930 [facility] BCT 0 [facility] ISOL&PRSM INC INC PTV ID ISOLATE EA URINE CULTURE 08703 [facility] BACTERIAL 0 [facility] INC INC QUANTTATI VE COLONY COUNT URINE URNLS DIP 81974 [facility] 0 [facility] STICK/TAB INC INC LET REAGENT AUTO MICROSCOP Y INITIAL 67893 [facility] RIVAS OBSERVATI 0 RANDY OLMAN A ON INTERNAL CARE/DAY MED 30 MINUTES URINE 68086 [facility] 0 [facility] TEST INC INC VISUAL COLOR CMPRSN [facility] [id number] [facility] OBSERVATI 0 [facility] ON INC INC SERVICE PER HOUR COMPREHEN 00600 [facility] SIVE 0 [facility] METABOLIC INC INC PANEL BLOOD 17391 [facility] COUNT 0 [facility] COMPLETE INC INC AUTO&AUTO DIFRNTL WBC URNLS DIP 06499 [facility] STICK/TAB INC INC LET REAGENT AUTO MICROSCOP Y CUL BACT 45774 [facility] STOOL 0 [facility] [employer] [employer] [facility] ISOL SALMONELL A&SHIGELL CUL BACT 36689 [facility] STOOL 0 [employer] [employer] ADDL PATHOGENS &[place] [address] [facility] CLOSTRIDI 0 [employer] [place] [address] [facility] SHIGA-LIK 0 [employer] E [employer]ING Encounters Encounter Start End Date Code Location Performer Type Date EMERGENCY 73900 EVIE GRANADOS 6 6 PHYSICIAN MARTHA DEPARTREBEKAH S, PLLC T VISIT HIGH/URGE NT SEVERITY HOSPITAL [facility] Phillip 6 6 [facility] OUTPATIEN INC T EMERGENCY 16046 [facility] 6 6 [facility] DEPARTMEN INC T VISIT MODERATE SEVERITY HOSPITAL [facility] - 6 6 [facility] OUTPATIEN INC T HOSPITAL [facility] - 6 6 [facility] OUTPATIEN INC T EMERGENCY 95321 TER[facility] 6 6 [facility] DEPARTMEN [facility] T VISIT HIGH/URGE NT SEVERITY HOSPITAL [facility] - 6 6 [facility] OUTPATIEN [facility] TER[facility]E - 6 6 [facility] OUTPATIEN [facility] OFFICE 09379 BETY CABALLERO OUTROBERTS [place] 6 6 MD [place]WE[place], T VISIT PSC 15 MINUTES HOSPITAL [facility] - 6 6 [facility] OUTPATIEN [facility] OFFICE 37297 [facility] OUTPATIEN 6 6 [facility] T VISIT INC 10 MINUTES EMERGENCY 38464 TER[facility] 6 6 [facility] DEPARTMEN [facility] T VISIT MODERATE SEVERITY EMERGENCY 19780 EVIE GRANADOS 6 6 PHYSICIAN [facility] T VISIT HIGH/URGE NT SEVERITY HOSPITAL [facility] - 6 6 [facility] OUTPATIEN [facility] TERRIE - 6 6 [facility] OUTPATIEN [facility] T EMERGENCY 74250 EVIE GRANADOS 6 6 PHYSICIAN [facility] T VISIT HIGH/URGE NT SEVERITY HOSPITAL [facility] - 6 6 [facility] OUTPATIEN [facility] T EMERGENCY 36034 TERRIE 6 6 [facility] DEPARTMEN [facility] T VISIT HIGH/URGE NT SEVERITY HOSPITAL [facility] - 6 6 [facility] OUTPATIEN [facility] T OFFICE 68223 [facility] MD [place], T VISIT PSC 15 MINUTES OFFICE 18197 REUBEN TALBERT OUTPATIEN 6 6 GALI GONZALES T VISIT 25 MINUTES EMERGENCY 15463 EVIE GRANADOS 6 6 PHYSICIAN MARTHA DEPARTMEN S, [facility] T VISIT HIGH/URGE NT SEVERITY HOSPITAL [facility] - 6 6 [facility] OUTPATIEN INC T OFFICE 49830 [facility] LEON[facility] OUTPATIEN 6 6 PHYSICIAN MARTHA T VISIT S GROUP 10 MINUTES HOSPITAL [facility] - 6 6 [facility] OUTPATIEN INC T EMERGENCY 93582 [facility] 6 6 [facility] DEPARTMEN INC T VISIT HIGH/URGE NT SEVERITY PERIODIC 63557 REUBEN TALBERT PREVENTIV 5 5 GALI GONZALES E MED EST PATIENT 18-39 YRS HOSPITAL [facility] - 5 5 [facility] 23081 [facility] PHYSICIAN EUG T VISIT S GROUP 15 MINUTES EMERGENCY 64416 EVIE GRANADOS DEPT 5 5 PHYSICIAN MARTHA VISIT S, [facility] HIGH SEVERITY& THREAT [facility] TER[facility] - 5 5 [facility] OUTPATIEN INC T EMERGENCY 23536 [facility] 5 5 [facility] DEPARTMEN INC T VISIT HIGH/URGE NT SEVERITY OFFICE 42658 REUBEN TALBERT OUTPATIEN 5 5 GALI BARRETT JANET T VISIT 15 MINUTES OFFICE 24495 [facility] OUT[facility]IEN 5 5 [facility] T VISIT INC 10 MINUTES HOSPITAL [facility] - 5 5 [facility] OUTPATIEN INC T EMERGENCY 20344 [facility] 5 5 [facility] DEPARTMEN INC T VISIT HIGH/URGE NT SEVERITY HOSPITAL [facility] - 5 5 [facility] OUTPATIEN INC T [facility] - 5 5 [facility] OUTPATIEN INC T OFFICE 82086 [facility] OUTPATIEN 5 5 [facility] T VISIT INC 10 MINUTES EMERGENCY 24246 EVIE GRANADOS 5 5 PHYSICIAN MARTHA DEPARTMEN S, [facility] T VISIT HIGH/URGE NT SEVERITY HOSPITAL [facility] - 5 5 [facility] OUTPATIEN INC T EMERGENCY 40637 EVIE GRANADOS 5 5 PHYSICIAN MARTHA DEPARTMEN S, [facility] T VISIT HIGH/URGE NT SEVERITY HOSPITAL [facility] - 5 5 [facility] OUTPATIEN INC T EMERGENCY 21866 EVIE GRANADOS DEPT 5 5 PHYSICIAN MARTHA VISIT S, [facility] HIGH SEVERITY& THREAT [facility] TERRIE - 5 5 [facility] OUTPATIEN INC T [facility]PITAL [facility] - 5 5 [facility] OUTPATIEN INC T OFFICE 80857 MADAR BUX BUX ANJ OUTPATIEN 5 5 MD T VISIT 10 MINUTES OFFICE 79735 MADDIANA BUX BUX ANJ OUTPATIEN 5 5 T NEW 30 MINUTES OFFICE 27667 [facility] OUTPATIEN 5 5 [facility] T VISIT INC 10 MINUTES HOSPITAL [facility] - 5 5 [facility] OUTPATIEN INC T [facility] - 5 5 [facility] OUTPATIEN INC T OFFICE 29272 [facility] OUTPATIEN 5 5 PHYSICIAN MARTHA T VISIT S GROUP 10 MINUTES HOSPITAL [facility] - 5 5 [facility] OUTPATIEN INC T OFFICE 22842 [facility] OUTPATIEN 5 5 PHYSICIAN MARTHA T VISIT S GROUP 10 MINUTES HOSPITAL [facility] - 5 5 [facility] OUTPATIEN INC T OFFICE 65588 [facility] OUTPATIEN 5 5 PHYSICIAN MARTHA T VISIT S GROUP 10 MINUTES OFFICE 35748 [facility] OUTPATIEN 4 4 PHYSICIAN MARTHA T VISIT S GROUP 10 MINUTES HOSPITAL TER[facility] - 4 4 [facility] TERRIE - 4 4 [facility] TERRIE - 4 4 [facility] TERRIE - 4 4 [facility] OUTPATIEN [facility] T OFFICE 34421 [facility] OUTPATIEN 4 4 PHYSICIAN MARTHA T VISIT S GROUP 10 MINUTES [facility] TERRIE - 4 4 [facility] OUTPATIEN [facility] OFFICE 41884 [facility] SCHULSTAD OUTPATIEN 4 4 PHYSICIAN CAM T VISIT S GROUP 15 MINUTES [facility] 53299 REUBEN TALBERT PREVENTIV 4 4 GALI BARRETT JANET E MED EST PATIENT 18-39 YRS HOSPITAL [facility] - 4 4 [facility] OUTPATIEN [facility] TERRIE - 4 4 [facility] OUT[facility] T OFFICE 90164 [facility] OUTPATIEN 4 4 PHYSICIAN MARTHA T VISIT S GROUP 10 MINUTES EMERGENCY 31254 LEONEL GRANADOS 4 4 MARTHA MARTHA DEPARTMEN T VISIT HIGH/URGE NT SEVERITY HOSPITAL [facility] 64843 [facility] 4 4 I ALI I ALI DEPARTMEN T VISIT MODERATE SEVERITY EMERGENCY 74167 UN[facility]ERSIT 4 4 Y [facility] HOSPITAL T VISIT LOW/MODER SEVERITY OFFICE 42931 MONGIARDO MONGIARDO OUTPATIEN 4 4 FRA FRA T NEW 45 MINUTES OFFICE 67300 LEONEL GRANADOS OUTPATIEN 4 4 MARTHA MARTHA T VISIT 10 MINUTES EMERGENCY 03198 LEONEL GRANADOS 4 4 MARTHA MARTHA DEPARTMEN T VISIT HIGH/URGE NT SEVERITY OFFICE 12095 LEONEL GRANADOS OUTPATIEN 4 4 MARTHA MARTHA T VISIT 10 MINUTES HOSPITAL [facility] - 4 4 [facility] TERRIE - 4 4 [facility] OUT[facility]EN [facility] T Emergency RADHA Granados MD (ER) 3 20:53 3 21:55 [facility] TERRIE - 3 3 [facility] OUT[facility] OFFICE 91636 THOMAS GUZMAN OUTPATIEN 3 3 ANT ANT T VISIT 15 MINUTES Emergency RADHA Granados MD (ER) 3 21:48 3 22:43 [facility] EMERGENCY 96491 LEONEL GRANADOS DEPT 3 3 MARTHA MARTHA VISIT HIGH SEVERITY& THREAT FUNCJ PERIODIC 55289 [facility] PREVENTIV 3 3 JANET JANET E MED EST PATIENT 18-39 YRS OFFICE 30962 [facility] OUT[facility]IEN 3 3 PHYSICIAN T VISIT S GROUP 15 MINUTES HOSPITAL TER[facility] - 3 3 [facility] TERRIE - 3 3 [facility] OUTPATIEN [facility] T OFFICE 29117 ARASH ANTOINE OUTPATIEN 3 3 DON DON T VISIT 15 MINUTES OFFICE 65152 ARASH ANTOINE OUTPATIEN 3 3 DON DON T VISIT 15 MINUTES Emergency RADHA Granados MD (ER) 3 22:14 3 22:24 [facility] EMERGENCY 41504 LEONEL GRANADOS 3 3 MARTHA MARTHA DEPARTMEN T VISIT HIGH/URGE NT SEVERITY HOSPITAL [facility] - 3 3 [facility] OUTPATIEN [facility] T EMERGENCY 14078 TER[facility]E 3 3 [facility] T VISIT LOW/MODER SEVERITY HOSPITAL TER[facility]E - 3 3 [facility]EN [facility] TERRIE - 3 3 [facility] OFFICE 82709 [facility] OUTPATIEN 3 3 JANET JANET T VISIT 15 MINUTES OFFICE 13567 [facility] OUTPATIEN 3 3 JANET JANET T VISIT 15 MINUTES HOSPITAL TER[facility] - 3 3 [facility] OFFICE 36886 ANTOINE ANTOINE OUTPATIEN 3 3 DON DON T VISIT 25 MINUTES OFFICE 69298 ANTOINE ANTOINE OUTPATIEN 3 3 DON DON T VISIT 15 MINUTES HOSPITAL TER[facility] - 2 2 [facility] OFFICE 25726 HORNE HORNE OUTPATIEN 2 2 STORM STORM T VISIT 15 MINUTES OFFICE 93712 ANTOINE ANTOINE OUTPATIEN 2 2 DON DON T VISIT 15 MINUTES OFFICE 83565 HORNE HORNE OUTPATIEN 2 2 STORM STORM T NEW 30 MINUTES HOSPITAL TER[facility]E - 2 2 [facility] TERRIE - 2 2 [facility] TERRIE - 2 2 [facility] TERRIE - 2 2 [facility]PATI[facility] EMERGENCY 00338 TERRIE 2 2 [facility] T VISIT MODERATE SEVERITY EMERGENCY 33418 CORNELIUS SHIELDS DEPT 2 2 III JESSIKA III JESSIKA VISIT HIGH SEVERITY& THREAT [facility] TERRIE - 2 2 [facility] OUTPATIEN INC T PERIODIC 85644 [facility] HARPE[facility] PREVENTIV 2 2 JANET JANET E MED EST PATIENT 18-39 YRS [facility]PITAL TER[facility]E - 2 2 [facility] OUTPATIEN INC T OFFICE 45833 [facility] OUTPATIEN 2 2 JANET JANET T VISIT 15 MINUTES OFFICE 14360 ANTOINE ANTOINE OUTPATIEN 2 2 DON DON T VISIT 15 MINUTES OFFICE 34110 [facility] OUTPATIEN 2 2 JANET JANET T VISIT 15 MINUTES OFFICE 43384 ANTOINE ANTOINE OUTPATIEN 2 2 DON DON T VISIT 15 MINUTES OFFICE 05520 ANTOINE ANTOINE OUTPATIEN 2 2 DON DON T VISIT 15 MINUTES EMERGENCY 66688 TERRIE 1 1 [facility] DEPARTMEN INC T VISIT MODERATE SEVERITY EMERGENCY 36049 DIPTI GRANADOS 1 [facility] HIGH/URGE NT SEVERITY [facility]PITAL [facility] - 1 1 [facility] OUTPATIEN INC T EMERGENCY 94304 [facility] 1 1 [facility] H[facility]PITAL T VISIT MODERATE SEVERITY HOSPITAL [facility] - [address] [facility] TERRIE - 1 1 [facility] OUTPATIEN INC T EMERGENCY 68147 TER[facility]E 1 1 [facility] DEPARTMEN INC T VISIT MODERATE SEVERITY EMERGENCY 06409 DIPTI GRANADOS 1 1 EMERGENCY [facility] DEPARTMEN SERVICES T VISIT HIGH/URGE NT SEVERITY OFFICE 00288 Carol ADIKNS OUTPATIEN 1 1 JED BYRD T VISIT MD ALEJANDRO 10 MINUTES HOSPITAL [facility] - 1 1 [facility]PATIEN INC T OFFICE 51080 Carol ADKINS OUTPATIEN 1 1 JED BYRD T VISIT [facility] 25 MINUTES [facility]PITAL TER[facility] - 1 1 [facility] OUTPATIEN INC T OFFICE 09257 ARASH ANTOINE OUTPATIEN 1 1 DON DON T VISIT 25 MINUTES OFFICE 84790 [facility] 1 1 PHYSICIAN JANET T VISIT GROUP 15 PCC MINUTES OFFICE 72200 [facility] 1 1 [facility] PATIENT 40 MIN OFFICE 20294 [facility] OUT[facility] 1 1 PHYSICIAN JANET T VISIT GROUP 15 PCC MINUTES HOSPITAL [facility] - 1 1 [facility] OUTPATIEN INC T [facility] - 1 1 [facility] OUTPATIEN INC T OFFICE 68564 H [facility] OUTPATIEN 1 1 PHYSICIAN JANET T VISIT GROUP 15 PCC MINUTES HOSPITAL [facility] - 1 1 [facility] INPATIENT INC OFFICE 87318 [facility] OUT[facility] 1 1 PHYSICIAN JANET T VISIT GROUP 15 PCC MINUTES HOSPITAL [facility] - 1 1 [facility] OUTPATIEN INC T OFFICE 66804 [facility] OUT[facility] 1 1 PHYSICIAN JANET T VISIT GROUP 15 PCC MINUTES OFFICE 92488 [facility] 1 1 PHYSICIAN JANET T VISIT GROUP 15 PCC MINUTES HOSPITAL [facility] - 1 1 [facility] OUTPATIEN INC T OFFICE 86152 [facility] 1 1 PHYSICIAN JANET T VISIT GROUP 15 PCC MINUTES OFFICE 46650 [facility] 1 1 PHYSICIAN JANET T VISIT GROUP 15 PCC MINUTES OFFICE 80506 H [facility] OUTPATIEN 1 1 PHYSICIAN JANET T VISIT GROUP 15 PCC MINUTES [facility] 1 [facility] TER[facility] - 1 1 [facility] OUTPATIEN INC T OFFICE 23221 H [facility] OUTPATIEN 1 1 PHYSICIAN JANET T VISIT GROUP 15 PCC MINUTES HOSPITAL [facility] - 1 1 [facility] OUTPATIEN INC T OFFICE 61887 H [facility] OUTPATIEN 1 1 PHYSICIAN JANET T VISIT GROUP 15 PCC MINUTES OFFICE 31521 H [facility] OUTPATIEN 1 1 PHYSICIAN JANET T VISIT GROUP 15 PCC MINUTES OFFICE 99675 H [facility] OUTPATIEN 1 1 PHYSICIAN JANET T VISIT GROUP 15 PCC MINUTES HOSPITAL [facility] - 1 1 [facility] OUTPATIEN INC T OFFICE 74584 H [facility] OUTPATIEN 1 1 PHYSICIAN JANET T VISIT GROUP 15 PCC MINUTES OFFICE 86593 H [facility] OUTPATIEN 1 1 PHYSICIAN JANET T VISIT GROUP 15 PCC MINUTES HOSPITAL [facility] - 1 1 [facility] OUTPATIEN INC T OFFICE 18149 H [facility] OUTPATIEN 1 1 PHYSICIAN JANET T VISIT GROUP 15 PCC MINUTES EMERGENCY 42493 DIPTI COLON DEPT 1 1 EMERGENCY [facility] VISIT SERVICES HIGH SEVERITY& THREAT [facility] TERRIE - 1 1 [facility] OUTPATIEN INC T EMERGENCY 97172 TER[facility]E 1 1 [facility] DEPARTMEN INC T VISIT MODERATE SEVERITY HOSPITAL [facility] - 1 1 [facility] OUTPATIEN INC T OFFICE 29338 [facility] 1 1 PHYSICIAN JANET T VISIT GROUP 15 PCC MINUTES HOSPITAL [facility] - 1 1 [facility] OUTPATIEN INC T OFFICE 40124 [facility] 1 1 PHYSICIAN JANET T VISIT GROUP 15 PCC MINUTES OFFICE 41812 [facility] 1 1 PHYSICIAN JANET T VISIT GROUP 15 PCC MINUTES OFFICE 27256 [facility] 1 1 PHYSICIAN JANET T VISIT GROUP 15 PCC MINUTES HOSPITAL [facility] - 1 1 [facility] OUTPATIEN INC T EMERGENCY 12820 [facility] 1 1 [facility] DEPARTMEN INC T VISIT HIGH/URGE NT SEVERITY EMERGENCY 43767 DIPTI LLOYD DEPT 1 1 EMERGENCY VISIT SERVICES HIGH SEVERITY& THREAT [facility] TER[facility] - 1 1 [facility] OUTPATIEN INC T OFFICE 17089 [facility] 1 1 PHYSICIAN JANET T VISIT GROUP 15 PCC MINUTES OFFICE 80496 H [facility] OUTPATIEN 1 1 PHYSICIAN JANET T VISIT GROUP 15 PCC MINUTES EMERGENCY 11564 DIPTI SHIELDS 1 1 EMERGENCY III [facility] T VISIT HIGH/URGE NT SEVERITY HOSPITAL [facility] - 1 1 [facility] OUTPATIEN INC T OFFICE 71448 [facility] OUT[facility] 1 1 PHYSICIAN JANET T VISIT GROUP 15 PCC MINUTES HOSPITAL [facility] - 1 1 [facility] OUTPATIEN INC T OFFICE 88038 [facility] 1 1 PHYSICIAN JANET T VISIT GROUP 15 PCC MINUTES OFFICE 36684 [facility] OUT[facility] 0 0 PHYSICIAN JANET T VISIT GROUP 15 PCC MINUTES OFFICE 03720 [facility] OUT[facility] 0 0 PHYSICIAN JANET T VISIT GROUP 40 PCC MINUTES OFFICE 81142 [facility] OUTPATIEN 0 0 PHYSICIAN JANET T VISIT GROUP 15 PCC MINUTES HOSPITAL [facility] - 0 0 [facility] OUTPATIEN INC T EMERGENCY 69028 DIPTI GRANADOS 0 0 EMERGENCY [facility] DEPARTMEN SERVICES T VISIT HIGH/URGE NT SEVERITY EMERGENCY 77088 [facility] 0 0 [facility] DEPARTMEN INC T VISIT LOW/MODER SEVERITY [facility]OSPITAL [facility] - 0 0 [facility] OUTPATIEN INC T OFFICE 51506 ARASH ANTOINE, OUTPATIEN 0 0 DON R DON R T VISIT 15 MINUTES OFFICE 96864 OLMAN ANTOINES, OUTPATIEN 0 0 DON R DON R T VISIT 15 MINUTES EMERGENCY 35701 [facility] 0 0 [facility] DEPARTMEN INC T VISIT LOW/MODER SEVERITY EMERGENCY 78655 DIPTI PARKER, DEPT 0 0 EMERGENCY [facility] VISIT SERVICES O HIGH SEVERITY& ASSOCIATE THREAT S [facility] TERIRE - 0 0 [facility] OUTPATIEN INC T [facility]PITAL [facility] - 0 0 [facility] OUTPATIEN INC T EMERGENCY 68500 DIPTI GRANADOS, DEPT 0 0 EMERGENCY [facility] VISIT SERVICES HIGH SEVERITY& ASSOCIATE THREAT S [facility] EMERGENCY 14267 TERRIE 0 0 [facility] DEPARTMEN INC T VISIT HIGH/URGE NT SEVERITY EMERGENCY 91819 DIPTI GRANADOS, 0 0 EMERGENCY [facility] DEPARTMEN SERVICES T VISIT HIGH/URGE ASSOCIATE NT S SEVERITY HOSPITAL [facility] - 0 0 [facility] OUTPATIEN INC T EMERGENCY 12342 [facility]E 0 0 [facility] DEPARTMEN INC T VISIT LOW/MODER SEVERITY EMERGENCY 50655 [facility] LI[facility] T VISIT MODERATE SEVERITY
--- OUTSIDE RECORDS SUMMARY | 2017-05-09 23:54 | External Medical Summary Rpt ---
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 GONZALES KATE TRANSCUTA NEOUS IADNA 45553 [facility] NEISSERIA 4 GALI BARRETT JANET GONORRHOE AE DIRECT PROBE TQ CULTURE 06154 [facility] CHLAMYDIA 4 GALI BARRETT JANET ANY SOURCE URINLS 31042 [facility] DIP 4 GALI BARRETT JANET STICK/TAB LET REAGNT NON-AUTO MICRSCPY RADEX 86984 [facility] FOOT 4 [facility] COMPLETE INC INC MINIMUM 3 VIEWS PHYSICAL 49308 [facility] THERAPY 4 [facility] EVALUATIO INC INC N COMPRE 92095 [facility] AUDIOMETR 4 STORM STORM Y THRESHOLD EVAL SP RECOGNIJ TYMPANOME 06029 [facility] TRY 4 STORM STORM DISTORT 74682 [facility] PRODUCT 4 STORM STORM EVOKED OTOACOUST IC EMISNS LIMITD BLOOD 08546 [facility] COUNT 4 [facility] COMPLETE INC INC AUTO&AUTO DIFRNTL WBC RADEX 26057 RITIKA RITIKA SPINE 4 SAMMI SAMMI LUMBOSACR AL 2/3 VIEWS RADEX 76665 [facility] SPINE 4 [facility] LUMBOSACR INC INC AL MINIMUM [address] [place] [address] [facility] THYROXINE 4 [facility] [place] [address] [facility] F[facility] THYROID 4 [facility] STIMULATI INC INC NG HORMONE TSH COMPREHEN 47585 [facility] SIVE 4 [facility] METABOLIC INC INC PANEL HEMOGLOBI 20851 [facility] N 4 [facility] GLYCOSYLA INC INC JOCELINE A1C LIPID 80899 [facility] F[facility] PANEL 4 [place] [address] [facility] FREE 4 [facility] [place] [address] [facility] F[facility] THYROID 4 [facility] STIMULATI INC INC NG HORMONE TSH LIPID 62759 [facility] PANEL 3 [facility] INC INC 25 34185 [facility] HYDROXY 3 [facility] INCLUDES INC INC FRACTIONS IF PERFORMED CYANOCOBA 12463 [facility] ADELA 3 [facility] VITAMIN INC INC B-12 IADNA 26122 HAR[facility] HARPEL NEISSERIA 3 JANET JANET GONORRHOE AE DIRECT PROBE TQ HGB 49878 [facility] QUANTITAT 3 JANET JANET KATE TRANSCUTA NEOUS URINLS 10786 [facility] HARPEL DIP 3 JANET JANET STICK/TAB LET REAGNT NON-AUTO MICRSCPY CULTURE 75436 [facility] HARPEL CHLAMYDIA 3 JANET JANET ANY SOURCE URNLS DIP 43793 [facility] 3 PHYSICIAN PHYSICIAN STICK/TAB S GROUP S GROUP LET RGNT NON-AUTO W/O MICRSCP RADEX 50528 [facility] FINGR 3 [facility] MINIMUM 2 INC INC VIEWS CUL BACT 23617 [facility] XCPT 3 [facility] URINE INC INC BLOOD/STO OL AEROBIC ISOL CUL BACT 88732 [facility] AEROBIC 3 [facility] ADDL INC INC METHS DEFINITIV E EA ISOL INCISION 59186 ARASH ANTOINE & 3 DON DON DRAINAGE ABSCESS SIMPLE/SI NGLE SUSCEPTIB 44449 [facility] LTY STDY 3 [facility] ANTIMICRB INC INC IAL MICRO/AGA R DILUTJ INJECTION J0690 ARASH ANTOINE 3 DON DON CEFAZOLIN SODIUM 500 MG THERAPEUT 22553 [facility] IC 3 [facility] PROPHYLAC INC INC TIC/DX INJECTION SUBQ/IM URINE 79841 HAR[facility] HARPEL 3 JANET JANET TEST VISUAL COLOR CMPRSN METHS INSJ 56702 [facility] NON-BIODE 3 JANET JANET GRADABLE DRUG DELIVERY IMPLANT ETONOGEST J7307 HAR[facility] HARPE[facility] REL 3 JANET JANET CNTRACPT IMPL SYS INCL IMPL & SPL INJECTION J2405 [facility] 3 [facility] ONDANSETR INC INC ON HCL PER 1 MG ANESTHESI 39159 COMMUNITY MEYER EJSSIKA A 3 ANESTH INTRAPERI OF THE TONEAL BLUE LOWER ABD W/LAPS NOS DILATION 40763 HAR[facility] HARPEL & 3 JANET JANET CURETTAGE DX&/THER NONOBSTET ZANE LAPS 51425 [facility] FULG/EXC 3 JANET AJNET OVARY VISCERA/P ERITONEAL SURFACE BLOOD 21917 TRERIE F[facility]CON COUNT 3 [facility] HEMOGLOBI INC INC N BLOOD 19475 [facility] COUNT 3 [facility] [place] [address] TAPIA TAPIA SURG 3 [facility] PATHOLOGY GROSS&MARTHA ROSCOPIC EXAM BLOOD 35072 [facility] COUNT 3 [facility] COMPLETE INC INC AUTO&AUTO DIFRNTL WBC URINE 41703 [facility] FALOCN 3 [facility] TEST INC INC VISUAL COLOR CMPRSN METHS URNLS DIP 87137 [facility] F[facility]CON 3 [facility] STICK/TAB INC [place] [address] [facility] TRANSVAGI 3 [facility] NAL INC INC INJECTION J1080 ARASH ANTOINE 3 DON DON TESTOSTER ONE CYPIONATE 1 CC 200 MG REMOVAL 14057 [facility] HARPEL INTRAUTER 3 JANET JANET INE DEVICE IUD INJECTION J2675 [facility] HARPEL 3 JANET JANET PROGESTER ONE PER 50 MG MICROSOMA 39540 [facility] L 2 [facility] [place] [address] [facility] FREE 2 [facility] [place] [address] [facility] THYROID 2 [facility] STIMULATI INC INC NG HORMONE TSH INJECTION J0690 ARASH ANTOINE 2 DON DON CEFAZOLIN SODIUM 500 MG US SOFT 69258 [place] RITIKA TISSUE 2 MEDICAL SAMMI HEAD & IMAGING NECK REAL ASS TIME IMGE DOCM THYROID 32787 [facility] HORM 2 [facility] UPTK/THYR INC [place] [address] [facility] F[facility] THYROID 2 [facility] STIMULATI [place] [address] [facility] F[facility] FREE 2 [facility] THYROXINE INC INC MICROSOMA 77270 [facility] L 2 [facility] [place] [address] [facility] F[facility] THYROXINE 2 [facility] TOTAL INC INC CALCIUM 45712 [facility] IONIZED 2 [facility] INC INC CALCIUM 28725 [facility] F[facility] TOTAL 2 [facility] INC INC CYANOCOBA 59645 [facility] F[facility] ADELA 2 [facility] VITAMIN INC INC B-12 GONADOTRO 16229 [facility] PIN 2 [facility] [place] [address] [facility] INFUSION 2 [facility] THERAPY/P INC INC ROPHYLAXI S /DX 1ST TO 1 HR THERAPEUT 12239 [facility] F[facility] IC 2 [facility] INJECTION INC [place] [address] [facility] INFUSION 2 [facility] THERAPY/P INC INC ROPHYLAXI S /DX 1ST TO 1 [place] [address] BELLA JAMIL SURG 2 PATHOLOGY GROSS&MARTHA ROSCOPIC EXAM EGD 98313 TER[facility] TRANSORAL 2 [facility] BIOPSY INC INC SINGLE/MU LTIPLE URINE 09758 [facility]CON 2 [facility] TEST INC INC VISUAL COLOR CMPRSN METHS SPECIAL 11473 BELLA JAMIL STAIN 2 GROUP 1 MICROORGA NISMS I&R SPCL STN 71862 BELLA JAMIL 2 I&R 2 EXCPT MICROORG/ ENZYME/[place] [address] [facility] INFUSION 2 [facility] THERAPY INC INC PROPHYLAX IS/DX EA HOUR CULTURE 90131 HARPEL HARPEL CHLAMYDIA 2 JANET JANET ANY SOURCE URINLS 40926 [facility] HARPEL DIP 2 JANET JANET STICK/TAB LET REAGNT NON-AUTO MICRSCPY HGB 63043 HAR[facility]L HARPEL QUANTITAT 2 JANET JANET KATE TRANSCUTA NEOUS SMR PRIM 63200 HAR[facility] HARPEL SRC WET 2 JANET JANET MOUNT NFCT AGT IADNA 89340 HARPEL HARPEL NEISSERIA 2 JANET JANET [place] [address] [facility] F[facility] THYROID 2 [facility] STIMULATI INC INC NG HORMONE TSH SMR PRIM 85432 HARPEGraciela HARPEL SRC WET 2 JANET JANET MOUNT NFCT AGT ANOSCOPY 62336 C BRENDAN ADKINS CONTROL 1 [place] [address] [facility] INFUSION 1 [facility] THERAPY INC INC PROPHYLAX IS/DX EA HOUR ANESTHESI 61718 [facility] MEYER JESSIKA A 1 ANESTH ANORECTAL OF THE BLUE PROCEDURE CONTROL 4995 [facility] OF 1 [facility] HEMORRHAG INC INC E OF ANUS GONADOTRO 39742 [facility] PIN 1 [facility] CHORIONIC INC INC QUALITATI VE BLOOD 55347 [facility] COUNT 1 [facility] COMPLETE INC INC AUTO&AUTO DIFRNTL WBC CYTP C/V 05773 BIO BIO AUTO THIN 1 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 SCR IES IES MNL RESCR PHYS INSERTION 87114 [facility] INTRAUTER CLINIC OF INE [place]SHLEY DEVICE IUD URINE 47283 [facility] TEST CLINIC OF VISUAL ASHLEY COLOR CMPRSN METHS INTRAUTER J7300 [facility] INE 1 [facility] COPPER CLINIC OF CONTRACEP ASHLEY TIVE ANESTHESI 61916 COMMUNITY FORTUNATO A 1 ANESTH ROWENA ANORECTAL OF THE BLUE PROCEDURE OTH LOCAL 4939 [facility] 1 [facility] EXCISION/ INC INC DESTRUC LESION/TI SSUE ANUS EXCISION 4946 [facility] OF 1 [facility] [place] [address] [facility] INFUSION 1 [facility] THERAPY INC INC PROPHYLAX IS/DX EA HOUR HEMORRHOI 57087 C BRENDAN ADKINS DECTOMY 1 JED RAMOS & PSC XTRNL 1 COLUMN/GR OUP EXC 90982 [facility] THROMBOSE 1 [facility] D INC INC HEMORRHOI D XTRNL LEVEL III 83593 [facility] WANDA PAT SURG 1 LOR[facility]E & PATHOLOGY DUBILIER GROSS&MARTHA ROSCOPIC EXAM DSTRJ 36460 Carol ADKINS LESION 1 JED BYRD JULIUS PERDOMO MD PSC ELTRDSICC ATION GONADOTRO 33215 TERRIE TER[facility]E PIN 1 [facility] CHORIONIC INC INC QUALITATI VE BLOOD 98476 [facility]CON COUNT 1 [facility]P COMPLETE INC INC AUTO&AUTO DIFRNTL WBC [facility]OSP[facility] 14134 [facility] DISCHARGE 1 PHYSICIAN JANET DAY GROUP MANAGEMEN PCC T 30 MIN/< SUBQ 09737 [place] [address] CARE CESAR CARE PER ASSOCIATE DAY E/M S NORMAL CIRCUMCIS 13589 [place] [address] CARE CESAR W/CLAMP/O ASSOCIATE TH DEV S W/BLOCK SBSQ 34704 [facility] 1 PHYSICIAN JANET CARE/DAY GROUP 35 PCC MINUTES SUBQ 81442 [place] [address] CARE CESAR CARE PER ASSOCIATE DAY E/M S NORMAL SBSQ 99433 [facility] 1 PHYSICIAN JANET CARE/DAY GROUP 35 PCC MINUTES 27010 [facility] DELIVERY 1 PHYSICIAN JANET ONLY GROUP PCC ANESTHESI 10398 [facility] 1 ANESTH OF THE DELIVERY BLUE ONLY OTHER 6829 [facility] EXCISION 1 [facility] OR INC INC DESTRUCTI ON LESION UTERUS LOW 741 [facility] CERVICAL 1 [facility] INC INC SECTION 1ST 44241 [facility] 1 [facility]ARE [facility] S CARE PER DAY NML NB INITIAL 50590 [facility] 1 PHYSICIAN JANET CARE/DAY GROUP 70 PCC MINUTES OBSERVATI 03034 [facility] ON/INPATI 1 PHYSICIAN JANET ENT [facility] PCC CARE 55 MINUTES OBSERVATI 61408 [facility] ON/INPATI 1 PHYSICIAN JANET [facility]NT [facility] PCC CARE 55 MINUTES 04329 [facility] HARPEL BIOPHYSIC 1 PHYSICIAN JANET AL GROUP PROFILE PCC NON-STRES S TESTING PARTICLE 08962 [facility] AGGLUTINA 1 [facility] TION INC INC SCREEN EACH ANTIBODY 38820 [facility] HARPEL NONSTRESS 1 PHYSICIAN JANET TEST GROUP PCC 26369 [facility] BIOPHYSIC 1 [facility] AL HIGH RISK PROFILE O W/O NON-STRES S TESTING DOPPLER 10283 [facility] ECHO 1 [facility] HIGH RISK PULS O SPECTRAL F/U/REPEA T 16437 [facility] HARPEL NONSTRESS 1 PHYSICIAN JANET TEST GROUP PCC URNLS DIP 77870 [facility] 1 [facility] STICK/TAB INC INC LET REAGENT AUTO MICROSCOP Y 42945 [facility] F[facility] NONSTRESS 1 [place] [address] [facility] INFUSION 1 [facility] THERAPY/P INC INC ROPHYLAXI S /DX 1ST TO 1 HR THERAPEUT 03109 [facility] F[facility] IC 1 [facility] INJECTION INC [place] [address] [facility] MAGNESIUM 1 [facility] INC INC BASIC 51323 [facility] F[facility] METABOLIC 1 [facility] PANEL INC INC CALCIUM TOTAL THROMBOPL 73265 [facility] ASTIN 1 [facility] TIME INC INC PARTIAL PLASMA/WH OLE BLOOD BLOOD 42319 [facility] TYPING 1 [facility] SEROLOGIC INC INC RH (D) BLOOD 65300 [facility] COUNT 1 [facility] COMPLETE INC INC AUTO&AUTO DIFRNTL WBC ANTIBODY 80402 [facility] SCREEN 1 [facility] RBC EACH INC INC SERUM TECHNIQUE BLOOD 55494 [facility] TYPING 1 [facility] SEROLOGIC INC INC ABO TRANSFERA 77415 [facility] SE 1 [facility] ALANINE INC INC AMINO ALT SGPT TRANSFERA 13295 [facility] F[facility] SE 1 [facility] ASPARTATE INC INC AMINO AST SGOT FIBRIN 17718 [facility] DGRADJ 1 [facility] PRODUCTS INC INC D-DIMER QUAL/SEMI WENDY FIBRINOGE 01759 [facility] F[facility] N 1 [facility] ACTIVITY INC INC PROTHROMB 14645 [facility] IN TIME 1 [facility] [place] [address] [facility] BLOOD/URI 1 [facility] C ACID INC INC 18689 [facility] BIOPHYSIC 1 [facility] AL HIGH RISK PROFILE O W/O NON-STRES S TESTING URNLS DIP 64814 [facility]AN 1 [facility] STICK/TAB HIGH RISK LET RGNT O NON-AUTO W/O MICRSCP DOPPLER 90541 [facility] ECHO 1 [facility] HIGH RISK PULS O SPECTRAL F/U/REPEA T SMR PRIM 55726 [facility] HARPEL SRC WET 1 PHYSICIAN JANET MOUNT GROUP NFCT AGT [facility] 62328 [facility] HARPEL NONSTRESS 1 PHYSICIAN JANET TEST GROUP [facility] 22974 [facility] BIOPHYSIC 1 [facility] AL HIGH RISK PROFILE O W/O NON-STRES S TESTING US PREG 65933 [facility] UTERUS 1 [facility] AFTER 1ST HIGH RISK TRIMEST O / GESTATION 35087 [facility] HARPEL NONSTRESS 1 PHYSICIAN JANET TEST GROUP [facility] US PREG 41807 [facility] UTERUS 1 [facility] AFTER 1ST HIGH RISK TRIMEST O GESTATION 93997 [facility] BIOPHYSIC 1 [facility] AL HIGH RISK PROFILE O W/O NON-STRES S TESTING 64597 [facility] BIOPHYSIC 1 [facility] AL HIGH RISK PROFILE O W/O NON-STRES S TESTING PROTEIN 10593 [facility] TOTAL 1 [facility] XCPT REFRACTOM ETRY URINE COLLECTIO 97363 [facility] N VENOUS 1 [facility] BLOOD VENIPUNCT URE DOPPLER 04859 [facility] ECHO 1 [facility] HIGH RISK PULS O SPECTRAL F/U/REPEA T URNLS DIP 56895 [facility] 1 [facility] STICK/TAB HIGH RISK LET RGNT O NON-AUTO W/O MICRSCP CREATININ 52552 [facility] E 1 [facility] CLEARANCE THERAPEUT 32858 [facility] IC 1 [facility] PROPHYLAC INC INC TIC/DX INJECTION SUBQ/IM THERAPEUT 70321 [facility] IC 1 [facility] PROPHYLAC INC INC TIC/DX INJECTION SUBQ/IM 89984 [facility] HARPEL NONSTRESS 1 PHYSICIAN JANET TEST GROUP PCC URNLS DIP 61022 [facility] J[facility]AN 1 [facility] STICK/TAB HIGH RISK LET RGNT O NON-AUTO W/O MICRSCP US PREG 26129 CENTRAL YESSICA UTERUS 1 [facility] W/DETAIL HIGH RISK O ANNALISA 1ST GESTATION ECHO 73357 [facility]AN 1 [facility] CARDIOVAS HIGH RISK C W/WO O M-MODE RECORDING 87066 [facility] HARPEL BIOPHYSIC 1 PHYSICIAN JANET AL GROUP PROFILE PCC NON-STRES S TESTING 47395 [facility] BIOPHYSIC 1 [facility] AL HIGH RISK PROFILE O W/O NON-STRES S TESTING 69510 [facility] HARPEL BIOPHYSIC 1 PHYSICIAN JANET AL GROUP PROFILE PCC NON-STRES S TESTING 64517 [facility] HARPEL BIOPHYSIC 1 PHYSICIAN JANET AL GROUP PROFILE PCC NON-STRES S TESTING THROMBOPL 56866 [facility] ASTIN 1 [facility] TIME INC INC PARTIAL PLASMA/WH OLE BLOOD BLOOD 62036 [facility] COUNT 1 [facility] COMPLETE INC INC AUTO&AUTO DIFRNTL WBC PROTHROMB 12155 [facility] IN TIME 1 [place] [address] [facility] BLOOD/URI 1 [facility] C ACID INC INC FIBRINOGE 62145 [facility] F[facility] N 1 [facility] ACTIVITY INC INC FIBRIN 76835 TER[facility] AVILAON DGRADJ 1 [facility] PRODUCTS INC INC D-DIMER QUAL/SEMI WENDY TRANSFERA 48979 TER[facility]E SE 1 [facility] ALANINE INC INC AMINO ALT SGPT TRANSFERA 68285 [facility] SE 1 [facility] ASPARTATE INC INC AMINO AST SGOT BASIC 68768 [facility] F[facility] METABOLIC 1 [facility] PANEL INC INC CALCIUM TOTAL US PREG 88698 [facility] HARPEL UTERUS 1 PHYSICIAN JANET AFTER 1ST GROUP TRIMEST PCC GESTATION SMR PRIM 65027 [facility] HARPEL SRC WET 1 PHYSICIAN JANET MOUNT GROUP NFCT AGT PCC BLOOD 68550 [facility] COUNT 1 [facility] COMPLETE INC INC AUTO&AUTO DIFRNTL WBC FIBRINOGE 08621 [facility] F[facility] N 1 [facility] ACTIVITY INC INC FIBRIN 20696 [facility] DGRADJ 1 [facility] PRODUCTS INC INC D-DIMER QUAL/SEMI WENDY THROMBOPL 27424 [facility] ASTIN 1 [facility] TIME INC INC PARTIAL PLASMA/[place] [address] [facility] BLOOD/URI 1 [facility] C ACID INC INC PROTHROMB 70418 [facility] F[facility] IN TIME 1 [facility] INC INC BASIC 95780 [facility] METABOLIC 1 [facility] PANEL INC INC CALCIUM TOTAL GLUCOSE 63366 [facility] POST 1 [facility] GLUCOSE INC INC DOSE HEPATIC 31019 [facility] FUNCTION 1 [facility] PANEL INC INC URNLS DIP 54877 [facility] 1 [facility] STICK/TAB INC INC LET REAGENT AUTO MICROSCOP Y FTL 96162 [facility] FIBRONECT 1 [facility] IN INC INC CERVICOVA G SECRETION S SEMI-WENDY 20855 [facility] NONSTRESS 1 [facility] CULTURE 09039 [facility] F[facility] BACTERIAL 1 [facility] INC INC QUANTTATI VE COLONY COUNT URINE 53126 [facility] MEDICAL SAMMI AL IMAGING PROFILE ASS W/O NON-STRES S TESTING US PREG 41530 [facility] UTERUS 1 PHYSICIAN JANET AFTER 1ST GROUP TRIMEST PCC GESTATION GONADOTRO 67428 [facility] PIN 1 [facility] CHORIONIC INC INC QUANTITAT KATE ALPHA-FET 58006 [facility] OPROTEIN 1 [facility] [place] [address] [facility] ESTRIOL 1 [facility] INC INC URNLS DIP 15311 [facility] 1 [facility] STICK/TAB INC INC [place] [address] [facility] LIPASE 1 [facility] [place] [address] [facility] F[facility] AMYLASE 1 [facility] INC INC COMPREHEN 19873 [facility] SIVE 1 [facility] [place] [address] [facility] INFUSION 1 [facility] THERAPY/P INC INC ROPHYLAXI S /DX 1ST TO 1 HR FIBRINOGE 55070 [facility] N 1 [facility] ACTIVITY INC INC PROTHROMB 97117 [facility] F[facility] IN TIME 1 [facility] INC INC THROMBOPL 19116 [facility] ASTIN 1 [facility] TIME INC INC PARTIAL PLASMA/WH OLE BLOOD BLOOD 76144 [facility] COUNT 1 [facility] COMPLETE INC INC AUTO&AUTO DIFRNTL WBC IADNA 05259 BIO BIO HERPES 1 REFERNCE REFERNCE SOMPLX 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 VIRUS IES IES AMPLIFIED PROBE TQ BLOOD 22681 [facility] COUNT 1 [facility] COMPLETE INC INC AUTO&[place] [address] [facility] INFUSION 1 [facility] THERAPY/P INC INC ROPHYLAXI S /DX 1ST TO 1 HR COMPREHEN 12927 [facility] SIVE 1 [facility] METABOLIC INC INC PANEL URNLS DIP 56656 [facility] 1 [facility] STICK/TAB INC INC LET REAGENT AUTO MICROSCOP Y URINALYSI 11190 [facility] S 1 PHYSICIAN JANET MICROSCOP GROUP IC ONLY PCC URINLS 03471 [facility] DIP 1 PHYSICIAN JANET STICK/TAB GROUP LET PCC REAGNT NON-AUTO MICRSCPY CULTURE 01970 [facility] BACTERIAL 1 [facility] INC INC QUANTTATI VE COLONY COUNT URINE US PREG 79204 [facility] UTERUS 0 PHYSICIAN JANET REAL TIME GROUP W/IMAGE PCC DCMTN TRANSVAG CYTP C/V 79241 BIO BIO AUTO THIN 0 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 SCR IES IES MNL RESCR PHYS IADNA 65611 BIO BIO CHLAMYDIA 0 REFERNCE REFERNCE 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 TRACHOMAT IES IES IS AMPLIFIED PROBE TQ IADNA 01526 BIO BIO NEISSERIA 0 REFERNCE REFERNCE 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 GONORRHOE IES IES AE AMPLIFIED PROBE TQ IADNA NOS 26593 BIO BIO 0 REFERNCE REFERNCE AMPLIFIED 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 PROBE TQ IES IES EACH ORGANISM GONADOTRO 11006 [facility] PIN 0 [facility] CHORIONIC INC INC QUANTITAT KATE URINE 26154 [facility] HAR[facility] 0 PHYSICIAN JANET TEST GROUP VISUAL PCC COLOR CMPRSN METHS IAADIADOO 45691 ARASH ANTOINE, 0 DON R DON R STREPTOCO CCUS GROUP A SUSCEPTIB 17444 [facility] LTY STDY 0 [facility] ANTIMICRB INC INC IAL MICRO/AGA R DILUTJ CT LUMBAR 44115 [facility], SPINE 0 MEDICAL RONIT W/O IMAGING CONTRAST ASSOCIATE MATERIAL S URINE 86343 [facility] 0 [facility] TEST INC INC VISUAL COLOR CMPRSN METHS 3D 02721 [facility], RENDERING 0 MEDICAL RONIT IMAGING W/INTERP& ASSOCIATE POSTPROC S DIFF WORK STATION CULTURE [id number] [facility] BCT [facility] ISOL&PRSM INC INC PTV ID ISOLATE EA URINE CULTURE [id number] [facility] BACTERIAL 0 [facility] INC INC QUANTTATI VE COLONY COUNT URINE URNLS DIP 94044 [facility] STICK/TAB INC INC LET REAGENT AUTO MICROSCOP Y URNLS DIP 29459 [facility] STICK/TAB INC INC LET REAGENT AUTO MICROSCOP Y INITIAL 42531 LICK[place] BESHASMUKH, OBSERVATI 0 [facility] A ON INTERNAL CARE/DAY MED 30 MINUTES BLOOD 92569 [facility] COUNT 0 [facility] COMPLETE INC INC AUTO&AUTO [facility]IF[facility]L [facility] [id number] [facility] OBSERVATI 0 [facility] ON INC INC SERVICE PER HOUR COMPREHEN 13780 [facility] SIVE 0 [facility] METABOLIC INC INC PANEL URINE 47781 [facility] TEST INC INC VISUAL COLOR CMPRSN METHS CUL BACT 29957 [facility] STOOL 0 [facility] ADDL PATHOGENS &ID EA CUL BACT 58200 [facility] STOOL 0 [facility] [employer] [facility] [facility] ISOL SALMONELL A&[place] [address] [facility] CLOSTRIDI 0 [facility] [employer] [place] [address] [facility] SHIGA-LIK 0 [employer]IC [employer] E [employer]ING Encounters Encounter Start End Date Code Location Performer Type Date [facility] TERRIE Phillip 6 6 [facility] OUTPATIEN INC T EMERGENCY 36643 EVIE CASTANEDA 6 6 [facility] T VISIT HIGH/URGE NT SEVERITY EMERGENCY 01792 [facility] 6 6 [facility] T VISIT MODERATE SEVERITY HOSPITAL TER[facility]E Phillip 6 6 [facility] OUTPATIEN INC [facility] - 6 6 [facility] OUTPATIEN INC T EMERGENCY 39549 TERRIE 6 6 [facility] DEPARTMEN INC T VISIT HIGH/URGE NT SEVERITY HOSPITAL TER[facility] - 6 6 [facility] OUTPATIEN INC T HOSPITAL TER[facility] - 6 6 [facility] OUTPATIEN INC T OFFICE 37378 EBTY CABALLERO OUTPATIEN 6 6 MD SWEETIE, T VISIT PSC 15 MINUTES HOSPITAL TERRIE - 6 6 [facility] OUTPATIEN [facility] T OFFICE 45986 TER[facility] OUTPATIEN 6 6 [facility] T VISIT INC 10 MINUTES EMERGENCY 86395 EVIE CASTANEDA 6 6 PHYSICIAN [facility] T VISIT HIGH/URGE NT SEVERITY HOSPITAL TERRIE - 6 6 [facility] OUTPATIEN [facility] T EMERGENCY 77192 TER[facility]E 6 6 [facility] T VISIT MODERATE SEVERITY HOSPITAL TER[facility]E - 6 6 [facility] OUTPATIEN [facility] T EMERGENCY 97974 EVIE CASTANEDA 6 6 PHYSICIAN [facility] T VISIT HIGH/URGE NT SEVERITY HOSPITAL TERRIE - 6 6 [facility] OUTPATIEN [facility] T HOSPITAL TERRIE - 6 6 [facility] OUTPATIEN [facility] T EMERGENCY 97702 TERRIE 6 6 [facility] DEPARTMEN [facility] T VISIT HIGH/URGE NT SEVERITY OFFICE 30776 BETY GARCIA OUTPATIRON 6 6 MD SWEETIE, T VISIT PSC 15 MINUTES OFFICE 16169 REUBEN TALBERT OUTPATIRON 6 6 GALI GONZALES T VISIT 25 MINUTES EMERGENCY 85723 EVIE CASTANEDA 6 6 PHYSICIAN [facility] T VISIT HIGH/URGE NT SEVERITY OFFICE 84572 [facility] 6 PHYSICIAN [facility] T VISIT S GROUP 10 MINUTES HOSPITAL [facility] - 6 6 [facility] OUTPATIEN INC T EMERGENCY 18217 TERRIE 6 6 [facility] DEPARTMEN INC T VISIT HIGH/URGE NT SEVERITY [facility]OSPITAL [facility] - 6 6 [facility] OUTPATIEN INC T PERIODIC 98911 REUBEN TALBERT PREVENTIV 5 5 GALI GONZALES E MED EST PATIENT 18-39 YRS HOSPITAL [facility]E - 5 5 [facility] OUTPATIEN INC T OFFICE 54527 [facility] SUSHMA OUTPATIEN 5 5 PHYSICIAN EUG T VISIT S GROUP 15 MINUTES EMERGENCY 35227 EVIE CASTANEDA DEPT 5 5 PHYSICIAN [facility] VISIT [facility] HIGH SEVERITY& THREAT [facility]J EMERGENCY 39096 TER[facility] 5 5 [facility] T VISIT HIGH/URGE NT SEVERITY HOSPITAL TERRIE - 5 5 [facility] OUTPATIEN [facility] T OFFICE 00742 REUBEN TALBERT OUTPATIEN 5 5 GALI GONZALES T VISIT 15 MINUTES HOSPITAL TERRIE - 5 5 [facility] OUTPATIEN [facility] T OFFICE 14076 [facility] MD SWEETIE, T VISIT PSC 10 MINUTES HOSPITAL TERRIE - 5 5 [facility] OUTPATIEN [facility] T EMERGENCY 62422 EVIE EVANGELISTA JR 5 5 PHYSICIAN [facility] T VISIT HIGH/URGE NT SEVERITY OFFICE 98962 TER[facility]E LOONEY 5 5 [facility] T VISIT INC 10 MINUTES HOSPITAL [facility] - 5 5 [facility] OUTPATIEN [facility] T EMERGENCY 52426 EVIE CASTANEDA 5 5 PHYSICIAN [facility] H[facility]/URGE NT SEVERITY [facility] - 5 5 [facility] OUTPATIEN INC T EMERGENCY 28154 EVIE MCMAHONEY 5 5 PHYSICIAN [facility]PARTMEN [facility], [facility] T VISIT HIGH/URGE NT SEVERITY [facility]OSPITAL [facility] - 5 5 [facility] OUTPATIEN INC T EMERGENCY 26193 EVIE CASTANEDA DEPT 5 5 PHYSICIAN [facility] VISIT S, [facility] HIGH SEVERITY& THREAT [facility] TERRIE - 5 5 [facility] OUTPATIEN INC T OFFICE 77219 [facility] OUTPATIEN 5 5 [facility] T VISIT INC 10 MINUTES HOSPITAL TER[facility]E - 5 5 [facility]PAT[facility]EN INC T [facility] - 5 5 [facility] OUTPAT[facility] INC T OFFICE 79003 [facility] OUTPATIEN 5 5 [facility] T VISIT INC 10 MINUTES OFFICE 23574 MANJINDER CHAPMANKeron PITT AN OUTPATIEN 5 5 MD [address] [facility] MINUTES [facility] TERRIE - 5 5 [facility] OUTPATIEN INC T OFFICE 78661 [facility] LEONEL OUTPATIEN 5 5 PHYSICIAN [facility] T VISIT S GROUP 10 MINUTES HOSPITAL TER[facility]E - 5 5 [facility] OUTPATIEN INC T OFFICE 01674 [facility] LEONEL OUTPATIEN 5 5 PHYSICIAN [facility] T VISIT S GROUP 10 MINUTES HOSPITAL TER[facility]E - 5 5 [facility] OUTPATIEN INC T OFFICE 81788 [facility] LEONEL OUTPATIEN 5 5 PHYSICIAN [facility] T VISIT S GROUP 10 MINUTES OFFICE 98325 [facility] LEONEL OUTPATIEN 4 4 PHYSICIAN [facility] T VISIT S GROUP 10 MINUTES HOSPITAL TERRIE - 4 4 [facility] OUTPATIEN [facility] TERRIE - 4 4 [facility] TERRIE - 4 4 [facility]PATI[facility] TERRIE - 4 4 [facility] OUTPATIEN [facility] OFFICE 80068 [facility] LEONEL OUTPATIEN 4 4 PHYSICIAN [facility] T VISIT S GROUP 10 MINUTES HOSPITAL TERRIE - 4 4 [facility] OUTPATIEN [facility] OFFICE 25927 [facility] SCHULSTAD OUTPATIEN 4 4 PHYSICIAN CAM T VISIT S GROUP 15 MINUTES PERIODIC 37734 REUBEN TALBERT PREVENTIV 4 4 GALI BARRETT JANET E MED EST PATIENT 18-39 YRS [facility] TERRIE - 4 4 [facility] OUTPATIEN [facility] TERRIE - 4 4 [facility] OUTPATIEN [facility] OFFICE 59068 [facility] LEONEL OUTPATIEN 4 4 PHYSICIAN [facility]THA T VISIT S GROUP 10 MINUTES EMERGENCY 09635 LEONEL CASTANEDA 4 4 [facility] DEPARTMEN T VISIT HIGH/URGE NT SEVERITY EMERGENCY 88769 HAL HONG 4 4 I ALI I ALI DEPARTMEN T VISIT MODERATE SEVERITY [facility] 77099 [facility] 4 4 Y [facility] T VISIT LOW/MODER SEVERITY OFFICE 65146 MONGELMA MONYIAR OUTPATIEN 4 4 FRA FRA T NEW 45 MINUTES OFFICE 73435 LEONEL CASTANEDA OUTPATIEN 4 4 [facility] T VISIT 10 MINUTES EMERGENCY 97402 LEONEL CASTANEDA 4 4 MARTHA MRATHA DEPARTMEN T VISIT HIGH/URGE NT SEVERITY OFFICE 64389 LEONEL CASTANEDA OUTPATIEN 4 4 [facility] T VISIT 10 MINUTES HOSPITAL TERRIE - 4 4 [facility] OUTPATIEN [facility] TERRIE - 4 4 [facility] TERRIE - 3 3 [facility] OUTPATIEN [facility] OFFICE 81610 THOMAS GUZMAN OUTPATIEN 3 3 ANT ANT T VISIT 15 MINUTES EMERGENCY 57778 LEONEL CASTANEDA DEPT 3 3 MARTHA MARTHA VISIT HIGH SEVERITY& THREAT FUN PERIODIC 62948 HARPEL HARPEL PREVENTIV 3 3 JANET JANET E MED EST PATIENT 18-39 YRS OFFICE 03594 [facility] OUTKEELEY 3 3 PHYSICIAN T VISIT S GROUP 15 MINUTES HOSPITAL TERRIE - 3 3 [facility] OUTPATIEN [facility] TERRIE - 3 3 [facility] OUTPATIEN [facility] OFFICE 62829 ANTOINE ANTOINE OUTPATIEN 3 3 DON DON T VISIT 15 MINUTES OFFICE 58871 ANTOINE ANTOINE OUTPATIEN 3 3 DON DON T VISIT 15 MINUTES HOSPITAL TERRIE - 3 3 [facility] OUTPATIEN [facility] EMERGENCY 24357 TERRIE 3 3 [facility] T VISIT LOW/MODER SEVERITY EMERGENCY 47000 LEONEL CASTANEDA 3 3 MARTHA MARTHA DEPARTMEN T VISIT HIGH/URGE NT SEVERITY HOSPITAL TERRIE - 3 3 [facility] OUTPATIEN [facility] TERRIE - 3 3 [facility] OUTPATIEN [facility] OFFICE 75564 HARPEL HARPEL OUTPATIEN 3 3 JANET JANET T VISIT 15 MINUTES OFFICE 93197 HARPEL HARPEL OUTPATIEN 3 3 JANET JANET T VISIT 15 MINUTES HOSPITAL TER[facility] - 3 3 [facility] OUTPATIEN INC T OFFICE 78114 ANTOINE ANTOINE OUTPATIEN 3 3 DON DON T VISIT 25 MINUTES OFFICE 19609 HARPEL HARPEL OUTPATIEN 3 3 JANET JANET T VISIT 15 MINUTES OFFICE 93966 HORNE HORNE OUTPATIEN 2 2 STORM STORM T VISIT 15 MINUTES HOSPITAL TER[facility]E - 2 2 [facility] OUTPATIEN INC T OFFICE 35659 ANTOINE ANTOINE OUTPATIEN 2 2 DON DON T VISIT 15 MINUTES OFFICE 41282 COLEEN RHODESON OUTPATIEN 2 2 STORM STORM T NEW 30 MINUTES HOSPITAL TER[facility] - 2 2 [facility] TER[facility] - 2 2 [facility] TER[facility]E - 2 2 [facility] TERRIE - 2 2 [facility]PAT[facility] EMERGENCY 72971 [facility] III JESSIKA III JESSIKA VISIT HIGH SEVERITY& THREAT [facility] EMERGENCY 74584 TERRIE 2 2 [facility] T VISIT MODERATE SEVERITY HOSPITAL TERRIE - 2 2 [facility]PAT[facility]EN [facility] TER[facility]E - 2 2 [facility] OUTPATIEN INC T PERIODIC 85331 HARPEL HARPEL PREVENTIV 2 2 JANET JANET E MED EST PATIENT 18-39 YRS OFFICE 00685 HARPEL HARPEL OUTPATIEN 2 2 JANET JANET T VISIT 15 MINUTES OFFICE 07780 ANTOINE ANTOINE OUTPATIEN 2 2 DON DON T VISIT 15 MINUTES OFFICE 31966 HARPEL HARPEL OUTPATIEN 2 2 JANET JANET T VISIT 15 MINUTES OFFICE 05762 ANTOINE ANTOINE OUTPATIEN 2 2 DON DON T VISIT 15 MINUTES OFFICE 48173 ANTOINE ANTOINE OUTPATIEN 2 2 DON DON T VISIT 15 MINUTES EMERGENCY 02901 DIPTI CASTANEDA 1 1 [facility] HIGH/URGE NT SEVERITY EMERGENCY 43683 [facility] 1 1 [facility] T VIS[facility] MODERATE SEVERITY HOSPITAL TER[facility]E - 1 1 [facility] OUTPATIEN [facility] [place] - 1 1 [facility] EMERGENCY 17670 DIPTI MARTINEZ 1 1 EMERGENCY [facility] SERVICES T VISIT MODERATE SEVERITY HOSPITAL TERRIE - 1 1 [facility] OUTPATIEN [facility] EMERGENCY 24324 DIPTI CASTANEDA 1 1 [facility]ISIT [facility]IGH/URGE NT SEVERITY EMERGENCY 34977 TER[facility]E 1 1 [facility] T VISIT MODERATE SEVERITY OFFICE 35862 Carol ADKINS OUTPATIEN 1 1 JED Clayton VISIT [facility] 10 MINUTES HOSPITAL TERRIE - 1 1 [facility] TERRIE - 1 1 [facility] OUTPAT[facility]EN [facility] OFFICE 06537 Carol ADKINS OUTPATIEN 1 1 JED Clayton VISIT PSC 25 MINUTES OFFICE 28153 ANTOINE ANTOINE OUTPATIEN 1 1 DON DON T VISIT 25 MINUTES OFFICE 51319 [facility] HARPEL OUTPATIEN 1 1 PHYSICIAN JANET T VISIT GROUP 15 PCC MINUTES OFFICE 72502 [facility] 1 1 [facility] JOVI ION [facility] PATIENT 40 MIN OFFICE 33890 [facility] OUTPATIEN 1 1 PHYSICIAN JANET T VISIT GROUP 15 PCC MINUTES HOSPITAL TER[facility] - 1 1 [facility] T [facility] - 1 1 [facility] INC T OFFICE 54171 [facility] OUTPATIEN 1 1 PHYSICIAN JANET T VISIT GROUP 15 PCC MINUTES HOSPITAL [facility] - 1 1 [facility] INPATIENT INC OFFICE 19229 [facility] OUTPATIEN 1 1 PHYSICIAN JANET T VISIT GROUP 15 PCC MINUTES HOSPITAL [facility] - 1 1 [facility] OUTPATIEN INC T OFFICE 87340 [facility] OUTPATIEN 1 1 PHYSICIAN JANET T VISIT GROUP 15 PCC MINUTES OFFICE 56866 [facility] OUTPATI[facility] 1 1 PHYSICIAN JANET T VISIT GROUP 15 PCC MINUTES HOSPITAL [facility] - 1 1 [facility] OUTPATIEN INC T OFFICE 53400 [facility] OUTPATIEN 1 1 PHYSICIAN JANET T VISIT GROUP 15 PCC MINUTES OFFICE 60662 [facility] OUTPATIEN 1 1 PHYSICIAN JANET T VISIT GROUP 15 PCC MINUTES OFFICE 15185 [facility] OUTPATIEN 1 1 PHYSICIAN JANET T VISIT GROUP 15 PCC MINUTES [facility]ITAL [facility] - 1 1 [facility] OUTPATIEN INC T OFFICE 44699 [facility] OUTPATIEN 1 1 PHYSICIAN JANET T VISIT GROUP 15 PCC MINUTES OFFICE 72428 H [facility] OUTPATIEN 1 1 PHYSICIAN JANET T VISIT GROUP 15 PCC MINUTES OFFICE 27690 [facility] OUTPATIEN 1 1 PHYSICIAN JANET T VISIT GROUP 15 PCC MINUTES HOSPITAL [facility] - 1 1 [facility] OUTPATIEN INC T OFFICE 45502 H [facility] OUTPATIEN 1 1 PHYSICIAN JANET T VISIT GROUP 15 PCC MINUTES OFFICE 29067 [facility] OUTPATIEN 1 1 PHYSICIAN JANET T VISIT GROUP 15 PCC MINUTES OFFICE 71417 H [facility] OUTPATIEN 1 1 PHYSICIAN JANET T VISIT GROUP 15 PCC MINUTES HOSPITAL [facility] - 1 1 [facility] OUTPATIEN INC T OFFICE 88339 H [facility] OUTPATIEN 1 1 PHYSICIAN JANET T VISIT GROUP 15 PCC MINUTES EMERGENCY 39560 TERRIE 1 1 [facility] DEPARTMEN INC T VISIT MODERATE SEVERITY [facility]OSPITAL [facility] - 1 1 [facility] OUTPATIEN INC T EMERGENCY 56985 DIPTI COLON DEPT 1 1 EMERGENCY [employer] VISIT SERVICES HIGH SEVERITY& THREAT [facility] TERRIE - 1 1 [facility] OUTPATIEN INC T OFFICE 71622 H [facility] OUTPATIEN 1 1 PHYSICIAN JANET T VISIT GROUP 15 PCC MINUTES OFFICE 36348 H [facility] OUTPATIEN 1 1 PHYSICIAN JANET T VISIT GROUP 15 PCC MINUTES HOSPITAL TER[facility] - 1 1 [facility] OUTPATIEN INC T OFFICE 91820 H [facility] OUTPATIEN 1 1 PHYSICIAN JANET T VISIT GROUP 15 PCC MINUTES HOSPITAL TER[facility] - 1 1 [facility] OUTPATIEN INC T OFFICE 28292 [facility] OUTPATIEN 1 1 PHYSICIAN JANET T VISIT GROUP 15 PCC MINUTES EMERGENCY 17323 TER[facility]E 1 1 [facility] DEPARTMEN INC T VISIT HIGH/URGE NT SEVERITY EMERGENCY 47634 DIPTI LLOYD DEPT 1 1 EMERGENCY VISIT SERVICES HIGH SEVERITY& THREAT [facility] TERRIE - 1 1 [facility] OUTPATIEN INC T OFFICE 08556 [facility] OUTPATIEN 1 1 PHYSICIAN JANET T VISIT GROUP 15 PCC MINUTES OFFICE 66569 [facility] OUTPATIEN 1 1 PHYSICIAN JANET T VISIT GROUP 15 PCC MINUTES HOSPITAL TER[facility] - 1 1 [facility] OUTPATIEN INC T EMERGENCY 72602 TER[facility]E 1 1 [facility] DEPARTMEN INC T VISIT HIGH/URGE NT SEVERITY OFFICE 38137 [facility] OUTPATIEN 1 1 PHYSICIAN JANET T VISIT GROUP 15 PCC MINUTES OFFICE 13492 [facility] OUTPATIEN 1 1 PHYSICIAN JANET T VISIT GROUP 15 PCC MINUTES HOSPITAL TER[facility] - 1 1 [facility] OUTPATIEN INC T OFFICE 86483 [facility] OUTPATIEN 0 0 PHYSICIAN JANET T VISIT GROUP 15 PCC MINUTES OFFICE 38231 H [facility] OUTPATIEN 0 0 PHYSICIAN JANET T VISIT GROUP 40 PCC MINUTES HOSPITAL TER[facility]E - 0 0 [facility] OUTPATIEN INC T OFFICE 87006 [facility] OUTPATIEN 0 0 PHYSICIAN JANET T VISIT GROUP 15 PCC MINUTES EMERGENCY 81369 DIPTI CASTANEDA 0 0 EMERGENCY [facility] DEPARTMEN SERVICES T VISIT HIGH/URGE NT SEVERITY HOSPITAL [facility] - 0 0 [facility] OUTPATIEN INC T EMERGENCY 93333 TER[facility]E 0 0 [facility] DEPARTMEN INC T VISIT LOW/MODER SEVERITY OFFICE 26073 ANTOINE ANTOINE, OUTPATIEN 0 0 DON R DON R T VISIT 15 MINUTES OFFICE 60347 ANTOINE ANTOINE, OUTPATIEN 0 0 DON R DON R T VISIT 15 MINUTES HOSPITAL [facility] - 0 0 [facility] OUTPATIEN INC T EMERGENCY 85300 TER[facility]E 0 0 [facility] DEPARTMEN INC T VISIT LOW/MODER SEVERITY EMERGENCY 98439 DIPTI PARKER DEPT 0 0 EMERGENCY KYLE VISIT SERVICES O HIGH SEVERITY& ASSOCIATE THREAT S [facility] TERRIE - 0 0 [facility] OUTPATIEN INC T EMERGENCY 12346 TERRIE 0 0 [facility] DEPARTMEN INC T VISIT HIGH/URGE NT SEVERITY EMERGENCY 54736 DIPTI CASTANEDA, DEPT 0 0 EMERGENCY [facility] VISIT SERVICES HIGH SEVERITY& ASSOCIATE THREAT S [facility] TERRIE - 0 0 [facility] OUTPATIEN INC T EMERGENCY 69656 DIPTI CASTANEDA, 0 0 EMERGENCY [facility] T VISIT HIGH/URGE ASSOCIATE NT S SEVERITY EMERGENCY 62550 TERRIE 0 0 [facility] DEPARTMEN INC T VISIT LOW/MODER SEVERITY EMERGENCY 80467 OB GOODE- 0 0 [facility] T VISIT MODERATE SEVERITY
--- OUTSIDE RECORDS SUMMARY | 2017-05-09 23:54 | External Medical Summary Rpt ---
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 STICK/TAB LET REAGNT NON-AUTO MICRSCPY RADEX 04951 [facility] FOOT 4 [facility] COMPLETE INC INC MINIMUM 3 VIEWS PHYSICAL 21179 [facility] THERAPY 4 [facility] EVALUATIO INC INC N COMPRE 67571 COLEEN HORNE AUDIOMETR 4 STORM STORM Y THRESHOLD EVAL SP RECOGNIJ TYMPANOME 94227 [facility] TRY 4 STORM STORM DISTORT 03381 COLE[facility]ORNE PRODUCT 4 STORM STORM EVOKED OTOACOUST IC EMISNS LIMITD BLOOD 18677 [facility] COUNT 4 [facility] COMPLETE INC INC AUTO&AUTO DIFRNTL WBC RADEX 27875 RITIKA RITIKA SPINE 4 SAMMI SAMMI LUMBOSACR AL 2/3 VIEWS RADEX 94881 [facility] SPINE 4 [facility] LUMBOSACR INC INC AL MINIMUM 4 [place] [address] [facility] THYROXINE 4 [facility] [place] [address] [facility] F[facility] THYROID 4 [facility] STIMULATI INC INC NG HORMONE TSH COMPREHEN 31734 [facility] SIVE 4 [facility] METABOLIC INC INC PANEL HEMOGLOBI 84748 [facility] N 4 [facility] GLYCOSYLA INC INC JOCELINE A1C LIPID 65210 [facility] F[facility] PANEL 4 [place] [address] [facility] FREE 4 [facility] [place] [address] [facility] F[facility] THYROID 4 [facility] STIMULATI INC INC NG HORMONE TSH LIPID 07412 [facility] F[facility] PANEL 3 [facility] INC INC 25 49498 [facility] HYDROXY 3 [facility] INCLUDES INC INC FRACTIONS IF PERFORMED CYANOCOBA 21412 [facility] ADELA 3 [facility] VITAMIN INC INC B-12 IADNA 56537 [facility] HARPE[facility] NEISSERIA 3 JANET JANET GONORRHOE AE DIRECT PROBE TQ HGB 97575 [facility] QUANTITAT 3 JANET JANET KATE TRANSCUTA NEOUS URINLS 91351 [facility] DIP 3 JANET JANET STICK/TAB LET REAGNT NON-AUTO MICRSCPY CULTURE 60738 [facility] HARPEL CHLAMYDIA 3 JANET JANET ANY SOURCE URNLS DIP 66161 [facility] 3 PHYSICIAN PHYSICIAN STICK/TAB S GROUP S GROUP LET RGNT NON-AUTO W/O MICRSCP RADEX 46705 [facility] FINGR 3 [facility] MINIMUM 2 INC INC VIEWS CUL BACT 53631 [facility] XCPT 3 [facility] URINE INC INC BLOOD/STO OL AEROBIC ISOL CUL BACT 35874 [facility] AEROBIC 3 [facility] ADDL INC INC METHS DEFINITIV E EA ISOL INCISION 91784 ARASH ANTOINE & 3 DON DON DRAINAGE ABSCESS SIMPLE/SI NGLE SUSCEPTIB 53900 [facility] LTY STDY 3 [facility] ANTIMICRB INC INC IAL MICRO/AGA R DILUTJ INJECTION J0690 ARASH ANTOINE 3 DON DON CEFAZOLIN SODIUM 500 MG THERAPEUT 21806 [facility] IC 3 [facility] PROPHYLAC INC INC TIC/DX INJECTION SUBQ/IM URINE 75180 [facility] HARPEL 3 JANET JANET TEST VISUAL COLOR CMPRSN METHS INSJ 00817 [facility] NON-BIODE 3 JANET JANET GRADABLE DRUG DELIVERY IMPLANT ETONOGEST J7307 [facility] HARPEL REL 3 JANET JANET CNTRACPT IMPL SYS INCL IMPL & SPL INJECTION J2405 [facility] 3 [facility] ONDANSETR INC INC ON HCL PER 1 MG ANESTHESI 98191 [facility] JESSIKA A 3 ANESTH INTRAPERI OF THE TONEAL BLUE LOWER ABD W/LAPS NOS DILATION 36892 [facility] HARPEL & 3 JANET JANET CURETTAGE DX&/THER NONOBSTET ZANE LAPS 66794 [facility] FULG/EXC 3 JANET JANET OVARY VISCERA/P ERITONEAL SURFACE BLOOD 09654 [facility] COUNT 3 [facility] HEMOGLOBI INC INC N BLOOD 06820 [facility] COUNT 3 [facility] [place] [address] TAPIA TAPIA SURG 3 [facility] PATHOLOGY GROSS&MARTHA ROSCOPIC EXAM BLOOD 32425 [facility] COUNT 3 [facility] COMPLETE INC INC AUTO&AUTO DIFRNTL WBC URINE 52824 [facility] 3 [facility] TEST INC INC VISUAL COLOR CMPRSN METHS URNLS DIP 67825 [facility] 3 [facility] STICK/TAB INC [place] [address] [facility] TRANSVAGI 3 [facility] NAL INC INC INJECTION J1080 ARASH ANTOINE 3 DON DON TESTOSTER ONE CYPIONATE 1 CC 200 MG REMOVAL 82697 [facility] INTRAUTER 3 JANET JANET INE DEVICE IUD INJECTION J2675 [facility] HARPEL 3 JANET JANET PROGESTER ONE PER 50 MG MICROSOMA 52165 [facility] L 2 [facility] [place]OD[place] [address] [facility] FREE 2 [facility] [place] [address] [facility] THYROID 2 [facility] STIMULATI INC INC NG HORMONE TSH INJECTION J0690 ARASH ANTOINE 2 DON DON CEFAZOLIN SODIUM 500 MG US SOFT 94965 [place] RITIKA TISSUE 2 MEDICAL ASMMI HEAD & IMAGING NECK REAL ASS TIME IMGE DOCM THYROID 51902 [facility] HORM 2 [facility] UPTK/THYR INC [place] [address] [facility] F[facility] THYROID 2 [facility] STIMULATI [place] [address] [facility] F[facility] FREE 2 [facility] THYROXINE INC INC MICROSOMA 18344 [facility] L 2 [facility] [place] [address] [facility] F[facility] THYROXINE 2 [facility] TOTAL INC INC CALCIUM 41759 [facility] IONIZED 2 [facility] INC INC CALCIUM 53385 [facility] F[facility] TOTAL 2 [facility] INC INC CYANOCOBA 33734 [facility] F[facility] ADELA 2 [facility] VITAMIN INC INC B-12 GONADOTRO 35153 [facility] PIN 2 [facility] [place] [address] [facility] INFUSION 2 [facility] THERAPY/P INC INC ROPHYLAXI S /DX 1ST TO 1 HR THERAPEUT 00760 [facility] F[facility] IC 2 [facility] INJECTION INC [place] [address] [facility] INFUSION 2 [facility] THERAPY/P INC INC ROPHYLAXI S /DX 1ST TO 1 [place] [address] BELLA JAMIL SURG 2 PATHOLOGY GROSS&MARTHA ROSCOPIC EXAM EGD 34360 [facility] TRANSORAL 2 [facility] BIOPSY INC INC SINGLE/MU LTIPLE URINE 48614 [facility] 2 [facility] TEST INC INC VISUAL COLOR CMPRSN METHS SPECIAL 09592 BELLA JAMIL STAIN 2 GROUP 1 MICROORGA NISMS I&R SPCL STN 10836 BELLA JAMIL 2 I&R 2 EXCPT MICROORG/ ENZYME/[place] [address] [facility] INFUSION 2 [facility] THERAPY INC INC PROPHYLAX IS/DX EA HOUR CULTURE 27828 HAR[facility] HARPEL CHLAMYDIA 2 JANET JANET ANY SOURCE URINLS 19694 [facility] HARPEL DIP 2 JANET JANET STICK/TAB LET REAGNT NON-AUTO MICRSCPY HGB 95309 [facility] HARPEL QUANTITAT 2 JANET JANET KATE TRANSCUTA NEOUS SMR PRIM 09271 [facility] HARPEL SRC WET 2 JANET JANET MOUNT NFCT AGT IADNA 72044 HARPEL HARPEL NEISSERIA 2 JANET JANET [place] [address] [facility] THYROID 2 [facility] STIMULATI INC INC NG HORMONE TSH SMR PRIM 66420 HARPEGraciela HARPEL SRC WET 2 JANET JANET MOUNT NFCT AGT ANOSCOPY 26294 C BRENDAN ADKINS CONTROL 1 [place] [address] [facility] INFUSION 1 [facility] THERAPY INC INC PROPHYLAX IS/DX EA HOUR ANESTHESI 33666 [facility] JESS[facility] A 1 ANESTH ANORECTAL OF THE BLUE PROCEDURE CONTROL 4995 [facility] OF 1 [facility] HEMORRHAG INC INC E OF ANUS GONADOTRO 71932 [facility] PIN 1 [facility] CHORIONIC INC INC QUALITATI VE BLOOD 59033 [facility] COUNT 1 [facility] COMPLETE INC INC AUTO&AUTO DIFRNTL WBC CYTP C/V 11364 BIO BIO AUTO THIN 1 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 SCR IES IES MNL RESCR PHYS INSERTION 00380 [facility] INE [facility] DEVICE IUD URINE 43739 [facility] TEST CLINIC OF VISUAL [facility]SH[facility] COLOR CMPRSN METHS INTRAUTER J7300 [facility] INE [facility] COPPER CLINIC OF CONTRACEP ASHLEY TIVE ANESTHESI 79398 [facility] FORTUNATO A 1 ANESTH ROWENA ANORECTAL OF THE BLUE PROCEDURE OTH LOCAL 4939 [facility] 1 [facility] EXCISION/ INC INC DESTRUC LESION/TI SSUE ANUS EXCISION 4946 [facility] OF 1 [facility] [place] [address] [facility] INFUSION 1 [facility] THERAPY INC INC PROPHYLAX IS/DX EA HOUR HEMORRHOI 17394 C BRENDAN ADKINS DECTOMY 1 JED RAMOS & PSC XTRNL 1 COLUMN/GR OUP EXC 24040 [facility] THROMBOSE 1 [facility] D INC INC HEMORRHOI D XTRNL LEVEL III 13607 [facility]IP[facility] WANDA PAT SURG 1 [facility] & PATHOLOGY DUBILIER GROSS&MARTHA ROSCOPIC EXAM DSTRJ 62048 Carol ADKINS LESION 1 JED BYRD JULIUS PERDOMO MD PSC ELTRDSICC ATION GONADOTRO 96383 [facility]E PIN 1 [facility] CHORIONIC INC INC QUALITATI VE BLOOD 40680 [facility] COUNT 1 [facility] COMPLETE INC INC AUTO&AUTO DIFRNTL [facility] 19139 [facility] DISCHARGE 1 PHYSICIAN JANET DAY GROUP MANAGEMEN PCC T 30 MIN/< SUBQ 55821 [place] [address] CARE CESAR CARE PER ASSOCIATE DAY E/M S NORMAL CIRCUMCIS 70352 [place] [address] CARE CESAR W/CLAMP/O ASSOCIATE TH DEV S W/BLOCK SBSQ 18684 [facility] 1 PHYSICIAN JANET CARE/DAY GROUP 35 PCC MINUTES SUBQ 97921 [place] [address] CARE CESAR CARE PER ASSOCIATE DAY E/M S NORMAL SBSQ 23950 [facility] 1 PHYSICIAN JANET CARE/DAY GROUP 35 PCC MINUTES 42220 [facility] DELIVERY 1 PHYSICIAN JANET ONLY GROUP PCC ANESTHESI 08413 [facility] 1 ANESTH OF THE DELIVERY BLUE ONLY OTHER 6829 [facility] EXCISION 1 [facility] OR INC INC DESTRUCTI ON LESION UTERUS LOW 741 [facility] CERVICAL 1 [facility] INC INC SECTION 1ST 62655 [facility] 1 [facility] S CARE PER DAY NML NB INITIAL 58460 [facility] 1 PHYSICIAN JANET CARE/DAY GROUP 70 PCC MINUTES OBSERVATI 70583 [facility] ON/INPATI 1 PHYSICIAN JANET ENT [facility] PCC CARE 55 MINUTES OBSERVATI 17681 [facility] ON/INPATI 1 PHYSICIAN JANET ENT [facility] PCC CARE 55 MINUTES 69775 [facility] HARPEL BIOPHYSIC 1 PHYSICIAN JANET AL GROUP PROFILE PCC NON-STRES S TESTING PARTICLE 94094 [facility] AGGLUTINA 1 [facility] TION INC INC SCREEN EACH ANTIBODY 20261 [facility] HARPEL NONSTRESS 1 PHYSICIAN JANET TEST GROUP PCC 31400 [facility] BIOPHYSIC 1 [facility] AL HIGH RISK PROFILE O W/O NON-STRES S TESTING DOPPLER 38057 [facility] ECHO 1 [facility] HIGH RISK PULS O SPECTRAL F/U/REPEA T 44315 [facility] HAR[facility]L NONSTRESS 1 PHYSICIAN JANET TEST GROUP PCC URNLS DIP 82509 [facility] 1 [facility] STICK/TAB INC INC LET REAGENT AUTO MICROSCOP Y 16458 [facility] F[facility] NONSTRESS 1 [place] [address] [facility] INFUSION 1 [facility] THERAPY/P INC INC ROPHYLAXI S /DX 1ST TO 1 HR THERAPEUT 86608 [facility] IC 1 [facility] INJECTION INC [place] [address] [facility] MAGNESIUM 1 [facility] INC INC BASIC 62756 [facility] F[facility] METABOLIC 1 [facility] PANEL INC INC CALCIUM TOTAL THROMBOPL 73856 [facility] ASTIN 1 [facility] TIME INC INC PARTIAL PLASMA/WH OLE BLOOD BLOOD 37308 [facility] TYPING 1 [facility] SEROLOGIC INC INC RH (D) BLOOD 79037 [facility] COUNT 1 [facility] COMPLETE INC INC AUTO&AUTO DIFRNTL WBC ANTIBODY 37662 [facility] SCREEN 1 [facility] RBC EACH INC INC SERUM TECHNIQUE BLOOD 91832 [facility] TYPING 1 [facility] SEROLOGIC INC INC ABO TRANSFERA 85637 [facility] SE 1 [facility] ALANINE INC INC AMINO ALT SGPT TRANSFERA 02215 [facility] F[facility] SE 1 [facility] ASPARTATE INC INC AMINO AST SGOT FIBRIN 72149 [facility] DGRADJ 1 [facility] PRODUCTS INC INC D-DIMER QUAL/SEMI WENDY FIBRINOGE 91919 [facility] F[facility] N 1 [facility] ACTIVITY INC INC PROTHROMB 24824 [facility] IN TIME 1 [facility] [place] [address] [facility] BLOOD/URI 1 [facility] C ACID INC INC 77186 [facility] BIOPHYSIC 1 [facility] AL HIGH RISK PROFILE O W/O NON-STRES S TESTING URNLS DIP 68844 [facility] 1 [facility] STICK/TAB HIGH RISK LET RGNT O NON-AUTO W/O MICRSCP DOPPLER 42777 [facility] ECHO 1 [facility] HIGH RISK PULS O SPECTRAL F/U/REPEA T SMR PRIM 16993 [facility] SRC WET 1 PHYSICIAN JANET MOUNT GROUP NFCT AGT [facility] 48732 [facility] NONSTRESS 1 PHYSICIAN JANET TEST GROUP [facility] 28098 [facility] BIOPHYSIC 1 [facility] AL HIGH RISK PROFILE O W/O NON-STRES S TESTING US PREG 30721 [facility] UTERUS 1 [facility] AFTER 1ST HIGH RISK TRIMEST O / GESTATION 84824 [facility] NONSTRESS 1 PHYSICIAN JANET TEST GROUP [facility] US PREG 69545 [facility] UTERUS 1 [facility] AFTER 1ST HIGH RISK TRIMEST O GESTATION 74183 [facility] BIOPHYSIC 1 [facility] AL HIGH RISK PROFILE O W/O NON-STRES S TESTING 88643 [facility] BIOPHYSIC 1 [facility] AL HIGH RISK PROFILE O W/O NON-STRES S TESTING PROTEIN 44683 [facility] TOTAL 1 [facility] XCPT REFRACTOM ETRY URINE COLLECTIO 61190 [facility] N VENOUS 1 [facility] BLOOD VENIPUNCT URE DOPPLER 41931 [facility] ECHO 1 [facility] HIGH RISK PULS O SPECTRAL F/U/REPEA T URNLS DIP 91464 [facility] 1 [facility] STICK/TAB HIGH RISK LET RGNT O NON-AUTO W/O MICRSCP CREATININ 32538 [facility] E 1 [facility] CLEARANCE THERAPEUT 03987 [facility] IC 1 [facility] PROPHYLAC INC INC TIC/DX INJECTION SUBQ/IM THERAPEUT 63370 [facility] IC 1 [facility] PROPHYLAC INC INC TIC/DX INJECTION SUBQ/IM 99954 [facility] [place] NONSTRESS 1 PHYSICIAN JANET TEST GROUP PCC URNLS DIP 64602 [facility] 1 [facility] STICK/TAB HIGH RISK LET RGNT O NON-AUTO W/O MICRSCP US PREG 76172 [facility] YESSICA UTERUS 1 [facility] W/DETAIL HIGH RISK O ANNALISA 1ST GESTATION ECHO 75532 [facility] 1 [facility] CARDIOVAS HIGH RISK C W/WO O M-MODE RECORDING 07245 [facility] [place] BIOPHYSIC 1 PHYSICIAN JANET AL GROUP PROFILE PCC NON-STRES S TESTING 55566 [facility] BIOPHYSIC 1 [facility] AL HIGH RISK PROFILE O W/O NON-STRES S TESTING 42029 [facility] [place] BIOPHYSIC 1 PHYSICIAN JANET AL GROUP PROFILE PCC NON-STRES S TESTING 73080 [facility] [place] BIOPHYSIC 1 PHYSICIAN JANET AL GROUP PROFILE PCC NON-STRES S TESTING THROMBOPL 72306 [facility] ASTIN 1 [facility] TIME INC INC PARTIAL PLASMA/WH OLE BLOOD BLOOD 78733 [facility] COUNT 1 [facility] COMPLETE INC INC AUTO&AUTO DIFRNTL WBC PROTHROMB 52333 [facility] IN TIME 1 [place] [address] [facility] BLOOD/URI 1 [facility] C ACID INC INC FIBRINOGE 91900 [facility] F[facility] N 1 [facility] ACTIVITY INC INC FIBRIN 54608 [facility] AVILAON DGRADJ 1 [facility] PRODUCTS INC INC D-DIMER QUAL/SEMI WENDY TRANSFERA 67733 [facility] SE 1 [facility] ALANINE INC INC AMINO ALT SGPT TRANSFERA 96754 [facility] SE 1 [facility] ASPARTATE INC INC AMINO AST SGOT BASIC 59751 [facility] METABOLIC 1 [facility] PANEL INC INC CALCIUM TOTAL US PREG 82399 [facility] UTERUS 1 PHYSICIAN JANET AFTER 1ST GROUP TRIMEST PCC GESTATION SMR PRIM 43160 [facility] [place] SRC WET 1 PHYSICIAN JANET MOUNT GROUP NFCT AGT PCC BLOOD 20160 [facility] COUNT 1 [facility] COMPLETE INC INC AUTO&AUTO DIFRNTL WBC FIBRINOGE 08235 [facility] N 1 [facility] ACTIVITY INC INC FIBRIN 85332 [facility] DGRADJ 1 [facility] PRODUCTS INC INC D-DIMER QUAL/SEMI WENDY THROMBOPL 30779 [facility] ASTIN 1 [facility] TIME INC INC PARTIAL PLASMA/[place] [address] [facility] BLOOD/URI 1 [facility] ACID INC INC PROTHROMB 27928 [facility] IN TIME 1 [facility] INC INC BASIC 08494 [facility] METABOLIC 1 [facility] PANEL INC INC CALCIUM TOTAL GLUCOSE 17156 [facility] POST 1 [facility] GLUCOSE INC INC DOSE HEPATIC 94531 [facility] FUNCTION 1 [facility] PANEL INC INC URNLS DIP 31740 [facility] 1 [facility] STICK/TAB INC INC LET REAGENT AUTO MICROSCOP Y FTL 58598 [facility] FIBRONECT 1 [facility] IN INC INC CERVICOVA G SECRETION S SEMI-WENDY 98873 [facility] NONSTRESS 1 [facility] CULTURE 69052 [facility] BACTERIAL 1 [facility] INC INC QUANTTATI VE COLONY COUNT URINE 61529 [facility] MEDICAL SAMMI AL IMAGING PROFILE ASS W/O NON-STRES S TESTING US PREG 17392 [facility] UTERUS 1 PHYSICIAN JANET AFTER 1ST GROUP TRIMEST PCC GESTATION GONADOTRO 01386 [facility] PIN 1 [facility] CHORIONIC INC INC QUANTITAT KATE ALPHA-FET 02478 [facility] OPROTEIN 1 [facility] [place] [address] [facility] ESTRIOL 1 [facility] INC INC URNLS DIP 96749 [facility] 1 [facility] STICK/TAB INC INC [place] [address] [facility] LIPASE 1 [facility] [place] [address] [facility] AMYLASE 1 [facility] INC INC COMPREHEN 19987 [facility] SIVE 1 [facility] [place] [address] [facility] INFUSION 1 [facility] THERAPY/P INC INC ROPHYLAXI S /DX 1ST TO 1 HR FIBRINOGE 03699 [facility] N 1 [facility] ACTIVITY INC INC PROTHROMB 48459 [facility] F[facility] IN TIME 1 [facility] INC INC THROMBOPL 57628 [facility] ASTIN 1 [facility] TIME INC INC PARTIAL PLASMA/WH OLE BLOOD BLOOD 37112 [facility] COUNT 1 [facility] COMPLETE INC INC AUTO&AUTO DIFRNTL WBC IADNA 77213 BIO BIO HERPES 1 REFERNCE REFERNCE SOMPLX 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 VIRUS IES IES AMPLIFIED PROBE TQ BLOOD 80518 [facility] COUNT 1 [facility] COMPLETE INC INC AUTO&[place] [address] [facility] INFUSION 1 [facility] THERAPY/P INC INC ROPHYLAXI S /DX 1ST TO 1 HR COMPREHEN 67875 [facility] SIVE 1 [facility] METABOLIC INC INC PANEL URNLS DIP 44064 [facility] 1 [facility] STICK/TAB INC INC LET REAGENT AUTO MICROSCOP Y URINALYSI 04096 [facility] S 1 PHYSICIAN JANET MICROSCOP GROUP IC ONLY PCC URINLS 76575 [facility] DIP 1 PHYSICIAN JANET STICK/TAB GROUP LET PCC REAGNT NON-AUTO MICRSCPY CULTURE 76476 [facility] BACTERIAL 1 [facility] INC INC QUANTTATI VE COLONY COUNT URINE US PREG 03382 [facility] UTERUS 0 PHYSICIAN JANET REAL TIME GROUP W/IMAGE PCC DCMTN TRANSVAG CYTP C/V 09394 BIO BIO AUTO THIN 0 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 SCR IES IES MNL RESCR PHYS IADNA 33468 BIO BIO CHLAMYDIA 0 REFERNCE REFERNCE 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 TRACHOMAT IES IES IS AMPLIFIED PROBE TQ IADNA 04836 BIO BIO NEISSERIA 0 REFERNCE REFERNCE 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 GONORRHOE IES IES AE AMPLIFIED PROBE TQ IADNA NOS 18429 BIO BIO 0 REFERNCE REFERNCE AMPLIFIED 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 PROBE TQ IES IES EACH ORGANISM GONADOTRO 97868 [facility] PIN 0 [facility] CHORIONIC INC INC QUANTITAT KATE URINE 98755 [facility] HARPEL 0 PHYSICIAN JANET TEST GROUP VISUAL PCC COLOR CMPRSN METHS IAADIADOO 22246 ARASH ANTOINE, 0 DON R DON R STREPTOCO CCUS GROUP A SUSCEPTIB 10769 [facility] LTY STDY 0 [facility] ANTIMICRB INC INC IAL MICRO/AGA R DILUTJ CT LUMBAR 84183 ILAN YOST, SPINE 0 MEDICAL RONIT W/O IMAGING CONTRAST ASSOCIATE MATERIAL S URINE 81920 [facility] TEST INC INC VISUAL COLOR CMPRSN METHS 3D 02360 ILAN YOST, RENDERING 0 MEDICAL RONIT IMAGING W/INTERP& ASSOCIATE POSTPROC S DIFF WORK STATION CULTURE 92727 [facility] BCT 0 [facility] ISOL&PRSM INC INC PTV ID ISOLATE EA URINE CULTURE 95780 [facility] BACTERIAL 0 [facility] INC INC QUANTTATI VE COLONY COUNT URINE URNLS DIP 30570 [facility] STICK/TAB INC INC LET REAGENT AUTO MICROSCOP Y URNLS DIP 25799 [facility] STICK/TAB INC INC LET REAGENT AUTO MICROSCOP Y INITIAL 90523 [place] BESHASMUKH, OBSERVATI 0 [facility] ON INTERNAL CARE/DAY MED 30 MINUTES BLOOD 45468 [facility] COUNT 0 [facility] COMPLETE INC INC AUTO&AUTO [facility]IF[facility]L [facility] [id number] [facility] OBSERVATI 0 [facility] ON INC INC SERVICE PER HOUR COMPREHEN 91909 [facility] SIVE 0 [facility] METABOLIC INC INC PANEL URINE 80540 [facility]CON 0 [facility] TEST INC INC VISUAL COLOR CMPRSN METHS CUL BACT 76022 [facility] STOOL 0 [facility] [facility] ADDL PATHOGENS &ID EA CUL BACT 81494 [facility] STOOL 0 [employer] [employer] ISOL SALMONELL A&[place] [address] [facility] CLOSTRIDI 0 [facility] [employer] [place] [address] [facility] SHIGA-LIK 0 [employer] [employer] E [employer] Encounters Encounter Start End Date Code Location Performer Type Date [facility] TERRIE Phillip 6 6 [facility] OUTPATIEN INC T EMERGENCY 39943 EVIE CASTANEDA 6 6 PHYSICIAN [facility] T VISIT HIGH/URGE NT SEVERITY EMERGENCY 97621 [facility] 6 6 [facility] T VISIT MODERATE SEVERITY HOSPITAL TER[facility]E Phillip 6 6 [facility] OUTPATIEN INC [facility] - 6 6 [facility] OUTPATIEN INC T EMERGENCY 01206 TERRIE 6 6 [facility] DEPARTMEN INC T VISIT HIGH/URGE NT SEVERITY HOSPITAL TER[facility] - 6 6 [facility] OUTPATIEN INC T HOSPITAL TER[facility] - 6 6 [facility] OUTPATIEN INC T OFFICE 60861 BETY CABALLERO OUTPATIEN 6 6 MD SWEETIE, T VISIT PSC 15 MINUTES HOSPITAL [facility] - 6 6 [facility] OUTPATIEN [facility] T OFFICE 74609 TERRIE OUTPATIEN 6 6 [facility] T VISIT INC 10 MINUTES EMERGENCY 07761 EVIE CASTANEDA 6 6 PHYSICIAN [facility] T VISIT HIGH/URGE NT SEVERITY HOSPITAL TER[facility] - 6 6 [facility] OUTPATIEN [facility] T EMERGENCY 79500 [facility] 6 6 [facility] T VISIT MODERATE SEVERITY HOSPITAL [facility] - 6 6 [facility] OUTPATIEN [facility] T EMERGENCY 90436 EVIE CASTANEDA 6 6 PHYSICIAN [facility] T VISIT HIGH/URGE NT SEVERITY HOSPITAL TER[facility] - 6 6 [facility] OUTPATIEN [facility] T HOSPITAL TERRIE - 6 6 [facility] OUTPATIEN [facility] T EMERGENCY 37424 TERRIE 6 6 [facility] DEPARTMEN [facility] T VISIT HIGH/URGE NT SEVERITY OFFICE 36262 BETY GARCIA OUTPATIRON 6 6 MD [place]ET[place], T VISIT PSC 15 MINUTES OFFICE 61056 REUBEN TALBERT OUTPATIRON 6 6 GALI GONZALES T VISIT 25 MINUTES EMERGENCY 60580 EVIE CASTANEDA 6 6 PHYSICIAN [facility] T VISIT HIGH/URGE NT SEVERITY OFFICE 64829 [facility]YSICIAN [facility] T VISIT S GROUP 10 MINUTES HOSPITAL [facility] - 6 6 [facility] OUTPATIEN INC T EMERGENCY 51665 TERRIE 6 6 [facility] DEPARTMEN INC T VISIT HIGH/URGE NT SEVERITY HOSPITAL [facility] - 6 6 [facility] OUTPATIEN INC T PERIODIC 45296 REUBEN TALBERT PREVENTIV 5 5 GALI GONZALES E MED EST PATIENT 18-39 YRS HOSPITAL [facility] - 5 5 [facility] OUTPATIEN INC T OFFICE 83459 [facility] SUSHMA OUTPATIEN 5 5 PHYSICIAN EUG T VISIT S GROUP 15 MINUTES EMERGENCY 03761 EVIE CASTANEDA DEPT 5 5 PHYSICIAN MARTHA VISIT [facility] HIGH SEVERITY& THREAT FUNCJ EMERGENCY 27376 [facility] 5 [facility] T VISIT HIGH/URGE NT SEVERITY HOSPITAL TERRIE - 5 5 [facility] OUTPATIEN [facility] T OFFICE 29607 REUBEN TALBERT OUTPATIEN 5 5 GALI GONZALES T VISIT 15 MINUTES HOSPITAL TER[facility] - 5 5 [facility] OUTPATIEN [facility] T OFFICE 50680 BETY GARC[facility] 5 5 MD SWEET[place], T VISIT PSC 10 MINUTES HOSPITAL TER[facility] - 5 5 [facility] OUTPATIEN [facility] T EMERGENCY 09652 EVIE EVANGELISTA JR 5 5 PHYSICIAN [facility] T VISIT HIGH/URGE NT SEVERITY OFFICE 34442 TER[facility]E LOONEY 5 5 [facility] T VISIT INC 10 MINUTES HOSPITAL TER[facility] - 5 5 [facility] OUTPATIEN [facility] T EMERGENCY 59552 EVIE CASTANEDA 5 5 PHYSICIAN MARTH[facility] HIGH/URGE NT SEVERITY [facility] - 5 5 [facility] OUTPATIEN INC T EMERGENCY 15153 EVIE MCMAHONEY 5 5 PHYSICIAN MARTHA DEPARTMEN [facility], [facility] HIGH/URGE NT SEVERITY [facility]PITAL [facility] - 5 5 [facility] OUTPATIEN INC T EMERGENCY 01566 EVIE CASTANEDA DEPT 5 5 PHYSICIAN MARTHA VISIT S, [facility] HIGH SEVERITY& THREAT [facility] H[facility]PITAL TERRIE - 5 5 [facility] OUTPATIEN INC T OFFICE 00036 TER[facility] OUTPATIEN 5 5 [facility] T VISIT INC 10 MINUTES HOSPITAL TERRIE - 5 5 [facility]PAT[facility]EN INC T [facility] - 5 5 [facility] OUTPATIEN INC T OFFICE 73013 TER[facility]E OUTPATIEN 5 5 [facility] T VISIT INC 10 MINUTES OFFICE 32014 MANJINDER CHAPMANKeron [facility] OUTPATIEN 5 5 MD T [facility] MINUTES [facility] TERRIE - 5 5 [facility] OUTPATIEN INC T OFFICE 79562 [facility] LEONEL OUTPATIEN 5 5 PHYSICIAN MARTHA T VISIT S GROUP 10 MINUTES HOSPITAL TER[facility]E - 5 5 [facility] OUTPATIEN INC T OFFICE 27046 [facility] LEONEL OUTPATIEN 5 5 PHYSICIAN MARTHA T VISIT S GROUP 10 MINUTES HOSPITAL TER[facility] - 5 5 [facility] OUTPATIEN INC T OFFICE 92823 [facility] LEONEL OUTPATIEN 5 5 PHYSICIAN MARTHA T VISIT S GROUP 10 MINUTES OFFICE 28628 [facility] LEONEL OUTPATIEN 4 4 PHYSICIAN MARTHA T VISIT S GROUP 10 MINUTES HOSPITAL TERRIE - 4 4 [facility] OUTPATIEN [facility] TERRIE - 4 4 [facility] TERRIE - 4 4 [facility] OUTPATIEN [facility] TERRIE - 4 4 [facility] OUTPATIEN [facility] OFFICE 38664 [facility] LEONEL OUTPATIEN 4 4 PHYSICIAN MARTHA T VISIT S GROUP 10 MINUT[facility] HOSPITAL TERRIE - 4 4 [facility] OUTPATIEN [facility] OFFICE 92090 [facility] SCHULSTAD OUTPATIEN 4 4 PHYSICIAN CAM T VISIT S GROUP 15 MINUTES PERIODIC 15494 REUBEN TALBERT PREVENTIV 4 4 GALI BARRETT JANET E MED EST PATIENT 18-39 YRS [facility] TERRIE - 4 4 [facility] OUTPATIEN [facility] TERRIE - 4 4 [facility] OUTPATIEN [facility] OFFICE 01339 [facility] LEONEL OUTPATIEN 4 4 PHYSICIAN MARTHA T VISIT S GROUP 10 MINUTES EMERGENCY 67467 LEONEL CASTANEDA 4 4 MARTHA [facility] DEPARTMEN T VISIT HIGH/URGE NT SEVERITY EMERGENCY 75228 HAL HONG 4 4 I ALI I ALI DEPARTMEN T VISIT MODERATE SEVERITY HOSPITAL [facility]ERSIT - 4 4 Y [facility] T EMERGENC[facility] 80325 UNIVERSIT 4 4 Y [facility] T VISIT LOW/MODER SEVERITY OFFICE 70691 MONGELMA MONYIAR OUTPATIEN 4 4 FRA FRA T NEW 45 MINUTES OFFICE 00263 LEONLE CASTANEDA OUTPATIEN 4 4 MARTHA MARTHA T VISIT 10 MINUTES EMERGENCY 98148 LEONEL CASTANEDA 4 4 MARTHA MARTHA DEPARTMEN T VISIT HIGH/URGE NT SEVERITY OFFICE 95749 LEONEL CASTANEDA OUTPATIEN 4 4 MARTHA MARTHA T VISIT 10 MINUTES HOSPITAL TERRIE - 4 4 [facility] OUTPATIEN [facility] HOSPITAL TERRIE - 4 4 [facility]PAT[facility] TERRIE - 3 3 [facility] OUTPATIEN [facility] OFFICE 93649 THOMAS GUZMAN OUTPATIEN 3 3 ANT ANT T VISIT 15 MINUTES EMERGENCY 22516 LEONEL CASTANEDA DEPT 3 3 MARTHA MARTHA VISIT HIGH SEVERITY& THREAT FUN PERIODIC 16356 HARPEL HARPEL PREVENTIV 3 3 JANET JANET E MED EST PATIENT 18-39 YRS OFFICE 30341 [facility] OUTKEELEY 3 3 PHYSICIAN T VISIT S GROUP 15 MINUTES HOSPITAL TERRIE - 3 3 [facility] OUTPATIEN [facility] TERRIE - 3 3 [facility] OUTPATIEN [facility] OFFICE 71953 ANTOINE ANTOINE OUTPATIEN 3 3 DON DON T VISIT 15 MINUTES OFFICE 00467 ANTOINE ANTOINE OUTPATIEN 3 3 DON DON T VISIT 15 MINUTES HOSPITAL TERRIE - 3 3 [facility] OUTPATIEN [facility] EMERGENCY 26207 TERRIE 3 3 [facility] T VISIT LOW/MODER SEVERITY EMERGENCY 00319 LEONEL CASTANEDA 3 3 MARTHA MARTHA DEPARTMEN T VISIT HIGH/URGE NT SEVERITY HOSPITAL TERRIE - 3 3 [facility] OUTPATIEN [facility] HOSPITAL TER[facility] - 3 3 [facility] OUTPATIEN [facility] OFFICE 89868 HARPEL HARPEL OUTPATIEN 3 3 JANET JANET T VISIT 15 MINUTES OFFICE 94586 [facility] HARPEL OUTPATIEN 3 3 JANET JANET T VISIT 15 MINUTES HOSPITAL TER[facility]E - 3 3 [facility] OUTPATIEN INC T OFFICE 09384 ANTOINE ANTOINE OUTPATIEN 3 3 DON DON T VISIT 25 MINUTES OFFICE 29212 HARPE[facility] HARPEL OUTPATIEN 3 3 JANET JANET T VISIT 15 MINUTES OFFICE 01463 HORNE HORNE OUTPATIEN 2 2 STORM STORM T VISIT 15 MINUTES HOSPITAL TER[facility]E - 2 2 [facility] OUTPATIEN INC T OFFICE 06955 ANTOINE ANTOINE OUTPATIEN 2 2 DON DON T VISIT 15 MINUTES OFFICE 73299 COLEEN RHODESON OUTPATIEN 2 2 STORM STORM T NEW 30 MINUTES HOSPITAL TERRIE - 2 2 [facility] OUTPATIEN [facility] HOSPITAL TER[facility] - 2 2 [facility] OUTPATIEN [facility] HOSPITAL TER[facility] - 2 2 [facility] OUTPATIEN [facility] HOSPITAL TER[facility] - 2 2 [facility]PATIEN [facility] EMERGENCY 12080 [facility] 2 2 III JESSIKA III JESSIKA VISIT HIGH SEVERITY& THREAT [facility] EMERGENCY 92401 TERRIE 2 2 [facility] T VISIT MODERATE SEVERITY HOSPITAL [facility] - 2 2 [facility] OUTPATIEN [facility] HOSPITAL TER[facility] - 2 2 [facility] OUTPATIEN INC T PERIODIC 15070 HARPE[facility] HARPEL PREVENTIV 2 2 JANET JANET E MED EST PATIENT 18-39 YRS OFFICE 63686 [facility] OUTPATIEN 2 2 JANET JANET T VISIT 15 MINUTES OFFICE 53362 ANTOINE ANTOINE OUTPATIEN 2 2 DON DON T VISIT 15 MINUTES OFFICE 52075 HAR[facility] HARPEL OUTPATIEN 2 2 JANET JANET T VISIT 15 MINUTES OFFICE 95224 ANTOINE ANTOINE OUTPATIEN 2 2 DON DON T VISIT 15 MINUTES OFFICE 27961 ANTOINE ANTOINE OUTPATIEN 2 2 DON DON T VISIT 15 MINUTES EMERGENCY 95162 DIPTI CASTANEDA 1 1 [facility] HIGH/URGE NT SEVERITY EMERGENCY 17158 [facility] 1 1 [facility] MODERATE SEVERITY [facility] - 1 1 [facility] OUTPATIEN [facility] HOSPITAL [place] - 1 1 [facility] EMERGENCY 60931 DIPTI MARTINEZ 1 1 EMERGENCY [facility] SERVICES T VISIT MODERATE SEVERITY HOSPITAL [facility] - 1 1 [facility] OUTPATIEN [facility] EMERGENCY 80090 DIPTI CASTANEDA 1 1 [facility] T VISIT HIGH/URGE NT SEVERITY EMERGENCY 47518 [facility] 1 1 [facility] MODERATE SEVERITY OFFICE 64363 Carol ADKINS OUTPATIEN 1 1 JED Clayton VISIT [facility] 10 MINUTES HOSPITAL TER[facility]E - 1 1 [facility] OUTPATIEN [facility] HOSP[facility] - 1 1 [facility] OUTPATIEN [facility] OFFICE 52351 Carol ADKINS OUTPATIEN 1 1 JED Clayton VISIT [facility] 25 MINUTES OFFICE 08098 ANTOINE ANTOINE OUTPATIEN 1 1 DON DON T VISIT 25 MINUTES OFFICE 53649 [facility] HARPEL OUTPATIEN 1 1 PHYSICIAN JANET T VISIT GROUP 15 PCC MINUTES OFFICE 99060 [facility] 1 1 [facility] JOVI ION [facility] PATIENT 40 MIN OFFICE 34779 [facility] OUT[facility] 1 1 PHYSICIAN JANET T VISIT GROUP 15 PCC MINUTES HOSPITAL [facility] - 1 1 [facility] OUTPAT[facility]EN [facility] T [facility] - 1 1 [facility] OUT[facility] INC T OFFICE 19121 [facility] OUTPATIEN 1 1 PHYSICIAN JANET T VISIT GROUP 15 PCC MINUTES HOSPITAL [facility] - 1 1 [facility] INPATIENT INC OFFICE 02569 [facility] OUTPATIEN 1 1 PHYSICIAN JANET T VISIT GROUP 15 PCC MINUTES HOSPITAL [facility] - 1 1 [facility] OUTPATIEN INC T OFFICE 13944 [facility] OUTPATIEN 1 1 PHYSICIAN JANET T VISIT GROUP 15 PCC MINUTES OFFICE 12452 [facility] OUTPATIEN 1 1 PHYSICIAN JANET T VISIT GROUP 15 PCC MINUTES HOSPITAL [facility] - 1 1 [facility] OUTPATIEN INC T OFFICE 23015 [facility] OUTPATIEN 1 1 PHYSICIAN JANET T VISIT GROUP 15 PCC MINUTES OFFICE 11949 [facility] OUTPATIEN 1 1 PHYSICIAN JANET T VISIT GROUP 15 PCC MINUTES OFFICE 66736 [facility] OUTPATIEN 1 1 PHYSICIAN JANET T VISIT GROUP 15 PCC MINUTES HOSPITAL [facility] - 1 1 [facility] - 1 1 [facility] - 1 1 [facility] OUTPATIEN INC T OFFICE 68165 [facility] OUTPATIEN 1 1 PHYSICIAN JANET T VISIT GROUP 15 PCC MINUTES OFFICE 35380 H [facility] OUTPATIEN 1 1 PHYSICIAN JANET T VISIT GROUP 15 PCC MINUTES OFFICE 77627 [facility] OUTPATIEN 1 1 PHYSICIAN JANET T VISIT GROUP 15 PCC MINUTES HOSPITAL [facility] - 1 1 [facility] OUTPATIEN INC T OFFICE 01098 H [facility] OUTPATIEN 1 1 PHYSICIAN JANET T VISIT GROUP 15 PCC MINUTES OFFICE 37855 [facility] OUTPAT[facility]EN 1 1 PHYSICIAN JANET T VISIT GROUP 15 PCC MINUTES OFFICE 64483 H [facility] OUTPATIEN 1 1 PHYSICIAN JANET T VISIT GROUP 15 PCC MINUTES HOSPITAL [facility] - 1 1 [facility] OUTPATIEN INC T OFFICE 03024 H [facility] OUTPATIEN 1 1 PHYSICIAN JANET T VISIT GROUP 15 PCC MINUTES EMERGENCY 38373 TERRIE 1 1 [facility] DEPARTMEN INC T VISIT MODERATE SEVERITY HOSPITAL [facility] - 1 1 [facility] OUTPATIEN INC T EMERGENCY 87124 DIPTI COLON DEPT 1 1 EMERGENCY [facility]EW[facility] VISIT SERVICES HIGH SEVERITY& THREAT [facility] - 1 1 [facility] OUTPATIEN INC T OFFICE 72384 H [facility] OUTPATIEN 1 1 PHYSICIAN JANET T VISIT GROUP 15 PCC MINUTES OFFICE 54643 H [facility] OUTPATIEN 1 1 PHYSICIAN JANET T VISIT GROUP 15 PCC MINUTES [facility]OSPITAL [facility] - 1 1 [facility] OUTPATIEN INC T OFFICE 19156 H [facility] OUTPATIEN 1 1 PHYSICIAN JANET T VISIT GROUP 15 PCC MINUTES HOSPITAL [facility] - 1 1 [facility] OUTPATIEN INC T OFFICE 12913 [facility] OUTPATIEN 1 1 PHYSICIAN JANET T VISIT GROUP 15 PCC MINUTES EMERGENCY 13775 TER[facility]E 1 1 [facility] DEPARTMEN INC T VISIT HIGH/URGE NT SEVERITY EMERGENCY 53458 DIPTI LLOYD DEPT 1 1 EMERGENCY VISIT SERVICES HIGH SEVERITY& THREAT [facility] - 1 1 [facility] OUTPATIEN INC T OFFICE 88239 [facility] OUT[facility]EN 1 1 PHYSICIAN JANET T VISIT GROUP 15 PCC MINUTES OFFICE 79056 [facility] OUTPAT[facility] 1 1 PHYSICIAN JANET T VISIT GROUP 15 PCC MINUTES HOSPITAL [facility] - 1 1 [facility] OUTPATIEN INC T EMERGENCY 48926 TER[facility]E 1 1 [facility] DEPARTMEN INC T VISIT HIGH/URGE NT SEVERITY OFFICE 78628 [facility] OUTPATIEN 1 1 PHYSICIAN JANET T VISIT GROUP 15 PCC MINUTES OFFICE 54457 [facility] OUTPATIEN 1 1 PHYSICIAN JANET T VISIT GROUP 15 PCC MINUTES [facility]OSPITAL [facility] - 1 1 [facility] OUTPATIEN INC T OFFICE 54279 [facility] OUTPATIEN 0 0 PHYSICIAN JANET T VISIT GROUP 15 PCC MINUTES OFFICE 37867 H [facility] OUTPATIEN 0 0 PHYSICIAN JANET T VISIT GROUP 40 PCC MINUTES HOSPITAL [facility] - 0 0 [facility] OUTPATIEN INC T OFFICE 73243 [facility] OUTPATIEN 0 0 PHYSICIAN JANET T VISIT GROUP 15 PCC MINUTES EMERGENCY 56950 DIPTI CASTANEDA 0 0 EMERGENCY [facility] DEPARTMEN SERVICES T VISIT HIGH/URGE NT SEVERITY [facility]OSPITAL [facility] - 0 0 [facility] OUTPATIEN INC T EMERGENCY 11778 [facility] 0 0 [facility] DEPARTMEN INC T VISIT LOW/MODER SEVERITY OFFICE 31473 ANTOINE ANTOINE, OUTPATIEN 0 0 DON R DON R T VISIT 15 MINUTES OFFICE 63524 ANTOIEN ANTOINE, OUTPATIEN 0 0 DON R DON R T VISIT 15 MINUTES HOSPITAL [facility] - 0 0 [facility] OUTPATIEN INC T EMERGENCY 56741 TER[facility] 0 0 [facility] DEPARTMEN INC T VISIT LOW/MODER SEVERITY EMERGENCY 53438 DIPTI PARKER DEPT 0 0 EMERGENCY KYLE VISIT SERVICES O HIGH SEVERITY& ASSOCIATE THREAT S [facility] - 0 0 [facility] OUTPATIEN INC T EMERGENCY 04758 TERRIE 0 0 [facility] DEPARTMEN INC T VISIT HIGH/URGE NT SEVERITY EMERGENCY 31459 DIPTI CASTANEDA, DEPT 0 0 EMERGENCY [facility] VISIT SERVICES HIGH SEVERITY& ASSOCIATE THREAT S [facility] - 0 0 [facility] OUTPATIEN INC T EMERGENCY 60471 DIPTI CASTANEDA, 0 0 EMERGENCY [facility] SERVICES T VISIT HIGH/URGE ASSOCIATE NT S SEVERITY EMERGENCY 48179 TERRIE 0 0 [facility] DEPARTMEN INC T VISIT LOW/MODER SEVERITY EMERGENCY 84027 OB GOODE- 0 0 [facility] T VISIT MODERATE SEVERITY
--- NOTE | 2017-05-10 00:51 | Emergency Room Report ---
History of Present Illness Time Seen by MD Torres Presenting Problem in Triage Pt arrived:Walked Presenting Problem:PT. STATES SHE IS SICK WITH A MIGRAINE.PT. STATES THIS IS BEHIND HER EYES. 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 N Clinical Suspician of Infection? N Mental Status: 1 - Regular (Normal Baseline) Sepsis Risk:Low Sepsis Risk Have you (or family members/close friends) recently traveled outside the [place]? N If Yes, where/when: Have you had exposure to infectious disease within the past month? N TB? Other? Specify: Source patient, RN notes reviewed, family, old records Exam Limitations no limitations Comment acute excerbation of headache which did not resp to at home meds and assoc with nausea and elevated bp - no neuro sx Cardiac Chest Pain Chest pain indicative of cardiac No Timing/Duration this evening Severity moderate ALLERGIES Coded Allergies: Sulfa (Sulfonamide Antibiotics) (01/24/17) meperidine (From DEMEROL) (01/24/17) metoclopramide (From REGLAN) (01/24/17) morphine (01/24/17) Home Medications Active Scripts Amlodipine Besylate (Norvasc) 5 MG PO DAILY #30 TAB Prov: 10/21/16 Reported Medications Metformin HCL (Metformin) 500 MG PO BID Metoprolol Tartrate (Metoprolol) 50 MG PO DAILY History Medical History General CAD? No Angina: No [place]: No Hypertension? Yes Hyperlipidemia? Yes CHF? No DVT? No PE? No COPD? No Asthma? No Anemia? No GERD? No Gastric ulcers? No GI Bleed? No Hernia? No Thyroid Problems? Yes Hypothyroidism? No CVA? No Seizures? No Diabetes? No Insulin Dependent: No Insulin Pump: No Home FSBS? No Renal Insuffiency? No End Stage Renal Disease? No UTI? No Stones? Yes BPH? No GB Disease: Yes Nephritic Syndrome? No Asplenia? No Hepatitis? No Sickle Cell Disease? No Arthritis? No Migraines? Yes Cataracts? No Glaucoma? No MRSA? No HIV? No TB? No Anxiety? No Depression? No Cancer? No More? 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 Respiratory denies cough, denies shortness of breath, denies wheezing Cardiovascular denies chest pain, denies palpitations, denies syncope Gastrointestinal see HPI, denies abdominal pain, nausea, vomiting Genitourinary denies: dysuria, frequency, hesitancy, hematuria. Musculoskeletal denies back pain, denies joint pain, denies joint swelling, denies neck pain Skin denies rash Psychiatric/Neurological see HPI, headache, denies seizure Physical Exam Vital Signs Vital Signs Date Time Temp Pulse Resp B/P Pulse O2 O2 Flow FiO2 Ox Delivery Rate 05/10 0042 20 05/10 0035 91 20 162/101 98 05/10 0010 20 05/09 2251 109 18 179/134 98 - WBC >12,000 or <4,000 or 10% bands? 2 or more SIRS Criteria Met? B/P:162/101 MAP:149 Creatinine >2.0? UA output<0.5ml/kg/hr for 2 hrs? Platelet count >100,000? Lactate >2.0mmol/1? INR >1.2 or PTT > than 60 sec? Evidence of Organ Dysfunction? Provider documented clinical suspician of infection? N Sepsis Criteria Count: 1 Sepsis Risk: Low Sepsis Risk General Appearance no apparent distress Eye Exam - bilateral eye PERRL, bilateral eye EOMI Ear, Nose, Throat normal ENT inspection Neck supple Respiratory Status No: respiratory distress. Lung Sounds bilateral: lungs clear. 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 No Results/Orders Current Medication Orders Sig/Matthew Start time Last Medication Dose Route Stop Time Status Admin Promethazine HCl 25 MG 05/10 0100 UNi 05/10 Sodium Chloride 25 ML IV 0042 Hydromorphone HCl 2 MG ONCE ONE 05/10 0045 DCr 05/10 IV 05/10 0046 0042 Sodium Chloride 25 ML .STK-MED ONE 05/10 0044 DC IV Promethazine HCl 0 .STK-MED ONE 05/10 0043 DC .ROUTE Hydromorphone HCl 0 .STK-MED ONE 05/10 0040 DCr .ROUTE Sodium Chloride 10 ML PRN PRN 05/10 0030 AC IV 05/11 0027 Promethazine HCl 0 .STK-MED ONE 05/09 2353 DC .ROUTE Hydromorphone HCl 0 .STK-MED ONE 05/09 2352 DCr .ROUTE Sodium Chloride 25 ML .STK-MED ONE 05/09 2352 DC IV Hydromorphone HCl 2 MG ONCE ONE 05/09 2345 DCr 05/10 IV 05/09 2346 0010 Promethazine HCl 25 MG 05/09 2345 UNi 05/10 Sodium Chloride 25 ML IV 0009 Orders Procedure Date/time Status IV SALINE LOCK 05/10 0028 Active Departure Departure Time of Disposition 0116 Disposition DC Home or Self Care(routine) Clinical Impression Primary Impression: Headache Qualifiers: Headache type: unspecified Headache chronicity pattern: acute headache Intractability: intractable Qualified Code: R51 - Headache Secondary Impressions: HTN (hypertension) Qualifiers: Hypertension type: unspecified Qualified Code: I10 - Essential ( primary) hypertension Condition STABLE Patient Instructions DI for Headache Additional Instructions see pcp for follow up Discharge Counseling Counseled pt/family regarding diagnosis, follow up needs ED Critical Care Critical Care No at 0121
--- NOTE | 2017-05-10 00:51 | Emergency Room Report ---
History of Present Illness Time Seen by MD Torres Presenting Problem in Triage Pt arrived:Walked Presenting Problem:PT. STATES SHE IS SICK WITH A MIGRAINE.PT. STATES THIS IS BEHIND HER EYES. 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 N Clinical Suspician of Infection? N Mental Status: 1 - Regular (Normal Baseline) Sepsis Risk:Low Sepsis Risk Have you (or family members/close friends) recently traveled outside the [place]? N If Yes, where/when: Have you had exposure to infectious disease within the past month? N TB? Other? Specify: Source patient, RN notes reviewed, family, old records Exam Limitations no limitations Comment acute excerbation of headache which did not resp to at home meds and assoc with nausea and elevated bp - no neuro sx Cardiac Chest Pain Chest pain indicative of cardiac No Timing/Duration this evening Severity moderate ALLERGIES Coded Allergies: Sulfa (Sulfonamide Antibiotics) (01/24/17) meperidine (From DEMEROL) (01/24/17) metoclopramide (From REGLAN) (01/24/17) morphine (01/24/17) Home Medications Active Scripts Amlodipine Besylate (Norvasc) 5 MG PO DAILY #30 TAB Prov: 10/21/16 Reported Medications Metformin HCL (Metformin) 500 MG PO BID Metoprolol Tartrate (Metoprolol) 50 MG PO DAILY History Medical History General CAD? No Angina: No [place]: No Hypertension? Yes Hyperlipidemia? Yes CHF? No DVT? No PE? No COPD? No Asthma? No Anemia? No GERD? No Gastric ulcers? No GI Bleed? No Hernia? No Thyroid Problems? Yes Hypothyroidism? No CVA? No Seizures? No Diabetes? No Insulin Dependent: No Insulin Pump: No Home FSBS? No Renal Insuffiency? No End Stage Renal Disease? No UTI? No Stones? Yes BPH? No GB Disease: Yes Nephritic Syndrome? No Asplenia? No Hepatitis? No Sickle Cell Disease? No Arthritis? No Migraines? Yes Cataracts? No Glaucoma? No MRSA? No HIV? No TB? No Anxiety? No Depression? No Cancer? No More? 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 Respiratory denies cough, denies shortness of breath, denies wheezing Cardiovascular denies chest pain, denies palpitations, denies syncope Gastrointestinal see HPI, denies abdominal pain, nausea, vomiting Genitourinary denies: dysuria, frequency, hesitancy, hematuria. Musculoskeletal denies back pain, denies joint pain, denies joint swelling, denies neck pain Skin denies rash Psychiatric/Neurological see HPI, headache, denies seizure Physical Exam Vital Signs Vital Signs Date Time Temp Pulse Resp B/P Pulse O2 O2 Flow FiO2 Ox Delivery Rate 05/10 0042 20 05/10 0035 91 20 162/101 98 05/10 0010 20 05/09 2251 109 18 179/134 98 - WBC >12,000 or <4,000 or 10% bands? 2 or more SIRS Criteria Met? B/P:162/101 MAP:149 Creatinine >2.0? UA output<0.5ml/kg/hr for 2 hrs? Platelet count >100,000? Lactate >2.0mmol/1? INR >1.2 or PTT > than 60 sec? Evidence of Organ Dysfunction? Provider documented clinical suspician of infection? N Sepsis Criteria Count: 1 Sepsis Risk: Low Sepsis Risk General Appearance no apparent distress Eye Exam - bilateral eye PERRL, bilateral eye EOMI Ear, Nose, Throat normal ENT inspection Neck supple Respiratory Status No: respiratory distress. Lung Sounds bilateral: lungs clear. 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 No Results/Orders Current Medication Orders Sig/Matthew Start time Last Medication Dose Route Stop Time Status Admin Promethazine HCl 25 MG 05/10 0100 UNi 05/10 Sodium Chloride 25 ML IV 0042 Hydromorphone HCl 2 MG ONCE ONE 05/10 0045 DCr 05/10 IV 05/10 0046 0042 Sodium Chloride 25 ML .STK-MED ONE 05/10 0044 DC IV Promethazine HCl 0 .STK-MED ONE 05/10 0043 DC .ROUTE Hydromorphone HCl 0 .STK-MED ONE 05/10 0040 DCr .ROUTE Sodium Chloride 10 ML PRN PRN 05/10 0030 AC IV 05/11 0027 Promethazine HCl 0 .STK-MED ONE 05/09 2353 DC .ROUTE Hydromorphone HCl 0 .STK-MED ONE 05/09 2352 DCr .ROUTE Sodium Chloride 25 ML .STK-MED ONE 05/09 2352 DC IV Hydromorphone HCl 2 MG ONCE ONE 05/09 2345 DCr 05/10 IV 05/09 2346 0010 Promethazine HCl 25 MG 05/09 2345 UNi 05/10 Sodium Chloride 25 ML IV 0009 Orders Procedure Date/time Status IV SALINE LOCK 05/10 0028 Active Departure Departure Time of Disposition 0116 Disposition DC Home or Self Care(routine) Clinical Impression Primary Impression: Headache Qualifiers: Headache type: unspecified Headache chronicity pattern: acute headache Intractability: intractable Qualified Code: R51 - Headache Secondary Impressions: HTN (hypertension) Qualifiers: Hypertension type: unspecified Qualified Code: I10 - Essential ( primary) hypertension Condition STABLE Patient Instructions DI for Headache Additional Instructions see pcp for follow up Discharge Counseling Counseled pt/family regarding diagnosis, follow up needs ED Critical Care Critical Care No at 0121
[2017-05-10 01:33] VITALS: BP 145/97
== END 2017-05-10 01:40 | disposition home or self-care (01) ==
LOC: ER 22:45
DX: R51 Headache (principal); I10 Essential (primary) hypertension; Z72.0 Tobacco use

== ENCOUNTER → 2017-06-30 | Emergency (ER) | payer OTHER ==
[~2017-06-30] VITALS: Ht 167.6 cm; Wt 76.7 kg
--- NOTE | 2017-06-30 22:34 | Emergency Room Report ---
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 N Clinical Suspician of Infection? N Mental Status: 1 - Regular (Normal Baseline) Sepsis Risk:Low Sepsis Risk Have you (or family members/close friends) recently traveled outside the [place]? N If Yes, where/when: Have you had exposure to infectious disease within the past month? N TB? Other? Specify: Source patient, RN notes reviewed, family, old records Exam Limitations no limitations Comment pt with hx of migraine and has acute excerbation of sommers with elevated bp and no rash or fever and no focal neuro changes Cardiac Chest Pain Chest pain indicative of cardiac No Timing/Duration this evening Severity moderate ALLERGIES Coded Allergies: Sulfa (Sulfonamide Antibiotics) (01/24/17) meperidine (From DEMEROL) (01/24/17) metoclopramide (From REGLAN) (01/24/17) morphine (01/24/17) Home Medications Active Scripts Amlodipine Besylate (Norvasc) 5 MG PO DAILY #30 TAB Prov: 10/21/16 Reported Medications Metformin HCL (Metformin) 500 MG PO BID Metoprolol Tartrate (Metoprolol) 50 MG PO DAILY History Medical History General CAD? No Angina: No [place]: No Hypertension? Yes Hyperlipidemia? Yes CHF? No DVT? No PE? No COPD? No Asthma? No Anemia? No GERD? No Gastric ulcers? No GI Bleed? No Hernia? No Thyroid Problems? Yes Hypothyroidism? No CVA? No Seizures? No Diabetes? No Insulin Dependent: No Insulin Pump: No Home FSBS? No Renal Insuffiency? No End Stage Renal Disease? No UTI? No Stones? Yes BPH? No GB Disease: Yes Nephritic Syndrome? No Asplenia? No Hepatitis? No Sickle Cell Disease? No Arthritis? No Migraines? Yes Cataracts? No Glaucoma? No MRSA? No HIV? No TB? No Anxiety? No Depression? No Cancer? No More? 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 Respiratory denies cough, denies shortness of breath, denies wheezing Cardiovascular denies chest pain, denies syncope Gastrointestinal denies abdominal pain, denies diarrhea, denies vomiting Genitourinary denies: dysuria, frequency, hesitancy, hematuria. Musculoskeletal denies back pain, denies joint pain, denies joint swelling, denies neck pain Skin denies rash Psychiatric/Neurological denies headache, denies seizure Physical Exam Vital Signs Vital Signs Date Time Temp Pulse Resp B/P Pulse O2 O2 Flow FiO2 Ox Delivery Rate 06/30 2333 14 06/30 2332 82 14 175/104 96 06/30 2300 85 14 189/109 96 06/30 2254 14 06/30 2213 97.9 101 14 185/110 98 - WBC >12,000 or <4,000 or 10% bands? 2 or more SIRS Criteria Met? B/P:175/104 MAP:135 Creatinine >2.0? UA output<0.5ml/kg/hr for 2 hrs? Platelet count >100,000? Lactate >2.0mmol/1? INR >1.2 or PTT > than 60 sec? Evidence of Organ Dysfunction? Provider documented clinical suspician of infection? N Sepsis Criteria Count: 1 Sepsis Risk: Low Sepsis Risk General Appearance no apparent distress Eye Exam - bilateral eye PERRL, bilateral eye EOMI Ear, Nose, Throat normal ENT inspection Neck non-tender Respiratory Status No: respiratory distress. Cardiovascular regular rate/rhythm Extremities normal inspection Strength 4 Upper Ext (L), 4 Upper Ext (R), 4 Lower Ext (L), 4 Lower Ext (R) Neurologic alert, parcel post delivery II-XII nml as tested, no motor/sensory deficits Glascow Coma Scale Glascow Coma Scale Response Value EYE response: 4 Spontaneously 4 MOTOR response: 6 OBEYS 6 VERBAL response: 5 Oriented & Converses 5 Total 15 Mental status normal mood/affect Skin no rash cons.w/shingles Medical Decision Making LABS/Meds/Orders Pt receiving controlled substance in ED? No Results/Orders Laboratory Tests 06/30/172220: Creatine Kinase 68, CK-MB (CK-2) Rel Index 0.7, CK and CKMB Interp < 0.5, Troponin I < 0.02 Current Medication Orders Sig/Matthew Start time Last Medication Dose Route Stop Time Status Admin Hydromorphone HCl 1 MG ONCE ONE 06/30 2330 DCr 06/30 IV 06/30 2331 2333 Promethazine HCl 12.5 MG ONCE ONE 06/30 2330 DC IV 06/30 233 Sodium Chloride 25 ML ONCE ONE 06/300 DC IV 06/30 2344 Hydromorphone HCl 0 .STK-MED ONE 06/30 2324 DCr .ROUTE Sodium Chloride 10 ML PRN PRN 06/30 2300 AC IV 07/01 2300 Promethazine HCl 0 .STK-MED ONE 06/30 223 DC .ROUTE Sodium Chloride 25 ML .STK-MED ONE 06/30 223 DC IV Hydromorphone HCl 0 .STK-MED ONE 06/30 223 DCr .ROUTE Hydromorphone HCl 2 MG ONCE ONE 06/30 2230 DCr 06/30 IV 06/30 223 2254 Promethazine HCl 12.5 MG ONCE ONE 06/30 2230 DC 06/30 IV 06/30 223 2240 Sodium Chloride 25 ML ONCE ONE 06/30 2230 DC 06/30 IV 06/30 224 2240 Orders Procedure Date/time Status IV SALINE LOCK 06/30 230 Active CARDIAC ENZYMES 06/30 2223 Complete Departure Departure Time of Disposition 2350 Disposition DC Home or Self Care(routine) Clinical Impression Primary Impression: Headache Qualifiers: Headache type: unspecified Headache chronicity pattern: acute headache Intractability: intractable Qualified Code: R51 - Headache Secondary Impressions: HTN (hypertension) Qualifiers: Hypertension type: unspecified Qualified Code: I10 - Essential ( primary) hypertension Condition STABLE Referrals Roberta BARRETT,Tristian Ramirez (Family) Patient Instructions DI for Headache Additional Instructions use meds and see pcp for follow up Discharge Counseling Counseled pt/family regarding diagnosis, test results, medications/RX, follow up needs ED Critical Care Critical Care No at 0000
--- NOTE | 2017-06-30 22:34 | Emergency Room Report ---
History of Present Illness Time Seen by MD Mendosa Presenting Problem in Triage Pt arrived:Carried Presenting Problem:REGULAR HEADACHE 4 HOURS AGO WORSENED INTO A MIGRAINE STRENGTH HEADACHE 1 HOUR [employer] Onset of symptoms date/time:06/30/1712/12/2114 or onset unknown for: Treatment Prior to Arrival: [facility] [employer] Provided by: Sepsis Risk Assessment: Temp: 97.9 B/P: 185/110 MAP: 135 Pulse: 101 Resp: 14 Recent fever? N Clinical Suspician of Infection? N Mental Status: 1 - Regular (Normal Baseline) Sepsis Risk:Low Sepsis Risk Have you (or family members/close friends) recently traveled outside the [place]? N If Yes, where/when: Have you had exposure to infectious disease within the past month? N TB? Other? Specify: Source patient, RN notes reviewed, family, old records Exam Limitations no limitations Comment pt with hx of migraine and has acute excerbation of sommers with elevated bp and no rash or fever and no focal neuro changes Cardiac Chest Pain Chest pain indicative of cardiac No Timing/Duration this evening Severity moderate ALLERGIES Coded Allergies: Sulfa (Sulfonamide Antibiotics) (01/24/17) meperidine (From DEMEROL) (01/24/17) metoclopramide (From REGLAN) (01/24/17) morphine (01/24/17) Home Medications Active Scripts Amlodipine Besylate (Norvasc) 5 MG PO DAILY #30 TAB Prov: 10/21/16 Reported Medications Metformin HCL (Metformin) 500 MG PO BID Metoprolol Tartrate (Metoprolol) 50 MG PO DAILY History Medical History General CAD? No Angina: No AK: No Hypertension? Yes Hyperlipidemia? Yes CHF? No DVT? No PE? No COPD? No Asthma? No Anemia? No GERD? No Gastric ulcers? No GI Bleed? No Hernia? No Thyroid Problems? Yes Hypothyroidism? No CVA? No Seizures? No Diabetes? No Insulin Dependent: No Insulin Pump: No Home FSBS? No Renal Insuffiency? No End Stage Renal Disease? No UTI? No Stones? Yes BPH? No GB Disease: Yes Nephritic Syndrome? No Asplenia? No Hepatitis? No Sickle Cell Disease? No Arthritis? No Migraines? Yes Cataracts? No Glaucoma? No MRSA? No HIV? No TB? No Anxiety? No Depression? No Cancer? No More? 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 Respiratory denies cough, denies shortness of breath, denies wheezing Cardiovascular denies chest pain, denies syncope Gastrointestinal denies abdominal pain, denies diarrhea, denies vomiting Genitourinary denies: dysuria, frequency, hesitancy, hematuria. Musculoskeletal denies back pain, denies joint pain, denies joint swelling, denies neck pain Skin denies rash Psychiatric/Neurological denies headache, denies seizure Physical Exam Vital Signs Vital Signs Date Time Temp Pulse Resp B/P Pulse O2 O2 Flow FiO2 Ox Delivery Rate 06/30 2333 14 06/30 2332 82 14 175/104 96 06/30 2300 85 14 189/109 96 06/30 2254 14 06/30 2213 97.9 101 14 185/110 98 - WBC >12,000 or <4,000 or 10% bands? 2 or more SIRS Criteria Met? B/P:175/104 MAP:135 Creatinine >2.0? UA output<0.5ml/kg/hr for 2 hrs? Platelet count >100,000? Lactate >2.0mmol/1? INR >1.2 or PTT > than 60 sec? Evidence of Organ Dysfunction? Provider documented clinical suspician of infection? N Sepsis Criteria Count: 1 Sepsis Risk: Low Sepsis Risk General Appearance no apparent distress Eye Exam - bilateral eye PERRL, bilateral eye EOMI Ear, Nose, Throat normal ENT inspection Neck non-tender Respiratory Status No: respiratory distress. 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 No Results/Orders Laboratory Tests 06/30/172220: Creatine Kinase 68, CK-MB (CK-2) Rel Index 0.7, CK and CKMB Interp < 0.5, Troponin I < 0.02 Current Medication Orders Sig/Matthew Start time Last Medication Dose Route Stop Time Status Admin Hydromorphone HCl 1 MG ONCE ONE 06/30 2330 DCr 06/30 IV 06/30 2331 2333 Promethazine HCl 12.5 MG ONCE ONE 06/30 2330 DC IV 06/30 233 Sodium Chloride 25 ML ONCE ONE 06/300 DC IV 06/30 2344 Hydromorphone HCl 0 .STK-MED ONE 06/30 2324 DCr .ROUTE Sodium Chloride 10 ML PRN PRN 06/30 2300 AC IV 07/01 2300 Promethazine HCl 0 .STK-MED ONE 06/30 223 DC .ROUTE Sodium Chloride 25 ML .STK-MED ONE 06/30 223 DC IV Hydromorphone HCl 0 .STK-MED ONE 06/30 223 DCr .ROUTE Hydromorphone HCl 2 MG ONCE ONE 06/30 2230 DCr 06/30 IV 06/30 223 2254 Promethazine HCl 12.5 MG ONCE ONE 06/30 2230 DC 06/30 IV 06/30 223 2240 Sodium Chloride 25 ML ONCE ONE 06/30 2230 DC 06/30 IV 06/30 224 2240 Orders Procedure Date/time Status IV SALINE LOCK 06/30 230 Active CARDIAC ENZYMES 06/30 2223 Complete Departure Departure Time of Disposition 2350 Disposition DC Home or Self Care(routine) Clinical Impression Primary Impression: Headache Qualifiers: Headache type: unspecified Headache chronicity pattern: acute headache Intractability: intractable Qualified Code: R51 - Headache Secondary Impressions: HTN (hypertension) Qualifiers: Hypertension type: unspecified Qualified Code: I10 - Essential ( primary) hypertension Condition STABLE Referrals Roberta BARRETT,Tristian Ramirez (Family) Patient Instructions DI for Headache Additional Instructions use meds and see pcp for follow up Discharge Counseling Counseled pt/family regarding diagnosis, test results, medications/RX, follow up needs ED Critical Care Critical Care No at 0000
[2017-07-01 00:48] VITALS: BP 150/88
[2017-07-01 18:16] LABS: FREE THYROXIN INDEX 8.2 ug/dl (5.93-13.13); HEMOGLOBIN 14.2 g/dL (12.2-16.2); LYMPH # 3.9 K/mm3 (0.7-4.5); LYMPH % 26.2 % (10-50.0)
--- OUTSIDE RECORDS SUMMARY | 2017-07-09 11:36 | External Medical Summary Rpt | CCD ---
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 [address] [place]IT[place] ABDOMEN & 5 MEDICAL SAMMI PELVIS IMAGING W/O ASS CONTRAST MATERIAL INJECTION J1030 [facility] 5 [facility] METHYLPRE INC INC DNISOLONE ACETATE 40 MG INJECTION J1040 [facility] 5 [facility] METHYLPRE INC INC DNISOLONE ACETATE 80 MG NJX 65167 MANJINDER BUX BUX ANJ DX/THER 5 MD SBST EPIDURAL/ SUBARACH LUMBAR/SA CRAL LOCM Q9966 [facility] 200-299 5 [facility] MG/ML INC INC IODINE CONCENTRA TION PER ML RADEX 62413 [facility] ABDOMEN 1 5 [facility] [place] IMAG[facility] ANTEROPOS ASS TERIOR VIEW INJECTION J0696 [facility] PHYSICIAN MARTHA CEFTRIAXO S GROUP NE SODIUM PER 250 MG THERAPEUT 09826 COUNT INCLUDES THE [facility] IC 5 PHYSICIAN MARTHA PROPHYLAC S GROUP TIC/DX INJECTION SUBQ/IM INJECTION J1100 [facility] 5 PHYSICIAN MARTHA DEXAMETHO S GROUP SONE SODIUM PHOSPHATE 1 MG RADEX 67368 [facility] ABDOMEN 1 5 [facility] INC INC ANTEROPOS TERIOR VIEW 3D 29158 [facility] RENDERING 5 [facility] W/INTERP INC INC & POSTPROCE SS SUPERVISI ON MRI 13681 [facility] SPINAL 5 [facility] CANAL INC INC LUMBAR W/O CONTRAST MATERIAL CALCULUS 34006 [facility] XRAY 5 [facility]OS[facility] DIFFRACTI INC INC ON ANES 43283 ANESTHESI JR. 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 SHOCK S PSC WAVE W/O WATER BATH RADEX 64885 [place] SCALF ZANE ABDOMEN 1 5 RADIOLOGY ANTEROPOS TERIOR VIEW ANES 41313 DAYANA HORNE TRANSURET 4 MEDICAL FRANCES HRAL SERVICES W/URETHRO CYSTOSCOP Y NOS CYSTO 86638 DAYANA RUST AND W/INSERT 4 [place] [address] [place] RIT[place] ABDOMEN & 4 MEDICAL SAMMI PELVIS IMAGING W/O ASS CONTRAST MATERIAL APPLICATI 06285 [facility] F[facility] ON 4 [facility] MODALITY INC INC 1/> AREAS HOT/COLD PACKS APPL 57451 [facility] MODALITY 4 [facility] 1/> AREAS INC INC ULTRASOUN D EA 15 MIN THERAPEUT 01878 [facility] IC PX 1/> 4 [facility] AREAS INC INC EACH 15 MIN EXERCISES APPL 97322 [facility] MODALITY 4 [facility] 1/> AREAS INC INC ELEC STIMJ UNATTENDE D THERAPEUT 01504 [facility] IC PX 1/> 4 [facility] AREAS INC INC EACH 15 MIN EXERCISES APPL 13096 [facility] MODALITY 4 [facility] 1/> AREAS INC INC ELEC STIMJ UNATTENDE D APPL 07090 [facility] MODALITY 4 [facility] 1/> AREAS INC INC ULTRASOUN D EA 15 MIN APPLICATI 97294 [facility] ON 4 [facility] MODALITY INC INC 1/> AREAS HOT/COLD PACKS APPLICATI 77800 [facility] F[facility] ON 4 [facility] MODALITY INC INC 1/> AREAS HOT/COLD PACKS APPL 22980 [facility] F[facility] MODALITY 4 [facility] 1/> AREAS INC INC ULTRASOUN D EA 15 MIN APPL 24784 [facility] FALCNO MODALITY 4 [facility] 1/> AREAS INC INC ELEC STIMJ UNATTENDE D THERAPEUT 00667 [facility] IC PX 1/> 4 [facility] AREAS INC INC EACH 15 MIN EXERCISES PHYSICAL 45045 [facility] THERAPY 4 [facility] EVALUATIO INC INC N DIAGNOSTI G0206 [place] R[facility] C 4 MEDICAL SAMMI MAMMOGRAP IMAGING HY INCL ASS CAD WHEN PERF; UNI US BREAST 84766 [place] [facility] REAL 4 MEDICAL SAMMI TIME IMAGING W/IMAGE ASS DOCUMENTA TI COMPUTER- 31958 [facility] AIDED 4 [facility] DETECTION INC INC SCREENING MAMMOGRAP HY SCREENING G0202 [facility] 4 [facility] MAMMOGRAP INC INC HY YANNA INCL CAD WHEN PERFORMD INCISION 66035 [facility] SCHULSTAD & REMOVAL 4 PHYSICIAN CAM FOREIGN S GROUP BODY SUBQ TISS SIMPLE BASIC 86515 [facility] METABOLIC 4 [facility] PANEL INC INC CALCIUM TOTAL BLOOD 87481 [facility] COUNT 4 [facility] COMPLETE INC INC AUTO&AUTO DIFRNTL WBC ECG 56950 [facility] RIVAS ROUTINE [address] [facility] W/LEAST P 12 LDS I&R ONLY URINE 72157 [facility] AVILAON 4 [facility] TEST INC INC VISUAL COLOR CMPRSN METHS HGB 34667 [facility] QUANTITAT 4 GALI GONZALES KATE TRANSCUTA NEOUS CULTURE 70123 [facility] CHLAMYDIA 4 GALI BARRETT JANET ANY SOURCE URINLS 31051 [facility] DIP 4 GALI BARRETT JANET STICK/TAB LET REAGNT NON-AUTO MICRSCPY IADNA 91409 [facility] NEISSERIA 4 GALI GONZALES GONORRHOE AE DIRECT PROBE TQ RADEX 69474 [facility] FOOT 4 [facility] COMPLETE INC INC MINIMUM 3 VIEWS PHYSICAL 69138 [facility] THERAPY 4 [facility] EVALUATIO INC INC N COMPRE 49794 COLEEN HORNE AUDIOMETR 4 STORM STORM Y THRESHOLD EVAL SP RECOGNIJ TYMPANOME 43382 COLE[facility] HORNE TRY 4 STORM STORM DISTORT 26286 COLEEN RHODESON PRODUCT 4 STORM STORM EVOKED [place] [address] [facility] THYROXINE 4 [facility] TOTAL INC INC COMPREHEN 88071 [facility] SIVE 4 [facility] METABOLIC INC INC PANEL BLOOD 20831 [facility] COUNT 4 [facility] COMPLETE INC INC AUTO&AUTO DIFRNTL WBC HEMOGLOBI 59896 [facility] N 4 [facility] GLYCOSYLA INC INC JOCELINE A1C LIPID 10131 [facility] PANEL 4 [facility] INC INC RADEX 73357 RITIKA RITIKA SPINE 4 SAMMI SAMMI LUMBOSACR AL 2/3 VIEWS RADEX 14021 [facility] SPINE 4 [facility] LUMBOSACR INC INC AL MINIMUM 4 [place] [address] [facility] F[facility] THYROID 4 [facility] STIMULATI [place] [address] [facility] F[facility] THYROID 4 [facility] STIMULAT[place] [address] [facility] FREE 4 [facility] THYROXINE INC INC LIPID 27334 [facility] F[facility] PANEL 3 [facility] INC INC 25 98488 [facility] HYDROXY 3 [facility] INCLUDES INC INC FRACTIONS IF PERFORMED CYANOCOBA 67907 [facility] ADELA 3 [facility] VITAMIN INC INC B-12 CULTURE 83548 [facility] CHLAMYDIA 3 JANET JANET ANY SOURCE HGB 14148 [facility] QUANTITAT 3 JANET JANET AKTE TRANSCUTA NEOUS URINLS 48983 [facility] DIP 3 JANET JANET STICK/TAB LET REAGNT NON-AUTO MICRSCPY IADNA 03252 [facility] NEISSERIA 3 JANET JANET GONORRHOE AE DIRECT PROBE TQ URNLS DIP 74771 [facility] 3 PHYSICIAN PHYSICIAN STICK/TAB S GROUP S GROUP LET RGNT NON-AUTO W/O MICRSCP RADEX 23718 [facility] FINGR 3 [facility] MINIMUM 2 INC INC VIEWS CUL BACT 62970 [facility] XCPT 3 [facility] URINE INC INC BLOOD/STO OL AEROBIC ISOL CUL BACT 04356 [facility] AEROBIC 3 [facility] ADDL INC INC METHS DEFINITIV E EA ISOL INJECTION J0690 ARASH MAHARAJHENS 3 DON DON CEFAZOLIN SODIUM 500 MG INCISION 10518 ANTOINE ANTOINE & 3 DON DON DRAINAGE ABSCESS SIMPLE/SI NGLE SUSCEPTIB 42821 [facility] LTY STDY 3 [facility] ANTIMICRB INC INC IAL MICRO/AGA R DILUTJ THERAPEUT 53216 [facility] IC 3 [facility] PROPHYLAC INC INC TIC/DX INJECTION SUBQ/IM INSJ 33095 [facility] NON-BIODE 3 JANET JANET GRADABLE DRUG DELIVERY IMPLANT URINE 23176 [facility] HARPEL 3 JANET JANET TEST VISUAL COLOR CMPRSN METHS ETONOGEST J7307 [facility] REL 3 JANET JANET CNTRACPT IMPL SYS INCL IMPL & SPL BLOOD 53950 [facility] COUNT 3 [facility] HEMOGLOBI INC INC N DILATION 54103 [facility] & 3 JANET JANET CURETTAGE DX&/THER NONOBSTET ZANE LAPS 37889 [facility] FULG/EXC 3 JANET JANET OVARY VISCERA/[place] [address] TAPIA TAPIA SURG 3 [facility] PATHOLOGY GROSS&MARTHA ROSCOPIC EXAM ANESTHESI 38592 [facility] JESSIKA A 3 ANESTH INTRAPERI OF THE TONEAL BLUE LOWER ABD W/LAPS NOS BLOOD 90208 [facility] COUNT 3 [facility] HEMATOCRI INC INC T INJECTION J2405 [facility] 3 [facility] ONDANSETR INC INC ON HCL PER 1 MG BLOOD 49775 [facility] COUNT 3 [facility] COMPLETE INC INC AUTO&AUTO DIFRNTL WBC URNLS DIP 74615 [facility] 3 [facility] STICK/TAB INC INC LET REAGENT AUTO MICROSCOP Y URINE 61105 [facility] 3 [facility] TEST INC [place] [address] [facility] TRANSVAGI 3 [facility] NAL INC INC INJECTION J1080 ARASH ANTOINE 3 DON DON TESTOSTER ONE CYPIONATE 1 CC 200 MG REMOVAL 30977 [facility] INTRAUTER 3 JANET JANET INE DEVICE IUD INJECTION J2675 [facility] HARPEL 3 JANET JANET PROGESTER ONE PER 50 MG MICROSOMA 28053 [facility] L 2 [facility] [place] [address] [facility] F[facility] THYROID 2 [facility] STIMULAT[place] [address] [facility] FREE 2 [facility] THYROXINE INC INC INJECTION J0690 ARASH ANTOINE 2 KIRAN BECK CEFAZOLIN SODIUM 500 MG US SOFT 59682 [facility] TISSUE 2 [facility] HEAD & INC INC NECK REAL TIME IMGE DOCM CALCIUM 57293 [facility] IONIZED 2 [place] [address] [facility] F[facility] THYROXINE 2 [facility] TOTAL INC INC CYANOCOBA 60287 [facility] F[facility] ADELA 2 [facility] VITAMIN INC INC B-12 MICROSOMA 59395 [facility] F[facility] L 2 [facility] ANTIBODIE INC INC S EACH THYROID 12786 [facility] F[facility] HORM 2 [facility] UPTK/THYR INC [place] [address] [facility] FREE 2 [facility] [place] [address] [facility] F[facility] THYROID 2 [facility] STIMULATI INC INC NG HORMONE TSH CALCIUM 89405 [facility] F[facility] TOTAL 2 [facility] INC INC GONADOTRO 05666 [facility] F[facility] PIN 2 [facility] [place] [address] [facility]AON INFUSION 2 [facility] THERAPY/P INC INC ROPHYLAXI S /DX 1ST TO 1 HR THERAPEUT 08812 [facility] IC 2 [facility] INJECTION INC INC IV PUSH EACH NEW DRUG URINE 30021 [facility] TERRIE 2 [facility] TEST INC [place] [address] [facility] INFUSION 2 [facility] THERAPY/P INC INC ROPHYLAXI S /DX 1ST TO 1 HR EGD 08522 [facility] TRANSORAL 2 [facility] BIOPSY INC INC SINGLE/MU LTIPLE SPECIAL 04969 BELLA BAEZ VAN STAIN 2 GROUP 1 MICROORGA NISMS I&R SPCL STN 69168 BELLA JAMIL 2 I&R 2 EXCPT MICROORG/ ENZYME/[place] [address] TERRIE TERRIE INFUSION 2 [facility] THERAPY INC INC [place] [address] BELLA JAMIL SURG 2 PATHOLOGY GROSS&MARTHA ROSCOPIC EXAM IADNA 52146 HAR[facility] HARPEL NEISSERIA 2 JANET JANET [place] [address] [facility] F[facility] THYROID 2 [facility] STIMULATI INC INC NG HORMONE TSH CULTURE 68943 [facility] HARPEL CHLAMYDIA 2 JANET JANET ANY SOURCE HGB 19284 [facility] QUANTITAT 2 JANET JANET KATE TRANSCUTA NEOUS SMR PRIM 61100 [facility] HAR[facility]L SRC WET 2 JANET JANET MOUNT NFCT AGT URINLS 69416 [facility] HARPEL DIP 2 JANET JANET STICK/TAB LET REAGNT NON-AUTO MICRSCPY SMR PRIM 39461 HAR[facility] HARPEL SRC WET 2 [place] [address] [facility] INFUSION 1 [facility] THERAPY INC INC PROPHYLAX IS/DX EA HOUR ANOSCOPY 54268 [facility] CONTROL 1 [facility] BLEEDING INC INC ANESTHESI 70631 [facility] A 1 ANESTH ANORECTAL OF THE BLUE PROCEDURE CONTROL 4995 [facility] OF 1 [facility] HEMORRHAG INC INC E OF ANUS GONADOTRO 82213 [facility] PIN 1 [facility] CHORIONIC INC INC QUALITATI VE BLOOD 30422 [facility] COUNT 1 [facility] COMPLETE INC INC AUTO&AUTO DIFRNTL WBC CYTP C/V 03408 BIO BIO AUTO THIN 1 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 SCR IES IES MNL RESCR PHYS INSERTION 89690 [facility] A[facility]LEY DEVICE IUD URINE 42724 [facility] TEST CLINIC OF VISUAL ASHLEY COLOR CMPRSN METHS INTRAUTER J7300 [facility] INE 1 [facility] COPPER CLINIC OF CONTRACEP ASHLEY TIVE OT LOCAL 4939 [facility] 1 [facility] EXCISION/ INC INC DESTRUC LESION/TI SSUE ANUS LEVEL III 81351 [facility] WANDA PAT SURG 1 LOR[facility]E & PATHOLOGY DUBILIER GROSS&MARTHA ROSCOPIC EXAM EXCISION 4946 [facility] OF 1 [facility] HEMORRHOI INC INC DS EXC 94018 [facility] THROMBOSE 1 [facility] D INC INC HEMORRHOI D XTRNL DSTRJ 95518 [facility] LESION 1 [facility] ANUS SMPL INC INC ELTRDSICC ATION ANESTHESI 78961 [facility] A 1 ANESTH ROWENA ANORECTAL OF THE BLUE PROCEDURE HEMORRHOI 79831 C BRENDAN ADKINS DECTOMY 1 JED BYRD NTRPENNY & PSC XTRNL 1 COLUMN/[place] [address] [facility] INFUSION 1 [facility] THERAPY INC INC PROPHYLAX IS/DX EA HOUR GONADOTRO 20820 [facility] PIN 1 [facility] CHORIONIC INC INC QUALITATI VE BLOOD 13401 [facility] COUNT 1 [facility] COMPLETE INC INC AUTO&AUTO DIFRNTL [facility] 26037 [facility] DISCHARGE 1 PHYSICIAN JANET DAY GROUP MANAGEMEN PCC T 30 MIN/< SBSQ 60934 [facility] 1 PHYSICIAN JANET CARE/DAY GROUP 35 PCC MINUTES SUBQ 23747 [facility] 1 CARE CESAR CARE PER ASSOCIATE DAY E/M S NORMAL CIRCUMCIS 91391 [facility] 1 CARE CESAR W/CLAMP/O ASSOCIATE TH DEV S W/BLOCK SBSQ 92260 [facility] 1 PHYSICIAN JANET CARE/DAY GROUP 35 PCC MINUTES SUBQ 97867 [facility] 1 CARE CESAR CARE PER ASSOCIATE DAY E/M S NORMAL LOW 741 [facility] CERVICAL 1 [facility] INC INC SECTION OTHER 6829 [facility] EXCISION 1 [facility] OR INC INC DESTRUCTI ON LESION UTERUS ANESTHESI 96616 [facility] A 1 ANESTH OF THE DELIVERY BLUE ONLY 1ST 84355 [facility] 1 CARE CESAR [facility] [place] [address] [facility] DELIVERY 1 PHYSICIAN JANET ONLY GROUP PCC INITIAL 48434 [facility] 1 PHYSICIAN JANET CARE/DAY GROUP 70 PCC MINUTES OBSERVATI 07963 [facility] HARPEL ON/INPATI 1 PHYSICIAN JANET ENT [facility] PCC CARE 55 MINUTES OBSERVATI 39508 [facility] HARPEL ON/INPATI 1 PHYSICIAN JANET ENT [facility] PCC CARE 55 MINUTES 21882 [facility] BIOPHYSIC 1 PHYSICIAN JANET AL GROUP PROFILE PCC NON-STRES S TESTING [address] [facility] 1 PHYSICIAN JANET TEST GROUP PCC PARTICLE 46908 [facility] AGGLUTINA 1 [facility] TION INC INC SCREEN EACH ANTIBODY DOPPLER 08022 [facility] JUAN ECHO 1 [facility] HIGH RISK PULS O SPECTRAL F/U/REPEA T 77596 [facility] YESSICA BIOPHYSIC 1 [facility] AL HIGH RISK PROFILE O W/O NON-STRES S TESTING [address] [facility] NON[facility]ESS 1 PHYSICIAN JANET TEST GROUP PCC 96566 [facility] F[facility] NONSTRESS 1 [facility] TEST INC INC THERAPEUT 37816 [facility] F[facility] IC 1 [facility] INJECTION INC INC IV PUSH EACH NEW DRUG BASIC 37165 [facility] METABOLIC 1 [facility] PANEL INC INC CALCIUM TOTAL URNLS DIP 21358 [facility] 1 [facility] STICK/TAB INC [place] [address] [facility] INFUSION 1 [facility] THERAPY/P INC INC ROPHYLAXI S /DX 1ST TO 1 HR BLOOD 86487 [facility] COUNT 1 [facility] COMPLETE INC INC AUTO&AUTO DIFRNTL WBC ANTIBODY 62656 [facility] SCREEN 1 [facility] RBC EACH INC INC SERUM TECHNIQUE BLOOD 03621 [facility] TYPING 1 [facility] SEROLOGIC INC INC ABO FIBRIN 83376 [facility] DGRADJ 1 [facility] PRODUCTS INC INC D-DIMER QUAL/[place] [address] [facility] MAGNESIUM 1 [facility] INC INC FIBRINOGE 44747 [facility] F[facility] N 1 [facility] ACTIVITY INC INC PROTHROMB 88554 [facility] F[facility] IN TIME 1 [facility] INC INC BLOOD 41714 [facility] F[facility] TYPING 1 [facility] SEROLOGIC [place] INC RH (D) [place] [address] [facility] F[facility] BLOOD/URI 1 [facility] C ACID INC INC THROMBOPL 01978 [facility] ASTIN 1 [facility] TIME INC INC PARTIAL PLASMA/WH OLE BLOOD TRANSFERA 64088 [facility] SE 1 [facility] ASPARTATE INC INC AMINO AST SGOT TRANSFERA 84090 [facility] SE 1 [facility] ALANINE INC INC AMINO ALT SGPT URNLS DIP 08989 [facility] JUAN 1 [facility] STICK/TAB HIGH RISK LET RGNT O NON-AUTO W/O MICRSCP DOPPLER 20587 [facility] ECHO 1 [facility] HIGH RISK PULS O SPECTRAL F/U/REPEA T 15033 [facility] BIOPHYSIC 1 [facility] AL HIGH RISK PROFILE O W/O NON-STRES S TESTING 58311 [facility] NONSTRESS 1 PHYSICIAN JANET TEST GROUP PCC SMR PRIM 77264 [facility] SRC WET 1 PHYSICIAN JANET [facility] GROUP NFCT AGT PCC 10166 [facility] BIOPHYSIC 1 [facility] AL HIGH RISK PROFILE O W/O NON-STRES S TESTING US PREG 12117 [facility] UTERUS 1 [place] [place] AFTER 1ST HIGH RISK TRIMEST O 1/ GESTATION 73729 [facility] NONSTRESS 1 PHYSICIAN JANET TEST GROUP PCC [place] PREG 40753 JENSEN JUAN UTERUS 1 [place] [place] AFTER 1ST HIGH RISK TRIMEST O 1/ GESTATION 27120 [facility] 1 [facility] HIGH RISK PROFILE O W/O NON-STRES S TESTING COLLECTIO 22489 [facility] N VENOUS 1 [facility] BLOOD VENIPUNCT URE CREATININ 87079 [facility] E 1 [facility] CLEARANCE 02340 [facility] BIOPHYSIC 1 [facility] AL HIGH RISK PROFILE O W/O NON-STRES S TESTING DOPPLER 35547 [facility]AN ECHO 1 [facility] [place] HIGH RISK PULS O SPECTRAL F/U/REPEA T PROTEIN 11845 [facility] TOTAL 1 [facility] XCPT REFRACTOM ETRY URINE URNLS DIP 24666 [facility]ESSICA 1 [facility] [place] STICK/TAB HIGH RISK LET RGNT O NON-AUTO W/O MICRSCP THERAPEUT 25689 [facility] IC 1 [facility] PROPHYLAC INC INC TIC/DX INJECTION SUBQ/IM THERAPEUT 96311 [facility] IC 1 [facility] PROPHYLAC INC INC TIC/DX INJECTION SUBQ/IM 85710 [facility] NONSTRESS 1 PHYSICIAN JANET TEST GROUP PCC 27620 [facility] BIOPHYSIC 1 PHYSICIAN JANET AL GROUP PROFILE PCC NON-STRES S TESTING 88092 [facility] BIOPHYSIC 1 [facility] AL HIGH RISK PROFILE O W/O NON-STRES S TESTING ECHO 02396 [facility] 1 [facility] CARDIOVAS HIGH RISK C W/WO O M-MODE RECORDING US PREG 69401 CENTRAL YESSICA UTERUS 1 [facility] [place] W/DETAIL HIGH RISK O ANNALISA 1ST GESTATION URNLS DIP 52439 [facility] 1 [facility] STICK/TAB HIGH RISK LET RGNT O NON-AUTO W/O MICRSCP 66052 [facility] BIOPHYSIC 1 PHYSICIAN JANET AL GROUP PROFILE PCC NON-STRES S TESTING 77686 [facility] BIOPHYSIC 1 PHYSICIAN JANET AL GROUP PROFILE PCC NON-STRES S TESTING BASIC 80441 [facility] METABOLIC 1 [facility] PANEL INC INC CALCIUM TOTAL BLOOD 87850 [facility] COUNT 1 [facility] COMPLETE INC INC AUTO&AUTO DIFRNTL WBC PROTHROMB 56493 [facility] IN TIME 1 [facility] INC INC FIBRINOGE 37507 [facility] N 1 [facility] ACTIVITY INC INC FIBRIN 05904 [facility] DGRADJ 1 [facility] PRODUCTS INC INC D-DIMER QUAL/SEMI WENDY THROMBOPL 50928 [facility] ASTIN 1 [facility] TIME INC INC PARTIAL PLASMA/[place] [address] [facility] BLOOD/URI 1 [facility] C ACID INC INC TRANSFERA 75588 [facility] SE 1 [facility] ALANINE INC INC AMINO ALT SGPT TRANSFERA 37373 [facility] SE 1 [facility] ASPARTATE INC INC AMINO AST SGOT SMR PRIM 56771 [facility] SRC WET 1 [facility] NFCT AGT PCC US PREG 05658 [facility] UTERUS 1 PHYSICIAN JANET AFTER 1ST GROUP TRIMEST PCC GESTATION BASIC 51235 [facility] F[facility] METABOLIC 1 [facility] PANEL INC INC CALCIUM TOTAL BLOOD 26810 [facility] COMPLETE INC INC AUTO&AUTO DIFRNTL WBC HEPATIC 15449 [facility] FUNCTION 1 [facility] PANEL INC INC GLUCOSE 42309 [facility] POST 1 [facility] [place] [address] [facility] BLOOD/URI 1 [facility] C ACID INC INC THROMBOPL 85515 [facility] ASTIN 1 [facility] TIME INC INC PARTIAL PLASMA/WH OLE BLOOD FIBRIN 71344 [facility] DGRADJ 1 [facility] PRODUCTS INC INC D-DIMER QUAL/SEMI WENDY FIBRINOGE 67823 [facility] N 1 [facility] ACTIVITY INC INC PROTHROMB 53072 [facility] IN TIME 1 [facility] INC INC CULTURE 03227 [facility] F[facility] BACTERIAL 1 [facility] INC INC QUANTTATI VE COLONY COUNT URINE URNLS DIP 34983 [facility]CON 1 [facility] STICK/TAB INC INC LET REAGENT AUTO MICROSCOP Y FTL 69576 TER[facility] AVILAON FIBRONECT 1 [facility] IN INC INC CERVICOVA G SECRETION S SEMI-WENDY 67606 TER[facility] NONSTRESS 1 [facility] TEST INC INC 73776 [facility] BIOPHYSIC 1 [facility] AL INC INC PROFILE W/O NON-STRES S TESTING US PREG 46423 [facility] UTERUS 1 PHYSICIAN JANET AFTER 1ST [place] [address] [facility] ESTRIOL 1 [facility] INC INC GONADOTRO 70857 [facility] PIN 1 [facility] CHORIONIC INC INC QUANTITAT KATE ALPHA-FET 05588 [facility]CNO OPROTEIN 1 [facility] [place] [address] [facility] F[facility] AMYLASE 1 [facility] INC INC PROTHROMB 88834 [facility] F[facility] IN TIME 1 [facility] INC INC FIBRINOGE 91177 [facility] N 1 [facility] ACTIVITY INC INC COMPREHEN 60164 [facility] F[facility] SIVE 1 [facility] [place] [address] [facility] F[facility] LIPASE 1 [facility] INC INC THROMBOPL 54068 [facility] ASTIN 1 [facility] TIME INC INC PARTIAL PLASMA/WH OLE BLOOD BLOOD 11923 [facility] COUNT 1 [facility] COMPLETE INC INC AUTO&[place] [address] [facility] INFUSION 1 [facility] THERAPY/P INC INC ROPHYLAXI S /DX 1ST TO 1 HR URNLS DIP 41675 [facility] STICK/TAB INC INC LET REAGENT AUTO MICROSCOP Y IADNA 34700 BIO BIO HERPES 1 REFERNCE REFERNCE SOMPLX 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 VIRUS IES IES AMPLIFIED PROBE TQ URNLS DIP 34632 [facility] STICK/TAB INC [place] [address] [facility] INFUSION 1 [facility] THERAPY/P INC INC ROPHYLAXI S /DX 1ST TO 1 HR BLOOD 76388 [facility] COUNT 1 [facility] COMPLETE INC INC AUTO&AUTO DIFRNTL WBC COMPREHEN 76384 [facility] SIVE 1 [facility] METABOLIC INC INC PANEL CULTURE 96172 [facility] BACTERIAL 1 [facility] INC INC QUANTTATI VE COLONY COUNT URINE URINALYSI 27267 [facility] S 1 PHYSICIAN JANET MICROSCOP GROUP IC ONLY PCC URINLS 62905 [facility] DIP 1 PHYSICIAN JANET STICK/TAB GROUP LET PCC REAGNT NON-AUTO MICRSCPY US PREG 98716 [facility] UTERUS 0 PHYSICIAN JANET REAL TIME GROUP W/IMAGE PCC DCMTN TRANSVAG IADNA 68080 BIO BIO CHLAMYDIA 0 REFERNCE REFERNCE 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 TRACHOMAT IES IES IS AMPLIFIED PROBE TQ CYTP C/V 33787 BIO BIO AUTO THIN 0 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 SCR IES IES MNL RESCR PHYS IADNA 04536 BIO BIO NEISSERIA 0 REFERNCE REFERNCE 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 GONORRHOE IES IES AE AMPLIFIED PROBE TQ IADNA NOS 35803 BIO BIO 0 REFERNCE REFERNCE AMPLIFIED 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 PROBE TQ IES IES EACH ORGANISM GONADOTRO 32428 [facility] PIN 0 [facility] CHORIONIC INC INC QUANTITAT KATE URINE 65050 [facility] 0 PHYSICIAN JANET TEST GROUP VISUAL PCC COLOR CMPRSN METHS IAADIADOO 94792 ARASH ANTOINE, 0 DON R DON R STREPTOCO CCUS GROUP A SUSCEPTIB 09736 [facility] LTY STDY 0 [facility] ANTIMICRB INC INC IAL MICRO/AGA R DILUTJ URNLS DIP 80337 [facility] STICK/TAB INC INC LET REAGENT AUTO MICROSCOP Y CT LUMBAR 15813 [facility] SPINE 0 [facility] W/O INC INC CONTRAST MATERIAL URINE 89712 [facility] 0 [facility] TEST INC INC VISUAL COLOR CMPRSN METHS CULTURE 71632 [facility] BACTERIAL 0 [facility] INC INC QUANTTATI VE COLONY COUNT URINE CULTURE 44286 [facility] BCT 0 [facility] ISOL&PRSM INC INC PTV ID ISOLATE EA URINE 3D 48823 [facility] RENDERING 0 [facility] INC INC W/INTERP& POSTPROC DIFF WORK STATION COMPREHEN 14919 [facility] SIVE 0 [facility] METABOLIC INC INC PANEL URINE 23593 [facility] 0 [facility] TEST INC INC VISUAL COLOR CMPRSN METHS BLOOD 18365 [facility] COUNT 0 [facility] COMPLETE INC INC AUTO&AUTO DIFRNTL WBC URNLS DIP 10455 [facility] 0 [facility] STICK/TAB INC INC LET REAGENT AUTO MICROSCOP Y INITIAL 44135 [facility] 0 RANDY Kumari ON INTERNAL CARE/DAY MED 30 MINUTES HOSPITAL [id number] [facility] OBSERVATI 0 [facility] ON INC INC SERVICE PER HOUR CUL BACT 38543 [facility] STOOL 0 [employer] ISOL SALMONELL A&SHIGELL CUL BACT 80403 [facility] STOOL 0 [employer] 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 T VISIT HIGH/URGE NT SEVERITY HOSPITAL [facility] - 6 6 [facility] OUTPATIEN [facility] T EMERGENCY 15617 TER[facility] 6 6 [facility] T VISIT MODERATE SEVERITY HOSPITAL [facility] - 6 6 [facility] OUTPATIEN [facility] H[facility]PITAL TERRI[facility] 6 6 [facility] OUTPATIEN [facility] T EMERGENCY 97100 TERRIE 6 6 [facility] T VISIT [facility]IGH/URGE NT SEVERITY HOSPITAL TER[facility] - 6 6 [facility] OUTPATIEN [facility] TERRI[facility] - 6 6 [facility] OFFICE 33608 BETY LAZAR [facility] 6 6 MD [place], T VISIT [facility] 15 MINUTES OFFICE 96713 TERRIE VICENTEEN 6 6 [facility] T [facility]ISIT INC 10 MINUTES HOSPITAL TER[facility]E - 6 6 [facility] OUTPATIEN [facility] T EMERGENCY 21617 EVIE GRANADOS [address] [facility] T VISIT HIGH/URGE NT SEVERITY EMERGENCY 75849 TER[facility]E 6 6 [facility] T VISIT MODERATE SEVERITY HOSPITAL TERRIE - 6 6 [facility] OUTPATIEN [facility] T EMERGENCY 39782 TER[facility]E 6 6 [facility] T VISIT [facility]IGH/URGE NT SEVERITY HOSPITAL TERRIE - 6 6 [facility] OUTPATIEN [facility] HOSPITAL TERRIE - 6 6 [facility] OUTPATIEN [facility] T EMERGENCY 32954 EVIE GRANADOS 6 6 PHYSICIAN [facility] DEPARTMEN [facility] T VISIT HIGH/URGE NT SEVERITY HOSPITAL TERRIE - 6 6 [facility] OUTPATIEN [facility] OFFICE 41615 BETY ABURTO [facility] OUTPATI 6 6 MD [place], T VISIT [facility]SC 15 MINUTES OFFICE 73203 REUBEN TALBERT OUTPATI 6 6 GALI BARRETT JANET T VISIT 25 MINUTES EMERGENCY 93445 EVIE GRANADOS 6 6 PHYSICIAN [facility] T VISIT HIGH/URGE NT SEVERITY HOSPITAL TERRIE - 6 6 [facility] OUTPATIEN [facility] OFFICE 32911 [facility] LEONEL OUTPATIEN 6 6 PHYSICIAN MARTHA T VISIT S GROUP 10 MINUTES EMERGENCY 14799 TERRIE 6 6 [facility] T VISIT HIGH/URGE NT SEVERITY HOSPITAL TERRIE - 6 6 [facility] OUTPATIEN [facility] PERIODIC 50283 REUBEN TALBERT PREVENTIV 5 5 GALI GONZALES E MED EST PATIENT 18-39 YRS HOSPITAL TERRIE - 5 5 [facility] OUTPATIEN [facility] OFFICE 59191 [facility] 5 5 PHYSICIAN EUG T VISIT S GROUP 15 MINUTES HOSPITAL TERRIE - 5 5 [facility] OUTPATIEN [facility] EMERGENCY 96742 EVIE GRANADOS DEPT 5 5 PHYSICIAN MARTHA VISIT [facility] HIGH SEVERITY& THREAT FUNCJ EMERGENCY 79461 TERRIE 5 5 [facility] DEPARTMEN [facility] T VISIT HIGH/URGE NT SEVERITY OFFICE 90063 REUBEN TALBERT OUTPATIEN 5 5 GALI GONZALES T VISIT 15 MINUTES HOSPITAL [facility]E - 5 5 [facility] OUTPATIEN INC T OFFICE 44857 BETY GARCIA OUTPATIRON 5 5 MD [place], T VISIT [facility] 10 MINUTES EMERGENCY 36246 TERRIE 5 5 [facility] DEPARTMEN INC T VISIT HIGH/URGE NT SEVERITY HOSPITAL TER[facility]E - 5 5 [facility] OUTPATIEN INC T OFFICE 78815 TER[facility] OUTPATIEN 5 5 [facility] T VISIT INC 10 MINUTES HOSPITAL TER[facility]E - 5 5 [facility] OUTPATIEN INC T EMERGENCY 71931 EVIE GRANADOS 5 5 PHYSICIAN MARTHA DEPARTMEN S, [facility] T VISIT HIGH/URGE NT SEVERITY HOSPITAL TERRIE - 5 5 [facility] OUTPATIEN INC T EMERGENCY 32423 EVIE GRANADOS 5 5 PHYSICIAN MARTHA DEPARTMEN S, [facility] T VISIT HIGH/URGE NT SEVERITY HOSPITAL TERRIE - 5 5 [facility] OUTPATIEN INC T EMERGENCY 40069 EVIE GRANADOS DEPT 5 5 PHYSICIAN MARTHA VISIT S, [facility] HIGH SEVERITY& THREAT FUN HOSPITAL TERRIE - 5 5 [facility] OUTPATIEN INC T OFFICE 87638 MANJINDER PITT BUX ANJ OUTPATIEN 5 5 T VISIT 10 MINUTES HOSPITAL TERRIE - 5 5 [facility] OUTPATIEN INC T OFFICE 06756 TER[facility] OUTPATIEN 5 5 [facility] T VISIT INC 10 MINUTES OFFICE 33147 MANJINDER CHAPMANX BUX ANJ OUTPATIEN 5 5 T NEW 30 MINUTES HOSPITAL TERRIE - 5 5 [facility] OUTPATIEN INC T HOSPITAL TER[facility] - 5 5 [facility] OUTPATIEN INC T OFFICE 29337 [facility] LEONEL OUTPATIEN 5 5 PHYSICIAN MARTHA T VISIT S GROUP 10 MINUTES HOSPITAL TERRIE - 5 5 [facility] OUTPATIEN INC T OFFICE 75800 [facility] LEONEL OUTPATIEN 5 5 PHYSICIAN MARTHA T VISIT S GROUP 10 MINUTES HOSPITAL TERRIE - 5 5 [facility] OUTPATIEN INC T OFFICE 10730 [facility] LEONEL OUTPATIEN 5 5 PHYSICIAN MARTHA T VISIT S GROUP 10 MINUTES OFFICE 48348 [facility] LEONEL OUTPATIEN 4 4 PHYSICIAN MARTHA T VISIT S GROUP 10 MINUTES [facility] TERRIE - 4 4 [facility] OUTPATIEN [facility] TERRIE - 4 4 [facility] OUTPATIEN [facility] TERRIE - 4 4 [facility]PATIEN [facility] TERRIE - 4 4 [facility] OUTPATIEN [facility] T OFFICE 77142 [facility] LEONEL OUTPATIEN 4 4 PHYSICIAN MARTHA T VISIT S GROUP 10 MINUTES [facility] TERRIE - 4 4 [facility] OUTPATIEN INC PERIODIC 28875 REUBEN TALBERT PREVENTIV 4 4 GALI BARRETT JANET E MED EST PATIENT 18-39 YRS OFFICE 84994 [facility] SCHULSTAD OUTPATIEN 4 4 PHYSICIAN CAM T VISIT S GROUP 15 MINUTES HOSPITAL TERRIE - 4 4 [facility] OUTPATIEN [facility] HOSPITAL TERRIE - 4 4 [facility] OUTPATIEN INC T OFFICE 19641 [facility] LEONEL OUTPATIEN 4 4 PHYSICIAN MARTHA T VISIT S GROUP 10 MINUTES EMERGENCY 66789 [facility] LEONEL 4 4 MARTHA MARTHA DEPARTMEN T VISIT HIGH/URGE NT SEVERITY EMERGENCY 46632 UNIVERSIT 4 4 Y [facility] T VISIT LOW/MODER SEVERITY EMERGENCY 68634 HAL HONG 4 4 I ALI Rosa ZUNIGA [facility] T VISIT MODERATE SEVERITY HOSPITAL UNIVERSIT - 4 4 Y [facility] OFFICE 31714 SAMAN DAVISON OUTPATIEN 4 4 FRA FRA T NEW 45 MINUTES OFFICE 75584 LEONEL GRANADOS OUTPATIEN 4 4 MARTHA MARTHA T VISIT 10 MINUTES EMERGENCY 05813 LEONEL GRANADOS 4 4 MARTHA MARTHA [facility] T VISIT HIGH/URGE NT SEVERITY OFFICE 89555 LEONEL GRANADOS OUTPATIEN 4 4 MARTHA MARTHA T VISIT 10 MINUTES HOSPITAL TER[facility] - 4 4 [facility] H[facility] TER[facility]E - 4 4 [facility] Emergency RADHA Granados MD (ER) 3 20:53 3 21:55 [facility] TERRIE - 3 3 [facility] OFFICE 17897 [facility] 3 3 ANT ANT T VISIT 15 MINUTES Emergency RADHA Granados MD (ER) 3 21:48 3 22:43 [facility] EMERGENCY 94004 LEONEL GRANADOS DEPT 3 3 MARTHA MARTHA VISIT HIGH SEVERITY& THREAT FUNCJ PERIODIC 69932 [facility] PREVENTIV 3 3 JANET JANET E MED EST PATIENT 18-39 YRS OFFICE 44068 [facility] OUTPATIEN 3 3 PHYSICIAN T VISIT S GROUP 15 MINUTES HOSPITAL TERRIE - 3 3 [facility] OUTPATIEN [facility] HOSPITAL TERRIE - 3 3 [facility] OUTPATIEN [facility] T OFFICE 76990 ANTOINE ANTOINE OUTPATIEN 3 3 DON DON T VISIT 15 MINUTES OFFICE 53433 ANTOINE ANTOINE OUTPATIEN 3 3 DON DON T VISIT 15 MINUTES Emergency RADHA Granados MD (ER) 3 22:14 3 22:24 [facility] EMERGENCY 46909 TERRIE 3 3 [facility] DEPARTMEN [facility] T VISIT LOW/MODER SEVERITY EMERGENCY 25283 LEONEL GRANADOS 3 3 [facility] DEPARTMEN T VISIT HIGH/URGE NT SEVERITY HOSPITAL TERRIE - 3 3 [facility] OUTPATIEN [facility] H[facility]PITAL TERRIE - 3 3 [facility] OUTPATIEN [facility] H[facility]PITAL TERRIE [facility] 3 3 [facility] OUTPATIEN [facility] OFFICE 51127 [facility] OUTPATIEN 3 3 JANET JANET T VISIT 15 MINUTES OFFICE 45558 [facility] OUTPATIEN 3 3 JANET JANET T VISIT 15 MINUTES HOSPITAL TERRIE - 3 3 [facility] OUT[facility]IEN [facility] OFFICE 33164 ANTOINE ANTOINE OUTPATIEN 3 3 DON DON T VISIT 25 MINUTES OFFICE 96387 ANTOINE ANTOINE OUTPATIEN 3 3 DON DON T VISIT 15 MINUTES OFFICE 53342 [facility] OUTPATIEN 2 2 STORM STORM T VISIT 15 MINUTES HOSPITAL TERRIE - 2 2 [facility] OUTPATIEN [facility] T OFFICE 34691 ANTOINE ANTOINE OUTPATIEN 2 2 DON DON T VISIT 15 MINUTES OFFICE 36513 [facility] OUTPATIEN 2 2 STORM STORM T NEW 30 MINUTES HOSPITAL TERRIE - 2 2 [facility] OUTPATIEN [facility] TERRIE - 2 2 [facility]PATIEN [facility] TERRIE - 2 2 [facility]PATIEN [facility] HOSPITAL TERRIE - 2 2 [facility] OUTPATIEN [facility] EMERGENCY 40834 [facility] 2 III JESSIKA III JESSIKA VISIT HIGH SEVERITY& THREAT FUNCJ EMERGENCY 20626 TERRIE 2 2 [facility] T VISIT MODERATE SEVERITY HOSPITAL TERRIE - 2 2 [facility] OUTPATIEN [facility] PERIODIC 46624 [facility] PREVENTIV 2 2 JANET JANET E MED EST PATIENT 18-39 YRS HOSPITAL TERRIE - 2 2 [facility] OUTPATIEN [facility] OFFICE 62263 [facility] OUTPATIEN 2 2 JANET JANET T VISIT 15 MINUTES OFFICE 85134 ANTOINE ANTOINE OUTPATIEN 2 2 DON DON T VISIT 15 MINUTES OFFICE 36350 [facility] OUTPATIEN 2 2 JANET JANET T VISIT 15 MINUTES OFFICE 78718 ANTOINE ANTOINE OUTPATIEN 2 2 DON DON T VISIT 15 MINUTES OFFICE 92919 ANTOINE ANTOINE OUTPATIEN 2 2 DON DON T VISIT 15 MINUTES EMERGENCY 45597 TERRIE 1 1 [facility] T VISIT MODERATE SEVERITY HOSPITAL TERRIE - 1 1 [facility] OUTPATIEN [facility] T EMERGENCY 20884 DIPTI GRANADOS 1 1 EMERGENCY [facility] SERVICES T VISIT HIGH/URGE NT SEVERITY EMERGENCY 99725 NAIZA 1 1 [facility] T VISIT MODERATE SEVERITY HOSPITAL [place] - 1 1 [facility] T EMERGENCY 89143 TERRIE 1 1 [facility] DEPARTMEN INC T VISIT MODERATE SEVERITY HOSPITAL TER[facility]E - 1 1 [facility] OUTPATIEN INC T EMERGENCY 72081 DIPTI GRANADOS 1 1 EMERGENC[facility] T VISIT HIGH/URGE NT SEVERITY OFFICE 74576 Carol ADKINS OUTPATIEN 1 1 JED BYRD T VISIT [facility] 10 MINUTES HOSPITAL TER[facility]E - 1 1 [facility] OUTPATIEN INC T OFFICE 64436 Carol ADKINS OUTPATIEN 1 1 JED Clayton VISIT [facility] 25 MINUTES HOSPITAL TERRIE - 1 1 [facility] OUTPATIEN INC T OFFICE 88194 ARASH ANTOINE OUTPATIEN 1 1 DON DON T VISIT 25 MINUTES OFFICE 43242 [facility] HARPEL OUTPATIEN 1 1 PHYSICIAN JANET T VISIT GROUP 15 PCC MINUTES OFFICE 20512 [facility] 1 [facility] PATIENT 40 MIN OFFICE 21411 [facility] HARPEL OUTPATIEN 1 1 PHYSICIAN JANET T VISIT GROUP 15 PCC MINUTES HOSPITAL TER[facility] - 1 1 [facility] OUTPATIEN INC T [facility]OSPITAL [facility] - 1 1 [facility] OUTPATIEN INC T OFFICE 20976 [facility] HARPEL OUTPATIEN 1 1 PHYSICIAN JANET T VISIT GROUP 15 PCC MINUTES HOSPITAL TER[facility] - 1 1 [facility] INPATIENT INC OFFICE 51356 [facility] OUTPATIEN 1 1 PHYSICIAN JANET T VISIT GROUP 15 PCC MINUTES HOSPITAL [facility] - 1 1 [facility] OUTPATIEN INC T OFFICE 02680 H [facility] OUTPATIEN 1 1 PHYSICIAN JANET T VISIT GROUP 15 PCC MINUTES OFFICE 49260 [facility] 1 1 PHYSICIAN JANET T VISIT GROUP 15 PCC MINUTES OFFICE 84436 [facility] OUT[facility] 1 1 PHYSICIAN JANET T VISIT GROUP 15 PCC MINUTES HOSPITAL [facility] - 1 1 [facility] OUTPATIEN INC T OFFICE 42063 H [facility] OUTPATIEN 1 1 PHYSICIAN JANET T VISIT GROUP 15 PCC MINUTES OFFICE 02353 H [facility] OUTPATIEN 1 1 PHYSICIAN JANET T VISIT GROUP 15 PCC MINUTES HOSPITAL [place] [address] 1 [facility] TERRIE - 1 1 [facility] OUTPATIEN INC T OFFICE 35407 H [facility] OUTPATIEN 1 1 PHYSICIAN JANET T VISIT GROUP 15 PCC MINUTES HOSPITAL [facility] - 1 1 [facility] OUTPATIEN INC T OFFICE 54823 H [facility] OUTPATIEN 1 1 PHYSICIAN JANET T VISIT GROUP 15 PCC MINUTES OFFICE 98995 H [facility] OUTPATIEN 1 1 PHYSICIAN JANET T VISIT GROUP 15 PCC MINUTES HOSPITAL [facility] - 1 1 [facility] OUTPATIEN INC T OFFICE 03661 H [facility] OUTPATIEN 1 1 PHYSICIAN JANET T VISIT GROUP 15 PCC MINUTES OFFICE 91650 H [facility] OUTPATIEN 1 1 PHYSICIAN JANET T VISIT GROUP 15 PCC MINUTES HOSPITAL [facility] - 1 1 [facility] OUTPATIEN INC T OFFICE 25748 [facility] OUT[facility] 1 1 [facility] T VISIT GROUP 15 [facility] MINUTES OFFICE 36451 [facility] 1 [facility] T VISIT [facility] 15 [facility] - [facility] T EMERGENCY 07413 [facility] 1 1 [facility] DEPARTMEN [facility] T VISIT MODERATE SEVERITY EMERGENCY 80915 DIPTI COLON DEPT 1 1 EMERGENCY STEWART VISIT SERVICES HIGH SEVERITY& THREAT [facility] - [facility] T OFFICE 94165 [facility] 1 1 [facility] JANET T VISIT GROUP 15 [facility] MINUTES [facility] - [facility] T OFFICE 46518 [facility] 1 1 [facility] JANET T VISIT GROUP 15 P[facility] MINUTES OFFICE 63212 [facility] 1 1 [facility]YSIC[facility] JANET T VISIT GROUP 15 [facility] MINUTES OFFICE 70778 [facility] 1 1 [facility]YSICIAN JANET T VISIT GROUP 15 P[facility] MINUTES [facility]PITAL [facility] - 1 1 [facility] INC T EMERGENCY 71404 [facility] 1 1 [facility] INC T VISIT HIGH/URGE NT SEVERITY EMERGENCY 70345 DIPTI LLOYD DEPT 1 1 EMERGENCY VISIT SERVICES HIGH SEVERITY& THREAT [facility] - [facility] 1 [facility] T OFFICE 19177 [facility] 1 1 [facility]YSICIAN JANET T VISIT GROUP 15 P[facility] MINUTES OFFICE 36607 [facility] 1 1 PHYSICIAN JANET T VISIT GROUP 15 P[facility] MINUTES OFFICE 95429 [facility] 1 1 PHYSICIAN JANET T VISIT GROUP 15 PCC MINUTES EMERGENCY 27677 DIPTI SHIELDS 1 1 EMERGENCY III [facility] DEPARTMEN SERVICES T VISIT HIGH/URGE NT SEVERITY [facility] - [facility] T [facility] - [facility] 1 [facility] T OFFICE 34913 [facility] OUTPATIEN 1 1 PHYSICIAN JANET T VISIT GROUP 15 PCC MINUTES OFFICE 34129 [facility] OUTPATIEN 0 0 PHYSICIAN JANET T VISIT GROUP 15 PCC MINUTES OFFICE 85401 [facility] OUTPATIEN 0 0 PHYSICIAN JANET T VISIT GROUP 40 PCC MINUTES OFFICE 88893 [facility] OUTPATIEN 0 0 PHYSICIAN JANET T VISIT GROUP 15 PCC MINUTES [facility] - 0 0 [facility] INC T EMERGENCY 61613 DIPTI GRANADOS 0 0 EMERGENCY [facility] DEPARTMEN SERVICES T VISIT HIGH/URGE NT SEVERITY EMERGENCY 67894 [facility] 0 0 [facility] DEPARTMEN INC T VISIT LOW/MODER SEVERITY [facility] - 0 0 [facility] OUTPATI[facility] INC T OFFICE 83654 ARASH ANTOINE, OUTPATIEN 0 0 DON R DON R T VISIT 15 MINUTES OFFICE 28888 ARASH ANTOINE, OUTPATIEN 0 0 DON R DON R T VISIT 15 MINUTES EMERGENCY 46143 [facility] 0 0 [facility] DEPART[facility] INC T VISIT LOW/MODER SEVERITY [facility] - 0 0 [facility] T EMERGENCY 84659 DARY WANG 0 0 EMERGENCY [facility] VISIT SERVICES O HIGH SEVERITY& ASSOCIATE THREAT S [facility] EMERGENCY 27429 [facility] 0 0 [facility] DEPARTMEN INC T VISIT HIGH/URGE NT SEVERITY EMERGENCY 46759 DIPTI GRANADOS, MAIRAT 0 0 EMERGENCY [facility] VISIT SERVICES HIGH SEVERITY& ASSOCIATE THREAT S [facility] TERRIE - 0 0 [facility] OUTPATIEN INC T EMERGENCY 16615 DIPTI GRANADOS, 0 0 EMERGENCY [facility] SERVICES T VISIT HIGH/URGE ASSOCIATE NT S SEVERITY [facility] TER[facility]E - 0 0 [facility] OUTPATIEN INC T EMERGENCY 53354 [facility] 0 0 [facility] T VISIT LOW/MODER SEVERITY EMERGENCY 75787 OB GOODE- 0 0 [facility] T VISIT MODERATE SEVERITY
--- OUTSIDE RECORDS SUMMARY | 2017-07-09 11:36 | External Medical Summary Rpt | CCD ---
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 ULTRASOUN D EA 15 MIN APPLICATI 76548 [facility] ON 4 [facility] MODALITY INC INC 1/> AREAS HOT/COLD PACKS APPLICATI 07006 [facility] ON 4 [facility] MODALITY INC INC 1/> AREAS HOT/COLD PACKS APPL 12331 [facility] MODALITY 4 [facility] 1/> AREAS INC INC ULTRASOUN D EA 15 MIN APPL 91823 [facility] MODALITY 4 [facility] 1/> AREAS INC INC ELEC STIMJ UNATTENDE D THERAPEUT 99972 [facility] IC PX 1/> 4 [facility] AREAS INC INC EACH 15 MIN EXERCISES PHYSICAL 21024 [facility] THERAPY 4 [facility] EVALUATIO INC INC N DIAGNOSTI G0206 [place] [facility] C 4 MEDICAL SAM[facility] MAMMOGRAP IMAGING HY INCL ASS CAD WHEN PERF; UNI US BREAST 44124 [place] REAL 4 MEDICAL SAMMI TIME IMAGING W/IMAGE ASS DOCUMENTA TI COMPUTER- 01147 [facility] AIDED 4 [facility] DETECTION INC INC SCREENING MAMMOGRAP HY SCREENING G0202 [facility] 4 [facility] MAMMOGRAP INC INC HY YNANA INCL CAD WHEN PERFORMD INCISION 85116 [facility] SCHULSTAD & REMOVAL 4 PHYSICIAN CAM FOREIGN S GROUP BODY SUBQ TISS SIMPLE BASIC 94713 [facility] METABOLIC 4 [facility] PANEL INC INC CALCIUM TOTAL BLOOD 81311 [facility] COUNT 4 [facility] COMPLETE INC INC AUTO&AUTO DIFRNTL WBC ECG 63706 TER[facility] RIVAS ROUTINE 4 [facility] W/LEAST P 12 LDS I&R ONLY URINE 76294 [facility] AVILAON 4 [facility] TEST INC INC VISUAL COLOR CMPRSN METHS HGB 99489 [facility] T[facility]BERT QUANTITAT 4 GALI GONZALES KATE TRANSCUTA NEOUS CULTURE 88618 [facility] CHLAMYDIA 4 GALI BARRETT JANET ANY SOURCE URINLS 16370 [facility] TAL[facility]ERT DIP 4 GALI BARRETT JANET STICK/TAB LET REAGNT NON-AUTO MICRSCPY IADNA 02021 RE[facility] TAL[facility]ERT NEISSERIA 4 GALI GONZALES GONORRHOE AE DIRECT PROBE TQ RADEX 33926 [facility] FOOT 4 [facility] COMPLETE INC INC MINIMUM 3 VIEWS PHYSICAL 07114 [facility] THERAPY 4 [facility] EVALUATIO INC INC N COMPRE 18955 COLEEN HORNE AUDIOMETR 4 STORM STORM Y THRESHOLD EVAL SP RECOGNIJ TYMPANOME 73119 COLE[facility] HORNE TRY 4 STORM STORM DISTORT 60612 COLEEN RHODESON PRODUCT 4 STORM STORM EVOKED [place] [address] [facility] THYROXINE 4 [facility] TOTAL INC INC COMPREHEN 42269 [facility] SIVE 4 [facility] METABOLIC INC INC PANEL BLOOD 58304 [facility] COUNT 4 [facility] COMPLETE INC INC AUTO&AUTO DIFRNTL WBC HEMOGLOBI 43380 [facility] N 4 [facility] GLYCOSYLA INC INC JOCELINE A1C LIPID 94475 [facility] PANEL 4 [facility] INC INC RADEX 12145 R[facility] RITIKA SPINE 4 SAMMI SAMMI LUMBOSACR AL 2/3 VIEWS RADEX 68401 [facility] SPINE 4 [facility] LUMBOSACR INC INC AL MINIMUM [address] [place] [address] [facility] F[facility] THYROID 4 [facility] STIMULATI [place] [address] [facility] F[facility] THYROID 4 [facility] STIMULATI [place] [address] [facility] FREE 4 [facility] THYROXINE INC INC LIPID 06922 [facility] F[facility] PANEL 3 [facility] INC INC 25 54720 [facility] HYDROXY 3 [facility] INCLUDES INC INC FRACTIONS IF PERFORMED CYANOCOBA 26391 [facility] ADELA 3 [facility] VITAMIN INC INC B-12 CULTURE 88313 HARPEL HARPEL CHLAMYDIA 3 JANET JANET ANY SOURCE HGB 36797 HAR[facility] HAR[facility] QUANTITAT 3 JANET JANET KATE TRANSCUTA NEOUS URINLS 87501 [facility] HAR[facility] DIP 3 JANET JANET STICK/TAB LET REAGNT NON-AUTO MICRSCPY IADNA 86404 [facility] HARPEL NEISSERIA 3 JANET JANET GONORRHOE AE DIRECT PROBE TQ URNLS DIP 05398 [facility] 3 PHYSICIAN PHYSICIAN STICK/TAB S GROUP S GROUP LET RGNT NON-AUTO W/O MICRSCP RADEX 97461 [facility] FINGR 3 [facility] MINIMUM 2 INC INC VIEWS CUL BACT 52076 [facility] XCPT 3 [facility] URINE INC INC BLOOD/STO OL AEROBIC ISOL CUL BACT 70096 [facility] AEROBIC 3 [facility] ADDL INC INC METHS DEFINITIV E EA ISOL INJECTION J0690 ARASH MAHARAJHENS 3 DON DON CEFAZOLIN SODIUM 500 MG INCISION 49583 ANTOINE ANTOINE & 3 DON DON DRAINAGE ABSCESS SIMPLE/SI NGLE SUSCEPTIB 01275 [facility] LTY STDY 3 [facility] ANTIMICRB INC INC IAL MICRO/AGA R DILUTJ THERAPEUT 21408 [facility] IC 3 [facility] PROPHYLAC INC INC TIC/DX INJECTION SUBQ/IM INSJ 61208 [facility] HAR[facility] NON-BIODE 3 JANET JANET GRADABLE DRUG DELIVERY IMPLANT URINE 71260 HARPE[facility] HARPEL 3 JANET JANET TEST VISUAL COLOR CMPRSN METHS ETONOGEST J7307 [facility] HAR[facility] REL 3 JANET JANET CNTRACPT IMPL SYS INCL IMPL & SPL BLOOD 05172 [facility] COUNT 3 [facility] HEMOGLOBI INC INC N DILATION 16243 [facility] HARPE[facility] & 3 JANET JANET CURETTAGE DX&/THER NONOBSTET ZANE LAPS 82730 HAR[facility] HARPE[facility] FULG/EXC 3 JANET JANET OVARY VISCERA/[place] L[place] [address] TAPIA TAPIA SURG 3 [facility] PATHOLOGY GROSS&MARTHA ROSCOPIC EXAM ANESTHESI 73531 [facility] JESSIKA A 3 ANESTH INTRAPERI OF THE TONEAL BLUE LOWER ABD W/LAPS NOS BLOOD 03489 [facility] COUNT 3 [facility] HEMATOCRI INC INC T INJECTION J2405 [facility] 3 [facility] ONDANSETR INC INC ON HCL PER 1 MG BLOOD 59082 [facility] COUNT 3 [facility] COMPLETE INC INC AUTO&AUTO DIFRNTL WBC URNLS DIP 75098 [facility] 3 [facility] STICK/TAB INC INC LET REAGENT AUTO MICROSCOP Y URINE 31571 [facility] 3 [facility] TEST INC [place] [address] [facility] TRANSVAGI 3 [facility] NAL INC INC INJECTION J1080 ARASH ANTOINE 3 DON DON TESTOSTER ONE CYPIONATE 1 CC 200 MG REMOVAL 89105 [facility] HARPE[facility] INTRAUTER 3 JANET JANET INE DEVICE IUD INJECTION J2675 [facility] HARPEL 3 JANET JANET PROGESTER ONE PER 50 MG MICROSOMA 28560 [facility] L 2 [facility] [place] [address] [facility] F[facility] THYROID 2 [facility] STIMULATI [place] [address] [facility] FREE 2 [facility] THYROXINE INC INC INJECTION J0690 ARASH ANTOINE 2 KIRAN BECK CEFAZOLIN SODIUM 500 MG US SOFT 77036 [facility] TISSUE 2 [facility] HEAD & INC INC NECK REAL TIME IMGE DOCM CALCIUM 92543 [facility] IONIZED 2 [place] [address] [facility] F[facility] THYROXINE 2 [facility] TOTAL INC INC CYANOCOBA 45364 [facility] F[facility] ADELA 2 [facility] VITAMIN INC INC B-12 MICROSOMA 10565 [facility] F[facility] L 2 [facility] ANTIBODIE INC INC S EACH THYROID 38120 [facility] F[facility] HORM 2 [facility] UPTK/THYR INC [place] [address] [facility] FREE 2 [facility] [place] [address] [facility] F[facility] THYROID 2 [facility] STIMULATI INC INC NG HORMONE TSH CALCIUM 50871 [facility] F[facility] TOTAL 2 [facility] INC INC GONADOTRO 56084 [facility] F[facility] PIN 2 [facility] [place] [address] TER[facility] AVILAON INFUSION 2 [facility] THERAPY/P INC INC ROPHYLAXI S /DX 1ST TO 1 HR THERAPEUT 38710 [facility]E [facility] IC 2 [facility] INJECTION INC INC IV PUSH EACH NEW DRUG URINE 06834 TER[facility] TERRIE 2 [facility] TEST INC [place] [address] [facility] AVILAON INFUSION 2 [facility] THERAPY/P INC INC ROPHYLAXI S /DX 1ST TO 1 HR EGD 16108 [facility] TRANSORAL 2 [facility] BIOPSY INC INC SINGLE/MU LTIPLE SPECIAL 30936 BELLA BAEZ VAN STAIN 2 GROUP 1 MICROORGA NISMS I&R SPCL STN 05672 BELLA JAMIL 2 I&R 2 EXCPT MICROORG/ ENZYME/[place] [address] TERRIE TERRIE INFUSION 2 [facility] THERAPY INC [place] [address] BELLA JAMIL SURG 2 PATHOLOGY GROSS&MARTHA ROSCOPIC EXAM IADNA 97289 HARPEL HARPEL NEISSERIA 2 JANET JANET [place] [address] [facility] F[facility] THYROID 2 [facility] STIMULATI INC INC NG HORMONE TSH CULTURE 71465 HAR[facility] HARPEL CHLAMYDIA 2 JANET JANET ANY SOURCE HGB 92578 HAR[facility] HARPEL QUANTITAT 2 JANET JANET KATE TRANSCUTA NEOUS SMR PRIM 94658 [facility] HARPEL SRC WET 2 JANET JANET MOUNT NFCT AGT URINLS 09477 HAR[facility] HARPEL DIP 2 JANET JANET STICK/TAB LET REAGNT NON-AUTO MICRSCPY SMR PRIM 23077 HAR[facility] HARPEL SRC WET 2 [place] [address] [facility] INFUSION 1 [facility] THERAPY INC INC PROPHYLAX IS/DX EA HOUR ANOSCOPY 64482 [facility] CONTROL 1 [facility] BLEEDING INC INC ANESTHESI 63935 [facility] A 1 ANESTH ANORECTAL OF THE BLUE PROCEDURE CONTROL 4995 [facility] F[facility]CON OF 1 [facility] HEMORRHAG INC INC E OF ANUS GONADOTRO 70934 [facility] PIN 1 [facility] CHORIONIC INC INC QUALITATI VE BLOOD 38045 [facility] COUNT 1 [facility] COMPLETE INC INC AUTO&AUTO DIFRNTL WBC CYTP C/V 62806 BIO BIO AUTO THIN 1 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 SCR IES IES MNL RESCR PHYS INSERTION 75429 [facility]ST[facility] 1 [facility] DEVICE IUD URINE 42368 [facility] 1 [facility] TEST CLINIC OF VISUAL [facility]SHLEY COLOR CMPRSN METHS INTRAUTER J7300 [facility] INE 1 [facility]ALTH [facility] COPPER CLINIC OF CONTRACEP ASHLEY TIVE OT LOCAL 4939 [facility] 1 [facility] EXCISION/ INC INC DESTRUC LESION/TI SSUE ANUS LEVEL III 60628 [facility] WANDA PAT SURG 1 [facility] & PATHOLOGY DUBILIER GROSS&MARTHA ROSCOPIC EXAM EXCISION 4946 [facility] OF 1 [facility] HEMORRHOI INC INC DS EXC 81948 [facility] THROMBOSE 1 [facility] D INC INC HEMORRHOI D XTRNL DSTRJ 98385 [facility] LESION 1 [facility] ANUS SMPL INC INC ELTRDSICC ATION ANESTHESI 23551 [facility] 1 ANESTH ROWENA ANORECTAL OF THE BLUE PROCEDURE HEMORRHOI 32820 C BRENDAN ADKINS DECTOMY 1 JED BYRD NTRPENNY & PSC XTRNL 1 COLUMN/[place] [address] [facility] INFUSION 1 [facility] THERAPY INC INC PROPHYLAX IS/DX EA HOUR GONADOTRO 44497 [facility] PIN 1 [facility] CHORIONIC INC INC QUALITATI VE BLOOD 84596 [facility] COUNT 1 [facility] COMPLETE INC INC AUTO&AUTO DIFRNTL [facility] 11112 [facility] DISCHARGE 1 PHYSICIAN JANET DAY GROUP MANAGEMEN PCC T 30 MIN/< SBSQ 55091 [facility] 1 PHYSICIAN JANET CARE/DAY GROUP 35 PCC MINUTES SUBQ 74048 [facility] 1 CARE CESAR CARE PER ASSOCIATE DAY E/M S NORMAL CIRCUMCIS 01757 [facility] 1 CARE CESAR W/CLAMP/O ASSOCIATE TH DEV S W/BLOCK SBSQ 69431 [facility] 1 PHYSICIAN JANET CARE/DAY GROUP 35 PCC MINUTES SUBQ 49130 [facility] 1 CARE CESAR CARE PER ASSOCIATE DAY E/M S NORMAL LOW 741 [facility] CERVICAL 1 [facility] INC INC SECTION OTHER 6829 [facility] EXCISION 1 [facility] OR INC INC DESTRUCTI ON LESION UTERUS ANESTHESI 80809 [facility] A 1 ANESTH OF THE DELIVERY BLUE ONLY 1ST 50554 [facility] 1 CARE CESAR [facility] [place] [address] [facility] DELIVERY 1 PHYSICIAN JANET ONLY GROUP PCC INITIAL 92706 [facility] 1 PHYSICIAN JANET CARE/DAY GROUP 70 PCC MINUTES OBSERVATI 76084 [facility] HARPEL ON/INPATI 1 PHYSICIAN JANET ENT [facility] PCC CARE 55 MINUTES OBSERVATI 39658 [facility] HARPEL ON/INPATI 1 PHYSICIAN JANET ENT [facility] PCC CARE 55 MINUTES 79436 [facility] BIOPHYSIC 1 PHYSICIAN JANET AL GROUP PROFILE PCC NON-STRES S TESTING 05116 [facility] JANET TEST GROUP PCC PARTICLE 39231 [facility] AGGLUTINA 1 [facility] TION INC INC SCREEN EACH ANTIBODY DOPPLER 06122 [facility]UAN ECHO 1 [facility] HIGH RISK PULS O SPECTRAL F/U/REPEA T 06084 [facility] YESSICA BIOPHYSIC 1 [facility] AL HIGH RISK PROFILE O W/O NON-STRES S TESTING 22074 [facility] PHYSICIAN JANET TEST GROUP PCC 05832 [facility] NONSTRESS 1 [facility] TEST INC INC THERAPEUT 04497 [facility] F[facility] IC 1 [facility] INJECTION INC INC IV PUSH EACH NEW DRUG BASIC 81658 [facility] METABOLIC 1 [facility] PANEL INC INC CALCIUM TOTAL URNLS DIP 32192 [facility] 1 [facility] STICK/TAB INC [place] [address] [facility] INFUSION 1 [facility] THERAPY/P INC INC ROPHYLAXI S /DX 1ST TO 1 HR BLOOD 12837 [facility] COUNT 1 [facility] COMPLETE INC INC AUTO&AUTO DIFRNTL WBC ANTIBODY 95747 [facility] SCREEN 1 [facility] RBC EACH INC INC SERUM TECHNIQUE BLOOD 17866 [facility] TYPING 1 [facility] SEROLOGIC INC INC ABO FIBRIN 55304 [facility] DGRADJ 1 [facility] PRODUCTS INC INC D-DIMER QUAL/[place] [address] [facility] MAGNESIUM 1 [facility] INC INC FIBRINOGE 46907 [facility] F[facility] N 1 [facility] ACTIVITY INC INC PROTHROMB 11020 [facility] IN TIME 1 [facility] INC INC BLOOD 89338 [facility] TYPING 1 [facility] SEROLOGIC [place] RH (D) [place] [address] [facility] BLOOD/URI 1 [facility] C ACID INC INC THROMBOPL 73228 [facility] ASTIN 1 [facility] TIME INC INC PARTIAL PLASMA/WH OLE BLOOD TRANSFERA 80666 [facility] SE 1 [facility] ASPARTATE INC INC AMINO AST SGOT TRANSFERA 42167 [facility] SE 1 [facility] ALANINE INC INC AMINO ALT SGPT URNLS DIP 26515 [facility] JUAN 1 [facility] STICK/TAB HIGH RISK LET RGNT O NON-AUTO W/O MICRSCP DOPPLER 51461 [facility] ECHO 1 [facility] HIGH RISK PULS O SPECTRAL F/U/REPEA T 24365 [facility] BIOPHYSIC 1 [facility] AL HIGH RISK PROFILE O W/O NON-STRES S TESTING 98615 [facility] NONSTRESS 1 PHYSICIAN JANET TEST GROUP PCC SMR PRIM 83535 [facility]PEL SRC WET 1 PHYSICIAN JANET MOUNT GROUP NFCT AGT PCC 10681 [facility] BIOPHYSIC 1 [facility] AL HIGH RISK PROFILE O W/O NON-STRES S TESTING US PREG 43409 [facility] UTERUS 1 [place] AFTER 1ST HIGH RISK TRIMEST O 1/ GESTATION 97394 [facility] HARPEL NONSTRESS 1 PHYSICIAN JANET TEST GROUP PCC US PREG 77131 JENSEN JUAN UTERUS 1 [place] AFTER 1ST HIGH RISK TRIMEST O 1/ GESTATION 48242 [facility]HYSIC 1 [facility] HIGH RISK PROFILE O W/O NON-STRES S TESTING COLLECTIO 39015 [facility] N VENOUS 1 [facility] BLOOD VENIPUNCT URE CREATININ 39838 [facility] E 1 [facility] CLEARANCE 94755 [facility] JUAN BIOPHYSIC 1 [facility] [place] AL HIGH RISK PROFILE O W/O NON-STRES S TESTING DOPPLER 36095 [facility] ECHO [facility] HIGH RISK PULS O SPECTRAL F/U/REPEA T PROTEIN 17836 [facility] TOTAL 1 [facility] XCPT REFRACTOM ETRY URINE URNLS DIP 52476 [facility] YESSICA 1 [facility] [place] STICK/TAB HIGH RISK LET RGNT O NON-AUTO W/O MICRSCP THERAPEUT 06633 [facility] IC 1 [facility] PROPHYLAC INC INC TIC/DX INJECTION SUBQ/IM THERAPEUT 77852 [facility] AFLCON IC 1 [facility] PROPHYLAC INC INC TIC/DX INJECTION SUBQ/IM 38770 [facility] NONSTRESS 1 PHYSICIAN JANET TEST GROUP PCC 10869 [facility] BIOPHYSIC 1 PHYSICIAN JANET AL GROUP PROFILE PCC NON-STRES S TESTING 09906 JENSEN JUAN BIOPHYSIC 1 [facility] AL HIGH RISK PROFILE O W/O NON-STRES S TESTING ECHO 44944 [facility] JUAN 1 [facility] [place] CARDIOVAS HIGH RISK C W/WO O M-MODE RECORDING US PREG 01438 CENTRAL YESSICA UTERUS 1 ILAN [place] W/DETAIL HIGH RISK O ANNALISA 1ST GESTATION URNLS DIP 85752 [facility] JUAN 1 [facility] [place] STICK/TAB HIGH RISK LET RGNT O NON-AUTO W/O MICRSCP 88618 [facility] BIOPHYSIC 1 PHYSICIAN JANET AL GROUP PROFILE PCC NON-STRES S TESTING 75301 [facility] BIOPHYSIC 1 PHYSICIAN JANET AL GROUP PROFILE PCC NON-STRES S TESTING BASIC 64612 [facility] METABOLIC 1 [facility] PANEL INC INC CALCIUM TOTAL BLOOD 55298 [facility] COUNT 1 [facility] COMPLETE INC INC AUTO&AUTO DIFRNTL WBC PROTHROMB 29219 [facility] IN TIME 1 [facility] INC INC FIBRINOGE 47742 TER[facility] N 1 [facility] ACTIVITY INC INC FIBRIN 51083 [facility] DGRADJ 1 [facility] PRODUCTS INC INC D-DIMER QUAL/SEMI WENDY THROMBOPL 16452 [facility] ASTIN 1 [facility] TIME INC INC PARTIAL PLASMA/[place] [address] [facility] BLOOD/URI 1 [facility] ACID INC INC TRANSFERA 95236 [facility] SE 1 [facility] ALANINE INC INC AMINO ALT SGPT TRANSFERA 25611 [facility] SE 1 [facility] ASPARTATE INC INC AMINO AST SGOT SMR PRIM 17763 [facility] SRC WET 1 PHYSICIAN JANET MOUNT GROUP NFCT AGT PCC US PREG 77626 [facility] UTERUS 1 PHYSICIAN JANET AFTER 1ST GROUP TRIMEST PCC GESTATION BASIC 08895 [facility] METABOLIC 1 [facility] PANEL INC INC CALCIUM TOTAL BLOOD 13296 [facility] COUNT 1 [facility] COMPLETE INC INC AUTO&AUTO DIFRNTL WBC HEPATIC 32412 [facility] FUNCTION 1 [facility] PANEL INC INC GLUCOSE 04046 [facility] POST 1 [facility] [place] [address] [facility] BLOOD/URI 1 [facility] ACID INC INC THROMBOPL 08427 [facility] ASTIN 1 [facility] TIME INC INC PARTIAL PLASMA/WH OLE BLOOD FIBRIN 76561 [facility] DGRADJ 1 [facility] PRODUCTS INC INC D-DIMER QUAL/SEMI WENDY FIBRINOGE 55289 [facility] N 1 [facility] ACTIVITY INC INC PROTHROMB 03861 [facility] TER[facility] IN TIME 1 [facility] INC INC CULTURE 09039 [facility] BACTERIAL 1 [facility] INC INC QUANTTATI VE COLONY COUNT URINE URNLS DIP 84110 [facility] F[facility]CON 1 [facility] STICK/TAB INC INC LET REAGENT AUTO MICROSCOP Y FTL 10021 TER[facility] AVILAON FIBRONECT 1 [facility] IN INC INC CERVICOVA G SECRETION S SEMI-WENDY 33186 TERRIE TER[facility] NONSTRESS 1 [facility] TEST INC INC 44878 [facility] BIOPHYSIC 1 [facility] AL INC INC PROFILE W/O NON-STRES S TESTING US PREG 62576 [facility] UTERUS 1 PHYSICIAN JANET AFTER 1ST [place] [address] [facility] F[facility] ESTRIOL [facility] [facility] INC INC GONADOTRO 96106 [facility] PIN 1 [facility] CHORIONIC INC INC QUANTITAT KATE ALPHA-FET 49349 [facility] OPROTEIN 1 [facility] [place] [place] [address] [facility] AMYLASE 1 [facility] INC INC PROTHROMB 47221 [facility] IN TIME 1 [facility] INC INC FIBRINOGE 55382 [facility] F[facility] N 1 [facility] ACTIVITY INC INC COMPREHEN 84720 [facility] F[facility] SIVE 1 [facility] [place] [address] [facility] LIPASE 1 [facility] INC THROMBOPL 05683 [facility] ASTIN 1 [facility] TIME INC INC PARTIAL PLASMA/WH OLE BLOOD BLOOD 21300 [facility] COUNT 1 [facility] COMPLETE INC INC AUTO&[place] [address] [facility] INFUSION 1 [facility] THERAPY/P INC INC ROPHYLAXI S /DX 1ST TO 1 HR URNLS DIP 81832 [facility] STICK/TAB INC INC LET REAGENT AUTO MICROSCOP Y IADNA 76147 BIO BIO HERPES 1 REFERNCE REFERNCE SOMPLX 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 VIRUS IES IES AMPLIFIED PROBE TQ URNLS DIP 07422 [facility] STICK/TAB INC [place] [address] [facility] INFUSION 1 [facility] THERAPY/P INC INC ROPHYLAXI S /DX 1ST TO 1 HR BLOOD 11803 [facility] COUNT 1 [facility] COMPLETE INC INC AUTO&AUTO DIFRNTL WBC COMPREHEN 25200 [facility] SIVE 1 [facility] METABOLIC INC INC PANEL CULTURE 06845 [facility] BACTERIAL 1 [facility] INC INC QUANTTATI VE COLONY COUNT URINE URINALYSI 55767 [facility] HARPEL S 1 PHYSICIAN JANET MICROSCOP GROUP IC ONLY PCC URINLS 03763 [facility] DIP 1 PHYSICIAN JANET STICK/TAB GROUP LET PCC REAGNT NON-AUTO MICRSCPY US PREG 23888 [facility] UTERUS 0 PHYSICIAN JANET REAL TIME GROUP W/IMAGE PCC DCMTN TRANSVAG IADNA 28429 BIO BIO CHLAMYDIA 0 REFERNCE REFERNCE 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 TRACHOMAT IES IES IS AMPLIFIED PROBE TQ CYTP C/V 81860 BIO BIO AUTO THIN 0 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 SCR IES IES MNL RESCR PHYS IADNA 61918 BIO BIO NEISSERIA 0 REFERNCE REFERNCE 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 GONORRHOE IES IES AE AMPLIFIED PROBE TQ IADNA NOS 19598 BIO BIO 0 REFERNCE REFERNCE AMPLIFIED 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 PROBE TQ IES IES EACH ORGANISM GONADOTRO 23706 [facility] PIN 0 [facility] CHORIONIC INC INC QUANTITAT KATE URINE 51357 [facility] HARPEL 0 PHYSICIAN JANET TEST GROUP VISUAL PCC COLOR CMPRSN METHS IAADIADOO 58444 ARASH ANTOINE, 0 DON R DON R STREPTOCO CCUS GROUP A SUSCEPTIB 98164 [facility] LTY STDY 0 [facility] ANTIMICRB INC INC IAL MICRO/AGA R DILUTJ URNLS DIP 19850 [facility] STICK/TAB INC INC LET REAGENT AUTO MICROSCOP Y CT LUMBAR 02034 [facility] SPINE 0 [facility] W/O INC INC CONTRAST MATERIAL URINE 15273 [facility] 0 [facility] TEST INC INC VISUAL COLOR CMPRSN METHS CULTURE 46571 [facility] BACTERIAL 0 [facility] INC INC QUANTTATI VE COLONY COUNT URINE CULTURE 59145 [facility] BCT 0 [facility] ISOL&PRSM INC INC PTV ID ISOLATE EA URINE 3D 59823 [facility] RENDERING 0 [facility] INC INC W/INTERP& POSTPROC DIFF WORK STATION COMPREHEN 66166 [facility] SIVE 0 [facility] METABOLIC INC INC PANEL URINE 94038 [facility]CON 0 [facility] TEST INC INC VISUAL COLOR CMPRSN METHS BLOOD 22486 [facility] COUNT 0 [facility] COMPLETE INC INC AUTO&AUTO DIFRNTL WBC URNLS DIP 34883 [facility] 0 [facility] STICK/TAB INC INC LET REAGENT AUTO MICROSCOP Y INITIAL 49975 [facility] 0 RANDY Kumari ON INTERNAL CARE/DAY MED 30 MINUTES HOSPITAL [id number] [facility] OBSERVATI 0 [facility] ON INC INC SERVICE PER HOUR CUL BACT 74807 LAB [facility] STOOL 0 [facility] ISOL SALMONELL A&SHIGELL CUL BACT 16272 [facility] STOOL 0 [facility]ING ADDL PATHOGENS &[place] [address] [facility] CLOSTRIDI 0 [facility]IC [employer] [place] [address] [facility] SHIGA-LIK 0 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 - 6 6 [facility] OUTPATIEN [facility] T EMERGENCY 46279 [facility] 6 6 [facility] T VISIT HIGH/URGE NT SEVERITY HOSPITAL [facility] - 6 6 [facility] H[facility]PITAL TER[facility] - 6 6 [facility] OUT[facility] OFFICE 44121 [facility] 6 6 MD [place], T VISIT [facility] 15 MINUTES OFFICE 24411 TER[facility] VICENTEEN 6 6 [facility] T VISIT INC 10 MINUTES HOSPITAL [facility] - 6 6 [facility] OUTPATIEN [facility] T EMERGENCY 84329 EVIE GRANADOS 6 6 PHYSICIAN [facility] T VISIT HIGH/URGE NT SEVERITY EMERGENCY 63173 [facility] 6 6 [facility] T VISIT MODERATE SEVERITY HOSPITAL [facility] - 6 6 [facility] OUTPATIEN [facility] T EMERGENCY 34965 [facility] 6 6 [facility] T VISIT HIGH/URGE NT SEVERITY HOSPITAL TER[facility] - 6 6 [facility] H[facility]PITAL TER[facility] - 6 6 [facility] OUTPATIEN [facility] T EMERGENCY 27346 EVIE GRANADOS 6 6 PHYSICIAN [facility] DE[facility] T VISIT HIGH/URGE NT SEVERITY HOSPITAL TER[facility] - 6 6 [facility] OUT[facility] OFFICE 63665 BETY ABURTO [facility] OUTPATI 6 6 MD [place], T VISIT [facility] 15 MINUTES OFFICE 82652 REUBEN TALBERT OUTPATI 6 6 GALI BARRETT JANET T VISIT 25 MINUTES EMERGENCY 62349 EVIE GRANADOS 6 6 PHYSICIAN [facility] T VISIT HIGH/URGE NT SEVERITY HOSPITAL TER[facility] - 6 6 [facility] OFFICE 27022 [facility] LEONEL OUTPATIEN 6 6 PHYSICIAN MARTHA T VISIT S GROUP 10 MINUTES EMERGENCY 28676 TER[facility] 6 6 [facility] T VISIT HIGH/URGE NT SEVERITY HOSPITAL TER[facility] - 6 6 [facility] PERIODIC 95192 REUBEN TALBERT PREVENTIV 5 5 GALI GONZALES E MED EST PATIENT 18-39 YRS HOSPITAL TERRIE - 5 5 [facility] OFFICE 93214 [facility] 5 5 PHYSICIAN EUG T VISIT S GROUP 15 MINUTES HOSPITAL TER[facility] - 5 5 [facility] EMERGENCY 61037 EVIE GRANADOS DEPT 5 5 PHYSICIAN MARTHA VISIT [facility] HIGH SEVERITY& THREAT FUNCJ EMERGENCY 10516 TERRIE 5 5 [facility] DEPARTMEN [facility] T VISIT HIGH/URGE NT SEVERITY OFFICE 97988 REUBEN TALBERT OUTPATIEN 5 5 GALI GONZALES T VISIT 15 MINUTES HOSPITAL TER[facility] - 5 5 [facility] OUTPATIEN INC T OFFICE 60458 BETY GARCIA OUTPATIRON 5 5 MD [place], T VISIT [facility] 10 MINUTES EMERGENCY 68332 TERRIE 5 5 [facility] DEPARTMEN INC T VISIT HIGH/URGE NT SEVERITY HOSPITAL [facility] - 5 5 [facility] OUTPATIEN INC T OFFICE 67012 [facility] OUTPATIEN 5 5 [facility] T VISIT INC 10 MINUTES HOSPITAL TER[facility] - 5 5 [facility] OUTPATIEN INC T EMERGENCY 65465 EVIE GRANADOS 5 5 PHYSICIAN MARTHA DEPARTMEN S, [facility] T VISIT HIGH/URGE NT SEVERITY HOSPITAL TER[facility]E - 5 5 [facility] OUTPATIEN INC T EMERGENCY 14182 EVIE GRANADOS 5 5 PHYSICIAN MARTHA DEPARTMEN S, [facility] T VISIT HIGH/URGE NT SEVERITY HOSPITAL TER[facility]E - 5 5 [facility] OUTPATIEN INC T EMERGENCY 44820 EVIE GRANADOS DEPT 5 5 PHYSICIAN MARTHA VISIT S, [facility] HIGH SEVERITY& THREAT [facility] - 5 5 [facility] OUTPATIEN INC T OFFICE 44053 MANJINDER PITT BUX ANJ OUTPATIEN 5 5 T VISIT 10 MINUTES HOSPITAL TER[facility]E - 5 5 [facility] OUTPATIEN INC T OFFICE 97849 TER[facility] OUTPATIEN 5 5 [facility] T VISIT INC 10 MINUTES OFFICE 81707 MANJINDER CHAPMANX BUX ANJ OUTPATIEN 5 5 T NEW 30 MINUTES HOSPITAL TERRIE - 5 5 [facility] OUTPATIEN INC T HOSPITAL [facility] - 5 5 [facility] OUTPATIEN INC T OFFICE 43273 [facility] LEONEL OUTPATIEN 5 5 PHYSICIAN MARTAH T VISIT S GROUP 10 MINUTES HOSPITAL TERRIE - 5 5 [facility] OUTPATIEN INC T OFFICE 31234 [facility] LEONEL OUTPATIEN 5 5 PHYSICIAN MARTHA T VISIT S GROUP 10 MINUTES HOSPITAL TER[facility]E - 5 5 [facility] OUTPATIEN INC T OFFICE 44395 [facility] LEONEL OUTPATIEN 5 5 PHYSICIAN MARTHA T VISIT S GROUP 10 MINUTES OFFICE 76384 [facility] LEONEL OUTPATIEN 4 4 PHYSICIAN MARTHA T VISIT S GROUP 10 MINUTES [facility] TERRIE - 4 4 [facility] TERRIE - 4 4 [facility] - 4 4 [facility] TER[facility] - 4 4 [facility] T OFFICE 86838 [facility] LEONEL OUTPATIEN 4 4 PHYSICIAN MARTHA T VISIT S GROUP 10 MINUTES [facility] TERRIE - 4 4 [facility] OUTPATIEN INC PERIODIC 17466 REUBEN TALBERT PREVENTIV 4 4 GALI BARRETT JANET E MED EST PATIENT 18-39 YRS OFFICE 97389 [facility] SCHULSTAD OUTPATIEN 4 4 PHYSICIAN CAM T VISIT S GROUP 15 MINUTES HOSPITAL TERRIE - [address] [facility] HOSPITAL TERRIE - 4 4 [facility] OUTPATIEN INC T OFFICE 27949 [facility] LEONEL OUTPATIEN 4 4 PHYSICIAN MARTHA T VISIT S GROUP 10 MINUTES EMERGENCY 16785 [facility] LEONEL 4 4 MARTHA MARTHA DEPARTMEN T VISIT HIGH/URGE NT SEVERITY EMERGENCY 80646 UNIVERSIT 4 4 Y [facility] HOSPITAL T VISIT LOW/MODER SEVERITY EMERGENCY 33970 HAL HONG 4 4 I ALI Rosa ZUNIGA [facility] T VISIT MODERATE SEVERITY HOSPITAL UNIVERSIT - 4 4 Y [facility] OFFICE 33223 SAMAN DAVISON OUTPATIEN 4 4 FRA FRA T NEW 45 MINUTES OFFICE 52633 LEONEL GRANADOS OUTPATIEN 4 4 MARTHA MARTHA T VISIT 10 MINUTES EMERGENCY 80426 LEONEL GRANADOS 4 4 MARTHA MARTHA [facility] T VISIT HIGH/URGE NT SEVERITY OFFICE 15679 LEONEL GRANADOS OUTPATIEN 4 4 MARTHA MARTHA T VISIT 10 MINUTES HOSPITAL TER[facility] - 4 4 [facility] TERRIE - 4 4 [facility] Emergency RADHA Granados MD (ER) 3 20:53 3 21:55 [facility] TERRIE - 3 3 [facility] OFF[facility] 04155 [facility] 3 3 ANT ANT T VISIT 15 MINUTES Emergency RADHA Granados MD (ER) 3 21:48 3 22:43 [facility] EMERGENCY 52230 LEONEL GRANADOS DEPT 3 3 MARTHA MARTHA VISIT HIGH SEVERITY& THREAT FUNCJ PERIODIC 44135 [facility] PREVENTIV 3 3 JANET JANET E MED EST PATIENT 18-39 YRS OFFICE 67601 [facility] OUTPATIEN 3 3 PHYSICIAN T VISIT S GROUP 15 MINUTES HOSPITAL TER[facility] - 3 3 [facility] H[facility]PITAL TERRIE - 3 3 [facility] T OFFICE 51615 ANTOINE ANTOINE OUTPATIEN 3 3 DON DON T VISIT 15 MINUTES OFFICE 43548 ANTOINE ANTOINE OUTPATIEN 3 3 DON DON T VISIT 15 MINUTES Emergency RADHA Granados MD (ER) 3 22:14 3 22:24 [facility] EMERGENCY 93768 TERRIE 3 3 [facility] DEPARTMEN [facility] T VISIT LOW/MODER SEVERITY EMERGENCY 71349 LEONEL GRANADOS 3 3 [facility] DEPARTMEN T VISIT HIGH/URGE NT SEVERITY HOSPITAL TERRIE - 3 3 [facility] OUT[facility] HOSPITAL TERRIE [facility] 3 3 [facility] H[facility]PITAL TERRIE - 3 3 [facility] OUT[facility] OFFICE 82094 HARPE[facility] HARPEL OUTPATIEN 3 3 JANET JANET T VISIT 15 MINUTES OFFICE 09161 [facility] OUTPATIEN 3 3 JANET JANET T VISIT 15 MINUTES HOSPITAL TER[facility] - 3 3 [facility] OFFICE 78355 ANTOINE ANTOINE OUTPATIEN 3 3 DON DON T VISIT 25 MINUTES OFFICE 39786 ANTOINE ANTOINE OUTPATIEN 3 3 DON DON T VISIT 15 MINUTES OFFICE 79657 HORNE HORNE OUTPATIEN 2 2 STORM STORM T VISIT 15 MINUTES HOSPITAL TERRIE - 2 2 [facility] OUTPAT[facility] T OFFICE 82597 ANTOINE ANTOINE OUTPATIEN 2 2 DON DON T VISIT 15 MINUTES OFFICE 38340 [facility] HORNE OUTPATIEN 2 2 STORM STORM T NEW 30 MINUTES HOSPITAL TER[facility]E - 2 2 [facility] - 2 2 [facility] - 2 2 [facility] TER[facility] - 2 2 [facility] OUT[facility] EMERGENCY 21889 [facility] 2 III JESSIKA III JESSIKA VISIT HIGH SEVERITY& THREAT FUNCJ EMERGENCY 69426 TERRIE 2 2 [facility] T VISIT MODERATE SEVERITY HOSPITAL TERRIE - 2 2 [facility] PERIODIC 52552 HARPEL HARPEL PREVENTIV 2 2 JANET JANET E MED EST PATIENT 18-39 YRS HOSPITAL TER[facility]E - 2 2 [facility] OUT[facility] OFFICE 78333 HARPEL HARPEL OUTPATIEN 2 2 JANET JANET T VISIT 15 MINUTES OFFICE 68003 ANTOINE ANTOINE OUTPATIEN 2 2 DON DON T VISIT 15 MINUTES OFFICE 76815 [facility] HARPEL OUTPATIEN 2 2 JANET JANET T VISIT 15 MINUTES OFFICE 56604 ANTOINE ANTOINE OUTPATIEN 2 2 DON DON T VISIT 15 MINUTES OFFICE 83829 ANTOINE ANTOINE OUTPATIEN 2 2 DON DON T VISIT 15 MINUTES EMERGENCY 48951 TER[facility]E 1 1 [facility] T VISIT MODERATE SEVERITY HOSPITAL [facility] - 1 1 [facility] OUTPAT[facility]EN [facility] T EMERGENCY 50526 DIPTI GRANADOS [address] [facility] T VISIT HIGH/URGE NT SEVERITY EMERGENCY 29198 NAZIA 1 1 [facility] T VISIT MODERATE SEVERITY [facility] [place] - 1 1 [facility] T EMERGENCY 55642 TERRIE 1 1 [facility] DEPARTMEN INC T VISIT MODERATE SEVERITY HOSPITAL [facility] - 1 1 [facility] OUTPATIEN INC T EMERGENCY 50803 DIPTI GRANADOS 1 1 EMERGENCY [facility] T VISIT HIGH/URGE NT SEVERITY OFFICE 81528 Carol ADKINS OUTPATIEN 1 1 JED BYRD T VISIT [facility] 10 MINUTES HOSPITAL TER[facility]E - 1 1 [facility] OUTPATIEN INC T OFFICE 51192 Carol ADKINS OUTPATIEN 1 1 JED Clayton VISIT [facility] 25 MINUTES HOSPITAL TERRIE - 1 1 [facility] OUTPATI[facility] INC T OFFICE 55083 ARASH ANTOINE OUTPATIEN 1 1 DON DON T VISIT 25 MINUTES OFFICE 28735 [facility] HARPEL OUTPATIEN 1 1 PHYSICIAN JANET T VISIT GROUP 15 PCC MINUTES OFFICE 94381 [facility] 1 1 [facility] PATIENT 40 MIN OFFICE 89172 [facility] HARPEL OUTPATIEN 1 1 PHYSICIAN JANET T VISIT GROUP 15 PCC MINUTES HOSPITAL [facility] - 1 1 [facility]EN INC T [facility] - 1 1 [facility] OUT[facility]EN INC T OFFICE 40142 [facility] HARPEL OUTPATIEN 1 1 PHYSICIAN JANET T VISIT GROUP 15 PCC MINUTES HOSPITAL [facility] - 1 1 [facility] INPATIENT INC OFFICE 27778 [facility] HARPEL OUTPATIEN 1 1 PHYSICIAN JANET T VISIT GROUP 15 PCC MINUTES HOSPITAL [facility] - 1 1 [facility] OUTPATIEN INC T OFFICE 94644 H HARPEL OUTPATIEN 1 1 PHYSICIAN JANET T VISIT GROUP 15 PCC MINUTES OFFICE 03117 [facility] 1 1 PHYSICIAN JANET T VISIT GROUP 15 PCC MINUTES OFFICE 68982 [facility] OUTPATIEN 1 1 PHYSICIAN JANET T VISIT GROUP 15 PCC MINUTES HOSPITAL [facility] - 1 1 [facility] OUTPATIEN INC T OFFICE 15382 H HARPEL OUTPATIEN 1 1 PHYSICIAN JANET T VISIT GROUP 15 PCC MINUTES OFFICE 46774 H [facility]PE[facility] OUTPATIEN 1 1 PHYSICIAN JANET T VISIT GROUP 15 PCC MINUTES [facility] [place] 06139 1 [facility] TERRIE - 1 1 [facility] OUTPATIEN INC T OFFICE 12492 H HARPEL OUTPATIEN 1 1 PHYSICIAN JANET T VISIT GROUP 15 PCC MINUTES HOSPITAL [facility] - 1 1 [facility] OUTPATIEN INC T OFFICE 64938 H HARPEL OUTPATIEN 1 1 PHYSICIAN JANET T VISIT GROUP 15 PCC MINUTES OFFICE 12322 H [facility] OUTPATIEN 1 1 PHYSICIAN JANET T VISIT GROUP 15 PCC MINUTES HOSPITAL [facility] - 1 1 [facility] OUTPATIEN INC T OFFICE 22560 H [facility]PEL OUTPATIEN 1 1 PHYSICIAN JANET T VISIT GROUP 15 PCC MINUTES OFFICE 45517 H [facility] OUTPATIEN 1 1 PHYSICIAN JANET T VISIT GROUP 15 PCC MINUTES HOSPITAL [facility] - 1 1 [facility] OUTPATIEN INC T OFFICE 15623 [facility] OUTPAT[facility] 1 1 PHYSICIAN JANET T VISIT GROUP 15 PCC MINUTES OFFICE 79026 [facility] OUTPAT[facility] 1 1 PHYSICIAN JANET T VISIT GROUP 15 PCC MINUTES HOSPITAL [facility] - 1 1 [facility] OUTPATIEN INC T EMERGENCY 37409 TERRIE 1 1 [facility] DEPARTMEN INC T VISIT MODERATE SEVERITY EMERGENCY 16816 DIPTI COLON DEPT 1 1 EMERGENCY STEWART VISIT SERVICES HIGH SEVERITY& THREAT [facility] TERRIE - 1 1 [facility] OUTPATIEN INC T OFFICE 42933 [facility] OUTPAT[facility] 1 1 PHYSICIAN JANET T VISIT GROUP 15 PCC MINUTES HOSPITAL [facility] - 1 1 [facility] OUTPATIEN INC T OFFICE 25151 [facility] OUTPAT[facility] 1 1 PHYSICIAN JANET T VISIT GROUP 15 PCC MINUTES OFFICE 84671 [facility] OUTPAT[facility] 1 1 PHYSICIAN JANET T VISIT GROUP 15 PCC MINUTES OFFICE 96054 [facility] OUTPAT[facility] 1 1 PHYSICIAN JANET T VISIT GROUP 15 PCC MINUTES HOSPITAL [facility] - 1 1 [facility] OUTPATIEN INC T EMERGENCY 61803 TERRIE 1 1 [facility] HIGH/URGE NT SEVERITY EMERGENCY 62661 DIPTI LLOYD DEPT 1 1 EMERGENCY VISIT SERVICES HIGH SEVERITY& THREAT [facility] TERRIE - 1 1 [facility] OUTPATIEN INC T OFFICE 17646 [facility] OUTPATI[facility] 1 1 PHYSICIAN JANET T VISIT GROUP 15 PCC MINUTES OFFICE 55804 [facility] OUTPATI[facility] 1 1 PHYSICIAN JANET T VISIT GROUP 15 PCC MINUTES OFFICE 85497 [facility] OUTPAT[facility] 1 1 PHYSICIAN JANET T VISIT GROUP 15 PCC MINUTES EMERGENCY 72827 DIPTI SHIELDS 1 1 EMERGENCY III [facility] DEPARTMEN SERVICES T VISIT HIGH/URGE NT SEVERITY HOSPITAL [facility] - 1 1 [facility] OUTPAT[facility]EN INC T [facility] - 1 1 [facility] OUTPAT[facility]EN INC T OFFICE 38488 [facility] HARPEL OUTPATIEN 1 1 PHYSICIAN JANET T VISIT GROUP 15 PCC MINUTES OFFICE 52501 [facility] HARPEL OUTPATIEN 0 0 PHYSICIAN JANET T VISIT GROUP 15 PCC MINUTES OFFICE 85088 [facility] HARPEL OUTPATIEN 0 0 PHYSICIAN JANET T VISIT GROUP 40 PCC MINUTES OFFICE 40998 [facility] HARPEL OUTPATIEN 0 0 PHYSICIAN JANET T VISIT GROUP 15 PCC MINUTES HOSPITAL [facility] - 0 0 [facility] OUTPATIEN INC T EMERGENCY 47866 DIPTI GRANADOS 0 0 EMERGENCY [facility] DEPARTMEN SERVICES T VISIT HIGH/URGE NT SEVERITY EMERGENCY 63059 TER[facility] 0 0 [facility] DEPARTMEN INC T VISIT LOW/MODER SEVERITY HOSPITAL [facility] - 0 0 [facility] OUTPATIEN INC T OFFICE 00071 ARASH ANTOINE, OUTPATIEN 0 0 DON R DON R T VISIT 15 MINUTES OFFICE [id number] ARASH ANTOINE, OUTPATIEN 0 0 DON R DON R T VISIT 15 MINUTES EMERGENCY [id number] [facility]E 0 0 [facility] DEPARTMEN INC T VISIT LOW/MODER SEVERITY HOSPITAL [facility] - 0 0 [facility] OUTPATIEN INC T EMERGENCY 21400 DARY WANG 0 0 EMERGENCY [facility] VISIT SERVICES O HIGH SEVERITY& ASSOCIATE THREAT S [facility] EMERGENCY 74107 TERRIE 0 0 [facility] DEPARTMEN INC T VISIT HIGH/URGE NT SEVERITY EMERGENCY 05198 DIPTI GRANADOS, MAIRAT 0 0 EMERGENCY [facility] VISIT SERVICES HIGH SEVERITY& ASSOCIATE THREAT S [facility] TERRIE - 0 0 [facility] OUTPATIEN INC T EMERGENCY 80711 DIPTI GRANADOS, 0 0 EMERGENCY [facility] SERVICES T VISIT HIGH/URGE ASSOCIATE NT S SEVERITY [facility] TERRIE - 0 0 [facility] OUTPATIEN INC T EMERGENCY 03815 TERRIE 0 0 [facility] T VISIT LOW/MODER SEVERITY EMERGENCY 19700 OB GOODE- 0 0 [facility] T VISIT MODERATE SEVERITY
--- OUTSIDE RECORDS SUMMARY | 2017-07-09 11:46 | External Medical Summary Rpt | CCD ---
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 MAMMOGRAP INC INC HY YANNA INCL CAD WHEN PERFORMD COMPUTER- 38580 [facility] AIDED 4 [facility] DETECTION INC INC SCREENING MAMMOGRAP HY ECG 47570 TER[facility] [place] ROUTINE 4 [facility] W/LEAST P 12 LDS I&R ONLY BLOOD 97647 [facility] COUNT 4 [facility] COMPLETE INC INC AUTO&AUTO DIFRNTL WBC INCISION 34160 [facility] SCHULSTAD & REMOVAL 4 PHYSICIAN CAM FOREIGN S GROUP BODY SUBQ TISS SIMPLE BASIC 83597 [facility] METABOLIC 4 [facility] PANEL INC INC CALCIUM TOTAL URINE 55379 [facility] F[facility]CON 4 [facility] TEST INC INC VISUAL COLOR CMPRSN METHS URINLS 09755 REUBEN ROSASL DIP 4 GALI GONZALES STICK/TAB LET REAGNT NON-AUTO MICRSCPY HGB 65284 REUBEN TALBERT QUANTITAT 4 GALI GONZALES KATE TRANSCUTA NEOUS IADNA 57907 REUBEN TALBERT NEISSERIA 4 GALI GONZALES GONORRHOE AE DIRECT PROBE TQ CULTURE 28479 REUBEN TALBERT CHLAMYDIA 4 GALI BARRETT JANET ANY SOURCE RADEX 38943 [facility] F[facility] FOOT 4 [facility] COMPLETE INC INC MINIMUM 3 VIEWS PHYSICAL 57977 [facility] F[facility]CON THERAPY 4 [facility] EVALUATIO INC INC N COMPRE 95321 COLEEN HORNE AUDIOMETR 4 STORM STORM Y THRESHOLD EVAL SP RECOGNIJ TYMPANOME 63196 [facility] TRY 4 STORM STORM DISTORT 57034 [facility]LE[facility] PRODUCT 4 STORM STORM EVOKED OTOACOUST IC EMISNS LIMITD RADEX 83367 RITIKA RITIKA SPINE 4 SAMMI SAMMI LUMBOSACR AL 2/3 VIEWS RADEX 04794 [facility] SPINE 4 [facility] LUMBOSACR INC INC AL MINIMUM 4 [place] [address] TER[facility] F[facility]CON THYROXINE 4 [facility] TOTAL INC INC COMPREHEN 75255 [facility] SIVE 4 [facility] METABOLIC INC INC PANEL LIPID 50603 [facility] PANEL 4 [facility] INC INC BLOOD 71528 [facility] COUNT 4 [facility] COMPLETE INC INC AUTO&[place] [address] [facility] F[facility] THYROID 4 [facility] STIMULATI INC INC NG HORMONE TSH HEMOGLOBI 82603 TER[facility]E FACLON N 4 [facility] GLYCOSYLA [place]EL[place] [address] [facility] F[facility] THYROID 4 [facility] STIMULATI [place] [address] [facility] FREE 4 [facility] THYROXINE INC INC LIPID 66853 [facility] F[facility] PANEL 3 [facility] INC INC 25 08241 [facility] HYDROXY 3 [facility] INCLUDES INC INC FRACTIONS IF PERFORMED CYANOCOBA 64842 [facility] ADELA 3 [facility] VITAMIN INC INC B-12 CULTURE 65930 HARPEL HARPEL CHLAMYDIA 3 JANET JANET ANY SOURCE IADNA 52561 HARPE[facility] HARPEL NEISSERIA 3 JANET JANET GONORRHOE AE DIRECT PROBE TQ URINLS 34856 [facility] HARPEL DIP 3 JANET JANET STICK/TAB LET REAGNT NON-AUTO MICRSCPY HGB 78537 [facility] HARPEL QUANTITAT 3 JANET JANET KATE TRANSCUTA NEOUS URNLS DIP 44839 [facility] HMH 3 PHYSICIAN PHYSICIAN STICK/TAB S GROUP S GROUP LET RGNT NON-AUTO W/O MICRSCP RADEX 90764 TER[facility]E TER[facility]E FINGR 3 [facility] MINIMUM 2 INC INC VIEWS SUSCEPTIB 14791 [facility] F[facility]CON LTY STDY 3 [facility] ANTIMICRB INC INC IAL MICRO/AGA R DILUTJ INCISION 99054 ARASH ANTOINE & 3 DON DON DRAINAGE ABSCESS SIMPLE/SI NGLE INJECTION J0690 ARASH ANTOINE 3 DON DON CEFAZOLIN SODIUM 500 MG CUL BACT 84657 [facility] TER[facility] XCPT 3 [facility] URINE INC INC BLOOD/STO OL AEROBIC ISOL CUL BACT 86840 [facility]CON AEROBIC 3 [facility] ADDL INC INC METHS DEFINITIV E EA ISOL THERAPEUT 80749 [facility] IC 3 [facility] PROPHYLAC INC INC TIC/DX INJECTION SUBQ/IM URINE 29438 HARPEL HARPEL 3 JANET JANET TEST VISUAL COLOR CMPRSN METHS INSJ 02754 [facility] HAR[facility] NON-BIODE 3 JANET JANET GRADABLE DRUG DELIVERY IMPLANT ETONOGEST J7307 [facility] HARPE[facility] REL 3 JANET JANET CNTRACPT IMPL SYS INCL IMPL & SPL INJECTION J2405 [facility] FALCON 3 [facility] ONDANSETR INC INC ON HCL PER 1 MG DILATION 03038 HARPEL HARPEL & 3 JANET JANET CURETTAGE DX&/THER NONOBSTET ZANE LAPS 17447 HAR[facility] HARPEL FULG/EXC 3 JANET JANET OVARY VISCERA/P ERITONEAL SURFACE BLOOD 61614 [facility] COUNT 3 [facility] HEMOGLOBI INC INC N BLOOD 65392 [facility] COUNT 3 [facility] [place] [address] TAPIA TAPIA SURG 3 [facility] PATHOLOGY GROSS&MARTHA ROSCOPIC EXAM ANESTHESI 80640 [facility] JESSIKA A 3 ANESTH INTRAPERI OF THE TONEAL BLUE LOWER ABD W/LAPS NOS BLOOD 85720 [facility] COUNT 3 [facility] COMPLETE INC INC AUTO&AUTO DIFRNTL WBC URNLS DIP 39062 [facility]CON 3 [facility] STICK/TAB INC INC LET REAGENT AUTO MICROSCOP Y URINE 85929 [facility]ALCON 3 [facility] TEST INC [place] [address] [facility] F[facility]CON TRANSVAGI 3 [facility] NAL INC INC INJECTION J1080 ARASH ANTOINE 3 DON DON TESTOSTER ONE CYPIONATE 1 CC 200 MG INJECTION J2675 HAR[facility] HARPEL 3 JANET JANET PROGESTER ONE PER 50 MG REMOVAL 00375 [facility] HARPEL INTRAUTER 3 [place] [address] [facility] F[facility] FREE 2 [facility] [place] [address] [facility] F[facility] THYROID 2 [facility] STIMULATI INC INC NG HORMONE TSH MICROSOMA 04714 [facility] L 2 [facility] ANTIBODIE INC INC S EACH INJECTION J0690 ARASH ANTOINE 2 KIRAN BECK CEFAZOLIN SODIUM 500 MG SOFT 30820 [place] TISSUE 2 MEDICAL SAMMI HEAD & IMAGING NECK [place] [address] TER[facility] FALCON THYROID 2 [facility] STIMULATI [place] [address] TER[facility] F[facility]CON FREE 2 [facility] THYROXINE INC INC CALCIUM 68910 TER[facility] TOTAL 2 [facility] INC INC THYROID 42706 [facility] FALCON HORM 2 [facility] UPTK/THYR INC INC OID HORMONE BINDING RATIO MICROSOMA 04145 [facility] L 2 [facility] ANTIBODIE INC INC S EACH CYANOCOBA 56165 [facility] ADELA 2 [facility] VITAMIN INC INC B-12 [place] [address] [facility]CON THYROXINE 2 [facility] TOTAL INC INC CALCIUM 48408 [facility] IONIZED 2 [facility] INC INC GONADOTRO 22481 [facility] F[facility] PIN 2 [facility] [place] [address] TER[facility]E TER[facility]E INFUSION 2 [facility] THERAPY/P INC INC ROPHYLAXI S /DX 1ST TO 1 HR THERAPEUT 15266 [facility] IC 2 [facility] INJECTION [place] [address] [facility] INFUSION 2 [facility] THERAPY/P INC INC ROPHYLAXI S /DX 1ST TO 1 HR SPECIAL 92783 BELLA CANADA 2 GROUP 1 MICROORGA NISMS I&R SPCL STN 37098 BLANCO VAN BLANCO VAN 2 I&R 2 EXCPT MICROORG/ ENZYME/[place] [address] BELLA BAEZ VAN SURG 2 PATHOLOGY GROSS&MARTHA ROSCOPIC EXAM EGD 52509 TER[facility]E FALCON TRANSORAL 2 [facility] BIOPSY INC INC SINGLE/[place] [address] TER[facility] F[facility]CON INFUSION 2 [facility] THERAPY INC INC PROPHYLAX IS/DX EA HOUR URINE 88387 TER[facility]E FALCON 2 [facility] TEST INC INC VISUAL COLOR CMPRSN METHS URINLS 77290 HARPEL HARPEL DIP 2 JANET JANET STICK/TAB LET REAGNT NON-AUTO MICRSCPY HGB 30999 HAR[facility]L HARPEL QUANTITAT 2 JANET JANET KATE TRANSCUTA NEOUS SMR PRIM 47208 HARPE[facility] HARPEL SRC WET 2 JANET JANET MOUNT NFCT AGT IADNA 65343 HARPEL HARPEL NEISSERIA 2 JANET JANET [place] [address] [facility] F[facility] THYROID 2 [facility] STIMULATI INC INC NG HORMONE TSH CULTURE 14654 HARPEL HARPEL CHLAMYDIA 2 JANET JANET ANY SOURCE SMR PRIM 20698 HAR[facility] HARPEL SRC WET 2 JANET JANET MOUNT NFCT AGT ANOSCOPY 49566 C BRENDAN ADKINS CONTROL 1 [place] [address] [facility] INFUSION 1 [facility] THERAPY INC INC PROPHYLAX IS/DX EA HOUR CONTROL 4995 [facility] F[facility] OF 1 [facility] HEMORRHAG INC INC E OF ANUS ANESTHESI 38594 [facility]YER JESSIKA A 1 ANESTH ANORECTAL OF THE BLUE PROCEDURE BLOOD 34924 TER[facility] COUNT 1 [facility] COMPLETE INC INC AUTO&AUTO DIFRNTL WBC GONADOTRO 37521 [facility] PIN 1 [facility] CHORIONIC INC INC QUALITATI VE CYTP C/V 40474 BIO BIO AUTO THIN 1 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 SCR IES IES MNL RESCR PHYS INSERTION 60568 [facility] INTRAUTER CLINIC OF INE [place] DEVICE IUD INTRAUTER J7300 [facility] INE 1 [facility] J[facility] COPPER CLINIC OF CONTRACEP [place]SH[facility] TIVE URINE 12168 [facility] JOVI TEST CLINIC OF V[place]UAL [place] [address] [facility] INFUSION 1 [facility] THERAPY INC INC PROPHYLAX IS/DX EA HOUR EXC 79186 [facility] THROMBOSE 1 [facility] D INC INC HEMORRHOI D XTRNL EXCISION 4946 [facility] OF 1 [facility] HEMORRHOI INC INC DS OTH LOCAL 4939 TER[facility] FALCON 1 [facility] EXCISION/ INC INC DESTRUC LESION/TI SSUE ANUS HEMORRHOI 58641 C BRENDAN ADKINS DECTOMY 1 JED BYRD NTRNL & PSC XTRNL 1 COLUMN/GR OUP LEVEL III 74202 [facility] PAT SURG 1 LORRI[facility] & PATHOLOGY [facility] GROSS&MARTHA ROSCOPIC EXAM ANESTHESI 14582 COMMUNITY FORTUNATO A 1 ANESTH ROWENA ANORECTAL OF THE BLUE PROCEDURE DSTRJ 02603 C BRENDAN ADKINS LESION 1 JED BYRD ANUS SMPL PSC ELTRDSICC ATION BLOOD 05270 [facility] COUNT 1 [facility] COMPLETE INC INC AUTO&AUTO DIFRNTL WBC GONADOTRO 78641 [facility]CON PIN 1 [facility] HOSP CHORIONIC INC INC [facility] [address] [facility] DISCHARGE 1 PHYSICIAN JANET DAY GROUP MANAGEMEN PCC T 30 MIN/< SBSQ 55242 [facility] 1 PHYSICIAN JANET CARE/DAY GROUP 35 PCC MINUTES SUBQ 42100 [facility] 1 CARE CESAR CARE PER ASSOCIATE DAY E/M S NORMAL CIRCUMCIS 39390 [facility] 1 CARE CESAR W/CLAMP/O ASSOCIATE TH DEV S W/BLOCK SBSQ 91133 [facility] 1 PHYSICIAN JANET CARE/DAY GROUP 35 PCC MINUTES SUBQ 66322 [facility] 1 CARE CESAR CARE PER ASSOCIATE DAY E/M S NORMAL 1ST 03683 [facility] 1 CARE CESAR [facility] [place] [address] [facility] DELIVERY 1 PHYSICIAN JANET ONLY GROUP PCC ANESTHESI 00333 [facility] A 1 ANESTH OF THE DELIVERY BLUE ONLY LOW 741 [facility] CERVICAL 1 [facility] INC INC SECTION OTHER 6829 [facility]CON EXCISION 1 [facility] OR INC INC DESTRUCTI ON LESION UTERUS INITIAL 44059 [facility] 1 PHYSICIAN JANET CARE/DAY GROUP 70 PCC MINUTES OBSERVATI 82723 [facility] HARPEL ON/INPATI 1 PHYSICIAN [facility] PCC CARE 55 MINUTES OBSERVATI 22277 [facility] HARPEL ON/INPATI 1 PHYSICIAN [facility] PCC CARE [address] [facility] BIOPHYSIC 1 PHYSICIAN JANET AL GROUP PROFILE PCC NON-STRES S TESTING PARTICLE 40204 TER[facility] F[facility]CON AGGLUTINA 1 [facility] TION INC INC SCREEN EACH ANTIBODY 05519 [facility] NONSTRESS 1 PHYSICIAN JANET TEST GROUP PCC 35386 [facility] BIOPHYSIC 1 [facility] AL HIGH RISK PROFILE O W/O NON-STRES S TESTING DOPPLER 78143 [facility] ECHO 1 [facility] HIGH RISK PULS O SPECTRAL F/U/REPEA T [address] [facility] NONSTRESS 1 PHYSIC[place] [address] [facility] F[facility]CON MAGNESIUM 1 [facility] INC INC URNLS DIP 54375 [facility] FALCON 1 [facility] STICK/TAB INC INC LET REAGENT AUTO MICROSCOP Y 98802 [facility] F[facility] NONSTRESS 1 [facility] TEST INC INC FIBRIN 58997 [facility] DGRADJ 1 [facility] HOSP PRODUCTS INC INC D-DIMER QUAL/SEMI WENDY FIBRINOGE 31544 [facility] N 1 [facility] ACTIVITY INC INC PROTHROMB 95430 TERRIEMICHEL FALCON IN TIME 1 [facility] [place] [address] TERRIE TERRIE BLOOD/URI 1 [facility] C ACID INC INC THROMBOPL 55348 [facility] ASTIN 1 [facility] TIME INC INC PARTIAL PLASMA/WH OLE BLOOD BLOOD 83251 [facility] TYPING 1 [facility] SEROLOGIC INC INC RH (D) [place] [address] TER[facility] TER[facility] INFUSION 1 [facility] THERAPY/P INC INC ROPHYLAXI S /DX 1ST TO 1 HR THERAPEUT 26047 [facility] IC 1 [facility] INJECTION INC INC IV PUSH EACH NEW DRUG ANTIBODY 08326 [facility] SCREEN 1 [facility] RBC EACH INC INC SERUM TECHNIQUE BLOOD 64614 [facility] TYPING 1 [facility] SEROLOGIC INC INC ABO BLOOD 13843 TER[facility]E TER[facility] COUNT 1 [facility] COMPLETE INC INC AUTO&AUTO DIFRNTL WBC TRANSFERA 57043 [facility] SE 1 [facility] ALANINE INC INC AMINO ALT SGPT TRANSFERA 30321 [facility] SE 1 [facility] ASPARTATE INC INC AMINO AST SGOT BASIC 46023 TER[facility] TER[facility]E METABOLIC 1 [facility] PANEL INC INC CALCIUM TOTAL 88427 [facility] BIOPHYSIC 1 [facility] AL HIGH RISK PROFILE O W/O NON-STRES S TESTING DOPPLER 56616 [facility] YESSICA ECHO 1 [facility] HIGH RISK PULS O SPECTRAL F/U/REPEA T URNLS DIP 91710 [facility]AN 1 [facility] STICK/TAB HIGH RISK LET RGNT O NON-AUTO W/O MICRSCP 00980 [facility] HARPEL NONSTRESS 1 PHYSICIAN JANET TEST GROUP PCC SMR PRIM 85156 [facility] HARPEL SRC WET 1 PHYSICIAN JANET MOUNT GROUP NFCT AGT PCC 32474 [facility] BIOPHYSIC 1 [place] AL HIGH RISK PROFILE O W/O NON-STRES S TESTING US PREG 37670 [facility] UTERUS 1 [place] AFTER 1ST HIGH RISK TRIMEST O 1/ GESTATION 04237 [facility] HARPEL NONSTRESS 1 PHYSICIAN JANET TEST GROUP PCC US PREG 91835 [facility] UTERUS 1 [place] AFTER 1ST HIGH RISK TRIMEST O / GESTATION 68438 [facility]IC 1 [facility] [place] HIGH RISK PROFILE O W/O NON-STRES S TESTING DOPPLER 16835 [facility] ECHO 1 [facility] HIGH RISK PULS O SPECTRAL F/U/REPEA T URNLS DIP 21011 [facility] [place] STICK/TAB HIGH RISK LET RGNT O NON-AUTO W/O MICRSCP 04523 [facility] BIOPHYSIC 1 [facility] [place] HIGH RISK PROFILE O W/O NON-STRES S TESTING CREATININ 29165 [facility] E 1 [facility] CLEARANCE COLLECTIO 35226 [facility] N VENOUS 1 [facility] BLOOD VENIPUNCT URE PROTEIN 91242 [facility] TOTAL 1 [facility] XCPT REFRACTOM ETRY URINE THERAPEUT 53016 [facility] IC 1 [facility] PROPHYLAC INC INC TIC/DX INJECTION SUBQ/IM THERAPEUT 65465 [facility] IC 1 [facility] PROPHYLAC INC INC TIC/DX INJECTION SUBQ/IM 36797 [facility] HARPEL NONSTRESS 1 PHYSICIAN JANET TEST GROUP PCC 85669 [facility] [place] BIOPHYSIC 1 PHYSICIAN JANET AL GROUP PROFILE PCC NON-STRES S TESTING URNLS DIP 66104 [facility] 1 [place] STICK/TAB HIGH RISK LET RGNT O NON-AUTO W/O MICRSCP 96050 [facility] BIOPHYSIC 1 [facility] [place] HIGH RISK PROFILE O W/O NON-STRES S TESTING US PREG 12348 [facility] UTERUS 1 [facility] W/DETAIL HIGH RISK O ANNALISA 1ST GESTATION ECHO 92633 [facility] 1 [facility] CARDIOVAS HIGH RISK C W/WO O M-MODE RECORDING 28445 [facility] BIOPHYSIC 1 PHYSICIAN JANET AL GROUP PROFILE PCC NON-STRES S TESTING 22985 [facility] BIOPHYSIC 1 PHYSICIAN JANET AL GROUP PROFILE PCC NON-STRES S TESTING BLOOD 73744 [facility] COUNT 1 [facility] COMPLETE INC INC AUTO&AUTO DIFRNTL WBC TRANSFERA 47775 [facility] SE 1 [facility] ALANINE INC INC AMINO ALT SGPT TRANSFERA 02155 [facility] SE 1 [facility] ASPARTATE INC INC AMINO AST SGOT PROTHROMB 85613 [facility] IN TIME 1 [facility] INC INC FIBRINOGE 71477 [facility] F[facility] N 1 [facility] ACTIVITY INC INC FIBRIN 14550 [facility] DGRADJ 1 [facility] PRODUCTS INC INC D-DIMER QUAL/SEMI WENDY THROMBOPL 47416 [facility] ASTIN 1 [facility] TIME INC INC PARTIAL PLASMA/[place] [address] [facility] BLOOD/URI 1 [facility] C ACID INC INC BASIC 19982 [facility] METABOLIC 1 [facility] PANEL INC INC CALCIUM TOTAL SMR PRIM 88560 [facility] SRC WET 1 PHYSICIAN J[facility]ET [place] [facility] NFCT [place] PREG [address] [facility] UTERUS 1 PHYSICIAN JANET AFTER 1ST GROUP TRIMEST PCC / GESTATION HEPATIC 57696 [facility] FUNCTION 1 [facility] PANEL INC INC BLOOD 92310 [facility] COUNT 1 [facility] COMPLETE INC INC AUTO&AUTO DIFRNTL WBC THROMBOPL 44852 [facility] ASTIN 1 [facility] TIME INC INC PARTIAL PLASMA/[place] [address] [facility] BLOOD/URI 1 [facility] C ACID INC INC GLUCOSE 46343 [facility] POST 1 [facility] GLUCOSE INC INC DOSE FIBRINOGE 88203 [facility] AVILAON N 1 [facility] ACTIVITY INC INC PROTHROMB 55704 [facility] IN TIME 1 [facility] INC INC FIBRIN 89453 [facility] DGRADJ 1 [facility] PRODUCTS INC INC D-DIMER QUAL/SEMI WENDY BASIC 54667 [facility] METABOLIC 1 [facility] PANEL INC INC CALCIUM TOTAL CULTURE 19291 [facility] BACTERIAL 1 [facility] INC INC QUANTTATI VE COLONY COUNT URINE 83653 [facility] NONSTRESS 1 [facility] D[facility] 64934 [facility] 1 [facility] STICK/TAB INC INC LET REAGENT AUTO MICROSCOP Y FTL 42292 [facility] FIBRONECT 1 [facility] IN INC INC CERVICOVA G SECRETION S SEMI-WENDY 44972 [facility] IMAGING PROFILE ASS W/O NON-STRES S TESTING US PREG 10239 [facility] HARPEL UTERUS 1 PHYSICIAN JANET AFTER 1ST [place] [address] [facility] ESTRIOL 1 [facility] INC INC ALPHA-FET 03728 [facility] OPROTEIN 1 [facility] SERUM INC INC GONADOTRO 64863 [facility] PIN 1 [facility] CHORIONIC [place] [address] [facility] LIPASE 1 [facility] INC INC FIBRINOGE 63440 [facility] N 1 [facility] ACTIVITY INC INC PROTHROMB 34290 [facility] IN TIME 1 [facility] INC INC THROMBOPL 27469 [facility] ASTIN 1 [facility] TIME INC INC PARTIAL PLASMA/[place] [address] [facility] INFUSION 1 [facility] THERAPY/P INC INC ROPHYLAXI S /DX 1ST TO 1 [place] [address] [facility] AMYLASE 1 [facility] INC INC BLOOD 80708 [facility] COUNT 1 [facility] COMPLETE INC INC AUTO&AUTO DIFRNTL WBC URNLS DIP 96138 [facility] STICK/TAB INC INC LET REAGENT AUTO MICROSCOP Y COMPREHEN 52524 [facility] SIVE 1 [facility] METABOLIC INC INC PANEL IADNA 14330 BIO BIO HERPES 1 REFERNCE REFERNCE SOMPLX 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 VIRUS IES IES AMPLIFIED PROBE TQ BLOOD 53781 [facility] COUNT 1 [facility] COMPLETE INC INC AUTO&AUTO DIFRNTL WBC COMPREHEN 55967 [facility] SIVE 1 [facility] METABOLIC INC INC PANEL URNLS DIP 69330 [facility] STICK/TAB INC INC LET REAGENT AUTO [place] [address] [facility] 1 [facility] THERAPY/P INC INC ROPHYLAXI S /DX 1ST TO 1 HR CULTURE 86250 [facility] BACTERIAL 1 [facility] INC INC QUANTTATI VE COLONY COUNT URINE URINALYSI 47655 [facility] HARPEL S 1 PHYSICIAN JANET MICROSCOP GROUP IC ONLY PCC URINLS 34653 [facility] HAR[facility] DIP 1 PHYSICIAN JANET STICK/TAB GROUP LET PCC REAGNT NON-AUTO MICRSCPY US PREG 47303 [facility] HAR[facility] UTERUS 0 PHYSICIAN JANET REAL TIME GROUP W/IMAGE PCC DCMTN TRANSVAG CYTP C/V 66571 BIO BIO AUTO THIN 0 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 SCR IES IES MNL RESCR PHYS IADNA NOS 84346 BIO BIO 0 REFERNCE REFERNCE AMPLIFIED 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 PROBE TQ IES IES EACH ORGANISM IADNA 91367 BIO BIO NEISSERIA 0 REFERNCE REFERNCE 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 GONORRHOE IES IES AE AMPLIFIED PROBE TQ IADNA 16259 BIO BIO CHLAMYDIA 0 REFERNCE REFERNCE 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 TRACHOMAT IES IES IS AMPLIFIED PROBE TQ URINE 90094 [facility] HARPEL 0 PHYSICIAN JANET TEST GROUP VISUAL PCC COLOR CMPRSN METHS GONADOTRO 60621 [facility] PIN 0 [facility] CHORIONIC INC INC QUANTITAT KATE IAADIADOO 30749 ARASH ANTOINE, 0 DON R DON R STREPTOCO CCUS GROUP A SUSCEPTIB 02241 [facility] LTY STDY 0 [facility] ANTIMICRB INC INC IAL MICRO/AGA R DILUTJ URNLS DIP 85014 [facility] STICK/TAB INC INC LET REAGENT AUTO MICROSCOP Y CULTURE 68941 [facility] BACTERIAL 0 [facility] INC INC QUANTTATI VE COLONY COUNT URINE CT LUMBAR 28575 [facility] LEVINERITIKA, SPINE 0 MEDICAL RONIT W/O IMAGING CONTRAST ASSOCIATE MATERIAL S URINE 35959 [facility] TEST INC INC VISUAL COLOR CMPRSN METHS 3D 79155 [place] RITIKA, RENDERING 0 MEDICAL RONIT IMAGING W/INTERP& ASSOCIATE POSTPROC S DIFF WORK STATION CULTURE 31038 [facility] BCT 0 [facility] ISOL&PRSM INC INC PTV ID ISOLATE EA URINE URINE 21460 [facility] TEST INC INC VISUAL COLOR CMPRSN METHS INITIAL 42696 [place] OBSERVATI 0 RANDY OLMAN A ON INTERNAL CARE/DAY MED 30 MINUTES URNLS DIP 31291 [facility] STICK/TAB INC INC LET REAGENT AUTO MICROSCOP Y COMPREHEN 21818 [facility] SIVE 0 [facility] METABOLIC INC INC PANEL [facility] [id number] [facility] OBSERVATI 0 [facility] ON INC INC SERVICE PER HOUR BLOOD 11595 [facility] COUNT 0 [facility] COMPLETE INC INC AUTO&AUTO DIFRNTL WBC CUL BACT 28385 [facility] STOOL 0 [employer] ISOL SALMONELL A&SHIGELL CUL BACT 63381 [facility] STOOL 0 [employer]ING ADDL PATHOGENS &[place] [address] [facility] CLOSTRIDI 0 AMERIC AMERIC [place] [address] [facility] SHIGA-LIK 0 AMERIC AMERIC E [employer] HOLDING Encounters Encounter Start End Date Code Location Performer Type Date EMERGENCY 24828 TER[facility] 6 6 [facility] DEPARTMEN [facility] T VISIT MODERATE SEVERITY HOSPITAL TERREI - 6 6 [facility] OUTPATIEN [facility] T EMERGENCY 57185 EVIE CASTANEDA 6 6 PHYSICIAN [facility] T VISIT HIGH/URGE NT SEVERITY HOSPITAL TERRIE - 6 6 [facility] OUTPATIEN [facility] T EMERGENCY 53676 TERRIE 6 6 [facility] T VISIT HIGH/URGE NT SEVERITY HOSPITAL TERRIE - 6 6 [facility] OUTPATIEN [facility] HOSPITAL TERRIE - 6 6 [facility] OUTPATIEN [facility] T HOSPITAL TERRIE [facility] 6 6 [facility] OUTPATIEN [facility] T HOSPITAL TERRIE - 6 6 [facility] OUTPATIEN [facility] T OFFICE 86214 TER[facility]E OUTPATIEN 6 6 [facility] T VISIT INC 10 MINUTES OFFICE 37409 [facility] MD [place], T VISIT [facility] 15 MINUTES EMERGENCY 10650 EVIE CASTANEDA 6 6 PHYSICIAN [facility] T VISIT HIGH/URGE NT SEVERITY HOSPITAL TERRIE - 6 6 [facility] OUTPATIEN [facility] T EMERGENCY 39581 TERRIE 6 6 [facility] T VISIT MODERATE SEVERITY EMERGENCY 25265 EVIE CASTANEDA 6 6 PHYSICIAN MARTHA DEPARTMEN , [facility] T VISIT HIGH/URGE NT SEVERITY HOSPITAL TERRIE - 6 6 [facility] OUTPATIEN [facility] HOSPITAL TERRIE - 6 6 [facility] OUTPATIEN [facility] EMERGENCY 12343 TERRIE 6 6 [facility] T VISIT HIGH/URGE NT SEVERITY HOSPITAL TERRIE - 6 6 [facility] OUTPATIEN [facility] OFFICE 10602 BETY ABURTO [facility] 6 6 MD [place], T VISIT PSC 15 MINUTES OFFICE 60815 REUBEN TALBERT [facility] 6 6 GALI BARRETT JANET T VISIT 25 MINUTES EMERGENCY 18834 EVIE CASTANEDA 6 6 PHYSICIAN [facility] T VISIT HIGH/URGE NT SEVERITY OFFICE 01408 [facility] LEONEL OUTPATIEN 6 6 PHYSICIAN MARTHA T VISIT S GROUP 10 MINUTES HOSPITAL TERRIE - 6 6 [facility] H[facility] TERRIE - 6 6 [facility] OUTPATIEN [facility] EMERGENCY 48435 TERRIE 6 6 [facility] T VISIT HIGH/URGE NT SEVERITY PERIODIC 30522 REUBEN TALBERT PREVENTIV 5 5 GALI GONZALES E MED EST PATIENT 18-39 YRS HOSPITAL TERRIE - 5 5 [facility] OFFICE 54222 [facility] 5 5 PHYSICIAN EUG T VISIT S GROUP 15 MINUTES EMERGENCY 75779 TERRIE 5 5 [facility] T VISIT HIGH/URGE NT SEVERITY EMERGENCY 59267 EVIE CASTANEDA DEPT 5 5 PHYSICIAN MARTHA VISIT [facility] HIGH [facility]VERITY& [facility] OUTPATIEN INC T OFFICE 55162 REUBEN TALBERT OUTPATIEN 5 5 GALI GONZALES T VISIT 15 MINUTES OFFICE 88172 BETY GARCIA OUTPATIRON 5 5 MD [place], T VISIT PSC 10 MINUTES HOSPITAL TER[facility] - 5 5 [facility] OUTPATIEN INC T HOSPITAL [facility]E - 5 5 [facility] OUTPATIEN INC T EMERGENCY 76591 EVIE EVANGELISTA JR 5 5 PHYSICIAN [facility], [facility] T VISIT HIGH/URGE NT SEVERITY HOSPITAL [facility]E - 5 5 [facility] OUTPATIEN INC T OFFICE 11094 [facility] OUTPATIEN 5 5 [facility] T VISIT INC 10 MINUTES EMERGENCY 85686 EVIE CASTANEDA 5 5 PHYSICIAN MARTHA DEPARTMEN S, [facility] T VISIT HIGH/URGE NT SEVERITY HOSPITAL TERRIE - 5 5 [facility] OUTPATIEN INC T EMERGENCY 56020 EVIE CASTANEDA 5 5 PHYSICIAN [facility] S, [facility] T VISIT HIGH/URGE NT SEVERITY HOSPITAL TERRIE - 5 5 [facility] OUTPATIEN INC T EMERGENCY 98815 EVIE CASTANEDA DEPT 5 5 PHYSICIAN MARTHA VISIT S, [facility] HIGH SEVERITY& THREAT [facility] H[facility]PITAL [facility]E - 5 5 [facility] OUTPATIEN INC T OFFICE 23650 [facility] OUTPATIEN 5 5 [facility] T VISIT INC 10 MINUTES HOSPITAL TERRIE - 5 5 [facility] OUTPATIEN INC T OFFICE 27348 [facility] AURE 5 5 MD [place] NEW 30 MINUTES HOSPITAL TERRIE - 5 5 [facility] OUTPATIEN INC T OFFICE 64173 [facility] OUTPATIEN 5 5 [facility] T VISIT INC 10 MINUTES HOSPITAL TERRIE - 5 5 [facility] OUTPATIEN INC T OFFICE 18134 [facility] LEONEL OUTPATIEN 5 5 PHYSICIAN MARTHA T VISIT S GROUP 10 MINUTES HOSPITAL TERRIE - 5 5 [facility] OUTPATIEN INC T OFFICE 72452 [facility] LEONEL OUTPATIEN 5 5 PHYSICIAN MARTHA T VISIT S GROUP 10 MINUTES HOSPITAL TERRIE - 5 5 [facility] OUTPATIEN INC T OFFICE 66879 [facility] LEONEL OUTPATIEN 5 5 PHYSICIAN MARTHA T VISIT S GROUP 10 MINUTES OFFICE 16905 [facility] LEONEL OUTPATIEN 4 4 PHYSICIAN MARTHA T VISIT S GROUP 10 MINUTES HOSPITAL TER[facility]E - 4 4 [facility] OUTPATIEN INC [facility] TERRIE - 4 4 [facility]PAT[facility]EN [facility] TER[facility]E - 4 4 [facility] TER[facility]E - 4 4 [facility] OUTPATIEN INC T OFFICE 79866 [facility] LEONEL OUTPATIEN 4 4 PHYSICIAN MARTHA T VISIT S GROUP 10 MINUTES HOSPITAL TERRIE - 4 4 [facility] OUTPATIEN INC T OFFICE 13856 [facility] SCHULSTAD OUTPATIEN 4 4 PHYSICIAN CAM T VISIT S GROUP [address] [facility] 44196 REUBEN TALBERT PREVENTIV 4 4 GALI Ellis MED EST PATIENT 18-39 YRS HOSPITAL TERRIE - 4 4 [facility] OUTPATIEN [facility] TERRIE - 4 4 [facility] OUTPATIEN INC T OFFICE 78820 [facility] LEONEL OUTPATIEN 4 4 PHYSICIAN MARTHA T VISIT S GROUP 10 MINUTES EMERGENCY 56434 LEONEL CASTANEDA 4 4 MARTHA MARTHA DEPARTMEN T VISIT HIGH/URGE NT SEVERITY EMERGENCY 81551 HAL HONG 4 4 I [facility] T VISIT MODERATE SEVERITY HOSPITAL UNIVERSIT - 4 4 Y OUTPATI HOSPITAL T EMERGENCY 36508 UNIVERSIT 4 4 Y [facility] T VISIT LOW/MODER SEVERITY OFFICE 28897 SAMAN DAVISON OUTPATIEN 4 4 FRA FRA T NEW 45 MINUTES OFFICE 04206 LEONEL CASTANEDA OUTPATIEN 4 4 MARTHA MARTHA T VISIT 10 MINUTES EMERGENCY 94683 LEONEL CASTANEDA 4 4 MARTHA MARTHA DEPARTMEN T VISIT HIGH/URGE NT SEVERITY OFFICE 18909 LEONEL CASTANEDA OUTPATIEN 4 4 MARTHA MARTHA T VISIT 10 MINUTES HOSPITAL TER[facility]E - 4 4 [facility] OUTPATIEN [facility] HOSPITAL TERRIE - 4 4 [facility]IEN [facility] TERRIE - 3 3 [facility]PATIEN [facility] OFFICE 69841 THOMAS GUZMAN OUTPATIEN 3 3 ANT ANT T VISIT 15 MINUTES EMERGENCY 37056 LEONEL CASTANEDA DEPT 3 3 MARTHA MARTHA VISIT HIGH SEVERITY& THREAT FUNJ PERIODIC 18418 HARPE[facility]PE[facility] PREVENTIV 3 3 JANET JANET E MED EST PATIENT 18-39 YRS OFFICE 47088 [facility] OUTPATIEN 3 3 PHYSICIAN T VISIT S GROUP 15 MINUTES HOSPITAL TERRIE - 3 3 [facility] OUTPATIEN [facility] HOSPITAL TERRIE - 3 3 [facility] OUTPATIEN [facility] T OFFICE 39327 ANTOINE ANTOINE OUTPATIEN 3 3 DON DON T VISIT 15 MINUTES OFFICE 64262 ANTOINE ANTOINE OUTPATIEN 3 3 DON DON T VISIT 15 MINUTES EMERGENCY 88137 TERRIE 3 3 [facility] DEPARTMEN [facility] T VISIT LOW/MODER SEVERITY HOSPITAL TERRIE - 3 3 [facility] OUTPATIEN [facility] T EMERGENCY 39484 LEONEL CASTANEDA 3 3 [facility] T VISIT HIGH/URGE NT SEVERITY HOSPITAL TERRIE - 3 3 [facility] OUTPATIEN [facility] HOSPITAL TERRIE - 3 3 [facility] OUTPATIEN [facility] OFFICE 57542 HARPE[facility] OUTPATIEN 3 3 JANET JANET T VISIT 15 MINUTES HOSPITAL TERRIE - 3 3 [facility] OUTPATIEN [facility] OFFICE 11672 [facility] OUTPATIEN 3 3 JANET JANET T VISIT 15 MINUTES OFFICE 92300 ANTOINE ANTOINE OUTPATIEN 3 3 DON DON T VISIT 25 MINUTES OFFICE 44691 [facility] OUTPATIEN 3 3 JANET JANET T VISIT 15 MINUTES HOSPITAL TERRIE - 2 2 [facility] OUTPATIEN [facility] OFFICE 73071 HORNE HORNE OUTPATIEN 2 2 STORM STORM T VISIT 15 MINUTES OFFICE 56683 ANTOINE ANTOINE OUTPATIEN 2 2 DON DON T VISIT 15 MINUTES OFFICE 09237 HORNE HORNE OUTPATIEN 2 2 STORM STORM T NEW 30 MINUTES HOSPITAL TERRIE - 2 2 [facility] OUTPATIEN [facility] HOSPITAL TERRIE - 2 2 [facility]PATIEN [facility] HOSPITAL TERRIE - 2 2 [facility] OUTPATIEN INC T EMERGENCY 84107 TERRIE 2 2 [facility] DEPARTMEN INC T VISIT MODERATE SEVERITY EMERGENCY 32214 CORNELIUS SHIELDS DEPT 2 2 III JESSIKA III JESSIKA VISIT HIGH SEVERITY& THREAT [facility] TER[facility] - 2 2 [facility] OUTPATIEN [facility] HOSPITAL TERRIE - 2 2 [facility] OUTPATIEN INC T PERIODIC 59050 HAR[facility] PREVENTIV 2 2 JANET JANET E MED EST PATIENT 18-39 YRS HOSPITAL TERRIE - 2 2 [facility] OUTPATIEN [facility] T OFFICE 10726 HARPE[facility] HARPEL OUTPATIEN 2 2 JANET JANET T VISIT 15 MINUTES OFFICE 32133 ANTOINE ANTOINE OUTPATIEN 2 2 DON DON T VISIT 15 MINUTES OFFICE 11071 [facility] OUTPATIEN 2 2 JANET JANET T VISIT 15 MINUTES OFFICE 47933 ANTOINE ANTOINE OUTPATIEN 2 2 DON DON T VISIT 15 MINUTES OFFICE 32749 ANTOINE ANTOINE OUTPATIEN 2 2 DON DON T VISIT 15 MINUTES EMERGENCY 32200 DIPTI CASTANEDA 1 1 EMERGENCY [facility] DEPARTMEN SERVICES T VISIT HIGH/URGE NT SEVERITY EMERGENCY 08961 TERRIE 1 1 [facility] DEPARTMEN [facility] T VISIT MODERATE SEVERITY HOSPITAL TERRIE - 1 1 [facility] OUTPATIEN [facility] T EMERGENCY 92434 DIPTI MARTINEZ 1 1 EMERGENCY [facility] DEPARTMEN SERVICES T VISIT MODERATE SEVERITY HOSPITAL LAUREON - 1 1 [facility] TERRIE - 1 1 [facility] OUTPATIEN [facility] T EMERGENCY 05273 TERRIE 1 1 [facility] DEPARTMEN INC T VISIT MODERATE SEVERITY EMERGENCY 00402 DIPTI CASTANEDA 1 1 EMERGENCY [facility] DEPARTMEN SERVICES T VISIT HIGH/URGE NT SEVERITY OFFICE 05701 Carol ADKINS OUTPATIEN 1 1 JED [place] VISIT PSC 10 MINUTES HOSPITAL [facility] - 1 1 [facility] OUTPATIEN INC T OFFICE 15403 Carol ADKINS OUTPATIEN 1 1 JED BYRD T VISIT PSC 25 MINUTES HOSPITAL TER[facility] - 1 1 [facility] OUTPATIEN INC T OFFICE 08414 ARASH ANTOINE OUTPATIEN 1 1 DON DON T VISIT 25 MINUTES OFFICE 57746 [facility] HARPEL OUTPATIEN 1 1 PHYSICIAN JANET T VISIT GROUP 15 PCC MINUTES OFFICE 77283 [facility] 1 1 [facility] JOVI ION [facility] PATIENT 40 MIN OFFICE 00207 H [facility] OUTPATIEN 1 1 PHYSICIAN JANET T VISIT GROUP 15 PCC MINUTES HOSPITAL TER[facility] - 1 1 [facility] OUTPATIEN INC T [facility]PITAL [facility] - 1 1 [facility] OUTPATIEN INC T OFFICE 56853 [facility] OUTPATIEN 1 1 PHYSICIAN JANET T VISIT GROUP 15 PCC MINUTES HOSPITAL TER[facility] - 1 1 [facility] INPATIENT INC OFFICE 55371 [facility] OUTPATIEN 1 1 PHYSICIAN JANET T VISIT GROUP 15 PCC MINUTES OFFICE 86974 [facility] OUTPATIEN 1 1 PHYSICIAN JANET T VISIT GROUP 15 PCC MINUTES HOSPITAL [facility] - 1 1 [facility] OUTPATIEN INC T OFFICE 56508 [facility] OUTPATIEN 1 1 PHYSICIAN JANET T VISIT GROUP 15 PCC MINUTES HOSPITAL [facility] - 1 1 [facility] OUTPATIEN INC T OFFICE 20147 [facility] OUTPATIEN 1 1 PHYSICIAN JANET T VISIT GROUP 15 PCC MINUTES OFFICE 55252 [facility] OUTPATIEN 1 1 PHYSICIAN JANET T VISIT GROUP 15 PCC MINUTES OFFICE 01265 H [facility] OUTPATIEN 1 1 PHYSICIAN JANET T VISIT GROUP 15 PCC MINUTES HOSPITAL [facility] [address] [facility] TERRIE - 1 1 [facility] OUTPATIEN INC T OFFICE 21826 H [facility] OUTPATIEN 1 1 PHYSICIAN JANET T VISIT GROUP 15 PCC MINUTES HOSPITAL TER[facility] - 1 1 [facility] OUTPATIEN INC T OFFICE 63915 H [facility] OUTPATIEN 1 1 PHYSICIAN JANET T VISIT GROUP 15 PCC MINUTES OFFICE 23757 H [facility] OUTPATIEN 1 1 PHYSICIAN JANET T VISIT GROUP 15 PCC MINUTES HOSPITAL [facility] - 1 1 [facility] OUTPATIEN INC T OFFICE 99123 H [facility] OUTPATIEN 1 1 PHYSICIAN JANET T VISIT GROUP 15 PCC MINUTES OFFICE 63525 [facility] OUT[facility]IEN 1 1 PHYSICIAN JANET T VISIT GROUP 15 PCC MINUTES OFFICE 18854 [facility] OUTPATIEN 1 1 PHYSICIAN JANET T VISIT GROUP 15 PCC MINUTES HOSPITAL [facility] - 1 1 [facility] OUTPATIEN INC T OFFICE 08466 [facility] OUTPATIEN 1 1 PHYSICIAN JANET T VISIT GROUP 15 PCC MINUTES EMERGENCY 38438 DIPTI COLON DEPT 1 1 EMERGENCY STEWART VISIT SERVICES HIGH SEVERITY& THREAT FUN EMERGENCY 22575 TERRIE 1 1 [facility] DEPARTMEN INC T VISIT MODERATE SEVERITY HOSPITAL [facility] - 1 1 [facility] OUTPATIEN INC T [facility]PITAL [facility] - 1 1 [facility] OUTPATIEN INC T OFFICE 94336 [facility] OUTPATIEN 1 1 PHYSICIAN JANET T VISIT GROUP 15 PCC MINUTES OFFICE 40531 [facility] OUTPATIEN 1 1 PHYSICIAN JANET T VISIT GROUP 15 PCC MINUTES HOSPITAL [facility] - 1 1 [facility] OUTPATIEN INC T OFFICE 66430 [facility] OUTPATIEN 1 1 PHYSICIAN JANET T VISIT GROUP 15 PCC MINUTES OFFICE 80579 [facility] OUTPATIEN 1 1 PHYSICIAN JANET T VISIT GROUP 15 PCC MINUTES HOSPITAL [facility] - 1 1 [facility] OUTPATIEN INC [facility] - 1 1 [facility] OUTPATIEN INC T EMERGENCY 08432 DIPTI LLOYD DEPT 1 1 EMERGENCY VISIT SERVICES HIGH SEVERITY& THREAT CRITICAL ACCESS HOSPITAL EMERGENCY 43055 TERRIE 1 1 [facility] DEPARTMEN INC T VISIT HIGH/URGE NT SEVERITY OFFICE 21591 H [facility] OUTPATIEN 1 1 PHYSICIAN JANET T VISIT GROUP 15 PCC MINUTES OFFICE 36770 [facility] OUTPATIEN 1 1 PHYSICIAN JANET T VISIT GROUP 15 PCC MINUTES OFFICE 75796 [facility] OUTPATIEN 1 1 PHYSICIAN JANET T VISIT GROUP 15 PCC MINUTES HOSPITAL [facility] - 1 1 [facility] OUTPATIEN INC T EMERGENCY 35831 TER[facility]E 1 1 [facility] DEPARTMEN INC T VISIT HIGH/URGE NT SEVERITY HOSPITAL TER[facility] - 1 1 [facility] OUTPATIEN INC T OFFICE 72474 [facility] HARPEL OUTPATIEN 1 1 PHYSICIAN JANET T VISIT GROUP 15 PCC MINUTES OFFICE 21150 [facility]PEL OUTPATIEN 0 0 PHYSICIAN JANET T VISIT GROUP 15 PCC MINUTES OFFICE 33149 [facility]PE[facility] OUTPATIEN 0 0 PHYSICIAN JANET T VISIT GROUP 40 PCC MINUTES OFFICE 91991 [facility] HARPEL OUTPATIEN 0 0 PHYSICIAN JANET T VISIT GROUP 15 PCC MINUTES HOSPITAL TER[facility]E - 0 0 [facility] OUTPATIEN INC T EMERGENCY 02305 TERRIE 0 0 [facility] DEPARTMEN INC T VISIT LOW/MODER SEVERITY EMERGENCY 73566 DIPTI CASTANEDA 0 0 EMERGENCY [facility] DEPARTMEN SERVICES T VISIT HIGH/URGE NT SEVERITY HOSPITAL [facility] - 0 0 [facility] OUTPATIEN INC T OFFICE 11673 OLMAN ANTOINES, OUTPATIEN 0 0 DON R DON R T VISIT 15 MINUTES OFFICE 17153 OLMAN ANTOINES, OUTPATIEN 0 0 DON R DON R T VISIT 15 MINUTES EMERGENCY 09137 DIPTI PARKER, DEPT 0 0 EMERGENCY KYLE VISIT SERVICES O HIGH SEVERITY& ASSOCIATE THREAT S FUN EMERGENCY 34409 TERRIE 0 0 [facility] DEPARTMEN INC T VISIT LOW/MODER SEVERITY HOSPITAL [facility] - 0 0 [facility] OUTPATIEN INC T EMERGENCY 23591 [facility]E 0 0 [facility] DEPARTMEN INC T VISIT HIGH/URGE NT SEVERITY HOSPITAL [facility] - 0 0 [facility] OUTPATIEN INC T EMERGENCY 77201 DIPTI CASTANEDA, DEPT 0 0 EMERGENCY [facility] VISIT SERVICES HIGH SEVERITY& ASSOCIATE THREAT S FUN EMERGENCY 06828 DIPTI CASTANEDA, 0 0 EMERGENCY [facility] SERVICES T VISIT HIGH/URGE ASSOCIATE NT S SEVERITY [facility]OSPITAL [facility] - 0 0 [facility] 71069 TERRIE 0 0 [facility] T VISIT LOW/MODER SEVERITY EMERGENCY 59114 OB RUPA- 0 0 [facility] T VISIT MODERATE SEVERITY
--- OUTSIDE RECORDS SUMMARY | 2017-07-09 11:46 | External Medical Summary Rpt | CCD ---
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 60332 [facility] SCHULSTAD & REMOVAL 4 PHYSICIAN CAM FOREIGN S GROUP BODY SUBQ TISS SIMPLE BASIC 42148 [facility]CON METABOLIC 4 [facility] PANEL INC INC CALCIUM TOTAL URINE 15132 [facility] FALCON 4 [facility] TEST INC INC VISUAL COLOR CMPRSN METHS URINLS 73172 REUBEN ROSASL DIP 4 GALI GONZALES STICK/TAB LET REAGNT NON-AUTO MICRSCPY HGB 37323 REUBEN TALBERT QUANTITAT 4 GALI GONZALES KATE TRANSCUTA NEOUS IADNA 59712 REUBEN TALBERT NEISSERIA 4 GALI GONZALES GONORRHOE AE DIRECT PROBE TQ CULTURE 80893 REUBNE TALBERT CHLAMYDIA 4 GALI BARRETT JANET ANY SOURCE RADEX 52569 [facility] FALCON FOOT 4 [facility] COMPLETE INC INC MINIMUM 3 VIEWS PHYSICAL 32506 [facility] F[facility]CON THERAPY 4 [facility] EVALUATIO INC INC N COMPRE 04102 COLEEN HORNE AUDIOMETR 4 STORM STORM Y THRESHOLD EVAL SP RECOGNIJ TYMPANOME 99129 [facility] TRY 4 STORM STORM DISTORT 88196 COLEEN HORNE PRODUCT 4 STORM STORM EVOKED OTOACOUST IC EMISNS LIMITD RADEX 64411 RITIKA RITIKA SPINE 4 SAMMI SAMMI LUMBOSACR AL 2/3 VIEWS RADEX 32583 [facility] FALCON SPINE 4 [facility] LUMBOSACR INC INC AL MINIMUM 4 [place] [address] TER[facility] FALCON THYROXINE 4 [facility] TOTAL INC INC COMPREHEN 53938 [facility] F[facility] SIVE 4 [facility] METABOLIC INC INC PANEL LIPID 00691 [facility]CON PANEL 4 [facility] INC INC BLOOD 94777 [facility] F[facility]CON COUNT 4 [facility] COMPLETE INC INC AUTO&[place] [address] [facility] F[facility]CON THYROID 4 [facility] STIMULATI INC INC NG HORMONE TSH HEMOGLOBI 87836 [facility] FALCON N 4 [facility] GLYCOSYLA [place] [address] TER[facility] F[facility]CON THYROID 4 [facility] STIMULATI [place] [address] [facility] FALCON FREE 4 [facility] THYROXINE INC INC LIPID 29519 [facility] F[facility] PANEL 3 [facility] INC INC 25 31355 [facility]CON HYDROXY 3 [facility] INCLUDES INC INC FRACTIONS IF PERFORMED CYANOCOBA 82290 [facility] F[facility]CON ADELA 3 [facility] VITAMIN INC INC B-12 CULTURE 20484 [facility] HARPEL CHLAMYDIA 3 JANET JANET ANY SOURCE IADNA 67638 HAR[facility]PE[facility] NEISSERIA 3 JANET JANET GONORRHOE AE DIRECT PROBE TQ URINLS 00247 [facility]PE[facility] DIP 3 JANET JANET STICK/TAB LET REAGNT NON-AUTO MICRSCPY HGB 36149 [facility] QUANTITAT 3 JANET JANET KATE TRANSCUTA NEOUS URNLS DIP 74368 [facility] HMH 3 PHYSICIAN PHYSICIAN STICK/TAB S GROUP S GROUP LET RGNT NON-AUTO W/O MICRSCP RADEX 47145 TERRIE TERRIE FINGR 3 [facility] MINIMUM 2 INC INC VIEWS SUSCEPTIB 96274 [facility] FALCON LTY STDY 3 [facility] ANTIMICRB INC INC IAL MICRO/AGA R DILUTJ INCISION 16011 ARASH ANTOINE & 3 DON DON DRAINAGE ABSCESS SIMPLE/SI NGLE INJECTION J0690 ARASH ANTOINE 3 DON DON CEFAZOLIN SODIUM 500 MG CUL BACT 51397 TERRIE TERRIE XCPT 3 [facility] URINE INC INC BLOOD/STO OL AEROBIC ISOL CUL BACT 75570 [facility] F[facility]CON AEROBIC 3 [facility] ADDL INC INC METHS DEFINITIV E EA ISOL THERAPEUT 57603 [facility] IC 3 [facility] PROPHYLAC INC INC TIC/DX INJECTION SUBQ/IM URINE 70540 HARPE[facility] HARPEL 3 JANET JANET TEST VISUAL COLOR CMPRSN METHS INSJ 47322 [facility] HAR[facility] NON-BIODE 3 JANET JANET GRADABLE DRUG DELIVERY IMPLANT ETONOGEST J7307 [facility] REL 3 JANET JANET CNTRACPT IMPL SYS INCL IMPL & SPL INJECTION J2405 [facility] FALCON 3 [facility] ONDANSETR INC INC ON HCL PER 1 MG DILATION 54416 [facility] HAR[facility] & 3 JANET JANET CURETTAGE DX&/THER NONOBSTET ZANE LAPS 02735 [facility] HARPE[facility] FULG/EXC 3 JANET JANET OVARY VISCERA/P ERITONEAL SURFACE BLOOD 29547 [facility]CON COUNT 3 [facility] HEMOGLOBI INC INC N BLOOD 86322 [facility]CON COUNT 3 [facility] [place] [address] TAPIA TAPIA SURG 3 [facility]Y GROSS&MARTHA ROSCOPIC EXAM ANESTHESI 73934 [facility] JESSIKA A 3 ANESTH INTRAPERI OF THE TONEAL BLUE LOWER ABD W/LAPS NOS BLOOD 56194 [facility] FALCON COUNT 3 [facility] COMPLETE INC INC AUTO&AUTO DIFRNTL WBC URNLS DIP 60508 [facility] FALCON 3 [facility] STICK/TAB INC INC LET REAGENT AUTO MICROSCOP Y URINE 07174 [facility] FALCON 3 [facility] TEST INC [place] [address] [facility] FALCON TRANSVAGI 3 [facility] NAL INC INC INJECTION J1080 ARASH ANTOINE 3 DON DON TESTOSTER ONE CYPIONATE 1 CC 200 MG INJECTION J2675 [facility] HARPEL 3 JANET JANET PROGESTER ONE PER 50 MG REMOVAL 62055 [facility] HARPE[facility] INTRAUTER 3 [place] [address] [facility] FALCON FREE 2 [facility] [place] [address] [facility] F[facility]CON THYROID 2 [facility] STIMULATI INC INC NG HORMONE TSH MICROSOMA 78654 [facility] FALCON L 2 [facility] ANTIBODIE INC INC S EACH INJECTION J0690 ARASH ANTOINE 2 KIRAN BECK CEFAZOLIN SODIUM 500 MG SOFT 92739 [place] RITIKA TISSUE 2 MEDICAL SAMMI HEAD & IMAGING NECK [place] [address] TERRIE FALCON THYROID 2 [facility] STIMULATI [place] [address] [facility] FALCON FREE 2 [facility] THYROXINE INC INC CALCIUM 25846 [facility] F[facility] TOTAL 2 [facility] INC INC THYROID 38126 [facility] FALCON HORM 2 [facility] UPTK/THYR INC INC OID HORMONE BINDING RATIO MICROSOMA 35082 [facility] FALCON L 2 [facility] ANTIBODIE INC INC S EACH CYANOCOBA 09593 TER[facility]E FALCON ADELA 2 [facility] VITAMIN INC INC B-12 [place] [address] TER[facility]E FALCON THYROXINE 2 [facility] TOTAL INC INC CALCIUM 43650 [facility] F[facility] IONIZED 2 [facility] INC INC GONADOTRO 11282 TER[facility]E FALCON PIN 2 [facility] [place] [address] TERRIE TERRIE INFUSION 2 [facility] THERAPY/P INC INC ROPHYLAXI S /DX 1ST TO 1 HR THERAPEUT 74144 [facility] F[facility]CON IC 2 [facility] INJECTION [place] [address] TER[facility] FALCON INFUSION 2 [facility] THERAPY/P INC INC ROPHYLAXI S /DX 1ST TO 1 HR SPECIAL 01162 BELLA CANADA 2 GROUP 1 MICROORGA NISMS I&R SPCL STN 67980 BLANCO VAN BLANCO VAN 2 I&R 2 EXCPT MICROORG/ ENZYME/[place] [address] BELLA BAEZ VAN SURG 2 PATHOLOGY GROSS&MARTHA ROSCOPIC EXAM EGD 14582 TERRIE FALCON TRANSORAL 2 [facility] BIOPSY INC INC SINGLE/[place] [address] TERRIE FALCON INFUSION 2 [facility] THERAPY INC INC PROPHYLAX IS/DX EA HOUR URINE 66738 TERRIE FALCON 2 [facility] TEST INC INC VISUAL COLOR CMPRSN METHS URINLS 00926 HARPEL HARPEL DIP 2 JANET JANET STICK/TAB LET REAGNT NON-AUTO MICRSCPY HGB 69292 HARPEL HARPEL QUANTITAT 2 JANET JANET KATE TRANSCUTA NEOUS SMR PRIM 77547 HARPEL HARPEL SRC WET 2 JANET JANET MOUNT NFCT AGT IADNA 40734 HARPEL HARPEL NEISSERIA 2 JANET JANET [place] [address] TER[facility] FALCON THYROID 2 [facility] STIMULATI INC INC NG HORMONE TSH CULTURE 65345 HARPEL HARPEL CHLAMYDIA 2 JANET JANET ANY SOURCE SMR PRIM 14678 HARPE[facility] HARPEL SRC WET 2 JANET JANET MOUNT NFCT AGT ANOSCOPY 84032 C BRENDAN ADKINS CONTROL 1 [place] [address] TER[facility]E FALCON INFUSION 1 [facility] THERAPY INC INC PROPHYLAX IS/DX EA HOUR CONTROL 4995 TERRIE FALCON OF 1 [facility] HEMORRHAG INC INC E OF ANUS ANESTHESI 47867 [facility] MEYER JESSIKA A 1 ANESTH ANORECTAL OF THE BLUE PROCEDURE BLOOD 76307 TERRIE FALCON COUNT 1 [facility] COMPLETE INC INC AUTO&AUTO DIFRNTL WBC GONADOTRO 99259 TER[facility]E FALCON PIN 1 [facility] CHORIONIC INC INC QUALITATI VE CYTP C/V 56356 BIO BIO AUTO THIN 1 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 SCR IES IES MNL RESCR PHYS INSERTION 39724 [facility] ACEV[facility] 1 [facility]TRAUTER CLINIC OF INE [facility] DEVICE IUD INTRAUTER J7300 [facility] INE 1 [facility] COPPER CLINIC OF CONTRACEP [place] TIVE URINE 93087 [facility] KRISTINA 1 [facility] TEST CLINIC OF VISUAL [place] [address] TER[facility] FALCON INFUSION 1 [facility] THERAPY INC INC PROPHYLAX IS/DX EA HOUR EXC 94576 TER[facility] F[facility]CON THROMBOSE 1 [facility] D INC INC HEMORRHOI D XTRNL EXCISION 4946 TER[facility]E FALCON OF 1 [facility] HEMORRHOI INC INC DS OTH LOCAL 4939 TER[facility]E FALCON 1 [facility] EXCISION/ INC INC DESTRUC LESION/TI SSUE ANUS HEMORRHOI 29876 C BRENDAN ADKINS DECTOMY 1 JED BYRD NTRNL & PSC XTRNL 1 COLUMN/GR OUP LEVEL III 90223 [facility] PAT SURG 1 [facility] & PATHOLOG[facility] GROSS&MARTHA ROSCOPIC EXAM ANESTHESI 68976 COMMUNITY FORTUNATO A 1 ANESTH ROWENA ANORECTAL OF THE BLUE PROCEDURE DSTRJ 53647 C BRENDAN ADKINS LESION 1 JED BYRD ANUS SMPL PSC ELTRDSICC ATION BLOOD 52006 TERRIE FALCON COUNT 1 [facility] COMPLETE INC INC AUTO&AUTO DIFRNTL WBC GONADOTRO 82996 TER[facility]E FALCON PIN 1 [facility] CHORIONIC INC INC [facility] 74658 [facility] DISCHARGE 1 PHYSICIAN JANET DAY GROUP MANAGEMEN PCC T 30 MIN/< SBSQ 04876 [facility] 1 PHYSICIAN JANET CARE/DAY GROUP 35 PCC MINUTES SUBQ 61119 [facility] 1 CARE CESAR CARE PER ASSOCIATE DAY E/M S NORMAL CIRCUMCIS 48791 [facility] 1 CARE CESAR W/CLAMP/O ASSOCIATE TH DEV S W/BLOCK SBSQ 47049 [facility] 1 PHYSICIAN JANET CARE/DAY GROUP 35 PCC MINUTES SUBQ 14412 [facility] 1 CARE CESAR CARE PER ASSOCIATE DAY E/M S NORMAL 1ST 14236 [facility] 1 CARE CESAR [facility] [place] [place] [address] [facility] DELIVERY 1 PHYSICIAN JANET ONLY GROUP PCC ANESTHESI 32106 [facility] A 1 ANESTH OF THE DELIVERY BLUE ONLY LOW 741 TERRIE FALCON CERVICAL 1 [facility] INC INC SECTION OTHER 6829 TERRIE FALCON EXCISION 1 [facility] OR INC INC DESTRUCTI ON LESION UTERUS INITIAL 89863 [facility] 1 PHYSICIAN JANET CARE/DAY GROUP 70 PCC MINUTES OBSERVATI 96180 [facility] [place] ON/INPATI 1 PHYSICIAN [facility] PCC CARE 55 MINUTES OBSERVATI 33711 [facility] [place] ON/INPATI 1 PHYSICIAN [facility] PCC CARE 55 MINUTES 97435 [facility] BIOPHYSIC 1 PHYSICIAN JANET AL GROUP PROFILE PCC NON-STRES S TESTING PARTICLE 58321 TER[facility] FALCON AGGLUTINA 1 [facility] TION INC INC SCREEN EACH ANTIBODY 25071 [facility] NONSTRESS 1 PHYSICIAN JANET TEST GROUP PCC 72877 [facility] BIOPHYSIC 1 [facility] AL HIGH RISK PROFILE O W/O NON-STRES S TESTING DOPPLER 30522 [facility] ECHO 1 [facility] HIGH RISK PULS O SPECTRAL F/U/REPEA T 73165 [facility] NONSTRESS 1 PHYSIC[place] [address] TER[facility]E FALCON MAGNESIUM 1 [facility] INC INC URNLS DIP 85296 TER[facility] FALCON 1 [facility] STICK/TAB INC INC LET REAGENT AUTO MICROSCOP Y 42494 [facility] F[facility]CON NONSTRESS 1 [facility] TEST INC INC FIBRIN 97401 TER[facility]E FALCON DGRADJ 1 [facility] PRODUCTS INC INC D-DIMER QUAL/SEMI WENDY FIBRINOGE 35962 [facility] F[facility]CON N 1 [facility] ACTIVITY INC INC PROTHROMB 88057 TERRIEMICHEL FALCON IN TIME 1 [facility] [place] [address] TERRIE TERRIE BLOOD/URI 1 [facility] C ACID INC INC THROMBOPL 34551 [facility] F[facility]CON ASTIN 1 [facility] TIME INC INC PARTIAL PLASMA/WH OLE BLOOD BLOOD 54312 [facility]CON TYPING 1 [facility] SEROLOGIC INC INC RH (D) [place] [address] TERRIE TERRIE INFUSION 1 [facility] THERAPY/P INC INC ROPHYLAXI S /DX 1ST TO 1 HR THERAPEUT 74551 [facility] F[facility] IC 1 [facility] INJECTION INC INC IV PUSH EACH NEW DRUG ANTIBODY 54800 [facility] SCREEN 1 [facility] RBC EACH INC INC SERUM TECHNIQUE BLOOD 72346 TERRIE TER[facility]E TYPING 1 [facility] SEROLOGIC INC INC ABO BLOOD 28265 TERRIE TERRIE COUNT 1 [facility] COMPLETE INC INC AUTO&AUTO DIFRNTL WBC TRANSFERA 96975 [facility]CON SE 1 [facility] ALANINE INC INC AMINO ALT SGPT TRANSFERA 32614 TERRIE TERRIE SE 1 [facility] ASPARTATE INC INC AMINO AST SGOT BASIC 71175 TERRIE TERRIE METABOLIC 1 [facility] PANEL INC INC CALCIUM TOTAL 95280 [facility] BIOPHYSIC 1 [facility] AL HIGH RISK PROFILE O W/O NON-STRES S TESTING DOPPLER 31884 [facility]AL YESSICA ECHO 1 [facility] HIGH RISK PULS O SPECTRAL F/U/REPEA T URNLS DIP 86247 [facility]AN 1 [facility] STICK/TAB HIGH RISK LET RGNT O NON-AUTO W/O MICRSCP 77877 [facility] [place] NONSTRESS 1 PHYSICIAN JANET TEST GROUP PCC SMR PRIM 14593 [facility] [place] SRC WET 1 PHYSICIAN JANET MOUNT GROUP NFCT AGT PCC 85910 [facility] BIOPHYSIC 1 [place] AL HIGH RISK PROFILE O W/O NON-STRES S TESTING US PREG 72792 [facility] UTERUS 1 [place] AFTER 1ST HIGH RISK TRIMEST O 1/ GESTATION 89775 [facility] [place] NONSTRESS 1 PHYSICIAN JANET TEST GROUP PCC US PREG 60470 [facility] UTERUS 1 [place] AFTER 1ST HIGH RISK TRIMEST O / GESTATION 95022 [facility]YSIC [facility] [place] HIGH RISK PROFILE O W/O NON-STRES S TESTING DOPPLER 56580 [facility] ECHO 1 [facility] HIGH RISK PULS O SPECTRAL F/U/REPEA T URNLS DIP 97922 [facility] [place] STICK/TAB HIGH RISK LET RGNT O NON-AUTO W/O MICRSCP 76596 [facility] BIOPHYSIC 1 [facility]ISK PROFILE O W/O NON-STRES S TESTING CREATININ 83095 [facility] E 1 [facility] CLEARANCE COLLECTIO 66110 [facility] N VENOUS 1 [facility] BLOOD VENIPUNCT URE PROTEIN 27121 [facility] TOTAL 1 [facility] XCPT REFRACTOM ETRY URINE THERAPEUT 02046 [facility] IC 1 [facility] PROPHYLAC INC INC TIC/DX INJECTION SUBQ/IM THERAPEUT 21462 [facility] IC 1 [facility] PROPHYLAC INC INC TIC/DX INJECTION SUBQ/IM 60027 [facility] [place] NONSTRESS 1 PHYSICIAN JANET TEST GROUP PCC 71235 [facility] [place] BIOPHYSIC 1 PHYSICIAN JANET AL GROUP PROFILE PCC NON-STRES S TESTING URNLS DIP 07556 [facility] J[facility]AN 1 [place] STICK/TAB HIGH RISK LET RGNT O NON-AUTO W/O MICRSCP 93450 [facility] BIOPHYSIC 1 [facility] [place] HIGH RISK PROFILE O W/O NON-STRES S TESTING US PREG 27505 [facility] UTERUS 1 [facility] W/DETAIL HIGH RISK O ANNALISA 1ST GESTATION ECHO 59104 [facility] 1 [facility] CARDIOVAS HIGH RISK C W/WO O M-MODE RECORDING 75450 [facility] BIOPHYSIC 1 PHYSICIAN JANET AL GROUP PROFILE PCC NON-STRES S TESTING 47143 [facility] BIOPHYSIC 1 PHYSICIAN JANET AL GROUP PROFILE PCC NON-STRES S TESTING BLOOD 56674 [facility] COUNT 1 [facility] COMPLETE INC INC AUTO&AUTO DIFRNTL WBC TRANSFERA 34214 [facility] SE 1 [facility] ALANINE INC INC AMINO ALT SGPT TRANSFERA 80499 [facility] F[facility] SE 1 [facility] ASPARTATE INC INC AMINO AST SGOT PROTHROMB 56230 [facility] F[facility] IN TIME 1 [facility] INC INC FIBRINOGE 59379 [facility] F[facility] N 1 [facility] ACTIVITY INC INC FIBRIN 54441 [facility] DGRADJ 1 [facility] PRODUCTS INC INC D-DIMER QUAL/SEMI WENDY THROMBOPL 52706 [facility] ASTIN 1 [facility] TIME INC INC PARTIAL PLASMA/[place] [address] [facility] F[facility]CON BLOOD/URI 1 [facility] C ACID INC INC BASIC 30613 [facility] METABOLIC 1 [facility] PANEL INC INC CALCIUM TOTAL SMR PRIM 35458 [facility] SRC WET 1 PHYSICIAN JANET MOUNT GROUP NFCT AGT PCC US PREG 80162 [facility] UTERUS 1 PHYSICIAN JANET AFTER 1ST GROUP TRIMEST PCC / GESTATION HEPATIC 66698 [facility] FUNCTION 1 [facility] PANEL INC INC BLOOD 94567 [facility] COUNT 1 [facility] COMPLETE INC INC AUTO&AUTO DIFRNTL WBC THROMBOPL 11320 [facility] ASTIN 1 [facility] TIME INC INC PARTIAL PLASMA/[place] [address] [facility] BLOOD/URI 1 [facility] ACID INC INC GLUCOSE 17498 [facility] POST 1 [facility] GLUCOSE INC INC DOSE FIBRINOGE 38239 [facility] AVILAON N 1 [facility] ACTIVITY INC INC PROTHROMB 82233 [facility] IN TIME 1 [facility] INC INC FIBRIN 02299 [facility] DGRADJ 1 [facility] PRODUCTS INC INC D-DIMER QUAL/SEMI WENDY BASIC 48623 [facility] METABOLIC 1 [facility] PANEL INC INC CALCIUM TOTAL CULTURE 15763 [facility] BACTERIAL 1 [facility] INC INC QUANTTATI VE COLONY COUNT URINE 44869 [facility] NON[facility]ESS 1 [facility] 50458 [facility] 1 [facility] STICK/TAB INC INC LET REAGENT AUTO MICROSCOP Y FTL 21340 [facility] FIBRONECT 1 [facility] IN INC INC CERVICOVA G SECRETION S SEMI-WENDY 16979 [facility] SAM[facility] AL IMAGING PROFILE ASS W/O NON-STRES S TESTING [place] PREG 50161 [facility] UTERUS 1 PHYSICIAN AJNET AFTER 1ST [place] [address] [facility] ESTRIOL 1 [facility] INC INC ALPHA-FET 35976 [facility] OPROTEIN 1 [facility] SERUM INC INC GONADOTRO 03415 [facility] PIN 1 [facility] CHORIONIC [place] [address] [facility] LIPASE 1 [facility] INC INC FIBRINOGE 46510 [facility] N 1 [facility] ACTIVITY INC INC PROTHROMB 14711 [facility] IN TIME 1 [facility] INC INC THROMBOPL 75132 [facility] ASTIN 1 [facility] TIME INC INC PARTIAL PLAS[place] [address] [facility] INFUSION 1 [facility] THERAPY/P INC INC ROPHYLAXI S /DX 1ST [place] [address] [facility] AMYLASE 1 [facility] INC INC BLOOD 00854 [facility] COUNT 1 [facility] COMPLETE INC INC AUTO&AUTO DIFRNTL WBC URNLS DIP 62686 [facility] 1 [facility] STICK/TAB INC INC LET REAGENT AUTO MICROSCOP Y COMPREHEN 33503 [facility] SIVE 1 [facility] METABOLIC INC INC PANEL IADNA 48555 BIO BIO HERPES 1 REFERNCE REFERNCE SOMPLX 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 VIRUS IES IES AMPLIFIED PROBE TQ BLOOD 03569 [facility] COUNT 1 [facility] COMPLETE INC INC AUTO&AUTO DIFRNTL WBC COMPREHEN 17979 [facility] SIVE 1 [facility] METABOLIC INC INC PANEL URNLS DIP 39164 [facility] STICK/TAB INC [place] [address] [facility] INFUSION 1 [facility] THERAPY/P INC INC ROPHYLAXI S /DX 1ST TO 1 HR CULTURE 69091 [facility] BACTERIAL 1 [facility] INC INC QUANTTATI VE COLONY COUNT URINE URINALYSI 22625 [facility] S 1 PHYSICIAN JANET MICROSCOP GROUP IC ONLY PCC URINLS 20135 [facility] DIP 1 PHYSICIAN JANET STICK/TAB GROUP LET PCC REAGNT NON-AUTO MICRSCPY US PREG 31461 [facility] UTERUS 0 PHYSICIAN JANET REAL TIME GROUP W/IMAGE PCC DCMTN TRANSVAG CYTP C/V 44413 BIO BIO AUTO THIN 0 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 SCR IES IES MNL RESCR PHYS IADNA NOS 45395 BIO BIO 0 REFERNCE REFERNCE AMPLIFIED 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 PROBE TQ IES IES EACH ORGANISM IADNA 40641 BIO BIO NEISSERIA 0 REFERNCE REFERNCE 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 GONORRHOE IES IES AE AMPLIFIED PROBE TQ IADNA 97418 BIO BIO CHLAMYDIA 0 REFERNCE REFERNCE 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 TRACHOMAT IES IES IS AMPLIFIED PROBE TQ URINE 78574 [facility] 0 PHYSICIAN JANET TEST GROUP VISUAL PCC COLOR CMPRSN METHS GONADOTRO 32221 [facility] PIN 0 [facility] CHORIONIC INC INC QUANTITAT KATE IAADIADOO 95795 ARASH ANTOINE, 0 DON R DON R STREPTOCO CCUS GROUP A SUSCEPTIB 05904 [facility] LTY STDY 0 [facility] ANTIMICRB INC INC IAL MICRO/AGA R DILUTJ URNLS DIP 83387 [facility] STICK/TAB INC INC LET REAGENT AUTO MICROSCOP Y CULTURE 34138 [facility] BACTERIAL 0 [facility] INC INC QUANTTATI VE COLONY COUNT URINE CT LUMBAR 24315 [facility] LEVINERITIKA, SPINE 0 MEDICAL RONIT W/O IMAGING CONTRAST ASSOCIATE MATERIAL S URINE 78609 [facility] TEST INC INC VISUAL COLOR CMPRSN METHS 3D 90109 [place] RITIKA, RENDERING 0 MEDICAL RONIT IMAGING W/INTERP& ASSOCIATE POSTPROC S DIFF WORK STATION CULTURE 42214 [facility] BCT 0 [facility] ISOL&PRSM INC INC PTV ID ISOLATE EA URINE URINE 75451 [facility] TEST INC INC VISUAL COLOR CMPRSN METHS INITIAL 47263 [place] OBSERVATI 0 RANDY OLMAN A ON INTERNAL CARE/DAY MED 30 MINUTES URNLS DIP 14879 [facility] STICK/TAB INC INC LET REAGENT AUTO MICROSCOP Y COMPREHEN 38852 [facility] SIVE 0 [facility] METABOLIC INC INC PANEL H[facility] [id number] [facility] OBSERVATI 0 [facility] ON INC INC SERVICE PER HOUR BLOOD 54033 [facility] COUNT 0 [facility] COMPLETE INC INC AUTO&AUTO DIFRNTL WBC CUL BACT 05784 [facility] STOOL 0 [facility] [facility] ISOL SALMONELL A&SHIGELL CUL BACT 38358 [facility] STOOL 0 [facility] [employer] [facility]ING ADDL PATHOGENS &[place] [address] [facility] CLOSTRIDI 0 [facility]IC AMERIC [place] [address] [facility] SHIGA-LIK 0 [facility]IC [employer] E [employer] HOLDING Encounters Encounter Start End Date Code Location Performer Type Date EMERGENCY 86344 TER[facility] 6 6 [facility] DEPARTMEN [facility] T VISIT MODERATE SEVERITY HOSPITAL [facility] - 6 6 [facility] OUTPATIEN [facility] T EMERGENCY 23781 EVIE CASTANEDA 6 6 [facility]IC[facility] T VISIT HIGH/URGE NT SEVERITY HOSPITAL TER[facility] - 6 6 [facility] OUTPATIEN [facility] T EMERGENCY 13782 TERRIE 6 6 [facility] T VISIT HIGH/URGE NT SEVERITY HOSPITAL TER[facility] - 6 6 [facility] OUTPATIEN [facility] TERRIE - 6 6 [facility] OUTPATIEN [facility] T HOSPITAL TERRIE [facility] 6 6 [facility] OUTPATIEN [facility] T HOSPITAL TER[facility] 6 6 [facility] OUTPATIEN [facility] T OFFICE 27024 TER[facility]E OUTPATIEN 6 6 [facility] T VISIT INC 10 MINUTES OFFICE 62862 [facility] MD [place], T VISIT [facility] 15 MINUTES EMERGENCY 47400 EVIE CASTANEDA 6 6 PHYSICIAN [facility] T VISIT HIGH/URGE NT SEVERITY HOSPITAL TER[facility]E - 6 6 [facility] OUTPATIEN [facility] T EMERGENCY 38591 TERRIE 6 6 [facility] T VISIT MODERATE SEVERITY EMERGENCY 52480 EVIE CASTANEDA 6 6 PHYSICIAN MARTHA DEPARTMEN , [facility] T VISIT HIGH/URGE NT SEVERITY HOSPITAL TERRIE - 6 6 [facility] OUTPATIEN [facility] TERRIE - 6 6 [facility] OUTPATIEN [facility] EMERGENCY 20039 TERRIE 6 6 [facility] T VISIT HIGH/URGE NT SEVERITY HOSPITAL TERRIE - 6 6 [facility] OUTPATIEN [facility] OFFICE [address] [facility] 6 6 MD SWEET[place], T VISIT PSC 15 MINUTES OFFICE 42109 REUBEN TALBERT [facility] 6 6 GALI BARRETT JANET T VISIT 25 MINUTES EMERGENCY 93481 EVIE CASTANEDA 6 6 PHYSICIAN [facility] T VISIT HIGH/URGE NT SEVERITY OFFICE 79823 [facility] OUTPATIEN 6 6 PHYSICIAN MARTHA T VISIT S GROUP 10 MINUTES HOSPITAL TER[facility] - 6 6 [facility] - 6 6 [facility] OUTPATIEN [facility] EMERGENCY 99741 TERRIE 6 6 [facility] T VISIT HIGH/URGE NT SEVERITY PERIODIC 34784 REUBEN TALBERT PREVENTIV 5 5 GALI GONZALES E MED EST PATIENT 18-39 YRS HOSPITAL TERRIE - 5 5 [facility] OFFICE 21884 [facility] 5 5 PHYSICIAN EUG T VISIT S GROUP 15 MINUTES EMERGENCY 69364 TERRIE 5 5 [facility] T VISIT HIGH/URGE NT SEVERITY EMERGENCY 82441 EVIE CASTANEDA DEPT 5 5 PHYSICIAN [facility] V[facility]IT [facility]& [facility] - 5 5 [facility] OUTPATIEN INC T OFFICE 87931 REUBEN TALBERT OUTPATIEN 5 5 GALI GONZALES T VISIT 15 MINUTES OFFICE 18694 BETY GARCIA OUTPATIRON 5 5 MD SWEET[place], T VISIT PSC 10 MINUTES HOSPITAL TER[facility] - 5 5 [facility] OUTPATIEN INC T [facility]PITAL [facility] - 5 5 [facility] OUTPATIEN INC T EMERGENCY 15729 EVIE EVANGELISTA JR 5 5 [facility] T VISIT HIGH/URGE NT SEVERITY HOSPITAL [facility] - 5 5 [facility] OUTPATIEN INC T OFFICE 15845 [facility] OUTPATIEN 5 5 [facility] T VISIT INC 10 MINUTES EMERGENCY 80155 EVIE CASTANEDA 5 5 PHYSICIAN MARTHA DEPARTMEN S, [facility] T VISIT HIGH/URGE NT SEVERITY HOSPITAL TERRIE - 5 5 [facility] OUTPATIEN INC T EMERGENCY 06120 EVIE CASTANEDA 5 5 PHYSICIAN [facility], [facility] T VISIT HIGH/URGE NT SEVERITY HOSPITAL TER[facility]E - 5 5 [facility] OUTPATIEN INC T EMERGENCY 76051 EVIE CASTANEDA DEPT 5 5 PHYSICIAN MARTHA VISIT S, [facility] HIGH SEVERITY& THREAT CRIT[facility] H[facility]PITAL HOSP[facility]E - 5 5 [facility] OUTPATIEN INC T OFFICE 78511 TER[facility]E OUTPATIEN 5 5 [facility] T VISIT INC 10 MINUTES HOSPITAL TERRIE - 5 5 [facility] OUTPATIEN INC T OFFICE 34988 MANJINDER PITT [facility] AURE 5 5 MD Clayton NEW 30 MINUTES HOSPITAL TERRIE - 5 5 [facility] OUTPATIEN INC T OFFICE 41457 TER[facility]E OUTPATIEN 5 5 [facility] T VISIT INC 10 MINUTES HOSPITAL TERRIE - 5 5 [facility] OUTPATIEN INC T OFFICE 17439 [facility] OUTPATIEN 5 5 PHYSICIAN MARTHA T VISIT S GROUP 10 MINUTES HOSPITAL TER[facility] - 5 5 [facility] OUTPATIEN INC T OFFICE 61258 [facility] OUTPATIEN 5 5 PHYSICIAN MARTHA T VISIT S GROUP 10 MINUTES HOSPITAL TERRIE - 5 5 [facility] OUTPATIEN INC T OFFICE 76359 [facility] OUTPATIEN 5 5 PHYSICIAN MARTHA T VISIT S GROUP 10 MINUTES OFFICE 78804 [facility] OUTPATIEN 4 4 PHYSICIAN MARTHA T VISIT S GROUP 10 MINUTES HOSPITAL TER[facility]E - 4 4 [facility] OUTPATIEN INC HOSP[facility] TERRIE - 4 4 [facility]PAT[facility] - 4 4 [facility] TER[facility] - 4 4 [facility] OUTPATIEN INC T OFFICE 34367 [facility] OUTPATIEN 4 4 PHYSICIAN MARTHA T VISIT S GROUP 10 MINUTES HOSPITAL TERRIE - 4 4 [facility] OUTPATIEN INC T OFFICE 73854 [facility] OUTPATIEN 4 4 PHYSICIAN CAM T VISIT S GROUP 15 MINUTES [facility] 77406 REUBEN TALBERT PREVENTIV 4 4 GALI Ellis MED EST PATIENT 18-39 YRS HOSPITAL TERRIE - 4 4 [facility] OUTPATIEN [facility] TER[facility]E - 4 4 [facility] OUTPATIEN INC T OFFICE 02353 [facility] OUTPATIEN 4 4 PHYSICIAN MARTHA T VISIT S GROUP 10 MINUTES EMERGENCY 12513 LEONEL CASTANEDA 4 4 MARTHA MARTHA DEPARTMEN T VISIT HIGH/URGE NT SEVERITY EMERGENCY 73028 HAL HONG 4 4 I [facility]RAIN [facility]UNIG[facility] VIS[facility] MODERATE SEVERITY HOSPITAL UNIVERSIT - 4 4 Y OUTPATI HOSPITAL T EMERGENCY 11728 UNIVERSIT 4 4 Y [facility] T VISIT LOW/MODER SEVERITY OFFICE 12808 SAMAN DAVISON OUTPATIEN 4 4 FRA FRA T NEW 45 MINUTES OFFICE 27809 LEONEL CASTANEDA OUTPATIEN 4 4 MARHTA MARTHA T VISIT 10 MINUTES EMERGENCY 39420 LEONEL CASTANEDA 4 4 MARTHA MARTHA DEPARTMEN T VISIT HIGH/URGE NT SEVERITY OFFICE 49935 LEONEL CASTANEDA OUTPATIEN 4 4 MARTHA MARTHA T VISIT 10 MINUTES HOSPITAL TERRIE - 4 4 [facility]EN [facility] TERRIE - 4 4 [facility]PAT[facility] TERRIE - 3 3 [facility] OUTPATIEN [facility] OFFICE 44007 THOMAS GUZMAN OUTPATIEN 3 3 ANT ANT T VISIT 15 MINUTES EMERGENCY 24074 LEONEL CASTANEDA DEPT 3 3 MARTHA MARTHA VISIT HIGH SEVERITY& THREAT FUNJ PERIODIC 33037 HARPEL HARPEL PREVENTIV 3 3 JANET JANET E MED EST PATIENT 18-39 YRS OFFICE 47367 [facility] OUTPATIEN 3 3 PHYSICIAN T VISIT S GROUP 15 MINUTES HOSPITAL TERRIE - 3 3 [facility] OUTPATIEN [facility] TERRIE - 3 3 [facility] OUTPATIEN [facility] T OFFICE 20948 ANTOINE ANTOINE OUTPATIEN 3 3 DON DON T VISIT 15 MINUTES OFFICE 30511 ANTOINE ANTOINE OUTPATIEN 3 3 DON DON T VISIT 15 MINUTES EMERGENCY 48943 TERRIE 3 3 [facility] DEPARTMEN [facility] T VISIT LOW/MODER SEVERITY HOSPITAL TERRIE - 3 3 [facility] OUTPATIEN [facility] T EMERGENCY 18781 LEONEL CASTANEDA 3 3 [facility] T VISIT HIGH/URGE NT SEVERITY HOSPITAL TERRIE - 3 3 [facility] OUTPATIEN [facility] TERRIE - 3 3 [facility] OUTPATIEN [facility] OFFICE 60378 HARPEL HARPEL OUTPATIEN 3 3 JANET JANET T VISIT 15 MINUTES HOSPITAL TERRIE - 3 3 [facility] OUTPATIEN [facility] OFFICE 09368 HARPE[facility] OUTPATIEN 3 3 JANET JANET T VISIT 15 MINUTES OFFICE 17720 ANTOINE ANTOINE OUTPATIEN 3 3 DON DON T VISIT 25 MINUTES OFFICE 13614 [facility] OUTPATIEN 3 3 JANET JANET T VISIT 15 MINUTES HOSPITAL TERRIE - 2 2 [facility] OUTPATIEN [facility] OFFICE 65082 HORNE HORNE OUTPATIEN 2 2 STORM STORM T VISIT 15 MINUTES OFFICE 41028 ANTOINE ANTOINE OUTPATIEN 2 2 DON DON T VISIT 15 MINUTES OFFICE 67533 HORNE HORNE OUTPATIEN 2 2 STORM STORM T NEW 30 MINUTES HOSPITAL TERRIE - 2 2 [facility] OUTPATIEN [facility] TER[facility]E - 2 2 [facility] TERRIE - 2 2 [facility] OUTPATIEN INC T EMERGENCY 67325 TERRIE 2 2 [facility] DEPARTMEN INC T VISIT MODERATE SEVERITY EMERGENCY 39088 CORNELIUS SHIELDS DEPT 2 2 III JESSIKA III JESSIKA VISIT HIGH SEVERITY& THREAT [facility] TERRIE - 2 2 [facility] OUTPATIEN [facility] TERRIE - 2 2 [facility] OUTPATIEN INC T PERIODIC 02292 [facility] PREVENTIV 2 2 JANET JANET E MED EST PATIENT 18-39 YRS HOSPITAL TERRIE - 2 2 [facility] OUTPATIEN [facility] T OFFICE 93812 [facility] OUTPATIEN 2 2 JANET JANET T VISIT 15 MINUTES OFFICE 05129 ANTOINE ANTOINE OUTPATIEN 2 2 DON DON T VISIT 15 MINUTES OFFICE 59293 [facility] OUTPATIEN 2 2 JANET JANET T VISIT 15 MINUTES OFFICE 44031 ANTOINE ANTOINE OUTPATIEN 2 2 DON DON T VISIT 15 MINUTES OFFICE 03668 ANTOINE ANTOINE OUTPATIEN 2 2 DON DON T VISIT 15 MINUTES EMERGENCY 97459 DIPTI CASTANEDA 1 1 EMERGENCY [facility] DEPARTMEN SERVICES T VISIT HIGH/URGE NT SEVERITY EMERGENCY 76681 TERRIE 1 1 [facility] DEPARTMEN [facility] T VISIT MODERATE SEVERITY HOSPITAL TER[facility] - 1 1 [facility] OUTPATIEN [facility] T EMERGENCY 49216 DIPTI MARTINEZ 1 1 EMERGENCY [facility] DEPARTMEN SERVICES T VISIT MODERATE SEVERITY HOSPITAL [facility] - 1 1 [facility] TER[facility]E - 1 1 [facility] OUTPATIEN [facility] T EMERGENCY 72909 TERRIE 1 1 [facility] DEPARTMEN INC T VISIT MODERATE SEVERITY EMERGENCY 81676 DIPTI CASTANEDA 1 1 EMERGENCY [facility] DEPARTMEN SERVICES T VISIT HIGH/URGE NT SEVERITY OFFICE 41016 Carol ADKINS OUTPATIEN 1 1 JED Clayton VISIT PSC 10 MINUTES HOSPITAL [facility] - 1 1 [facility] OUTPATIEN INC T OFFICE 36543 Carol ADKINS OUTPATIEN 1 1 JED BYRD T VISIT PSC 25 MINUTES HOSPITAL [facility] - 1 1 [facility] OUTPATIEN INC T OFFICE 61675 ARASH ANTOINE OUTPATIEN 1 1 DON DON T VISIT 25 MINUTES OFFICE 58777 [facility] OUTPATIEN 1 1 PHYSICIAN JANET T VISIT GROUP 15 PCC MINUTES OFFICE 11218 [facility] 1 1 [facility] PATIENT 40 MIN OFFICE 74361 H [facility] OUTPATIEN 1 1 PHYSICIAN JANET T VISIT GROUP 15 PCC MINUTES HOSPITAL [facility] - 1 1 [facility] OUTPATIEN INC T [facility] - 1 1 [facility] OUTPAT[facility] INC T OFFICE 08217 [facility] OUT[facility] 1 1 PHYSICIAN JANET T VISIT GROUP 15 PCC MINUTES HOSPITAL [facility] - 1 1 [facility] INPATIENT INC OFFICE 63339 [facility] OUTPATIEN 1 1 PHYSICIAN JANET T VISIT GROUP 15 PCC MINUTES OFFICE 97643 [facility] OUTPATIEN 1 1 PHYSICIAN JANET T VISIT GROUP 15 PCC MINUTES HOSPITAL [facility] - 1 1 [facility] OUTPATIEN INC T OFFICE 34766 [facility] OUTPATI[facility] 1 1 PHYSICIAN JANET T VISIT GROUP 15 PCC MINUTES HOSPITAL [facility] - 1 1 [facility] OUTPATIEN INC T OFFICE 14401 [facility] OUT[facility] 1 1 PHYSICIAN JANET T VISIT GROUP 15 PCC MINUTES OFFICE 11068 [facility] OUT[facility] 1 1 PHYSICIAN JANET T VISIT GROUP 15 PCC MINUTES OFFICE 34982 H [facility] OUTPATIEN 1 1 PHYSICIAN JANET T VISIT GROUP 15 PCC MINUTES [facility] - 1 1 [facility] TERRIE - 1 1 [facility] OUTPATIEN INC T OFFICE 46012 H [facility] OUTPATIEN 1 1 PHYSICIAN JANET T VISIT GROUP 15 PCC MINUTES HOSPITAL [facility] - 1 1 [facility] OUTPATIEN INC T OFFICE 89611 H [facility] OUTPATIEN 1 1 PHYSICIAN JANET T VISIT GROUP 15 PCC MINUTES OFFICE 53406 H [facility] OUTPATIEN 1 1 PHYSICIAN JANET T VISIT GROUP 15 PCC MINUTES HOSPITAL [facility] - 1 1 [facility] OUTPATIEN INC T OFFICE 09312 H [facility] OUTPATIEN 1 1 PHYSICIAN JANET T VISIT GROUP 15 PCC MINUTES OFFICE 12944 [facility] OUT[facility] 1 1 PHYSICIAN JANET T VISIT GROUP 15 PCC MINUTES OFFICE 76501 [facility] OUTPATIEN 1 1 PHYSICIAN JANET T VISIT GROUP 15 PCC MINUTES HOSPITAL [facility] - 1 1 [facility] OUTPATIEN INC T OFFICE 48391 [facility] OUT[facility] 1 1 PHYSICIAN JANET T VISIT GROUP 15 PCC MINUTES EMERGENCY 59000 DIPTI COLON DEPT 1 1 EMERGENCY STEWART VISIT SERVICES HIGH SEVERITY& THREAT FUN EMERGENCY 76570 TERRIE 1 1 [facility] DEPARTMEN INC T VISIT MODERATE SEVERITY HOSPITAL [facility] - 1 1 [facility] OUTPATIEN INC T [facility] - 1 1 [facility] OUTPATIEN INC T OFFICE 82102 [facility] OUT[facility] 1 1 PHYSICIAN JANET T VISIT GROUP 15 PCC MINUTES OFFICE 63833 [facility] OUTPATI[facility] 1 1 PHYSICIAN JANET T VISIT GROUP 15 PCC MINUTES HOSPITAL [facility] - 1 1 [facility] OUTPATIEN INC T OFFICE 45888 [facility] OUTPAT[facility] 1 1 PHYSICIAN JANET T VISIT GROUP 15 PCC MINUTES OFFICE 96337 [facility] OUTPAT[facility] 1 1 PHYSICIAN JANET T VISIT GROUP 15 PCC MINUTES HOSPITAL [facility] - 1 1 [facility] OUTPATIEN INC [facility] - 1 1 [facility] OUTPATIEN INC T EMERGENCY 36949 DIPTI LLOYD DEPT 1 1 EMERGENCY VISIT SERVICES HIGH SEVERITY& THREAT CRITICAL ACCESS HOSPITAL EMERGENCY 04395 TER[facility]E 1 1 [facility] DEPARTMEN INC T VISIT HIGH/URGE NT SEVERITY OFFICE 28232 H [facility] OUTPATIEN 1 1 PHYSICIAN JANET T VISIT GROUP 15 PCC MINUTES OFFICE 36747 [facility] OUT[facility] 1 1 PHYSICIAN JANET T VISIT GROUP 15 PCC MINUTES OFFICE 19176 [facility] OUT[facility] 1 1 PHYSICIAN JANET T VISIT GROUP 15 PCC MINUTES HOSPITAL [facility] - 1 1 [facility] OUTPATIEN INC T EMERGENCY 15316 [facility] 1 1 [facility] DEPARTMEN INC T VISIT HIGH/URGE NT SEVERITY HOSPITAL [facility] - 1 1 [facility] OUTPATIEN INC T OFFICE 94470 [facility] OUTPATIEN 1 1 PHYSICIAN JANET T VISIT GROUP 15 PCC MINUTES OFFICE 41992 [facility] OUTPATIEN 0 0 PHYSICIAN JANET T VISIT GROUP 15 PCC MINUTES OFFICE 46864 [facility] OUTPATIEN 0 0 PHYSICIAN JANET T VISIT GROUP 40 PCC MINUTES OFFICE 22314 [facility] OUTPATIEN 0 0 PHYSICIAN JANET T VISIT GROUP 15 PCC MINUTES HOSPITAL [facility] - 0 0 [facility] OUTPATIEN INC T EMERGENCY 35528 TER[facility]E 0 0 [facility] DEPARTMEN INC T VISIT LOW/MODER SEVERITY EMERGENCY 87395 DIPTI CASTANEDA 0 0 EMERGENCY [facility] DEPARTMEN SERVICES T VISIT HIGH/URGE NT SEVERITY HOSPITAL [facility] - 0 0 [facility] OUTPATIEN INC T OFFICE 70087 OLMAN ANTOINES, OUTPATIEN 0 0 DON R DON R T VISIT 15 MINUTES OFFICE 50813 OLAMN ANTOINES, OUTPATIEN 0 0 DON R DON R T VISIT 15 MINUTES EMERGENCY 48283 DIPTI PARKER, DEPT 0 0 EMERGENCY KYLE VISIT SERVICES O HIGH SEVERITY& ASSOCIATE THREAT S FUN EMERGENCY 44254 TER[facility]E 0 0 [facility] DEPARTMEN INC T VISIT LOW/MODER SEVERITY [facility]OSPITAL [facility] - 0 0 [facility] OUTPATIEN INC T EMERGENCY 33616 [facility] 0 0 [facility] DEPARTMEN INC T VISIT HIGH/URGE NT SEVERITY HOSPITAL [facility] - 0 0 [facility] OUTPATIEN INC T EMERGENCY 64885 DIPTI CASTANEDA, DEPT 0 0 EMERGENCY [facility] VISIT SERVICES HIGH SEVERITY& ASSOCIATE THREAT S FUN EMERGENCY 84983 DIPTI CASTANEDA, 0 0 EMERGENCY [facility] SERVICES T VISIT HIGH/URGE ASSOCIATE NT S SEVERITY [facility]OSPITAL [facility] 0 0 [facility] 19664 TER[facility] 0 0 [facility] T VISIT LOW/MODER SEVERITY EMERGENCY 55256 OB RUPA- 0 0 [facility] T VISIT MODERATE SEVERITY
--- OUTSIDE RECORDS SUMMARY | 2017-07-09 11:48 | External Medical Summary Rpt | CCD ---
Demographics Preferred Language Kazakh Marital Status Unknown Sikh Affiliation Unknown Race Unknown Ethnic Group Unknown Author Author , WINSTON MONTERO Address Unknown Phone Immunization Unable to retrieve immunization data due to connection failure with Immunization Registry. Please try again later.
--- OUTSIDE RECORDS SUMMARY | 2017-07-09 11:48 | External Medical Summary Rpt | CCD ---
Demographics Preferred Language Belarusian Marital Status Unknown Mu-Ism Affiliation Unknown Race Unknown Ethnic Group Unknown Author Author , WINSTON MONTERO Address Unknown Phone Immunization Unable to retrieve immunization data due to connection failure with Immunization Registry. Please try again later.
--- OUTSIDE RECORDS SUMMARY | 2017-07-09 11:49 | External Medical Summary Rpt ---
Author Author [employer], [employer] Organization [employer] Address Unknown Phone Unavailable Results Thyroglobulin Ab [Units/volume] in Serum or Plasma Observa Value Referen Units Interpr Notes Date tion ce etation Range Thyroglob 0.0 - 0.9 IU/mL High Thyroglob Oct 5 ulin Ab ulin 2017 2:25 [Units/vo Antibody PM lume] in measured Serum or by Plasma [facility] thodology Performed at: - [facility] [address] [place] [address] [address] [place], [place] [id number] [employer]: Fabrizio Ambrocio PhD, Phone: [phone] Thyroperoxidase Ab [Units/volume] in Serum or Plasma Observa Value Referen Units Interpr Notes Date tion ce etation Range Thyropero 0 - 34 IU/mL High Performed Jul 02 xidase Ab at: 2017 2:25 - [facility] PM [Units/vo lume] in [place] [address] Serum or 0 [place], [place] [id number] [employer]: Fabrizio Ambrocio PhD, Phone: [phone] Thyrotropin [Units/volume] in Serum or Plasma Observa Value Referen Units Interpr Notes Date tion ce etation Range Thyrotrop 0.358 - uIU/ml No No Jul 02 in 3.740 informati informati 2017 2:25 [Units/vo on in on in PM lume] in source source Serum or data data Plasma Thyroxine (T4) free [Mass/volume] in Serum or Plasma Observa Value Referen Units Interpr Notes Date tion ce etation Range Thyroxine 0.76 - ng/dL Normal No Jul 02 (T4) 1.46 informati 2017 2:25 free on in PM [Mass/vol source ume] in data Serum or Plasma CBC W Auto Differential panel in Blood Observa Value Referen Units Interpr Notes Date tion ce etation Range ADD ON TEST PER . DO ON SAMPLE DRAWN IN ER 06/30/17 Basophils 0 - 0.2 K/MM3 Normal No Jun 30 inform2016 [#/volume on in 10:21 PM ] in source Blood by data Automated count Basophils 0.1 - 2.0 % Normal No Jun 302016 leukocyte on in 10:21 PM s in source Blood by data Automated count Eosinophi 0.0 - 0.4 K/mm3 Normal No Jun 30 ls 2016 [#/volume on in 10:21 PM ] in source Blood by data Automated count Eosinophi 0.1 - % Normal No Jun 30 ls/100 12.0 inform2016 leukocyte on in 10:21 PM s in source Blood by data Automated count Granulocy 1.8 - 7.8 K/mm3 High No Jun 30 leonora 2016 [#/volume on in 10:21 PM ] in source Blood by data Automated count Granulocy 37.0 - % Normal No Jun 30 leonora/100 80.0 2016 leukocyte on in 10:21 PM s in source Blood by data Automated count Hematocri 37.0 - % Normal No Jun 30 t [Volume 47.0 2016 on in 10:21 PM Fraction] source of Blood data Hemoglobi 12.2 - g/dL Normal No Jun 30 n 16.2 inform2016 [Mass/vol on in 10:21 PM ume] in source Blood data Lymphocyt 0.7 - 4.5 K/mm3 Normal No Jun 30 es 2016 [#/volume on in 10:21 PM ] in source Unspecifi data ed specimen by Automated count Lymphocyt 10 - 50.0 % Normal No Jun 30 es 2016 [#/volume on in 10:21 PM ] in source Unspecifi data ed specimen by Automated count Erythrocy 27 - 31.2 pg High No Jun 30 te mean 2016 corpuscul on in 10:21 PM ar source hemoglobi data n [Entitic mass] Erythrocy 31.8 - g/dl Normal No Jun 30 te mean 35.4 2016 corpuscul on in 10:21 PM ar source hemoglobi data n concentra tion [Mass/vol ume] by Automated count Erythrocy 82.2 - fl High No Jun 30 te mean 97.8 2016 corpuscul on in 10:21 PM ar volume source [Entitic data volume] by Automated count Monocytes 0.1 - 1.0 K/mm3 Normal No Oct 3 inform2016 [#/volume on in 10:21 PM ] in source Blood by data Automated count Monocytes 1.7 - 9.3 % Normal No Oct 3 /100 2016 leukocyte on in 10:21 PM s in source Blood by data Automated count Platelet 7.4 - fl Normal No Oct 3 mean 10.4 2016 volume on in 10:21 PM [Entitic source volume] data in Blood by Automated count Platelets 142 - 424 K/mm3 Normal No Oct 3 inform2016 [#/volume on in 10:21 PM ] in source Blood data Erythrocy 4.2 - 5.4 M/mm3 Normal No Oct 3 leonora informati 2016 [#/volume on in 10:21 PM ] in source Amniotic data fluid Erythrocy 11.5 - % Normal No Oct 3 te 17.5 informati 2016 distribut on in 10:21 PM ion width source [Entitic data volume] by Automated count Leukocyte 4.8 - K/MM3 High No Oct 3 s 10.8 inform2016 [#/volume on in 10:21 PM ] in source Blood data Basic metabolic panel in Blood Observa Value Referen Units Interpr Notes Date tion ce etation Range ADD ON TEST PER . DO ON SAMPLE DRAWN IN ER 06/30/17 Urea 7 - 18 mg/dL Normal No Oct 3 nitrogen 2016 [Mass/vol on in 10:21 PM ume] in source Serum or data Plasma Calcium 8.5 - mg/dL Normal No Oct 3 [Mass/vol 10.1 informati 2016 ume] in on in 10:21 PM Serum or source Plasma data Chloride 98 - 107 mmoL/L Normal No Oct 3 [Moles/vo informati 2017 lume] in on in 10:21 PM Serum or source Plasma data Carbon 21.0 - mmoL/L Normal No Oct 3 dioxide, 32.0 informati 2016 total on in 10:21 PM [Moles/vo source lume] in data Serum or Plasma Creatinin 0.55 - mg/dL Normal No Oct 3 e 1.02 informati 2016 [Mass/vol on in 10:21 PM ume] in source Serum or data Plasma Creatinin 50 - 200 ML/MIN Normal No Oct 3 e renal 2017 clearance on in 10:21 PM source predicted data by Cockcroft -Gault formula Estimated 59- ML/MIN No REFERENCE Oct 3 informati RANGE: 2017 glomerula on in >60 10:21 PM r source ML/MIN/1. filtratio data 73 SQUARE n rate METERSIf (GF this patient is -A merican, then multiply theresult by 1.210. Glucose 74 - 106 mg/dL Normal No Oct 3 [Mass/vol informati 2017 ume] in on in 10:21 PM Serum or source Plasma data Potassium 3.5 - 5.1 mmoL/L High No Oct 3 informati 2017 [Moles/vo on in 10:21 PM lume] in source Serum or data Plasma Sodium 136 - 145 mmoL/L Normal No Oct 3 [Moles/vo informati 2017 lume] in on in 10:21 PM Serum or source Plasma data THYROID PANEL 2 Observa Value Referen Units Interpr Notes Date tion ce etation Range ADD ON TEST PER . DO ON SAMPLE DRAWN IN ER 06/30/17 Thyroxine 5.93 - ug/dl Normal No Oct 3 (T4) 13.13 informati 2017 free on in 10:21 PM index in source Serum or data Plasma Triiodoth 31 - 39 % Normal No Oct 3 yronine informati 2017 (T3) on in 10:21 PM resin source uptake in data Serum or Plasma Thyroxine 4.7 - ug/dl Normal No Oct 3 (T4) 13.3 informati 2017 [Mass/vol on in 10:21 PM ume] in source Serum or data Plasma Thyrotrop 0.358 - uIU/ml High No Oct 3 in 3.740 informati 2016 [Units/vo on in 10:21 PM lume] in source Serum or data Plasma Lactate [Moles/volume] in Blood Observa Value Referen Units Interpr Notes Date tion ce etation Range Lactate 0.4 - 2.0 mmol/L Normal No Mar 12 [Moles/vo informati 2016 8:20 lume] in on in PM Blood source data Amylase [Enzymatic activity/volume] in Serum or Plasma Observa Value Referen Units Interpr Notes Date ti ce etation Range Amylase 25 - 115 U/L Normal No Mar 12 [Enzymati informati 2016 8:05 c on in PM activity/ source volume] data in Serum or Plasma Comprehensive metabolic 2000 panel in Serum or Plasma Observa Value Referen Units Interpr Notes Date tion ce etation Range Albumin/G 1.1 - 1.8 No Low No Hai 15 lobulin informati informati 2016 8:05 [Mass on in on in PM ratio] in source source Serum or data data Plasma Albumin 3.4 - 5.0 gm/dL Normal No Feb 15 [Mass/vol informati 2016 8:05 ume] in on in PM Serum or source Plasma data Alkaline 46 - 116 U/L Normal No Mar 12 phosphata informati 2016 8:05 se on in PM [Enzymati source c data activity/ volume] in Serum or Plasma Bilirubin 0.2 - 1.0 mg/dL Normal No Feb 15 .total informati 2016 8:05 [Mass/vol on in PM ume] in source Serum or data Plasma Urea 7 - 18 mg/dL Normal No Mar 12 nitrogen informati 2016 8:05 [Mass/vol on in PM ume] in source Serum or data Plasma Calcium 8.5 - mg/dL Normal No Mar 12 [Mass/vol 10.1 informati 2016 8:05 ume] in on in PM Serum or source Plasma data Chloride 98 - 107 mmoL/L Normal No Mar 12 [Moles/vo informati 2016 8:05 lume] in on in PM Serum or source Plasma data Carbon 21.0 - mmoL/L Normal No Mar 12 dioxide, 32.0 informati 2017 8:05 total on in PM [Moles/vo source lume] in data Serum or Plasma Creatinin 0.55 - mg/dL Normal No Feb 15 e 1.02 informati 2016 8:05 [Mass/vol on in PM ume] in source Serum or data Plasma Creatinin 50 - 200 ML/MIN Normal No Feb 15 e renal informati 2016 8:05 clearance on in PM source predicted data by Cockcroft -Gault formula Estimated 59- ML/MIN No REFERENCE Hai 15 informati RANGE: 2017 8:05 glomerula on in >60 PM r source ML/MIN/1. filtratio data 73 SQUARE n rate METERSIf (GF this patient is -A merican, then multiply theresult by 1.210. Globulin 1.3 - 3.2 gm/dL High No Feb 15 [Mass/vol informati 2016 8:05 ume] in on in PM Serum source data Glucose 74 - 106 mg/dL High No Feb 15 [Mass/vol informati 2016 8:05 ume] in on in PM Serum or source Plasma data Potassium 3.5 - 5.1 mmoL/L Normal No Mar 12 inform2016 8:05 [Moles/vo on in PM lume] in source Serum or data Plasma Sodium 136 - 145 mmoL/L Normal No Mar 12 [Moles/vo 2016 8:05 lume] in on in PM Serum or source Plasma data Aspartate 15 - 37 U/L Low No Mar 12 inform2016 8:05 aminotran on in PM sferase source [Enzymati data c activity/ volume] in Serum or Plasma Alanine 12 - 78 U/L Normal No Mar 12 aminotran inform2016 8:05 sferase on in PM [Enzymati source c data activity/ volume] in Serum or Plasma Protein 6.4 - 8.2 gm/dL Normal No Mar 12 [Mass/vol informati 2016 8:05 ume] in on in PM Serum or source Plasma data Lipase [Enzymatic activity/volume] in Serum or Plasma Observa Value Referen Units Interpr Notes Date tion ce etation Range Lipase 73 - 393 U/L Normal No Mar 12 [Enzymati inform2016 8:05 c on in PM activity/ source volume] data in Serum or Plasma CBC W Auto Differential panel in Blood Observa Value Referen Units Interpr Notes Date tion ce etation Range Basophils 0 - 0.2 K/MM3 Normal No Mar 122016 8:05 [#/volume on in PM ] in source Blood by data Automated count Basophils 0.1 - 2.0 % Normal No Mar 12 informati 2016 8:05 leukocyte on in PM s in source Blood by data Automated count Eosinophi 0.0 - 0.4 K/mm3 Normal No Mar 12 ls ati 2016 8:05 [#/volume on in PM ] in source Blood by data Automated count Eosinophi 0.1 - % Normal No Mar 12 ls/100 12.0 informati 2016 8:05 leukocyte on in PM s in source Blood by data Automated count Granulocy 1.8 - 7.8 K/mm3 High No Mar 12 leonora informati 2016 8:05 [#/volume on in PM ] in source Blood by data Automated count Granulocy 37.0 - % Normal No Mar 12 leonora/100 80.0 informati 2016 8:05 leukocyte on in PM s in source Blood by data Automated count Hematocri 37.0 - % Normal No Feb 15 t [Volume 47.0 informati 2017 8:05 on in PM Fraction] source of Blood data Hemoglobi 12.2 - g/dL Normal No Feb 15 n 16.2 informati 2017 8:05 [Mass/vol on in PM ume] in source Blood data Lymphocyt 0.7 - 4.5 K/mm3 Normal No Feb 15 es informati 2016 8:05 [#/volume on in PM ] in source Unspecifi data ed specimen by Automated count Lymphocyt 10 - 50.0 % Normal No Feb 15 es informati 2016 8:05 [#/volume on in PM ] in source Unspecifi data ed specimen by Automated count Erythrocy 27 - 31.2 pg High No Mar 12 te mean informati 2016 8:05 corpuscul on in PM ar source hemoglobi data n [Entitic mass] Erythrocy 31.8 - g/dl Normal No Mar 12 te mean 35.4 informati 2016 8:05 corpuscul on in PM ar source hemoglobi data n concentra tion [Mass/vol ume] by Automated count Erythrocy 82.2 - fl Normal No Mar 12 te mean 97.8 informati 2017 8:05 corpuscul on in PM ar volume source [Entitic data volume] by Automated count Monocytes 0.1 - 1.0 K/mm3 Normal No Feb 15 informati 2017 8:05 [#/volume on in PM ] in source Blood by data Automated count Monocytes 1.7 - 9.3 % Normal No Feb 15 /100 informati 2017 8:05 leukocyte on in PM s in source Blood by data Automated count Platelet 7.4 - fl Low No Mar 12 mean 10.4 informati 2017 8:05 volume on in PM [Entitic source volume] data in Blood by Automated count Platelets 142 - 424 K/mm3 Normal No Feb 15 informati 2017 8:05 [#/volume on in PM ] in source Blood data Erythrocy 4.2 - 5.4 M/mm3 Normal No Feb 15 leonora informati 2017 8:05 [#/volume on in PM ] in source Amniotic data fluid Erythrocy 11.5 - % Normal No Feb 15 te 17.5 informati 2017 8:05 distribut on in PM ion width source [Entitic data volume] by Automated count Leukocyte 4.8 - K/MM3 High No Feb 15 s 10.8 informati 2017 8:05 [#/volume on in PM ] in source Blood data Urinalysis dipstick W Reflex Microscopic panel in Urine Observa Value Referen Units Interpr Notes Date tion ce etation Range Appeara CLEAR CLEAR No No No Feb 15 nce of informa informa informa 2017 Urine tion in tion in tion in 7:55 PM source source source data data data Bacteri TRACE O No No No Mar 12 a informa informa informa 2016 [Presen tion in tion in tion in 7:55 PM ce] in source source source Urine data data data sedimen t by Light microsc opy Bilirub NEGATIV NEG No No No Mar 12 in E informa informa informa 2016 [Presen tion in tion in tion in 7:55 PM ce] in source source source Urine data data data by Test strip Erythro TRACE-I NEG No No No Mar 12 cytes NTACT informa informa informa 2016 [Presen tion in tion in tion in 7:55 PM ce] in source source source Urine data data data Color YELLOW YELLOW No No No Mar 12 of informa informa informa 2017 Urine tion in tion in tion in 7:55 PM source source source data data data Glucose NEG No No No Mar 12 [Mass/vol informati informati informati 2017 7:55 ume] in on in on in on in PM Urine by source source source Test data data data strip Ketones NEGATIV NEG mg/dL No No Mar 12 E informa informa 2016 [Presen tion in tion in 7:55 PM ce] in source source Urine data data by Automat ed test strip Mucus NEGATIV NEG No No No Mar 12 [Presen E informa informa informa 2017 ce] in tion in tion in tion in 7:55 PM Urine source source source sedimen data data data t by Light microsc opy Nitrite NEGATIV NEG No No No Mar 12 E informa informa informa 2016 [Presen tion in tion in tion in 7:55 PM ce] in source source source Urine data data data by Test strip pH of 5.0 - 8.5 No Normal No Feb 15 Urine informati informati 2017 7:55 on in on in PM source source data data Protein NEG mg/dL No No Mar 12 [Mass/vol informati informati 2017 7:55 ume] in on in on in PM Urine by source source Automated data data test strip Erythro OCC 0 rbc/hpf No No Mar 12 cytes informa informa 2017 [Presen tion in tion in 7:55 PM ce] in source source Urine data data sedimen t by Light microsc opy Specific 1.005 - No Normal No Mar 12 gravity 1.030 informati informati 2017 7:55 of Urine on in on in PM source source data data Epithel 10-20 0 - 5 #/hpf No No Mar 12 ial informa informa 2017 cells.s tion in tion in 7:55 PM quamous source source data data [Presen ce] in Urine sedimen t by Microsc opy high power field Urobili 0.2 NEG E.U./dL No No Mar 12 nogen informa informa 2017 [Presen tion in tion in 7:55 PM ce] in source source Urine data data by Test strip Leukocyte O wbc/hpf No No Mar 12 s informati informati 2017 7:55 [#/volume on in on in PM ] in source source Urine data data Choriogonadotropin.beta subunit [Units] in 24 hour Urine Observa Value Referen Units Interpr Notes Date tion ce etation Range Choriogon NEG No No No Mar 12 adotropin informati informati informati 2017 7:55 .beta on in on in on in PM subunit source source source [Units] data data data in 24 hour Urine Urinalysis dipstick W Reflex Microscopic panel in Urine Observa Value Referen Units Interpr Notes Date tion ce etation Range Appeara CLEAR CLEAR No No No Mar 12 nce of informa informa informa 2017 Urine tion in tion in tion in 7:55 PM source source source data data data Bilirub NEGATIV NEG No No No Mar 12 in E informa informa informa 2016 [Presen tion in tion in tion in 7:55 PM ce] in source source source Urine data data data by Test strip Erythro TRACE-I NEG No No No Mar 12 cytes NTACT informa informa informa 2017 [Presen tion in tion in tion in 7:55 PM ce] in source source source Urine data data data Color YELLOW YELLOW No No No Hai 15 of informa informa informa 2017 Urine tion in tion in tion in 7:55 PM source source source data data data Glucose NEG No No No Hai 15 [Mass/vol informati informati informati 2017 7:55 ume] in on in on in on in PM Urine by source source source Test data data data strip Ketones NEGATIV NEG mg/dL No No Hai 15 E informa informa 2016 [Presen tion in tion in 7:55 PM ce] in source source Urine data data by Automat ed test strip Mucus NEGATIV NEG No No No Feb 15 [Presen E informa informa informa 2016 ce] in tion in tion in tion in 7:55 PM Urine source source source sedimen data data data t by Light microsc opy Nitrite NEGATIV NEG No No No Hai 15 E informa informa informa 2016 [Presen tion in tion in tion in 7:55 PM ce] in source source source Urine data data data by Test strip pH of 5.0 - 8.5 No Normal No Hai 15 Urine informati informati 2017 7:55 on in on in PM source source data data Protein NEG mg/dL No No Feb 15 [Mass/vol informati informati 2017 7:55 ume] in on in on in PM Urine by source source Automated data data test strip Specific 1.005 - No Normal No Hai 15 gravity 1.030 informati informati 2017 7:55 of Urine on in on in PM source source data data Urobili 0.2 NEG E.U./dL No No Hai 15 nogen informa informa 2016 [Presen tion in tion in 7:55 PM ce] in source source Urine data data by Test strip
--- OUTSIDE RECORDS SUMMARY | 2017-07-09 11:49 | External Medical Summary Rpt ---
Author Author [employer], [employer] Address Unknown Phone Unavailable Results Thyroglobulin Ab [Units/volume] in Serum or Plasma Observa Value Referen Units Interpr Notes Date tion ce etation Range Thyroglob 0.0 - 0.9 IU/mL High Thyroglob Oct 5 ulin Ab ulin 2017 2:25 [Units/vo Antibody PM lume] in measured Serum or by Plasma [employer] thod[facility] Performed at: - [facility] [address] [place] [address] [address] [place], [place] [id number] Dry Man: Fabrizio Ambrocio PhD, Phone: [phone] Thyroperoxidase Ab [Units/volume] in Serum or Plasma Observa Value Referen Units Interpr Notes Date tion ce etation Range Thyropero 0 - 34 IU/mL High Performed Jul 02 xidase Ab at: 2017 2:25 - [facility] PM [Units/vo lume] in [place] [address] Serum or [address] [place], [place] [id number] Dry Man: Fabrizio Ambrocio PhD, Phone: [phone] Thyrotropin [Units/volume] in Serum or Plasma [...]
== END ==
LOC: ER 22:09
PROVIDERS: Internal Medicine
DX: R51 Headache (principal); I10 Essential (primary) hypertension; F17.210 Nicotine dependence, cigarettes, uncomplicated; Z88.2 Allergy status to sulfonamides; Z88.6 Allergy status to analgesic agent

== ENCOUNTER → 2017-07-02 | Outpatient (CLI) | payer OTHER ==
[2017-07-03 14:38] LABS: Thyroglobulin Antibody 57.3 IU/mL (0.0-0.9)
== END ==
LOC: LAB 14:28
PROVIDERS: Otolaryngology
DX: E03.9 Hypothyroidism, unspecified (principal)

== ENCOUNTER → 2017-07-03 | Outpatient (CLI) | payer OTHER ==
--- NOTE | 2017-07-08 08:09 | RADIOLOGY REPORT PS360 ---
DIG MAMM-SCREEN YANNA W/CAD CAD Screening COMPARISON: Digital mammograms 07/13/2014 and 07/23/2015 INDICATION: There is a history of breast cancer in the patient's aunt diagnosed before menopause. TECHNIQUE: Standard CC and MLO images were obtained. R2 CAD reviewed. FINDINGS: There is a diffusely dense and heterogenic parenchymal pattern somewhat lessening the sensitivity of mammography. The findings are stable and unchanged from the previous exams. There is no new or suspicious lesion seen and there are no suspicious microcalcifications. IMPRESSION: Stable exam with no suspicious lesion seen recommend yearly follow-up BI-RADS CATEGORY: 1_Negative RECOMMENDED FOLLOWUP: 12M 12 MONTH FOLLOW-UP (A letter has been sent to the patient regarding results of the study.)
== END ==
LOC: RAD 16:40
DX: Z12.31 Encounter for screening mammogram for malignant neoplasm of breast (principal)
CPT/HCPCS: G0202

== ENCOUNTER → 2017-07-07 | Outpatient (CLI) | payer OTHER ==
--- NOTE | 2017-07-07 09:57 | CARDIOVASCULAR REPORT ---
"Renal Arterial Duplex Indications: HTN. IMPRESSIONS 1. The right renal artery appears normal. 2. Unable to visualize the left renal artery. Suggest further testing. Difficult exam. History: Risk factors: Hypertension. Complete renal arterial duplex. Duplex scan and Doppler flow study including spectral analysis, color and guzman scale imaging. Height: Height: 167.6cm. Height: 66in. Weight: Weight: 81.6kg. Weight: 179.6lb. Body mass index: BMI: 29.1kg/m^2. Body surface area: BSA: 1.97m^2. Patient status: Outpatient. Tables: Arterial flow: + +-------+--------+ |Location |V sys |V ed | + +-------+--------+ |Right renal - proximal|136cm/s|44cm/s | + +-------+--------+ |Right renal - mid |151cm/s|49.3cm/s| + +-------+--------+ |Right renal - distal |198cm/s|68.3cm/s| + +-------+--------+ Renal anatomy: + +-------+-------+ | |Left |Right | + +-------+-------+ |Long axis |11.53cm|11.19cm| + +-------+-------+ |Short axis |5.45cm |5.94cm | + +-------+-------+ |Cortical thickness|1.9cm |1.8cm | + +-------+-------+ Velocity ratios: + +-----+ | |V sys| + +-----+ |Right renal/aortic|1.1 | + +-----+ (Report amended ) Electronically signed by: Inocencio Kapoor [id number]"
== END ==
LOC: RT 07:38
DX: R07.9 Chest pain, unspecified (principal); I10 Essential (primary) hypertension; Z72.0 Tobacco use

== ENCOUNTER → 2017-07-16 | Outpatient (CLI) | payer OTHER ==
[2017-07-16 11:33] LABS: LYMPH # 2.4 K/mm3 (0.7-4.5); LYMPH % 23.1 % (10-50.0)
[2017-07-16 12:12] LABS: BUN 7 mg/dL (7-18)
[2017-07-16 12:13] LABS: GFR (ESTIMATED) 80 ML/MIN (59-)
== END ==
LOC: LAB 10:46
PROVIDERS: Internal Medicine
DX: I10 Essential (primary) hypertension (principal); E78.5 Hyperlipidemia, unspecified; D72.829 Elevated white blood cell count, unspecified; D53.9 Nutritional anemia, unspecified

== ENCOUNTER → 2017-08-31 | Outpatient (CLI) | payer OTHER ==
[2017-08-31 13:23] LABS: BUN 6 mg/dL (7-18)
[2017-08-31 13:24] LABS: GFR (ESTIMATED) 80 ML/MIN (59-)
[2017-08-31 15:29] LABS: HEMOGLOBIN 13.4 g/dL (12.2-16.2); LYMPH # 3.8 K/mm3 (0.7-4.5); LYMPH % 34.7 % (10-50.0)
[2017-09-01 08:50] LABS: FSH 7.1 mIU/mL (.); LH 5.6 mIU/mL (.); Progesterone 4.1 ng/mL (.)
== END ==
LOC: LAB 12:18
PROVIDERS: Emergency Medicine
DX: N91.2 Amenorrhea, unspecified (principal); R53.83 Other fatigue; R11.0 Nausea